=== PATIENT | male | born 1965 | race Caucasian/White ===

== ENCOUNTER 2017-01-25 10:20 | Inpatient (IN) | payer OTHER ==
[2017-01-25] MEDS ORDERED: HYDROmorphone 1 MG/ML 1 ML SYRINGE IVP STA ×2 (10:39→13:00)
[2017-01-25] MEDS ORDERED: ORPHENADRINE 30 MG/ML 2 ML VIAL IVP STA (10:39)
[2017-01-25] MEDS ORDERED: ONDANSETRON 4 MG/2 ML VIAL IVP STA (10:39)
[2017-01-25] MEDS ORDERED: SODIUM CHLORIDE 0.9% 1,000 ML IV STA (10:39)
--- NOTE | 2017-01-25 10:43 | ED ---
Back Pain HPI - General Chief Complaint: Back Pain/Injury Stated Complaint: back pain, sciatica, poss blood clot Time Seen by Provider: 01/25/17 10:34 Source: patient, RN notes reviewed Limitations: no limitations - History of Present Illness Initial Comments: 51-year-old male presents to the emergency Department chief complaint of back pain. Patient states he's been doing with this back pain for a few months now. Patient states he had a recent MRI. Patient states today the pain is now radiating down both legs. Patient states states some lower extremity weakness. Patient denies a loss of bowel or bladder function or any saddle anesthesia with this. Patient denies any falls traumas or injuries. Patient states he also has noticed some yellowing to the eyes. Patient states she's been told in the past that he is an enlarged liver. Patient states that he was concerned due to his symptoms except that he should be seen. Patient denies any recent fever, chills, shortness of breath, chest pain, abdominal pain, nausea vomiting , numbness or tingling, dysuria or hematuria, constipation or diarrhea, headaches or visual changes, or any other current symptoms. - Related Data Home Medications Medication Instructions Recorded Confirmed Albuterol Inhaler [Ventolin Hfa 1 - 2 puff INHALATION RT-Q6H PRN 01/25/17 Inhaler] Budesonide/Formoterol Fumarate 2 puff INHALATION RT-BID 01/25/17 01/25/17 [Symbicort 160-4.5 Mcg Inhaler] Cyclobenzaprine [Flexeril] 5 mg PO HS PRN 01/25/17 01/25/17 Ergocalciferol [Vitamin D2] 50,000 unit PO Q7D 01/25/17 01/25/17 Omeprazole [PriLOSEC] 40 mg PO DAILY 01/25/17 01/25/17 Allergies Allergy/AdvReac Type Severity Reaction Status Date / Time No Known Allergies Allergy Verified 01/25/17 10:46 Review of Systems ROS Statement: Those systems with pertinent positive or pertinent negative responses have been documented in the HPI. ROS Other: All systems not noted in ROS Statement are negative. Past Medical History Past Medical History: COPD Additional Past Medical History / Comment(s): sciatica peptic ulcer enlarged liver possible dvt History of Any Multi-Drug Resistant Organisms: None Reported Additional Past Surgical History / Comment(s): epidural shots Past Psychological History: No Psychological Hx Reported Smoking Status: Current every day smoker Past Alcohol Use History: Rare Past Drug Use History: None Reported General Exam - General Exam Comments Initial Comments: General: The patient is awake and alert, in no distress, and does not appear acutely ill. Eye: Pupils are equal, round and reactive to light, extra-ocular movements are intact; there is normal conjunctiva bilaterally. Jaundice. Ears, nose, mouth and throat: There are moist mucous membranes and no oral lesions. Neck: The neck is supple, there is no tenderness. Cardiovascular: There is a regular rate and rhythm. No murmur, rub or gallop is appreciated. Respiratory: Lungs are clear to auscultation, respirations are non-labored, breath sounds are equal. No wheezes, stridor, rales, or rhonchi. Gastrointestinal: Soft, non-distended, non-tender abdomen without masses or organomegaly noted. There is no rebound or guarding present. No CVA tenderness. Bowel sounds are unremarkable. Back: There is no tenderness to palpation in the midline. There is no obvious deformity. No rashes noted. Musculoskeletal: Normal ROM, no tenderness, There is no pedal edema. There is no calf tenderness or swelling. Sensation intact. Pulses equal bilaterally 2+. Neurological: CN II-XII intact, There are no obvious motor or sensory deficits. Coordination appears grossly intact. Speech is normal. Skin: Skin is warm and dry and no rashes or lesions are noted. Psychiatric: Cooperative, appropriate mood & affect, normal judgment. Limitations: no limitations Course Vital Signs 01/25/17 01/25/17 10:25 11:56 Temperature 98.6 F 97.7 F Pulse Rate 112 H 109 H Respiratory 18 15 Rate Blood Pressure 172/78 170/88 O2 Sat by Pulse 98 95 Oximetry Medical Decision Making - Medical Decision Making 51yo male presents with cc of back pain. Patient is found to be jaundiced on exam as well. At this time lab work is reviewed that does show some concern for liver failure with ultrasound showing concern for cirrhosis. We did an elevated bilirubin as well as L has an elevated INR. Patient is also complaining of back pain and did have an outpatient MRI. This time we will admit the patient to city [facility]. We will continue the patient on fluids. We will continue patient on pain medication. See Dr. was contacted who does agree to the admission. We will consult orthopedics for the patient's intractable back pain. This is discussed with the patient with the plan. We are pending hepatic panel this time which will be followed up with by admitting physician - Lab Data Result diagrams: 01/25/17 11:15 01/25/17 11:15 Lab Results 01/25/17 01/25/17 01/25/17 Range/Units 11:15 11:15 11:15 WBC 6.4 (3.8-10.6) k/uL RBC 3.64 L (4.30-5.90) m/uL Hgb 13.4 (13.0-17.5) gm/dL Hct 38.0 L (39.0-53.0) % MCV 104.5 H (80.0-100.0) fL MCH 36.8 H (25.0-35.0) pg MCHC 35.2 (31.0-37.0) g/dL RDW 16.7 H (11.5-15.5) % Plt Count 51 L (150-450) k/uL Neutrophils % 82 % Lymphocytes % 8 % Monocytes % 8 % Eosinophils % 0 % Basophils % 0 % Neutrophils # 5.3 (1.3-7.7) k/uL Lymphocytes # 0.5 L (1.0-4.8) k/uL Monocytes # 0.5 (0-1.0) k/uL Eosinophils # 0.0 (0-0.7) k/uL Basophils # 0.0 (0-0.2) k/uL Anisocytosis Slight Macrocytosis Moderate PT (9.0-12.0) sec INR (<1.1) APTT (22.0-30.0) sec Sodium 134 L (137-145) mmol/L Potassium 4.0 (3.5-5.1) mmol/L Chloride 97 L (98-107) mmol/L Carbon Dioxide 29 (22-30) mmol/L Anion Gap 8 mmol/L BUN 15 (9-20) mg/dL Creatinine 0.54 L (0.66-1.25) mg/dL Est GFR (MDRD) Af Amer >60 (>60 ml/min/1.73 sqM) Est GFR (MDRD) Non-Af >60 (>60 ml/min/1.73 sqM) Glucose 119 H (74-99) mg/dL Calcium 8.9 (8.4-10.2) mg/dL Phosphorus 2.7 (2.5-4.5) mg/dL Magnesium 1.5 L (1.6-2.3) mg/dL Total Bilirubin 7.3 H (0.2-1.3) mg/dL Conjugated Bilirubin (0.0-0.3) mg/dL Unconjugated Bilirubin (0.0-1.1) mg/dL Delta Bilirubin (0.0-0.2) mg/dL AST 196 H (17-59) U/L ALT 73 H (21-72) U/L Alkaline Phosphatase 146 H (38-126) U/L Ammonia 29 (<30) umol/L Total Protein 7.9 (6.3-8.2) g/dL Albumin 3.4 L (3.5-5.0) g/dL Amylase 91 (30-110) U/L Lipase 266 (23-300) U/L Urine Color Urine Appearance (Clear) Urine pH (5.0-8.0) Ur Specific [place] (1.001-1.035) Urine Protein (Negative) Urine Glucose (UA) (Negative) Urine Ketones (Negative) Urine Blood (Negative) Urine Nitrite (Negative) Urine Bilirubin (Negative) Urine Urobilinogen (<2.0) mg/dL Ur Leukocyte Esterase (Negative) 01/25/17 01/25/17 01/25/17 Range/Units 11:15 11:15 11:15 WBC (3.8-10.6) k/uL RBC (4.30-5.90) m/uL Hgb (13.0-17.5) gm/dL Hct (39.0-53.0) % MCV (80.0-100.0) fL MCH (25.0-35.0) pg MCHC (31.0-37.0) g/dL RDW (11.5-15.5) % Plt Count (150-450) k/uL Neutrophils % % Lymphocytes % % Monocytes % % Eosinophils % % Basophils % % Neutrophils # (1.3-7.7) k/uL Lymphocytes # (1.0-4.8) k/uL Monocytes # (0-1.0) k/uL Eosinophils # (0-0.7) k/uL Basophils # (0-0.2) k/uL Anisocytosis Macrocytosis PT 14.8 H (9.0-12.0) sec INR 1.5 (<1.1) APTT 31.3 H (22.0-30.0) sec Sodium (137-145) mmol/L Potassium (3.5-5.1) mmol/L Chloride (98-107) mmol/L Carbon Dioxide (22-30) mmol/L Anion Gap mmol/L BUN (9-20) mg/dL Creatinine (0.66-1.25) mg/dL Est GFR (MDRD) Af Amer (>60 ml/min/1.73 sqM) Est GFR (MDRD) Non-Af (>60 ml/min/1.73 sqM) Glucose (74-99) mg/dL Calcium (8.4-10.2) mg/dL Phosphorus (2.5-4.5) mg/dL Magnesium (1.6-2.3) mg/dL Total Bilirubin 7.3 H (0.2-1.3) mg/dL Conjugated Bilirubin 2.0 H (0.0-0.3) mg/dL Unconjugated Bilirubin 3.3 H (0.0-1.1) mg/dL Delta Bilirubin 2.0 H (0.0-0.2) mg/dL AST (17-59) U/L ALT (21-72) U/L Alkaline Phosphatase (38-126) U/L Ammonia (<30) umol/L Total Protein (6.3-8.2) g/dL Albumin (3.5-5.0) g/dL Amylase (30-110) U/L Lipase (23-300) U/L Urine Color Light Brown Urine Appearance Clear (Clear) Urine pH 6.5 (5.0-8.0) Ur Specific [place] 1.016 (1.001-1.035) Urine Protein Trace H (Negative) Urine Glucose (UA) Negative (Negative) Urine Ketones Negative (Negative) Urine Blood Negative (Negative) Urine Nitrite Negative (Negative) Urine Bilirubin 1+ H (Negative) Urine Urobilinogen 6.0 (<2.0) mg/dL Ur Leukocyte Esterase Negative (Negative) - Radiology Data Radiology results: report reviewed, image reviewed Disposition Clinical Impression: Ascites, Cirrhosis, Elevated bilirubin, Intractable back pain, Jaundice Disposition: ADMITTED IP TO THIS [facility] Condition: Stable Referrals: Doug Ragsdale MD [Primary Care Provider] - 1-2 days Time of Disposition: 13:02 Decision Date: 01/25/17 Decision Time: 13:02
[2017-01-25 11:43] LABS: Appearance,Urine Clear (Clear); Bilirubin,Urine 1+ (Negative); Glucose,Urine (UA) Negative (Negative); Ketones,Urine Negative (Negative); Leukocyte Esterase,Urine Negative (Negative); Nitrite,Urine Negative (Negative); PH, Urine 6.5 (5.0-8.0); Protein,Urine Trace (Negative); Specific Gravity,Urine 1.016 (1.001-1.035); UA Billing (MACRO vs. MICRO) CHEM
[2017-01-25 11:50] LABS: Anisocytosis Slight; Basophils % (A) 0 %; CHCM 33.7; Eosinophils % (A) 0 %; HDW 1.95; HGB 13.4 gm/dL (13.0-17.5); Luc # (Auto) 0.15; Luc % (Auto) 2; Lymphocytes # (A) 0.5 k/uL (1.0-4.8); Lymphocytes % (A) 8 %; MCH 36.8 pg (25.0-35.0); MCHC 35.2 g/dL (31.0-37.0); MCV 104.5 fL (80.0-100.0); Macrocytosis Moderate; Mean Platelet Volume 9.4; Monocytes # (A) 0.5 k/uL (0-1.0); Monocytes % (A) 8 %; Neutrophils # (A) 5.3 k/uL (1.3-7.7); Neutrophils % (A) 82 %; RBC 3.64 m/uL (4.30-5.90); RDW 16.7 % (11.5-15.5); WBC 6.4 k/uL (3.8-10.6); WBC (Perox) 6.42
[2017-01-25 11:53] LABS: Amylase 91 U/L (30-110); Anion Gap 8 mmol/L; Blood Urea Nitrogen 15 mg/dL (9-20); Calcium 8.9 mg/dL (8.4-10.2); Carbon Dioxide 29 mmol/L (22-30); Chloride 97 mmol/L (98-107); Glucose 119 mg/dL (74-99); Magnesium 1.5 mg/dL (1.6-2.3); Non-African American GFR(MDRD) >60 (>60 ml/min/1.73 sqM); Phosphorous 2.7 mg/dL (2.5-4.5); Sodium 134 mmol/L (137-145); Total Protein 7.9 g/dL (6.3-8.2)
[2017-01-25 12:01] LABS: AST 196 U/L (17-59); Total Bilirubin 7.3 mg/dL (0.2-1.3)
[2017-01-25 12:02] LABS: ALT 73 U/L (21-72); Alkaline Phosphatase 146 U/L (38-126); INR 1.5 (<1.1); Partial Thromboplastin Time 31.3 sec (22.0-30.0); Prothrombin Time 14.8 sec (9.0-12.0)
[2017-01-25 12:24] LABS: Total Bilirubin 7.3 mg/dL (0.2-1.3)
--- NOTE | 2017-01-25 12:53 | US ---
EXAMINATION TYPE: US abdomen limited DATE OF EXAM: 01/25/2017 COMPARISON: NONE CLINICAL HISTORY: RUQ pain. bloated, taut belly, h/o peptic ulcer, back pain EXAM MEASUREMENTS: Liver Length: 14.7 cm Gallbladder Wall: 0.4 cm CBD: 0.5 cm Right Kidney: 11.1 x 67.0 x 6.4 cm Pancreas: not well delineated Liver: Increased attenuation; fluid surrounding liver Gallbladder: Thick walled, dilated ( 14cm) gallblader with no stones Evidence for sonographic Elena's sign: pain all over CBD: wnl Right Kidney: No hydronephrosis or masses seen IMPRESSION: 1. Coarse echo appearance slightly lobulated contour may reflect underlying hepatocellular disease an d possibly cirrhosis. Correlate clinically. 2. Ascites. 3. Gallbladder hydrops of uncertain etiology.
--- NOTE | 2017-01-25 13:01 | XR ---
EXAMINATION TYPE: XR abdomen 2V DATE OF EXAM: 01/25/2017 COMPARISON: NONE HISTORY: Pain TECHNIQUE: Supine and upright images of the abdomen obtained FINDINGS: Small bowel demonstrates no evidence for dilatation or air fluid levels. Gas and fecal material is seen in non-distended colon. No convincing evidence for pneumoperitoneum. No unusual calcifications. The lung bases are clear. The osseous structures are intact. IMPRESSION: 1. Overall nonobstructive bowel gas pattern.
[2017-01-25] MEDS ORDERED: NALOXONE 0.4 MG/ML 1 ML VIAL IV PRN (13:02)
[2017-01-25] MEDS ORDERED: HYDROmorphone 1 MG/ML 1 ML SYRINGE IV PRN (13:02)
[2017-01-25] MEDS ORDERED: ALBUTEROL NEBULIZED 2.5 MG/3 ML INHALATION PRN (13:05)
[2017-01-25 13:08] LABS: Hepatitis B Surface Ag Index 0.07
[2017-01-25 13:13] LABS: Hepatitis B Core IgM Index 0.09
[2017-01-25] MEDS ORDERED: ERGOCALCIFEROL 50,000 UNIT CAP PO SCH (13:15)
[2017-01-25 13:20] LABS: Acetaminophen <10.0 ug/mL; Cholesterol 177 mg/dL (<200); HDL Cholesterol 31 mg/dL (40-60); Salicylate <1.0 mg/dL; Triglycerides 90 mg/dL (<150)
[2017-01-25 13:25] LABS: Hepatitis C Virus IgG Ab Reactive (Negative)
[2017-01-25] MEDS: SODIUM CHLORIDE 0.9% 1,000 ML IV SCH (16:20)
--- NOTE | 2017-01-25 16:54 | XR ---
EXAMINATION TYPE: XR chest 1V portable DATE OF EXAM: 01/25/2017 CLINICAL HISTORY: Shortness of breath TECHNIQUE: Single frontal view of the chest is obtained. COMPARISON: None FINDINGS: There is no focal air space opacity, pleural effusion, or pneumothorax seen. The cardiac silhouette size is within normal limits. The osseous structures are intact. IMPRESSION: No acute process.
[2017-01-25] MEDS: HYDROmorphone 1 MG/ML 1 ML SYRINGE IV PRN ×2 (17:41→22:17)
[2017-01-25] MEDS: SYMBICORT 160-4.5 MCG INHALER INHALATION SCH (19:42)
[2017-01-25] MEDS: CYCLOBENZAPRINE 5 MG TAB PO PRN (23:29)
[2017-01-25] MEDS ORDERED: CALAMINE/ZINC OXIDE LOTION 177 ML BTL TOPICAL PRN (23:49)
[2017-01-26] MEDS: HYDROmorphone 1 MG/ML 1 ML SYRINGE IV PRN ×6 (02:30→21:53)
[2017-01-26] MEDS: SODIUM CHLORIDE 0.9% 1,000 ML IV SCH ×2 (05:45→15:47)
[2017-01-26] MEDS: SYMBICORT 160-4.5 MCG INHALER INHALATION SCH ×2 (07:32→19:05)
[2017-01-26 07:35] LABS: Anisocytosis Slight; Basophils % (A) 0 %; CH 34.4; CHCM 32.5; Eosinophils # (A) 0.1 k/uL (0-0.7); Eosinophils % (A) 2 %; HCT 35.7 % (39.0-53.0); HDW 1.92; HGB 12.1 gm/dL (13.0-17.5); Luc # (Auto) 0.14; Luc % (Auto) 3; Lymphocytes % (A) 17 %; MCH 36.2 pg (25.0-35.0); MCV 106.5 fL (80.0-100.0); Macrocytosis Marked; Mean Platelet Volume 8.8; Monocytes # (A) 0.5 k/uL (0-1.0); Monocytes % (A) 8 %; Neutrophils # (A) 3.9 k/uL (1.3-7.7); Neutrophils % (A) 70 %; RBC 3.35 m/uL (4.30-5.90); RDW 16.6 % (11.5-15.5); WBC 5.6 k/uL (3.8-10.6); WBC (Perox) 5.64
[2017-01-26 07:41] LABS: INR 1.5 (<1.1)
[2017-01-26 07:42] LABS: Prothrombin Time 14.9 sec (9.0-12.0)
[2017-01-26] MEDS: LORazepam 2 MG/ML SYRINGE IV PRN ×2 (07:52→20:40)
[2017-01-26 07:53] LABS: ALT 55 U/L (21-72); AST 145 U/L (17-59); Alkaline Phosphatase 138 U/L (38-126); Amylase 88 U/L (30-110); Anion Gap 9 mmol/L; Blood Urea Nitrogen 16 mg/dL (9-20); Calcium 8.4 mg/dL (8.4-10.2); Carbon Dioxide 28 mmol/L (22-30); Chloride 100 mmol/L (98-107); Glucose 98 mg/dL (74-99); Magnesium 1.5 mg/dL (1.6-2.3); Non-African American GFR(MDRD) >60 (>60 ml/min/1.73 sqM); Phosphorous 2.7 mg/dL (2.5-4.5); Potassium 3.5 mmol/L (3.5-5.1); Sodium 137 mmol/L (137-145); Total Bilirubin 6.2 mg/dL (0.2-1.3); Total Protein 7.1 g/dL (6.3-8.2)
[2017-01-26] MEDS: PANTOPRAZOLE 40 MG TABLET PO SCH (08:11)
[2017-01-26] MEDS ORDERED: methylPREDNISolone SOD SUCCI 125 MG/2 ML VIAL IV SCH (09:30)
--- NOTE | 2017-01-26 09:35 | P.CNOR ---
History of Present Illness - [facility] Consult date: 01/26/17 Consult reason: low back pain History of present illness: This is a 51-year-old male who presented to the emergency department with bilateral lower extremity cellulitis as well as acute on chronic low back pain. The patient has history of cirrhosis of the liver. He has history of chronic low back pain. He has been seen by our cns in 2015 and has had multiple epidural steroid injections in the past. He has not followed up with Dr. Street recently. He states that his back pain has become progressively worse over the past 6 months. He initially states that he is unable to walk. However, with further questioning he is able to ambulate to the bathroom with assistance. We're consulted for ortho spine evaluation. Past Medical History Past Medical History: COPD, Deep Vein Thrombosis (DVT), GERD/Reflux Additional Past Medical History / Comment(s): Pt states his abdomin has been getting larger over the past year or two but he thought he was just gaining wt, pt states lumbar pain chronic but now goes down bilateral legs and legs feel weak, Pt was to have EGD/colonoscopy 02/10/17 and an ortho consult for his back pain on 02/17/17. Other hx: chronic back pain, peptic ulcer pt states recently diagnosed, enlarged liver recently diagnosed, possible dvt R leg told this yesterday. History of Any Multi-Drug Resistant Organisms: None Reported Past Surgical History: Tonsillectomy Additional Past Surgical History / Comment(s): Lower epidural back injections Past Anesthesia/Blood Transfusion Reactions: No Reported Reaction Smoking Status: Current every day smoker - Past Family History Mother Family Medical History: Cancer, Congestive Heart Failure (CHF), Osteoarthritis ( OA) Additional Family Medical History / Comment(s): Mother is 83 yrs old. She has had breast cancer. Father Additional Family Medical History / Comment(s): Father is an alcoholic-pt does not know him well. Medications and Allergies Home Medications Medication Instructions Recorded Confirmed Type Albuterol Inhaler [Ventolin Hfa 1 - 2 puff INHALATION RT-Q6H PRN 01/25/17 History Inhaler] Budesonide/Formoterol Fumarate 2 puff INHALATION RT-BID 01/25/17 01/25/17 History [Symbicort 160-4.5 Mcg Inhaler] Cyclobenzaprine [Flexeril] 5 mg PO HS PRN 01/25/17 01/25/17 History Ergocalciferol [Vitamin D2] 50,000 unit PO Q7D 01/25/17 01/25/17 History Omeprazole [PriLOSEC] 40 mg PO DAILY 01/25/17 01/25/17 History Allergies Allergy/AdvReac Type Severity Reaction Status Date / Time No Known Allergies Allergy Verified 01/25/17 10:46 Physical Examination This is a pleasant 51-year-old male in no acute distress. He is alert and oriented 3. Exam of the head neck reveal no obvious deformities. He has full cervical spine motion without difficulty or pain. Exam of the abdomen and pelvis reveals some abdominal distention. The abdomen is nontender with palpation. There is no pain with palpation of the pelvis. No pain with compression of the pelvis. Exam the low back reveals no obvious deformity. There is minimal tenderness to palpation about the lower lumbar spine. Exam the lower extremities reveals a topical cream about the lower legs. There is minimal erythema noted. There are no open wounds noted. He is able to lift each leg off the bed independently but has difficulty sustaining the leg elevation. He has no hip pain with logroll. He has full foot ankle motion with 3/5 strength with dorsiflexion against resistance bilaterally. The patient is able to sustain dorsiflexion against resistance for about 2 seconds bilaterally. He has normal and equal sensation to both feet. Pedal pulses +2/ 4 bilaterally. Results - Labs Labs: Abnormal Lab Results - Last 24 Hours (Table) 01/25/17 01/25/17 01/25/17 Range/Units 11:15 11:15 11:15 RBC 3.64 L (4.30-5.90) m/uL Hgb (13.0-17.5) gm/dL Hct 38.0 L (39.0-53.0) % MCV 104.5 H (80.0-100.0) fL MCH 36.8 H (25.0-35.0) pg RDW 16.7 H (11.5-15.5) % Plt Count 51 L (150-450) k/uL Lymphocytes # 0.5 L (1.0-4.8) k/uL PT 14.8 H (9.0-12.0) sec APTT 31.3 H (22.0-30.0) sec Sodium 134 L (137-145) mmol/L Chloride 97 L (98-107) mmol/L Creatinine 0.54 L (0.66-1.25) mg/dL Glucose 119 H (74-99) mg/dL Magnesium 1.5 L (1.6-2.3) mg/dL Total Bilirubin 7.3 H (0.2-1.3) mg/dL Conjugated Bilirubin (0.0-0.3) mg/dL Unconjugated Bilirubin (0.0-1.1) mg/dL Delta Bilirubin (0.0-0.2) mg/dL AST 196 H (17-59) U/L ALT 73 H (21-72) U/L Alkaline Phosphatase 146 H (38-126) U/L Albumin 3.4 L (3.5-5.0) g/dL LDL Cholesterol, Calc (0-99) mg/dL HDL Cholesterol (40-60) mg/dL Lipase (23-300) U/L Urine Protein (Negative) Urine Bilirubin (Negative) 01/25/17 01/25/17 01/25/17 Range/Units 11:15 11:15 11:15 RBC (4.30-5.90) m/uL Hgb (13.0-17.5) gm/dL Hct (39.0-53.0) % MCV (80.0-100.0) fL MCH (25.0-35.0) pg RDW (11.5-15.5) % Plt Count (150-450) k/uL Lymphocytes # (1.0-4.8) k/uL PT (9.0-12.0) sec APTT (22.0-30.0) sec Sodium (137-145) mmol/L Chloride (98-107) mmol/L Creatinine (0.66-1.25) mg/dL Glucose (74-99) mg/dL Magnesium (1.6-2.3) mg/dL Total Bilirubin 7.3 H (0.2-1.3) mg/dL Conjugated Bilirubin 2.0 H (0.0-0.3) mg/dL Unconjugated Bilirubin 3.3 H (0.0-1.1) mg/dL Delta Bilirubin 2.0 H (0.0-0.2) mg/dL AST (17-59) U/L ALT (21-72) U/L Alkaline Phosphatase (38-126) U/L Albumin (3.5-5.0) g/dL LDL Cholesterol, Calc 128 H (0-99) mg/dL HDL Cholesterol 31 L (40-60) mg/dL Lipase (23-300) U/L Urine Protein Trace H (Negative) Urine Bilirubin 1+ H (Negative) 01/26/17 01/26/17 01/26/17 Range/Units 07:10 07:10 07:10 RBC 3.35 L (4.30-5.90) m/uL Hgb 12.1 L (13.0-17.5) gm/dL Hct 35.7 L (39.0-53.0) % MCV 106.5 H (80.0-100.0) fL MCH 36.2 H (25.0-35.0) pg RDW 16.6 H (11.5-15.5) % Plt Count 53 L (150-450) k/uL Lymphocytes # (1.0-4.8) k/uL PT 14.9 H (9.0-12.0) sec APTT (22.0-30.0) sec Sodium (137-145) mmol/L Chloride (98-107) mmol/L Creatinine 0.61 L (0.66-1.25) mg/dL Glucose (74-99) mg/dL Magnesium 1.5 L (1.6-2.3) mg/dL Total Bilirubin 6.2 H (0.2-1.3) mg/dL Conjugated Bilirubin (0.0-0.3) mg/dL Unconjugated Bilirubin (0.0-1.1) mg/dL Delta Bilirubin (0.0-0.2) mg/dL AST 145 H (17-59) U/L ALT (21-72) U/L Alkaline Phosphatase 138 H (38-126) U/L Albumin 3.0 L (3.5-5.0) g/dL LDL Cholesterol, Calc (0-99) mg/dL HDL Cholesterol (40-60) mg/dL Lipase 327 H (23-300) U/L Urine Protein (Negative) Urine Bilirubin (Negative) H & H 01/25/17 01/26/17 Range/Units 11:15 07:10 Hgb 13.4 12.1 L (13.0-17.5) gm/dL Hct 38.0 L 35.7 L (39.0-53.0) % Coagulation 01/25/17 01/26/17 Range/Units 11:15 07:10 INR 1.5 1.5 (<1.1) Result Diagrams: 01/26/17 07:10 01/26/17 07:10 Assessment and Plan (1) Ascites Status: Acute (2) Cirrhosis Status: Acute (3) Intractable back pain Status: Acute Plan: The clinical findings are discussed the patient. He does have an MRI on disc which will be loaded onto synapse. I have discussed the case with Dr. Kwan who agrees with slight Medrol 60 mg every 8 hours 3 doses. I will consult pain management for evaluation for possible epidural steroid injection. We'll continue to follow and await recommendations by pain management.
--- NOTE | 2017-01-26 11:08 | P.CONS ---
History of Present Illness - Reason for Consult Consult date: 01/26/17 Elevated bilirubin Requesting physician: Hansel Duran - History of Present Illness 51-year-old male PMH COPD, GERD, DVT, remote IVDA cocaine, anxiety, nicotine cigarette dependency admitted with back pain radiating down to his legs. Consultation requested for elevated bilirubin. He states he had a recent outpatient MRI of his back that showed a bulging disc. Admission white count 6.4. Hemoglobin 13.4. MCV 104. Platelet 51,000. INR 1.5. Total bilirubin 7.3. Conjugated 2. Unconjugated 3.3. AST 196. ALT 73. Alkaline phosphates 146. Ammonia 29. Hepatitis C IgG antibody reactive. Hepatitis A/B negative. Drinks 2-3 times a week whiskey has been for several years. Denies heavy alcohol intake. No recent IVDA. Use cocaine once 18 years of age. Darker colored urine over the last few weeks. No changes in the color of his stool. Denies hematemesis hematochezia melena. Increased abdominal girth over the last several months. Increased skin itching. Ultrasound abdomen course echo appearance lobulated contour of liver possible cirrhosis. Ascites. CBD 0.5 cm. Gallbladder wall 0.4 cm. No gallstones. Review of Systems Constitutional: Denies fever, chills, sweats, weight gain, or loss. HEENT: Negative for migraines, blurred vision or loss, earaches, drainage, tinnitus, oral mucosal lesions, dysphagia, or odynophagia. CARDIAC: Negative for chest pain, arrhythmias, or palpitation. RESPIRATORY: COPD. Cigarette dependency. Negative for shortness of breath, hemoptysis, cough, or sputum production. GI: See HPI for pertinent findings. : Negative for hematuria, urgency, frequency, polyuria, or dysuria. GYNc: Denies possibility of . Negative vaginal discharge. MUSCULOSKELETAL: Chronic back pain. Negative for muscle aches, swelling, arthritis, and arthralgias. NEUROLOGIC: Negative for stroke or TIA. ENDOCRINE: Negative for thyroid problems. Hematologic: History of DVT. SKIN: Negative for rash or itching. PSYCHIATRIC: History of anxiety. All systems: negative (See HPI) Past Medical History Past Medical History: COPD, Deep Vein Thrombosis (DVT), GERD/Reflux Additional Past Medical History / Comment(s): Pt states his abdomin has been getting larger over the past year or two but he thought he was just gaining wt, pt states lumbar pain chronic but now goes down bilateral legs and legs feel weak, Pt was to have EGD/colonoscopy 02/10/17 and an ortho consult for his back pain on 02/17/17. Other hx: chronic back pain, peptic ulcer pt states recently diagnosed, enlarged liver recently diagnosed, possible dvt R leg told this yesterday. History of Any Multi-Drug Resistant Organisms: None Reported Past Surgical History: Tonsillectomy Additional Past Surgical History / Comment(s): Lower epidural back injections Past Anesthesia/Blood Transfusion Reactions: No Reported Reaction Smoking Status: Current every day smoker - Past Family History Mother Family Medical History: Cancer, Congestive Heart Failure (CHF), Osteoarthritis ( OA) Additional Family Medical History / Comment(s): Mother is 83 yrs old. She has had breast cancer. Father Additional Family Medical History / Comment(s): Father is an alcoholic-pt does not know him well. Medications and Allergies Home Medications Medication Instructions Recorded Confirmed Type Albuterol Inhaler [Ventolin Hfa 1 - 2 puff INHALATION RT-Q6H PRN 01/25/17 History Inhaler] Budesonide/Formoterol Fumarate 2 puff INHALATION RT-BID 01/25/17 01/25/17 History [Symbicort 160-4.5 Mcg Inhaler] Cyclobenzaprine [Flexeril] 5 mg PO HS PRN 01/25/17 01/25/17 History Ergocalciferol [Vitamin D2] 50,000 unit PO Q7D 01/25/17 01/25/17 History Omeprazole [PriLOSEC] 40 mg PO DAILY 01/25/17 01/25/17 History Allergies Allergy/AdvReac Type Severity Reaction Status Date / Time No Known Allergies Allergy Verified 01/25/17 10:46 Physical Exam Vitals: Vital Signs Temp Pulse Pulse Pulse Resp BP BP 01/26/17 00:00 78 17 01/25/17 22:46 97.8 F 106 H 17 147/63 01/25/17 16:00 66 18 01/25/17 15:00 98.5 F 66 18 01/25/17 13:28 98 20 170/82 01/25/17 11:56 97.7 F 109 H 15 170/88 01/25/17 10:25 98.6 F 112 H 18 172/78 BP Pulse Ox 01/26/17 00:00 01/25/17 22:46 92 L 01/25/17 16:00 01/25/17 15:00 155/87 94 L 01/25/17 13:28 96 01/25/17 11:56 95 01/25/17 10:25 98 Intake and Output 01/25/17 01/26/17 01/26/17 22:59 06:59 14:59 Other: Voiding Method Toilet Toilet # Voids 1 1 Weight 106.594 kg General appearance: The patient is alert, oriented, in no acute distress. Visibly jaundice HET: Head is normocephalic and atraumatic. Pupils are equal and reactive. Sclerae icterus Oropharynx is clear without lesions. Neck: Supple without lymphadenopathy. Trachea midline. Heart: S1 S2. Regular rate and rhythm. Lungs: No crackles or wheezes are heard. Abdomen: Soft, nontender, mildly distended with ascites normal bowel sounds. No peritoneal signs. No palpable organomegaly or masses. Extremities: bilateral lower extremity skin dryness itching flaking skin with application of creams. Neurological: No focal deficits. Strength and sensation are grossly intact. Results CBC & Chem 7: 01/26/17 07:10 01/26/17 07:10 Labs: Abnormal Lab Results - Last 24 Hours (Table) 01/25/17 01/25/17 01/25/17 Range/Units 11:15 11:15 11:15 RBC 3.64 L (4.30-5.90) m/uL Hgb (13.0-17.5) gm/dL Hct 38.0 L (39.0-53.0) % MCV 104.5 H (80.0-100.0) fL MCH 36.8 H (25.0-35.0) pg RDW 16.7 H (11.5-15.5) % Plt Count 51 L (150-450) k/uL Lymphocytes # 0.5 L (1.0-4.8) k/uL PT 14.8 H (9.0-12.0) sec APTT 31.3 H (22.0-30.0) sec Sodium 134 L (137-145) mmol/L Chloride 97 L (98-107) mmol/L Creatinine 0.54 L (0.66-1.25) mg/dL Glucose 119 H (74-99) mg/dL Magnesium 1.5 L (1.6-2.3) mg/dL Total Bilirubin 7.3 H (0.2-1.3) mg/dL Conjugated Bilirubin (0.0-0.3) mg/dL Unconjugated Bilirubin (0.0-1.1) mg/dL Delta Bilirubin (0.0-0.2) mg/dL AST 196 H (17-59) U/L ALT 73 H (21-72) U/L Alkaline Phosphatase 146 H (38-126) U/L Albumin 3.4 L (3.5-5.0) g/dL LDL Cholesterol, Calc (0-99) mg/dL HDL Cholesterol (40-60) mg/dL Urine Protein (Negative) Urine Bilirubin (Negative) 01/25/17 01/25/17 01/25/17 Range/Units 11:15 11:15 11:15 RBC (4.30-5.90) m/uL Hgb (13.0-17.5) gm/dL Hct (39.0-53.0) % MCV (80.0-100.0) fL MCH (25.0-35.0) pg RDW (11.5-15.5) % Plt Count (150-450) k/uL Lymphocytes # (1.0-4.8) k/uL PT (9.0-12.0) sec APTT (22.0-30.0) sec Sodium (137-145) mmol/L Chloride (98-107) mmol/L Creatinine (0.66-1.25) mg/dL Glucose (74-99) mg/dL Magnesium (1.6-2.3) mg/dL Total Bilirubin 7.3 H (0.2-1.3) mg/dL Conjugated Bilirubin 2.0 H (0.0-0.3) mg/dL Unconjugated Bilirubin 3.3 H (0.0-1.1) mg/dL Delta Bilirubin 2.0 H (0.0-0.2) mg/dL AST (17-59) U/L ALT (21-72) U/L Alkaline Phosphatase (38-126) U/L Albumin (3.5-5.0) g/dL LDL Cholesterol, Calc 128 H (0-99) mg/dL HDL Cholesterol 31 L (40-60) mg/dL Urine Protein Trace H (Negative) Urine Bilirubin 1+ H (Negative) 01/26/17 01/26/17 Range/Units 07:10 07:10 RBC 3.35 L (4.30-5.90) m/uL Hgb 12.1 L (13.0-17.5) gm/dL Hct 35.7 L (39.0-53.0) % MCV 106.5 H (80.0-100.0) fL MCH 36.2 H (25.0-35.0) pg RDW 16.6 H (11.5-15.5) % Plt Count 53 L (150-450) k/uL Lymphocytes # (1.0-4.8) k/uL PT 14.9 H (9.0-12.0) sec APTT (22.0-30.0) sec Sodium (137-145) mmol/L Chloride (98-107) mmol/L Creatinine (0.66-1.25) mg/dL Glucose (74-99) mg/dL Magnesium (1.6-2.3) mg/dL Total Bilirubin (0.2-1.3) mg/dL Conjugated Bilirubin (0.0-0.3) mg/dL Unconjugated Bilirubin (0.0-1.1) mg/dL Delta Bilirubin (0.0-0.2) mg/dL AST (17-59) U/L ALT (21-72) U/L Alkaline Phosphatase (38-126) U/L Albumin (3.5-5.0) g/dL LDL Cholesterol, Calc (0-99) mg/dL HDL Cholesterol (40-60) mg/dL Urine Protein (Negative) Urine Bilirubin (Negative) US - abdomen: report reviewed (Dr. 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 We'll obtain additional serologic workup for chronic liver disease and hepatitis C testing. AFP. Repeat ultrasound if moderate to large amount of ascites is identified start Low-dose diuretics for management of ascites Lasix 40 mg daily, Aldactone 50 mg daily. Paracentesis can be performed inpatient if repeat ultrasound shows moderate to large amount of ascites. If minimal ascites would recommend follow up in GI office in 1-2 weeks after discharge for reevaluation. Discussion of outpatient paracentesis can be held at that time. Alcohol abstinence strongly advised. We'll follow with you. Thank you for this kind referral and the opportunity to participate in the care of your patient. This consultation was discussed with Dr. Araujo. The impression and plan of care have been directed as dictated.
--- NOTE | 2017-01-26 12:19 | US ---
EXAMINATION TYPE: US abdomen limited DATE OF EXAM: 01/26/2017 COMPARISON: 01/25/2017. CLINICAL HISTORY: 51-year-old male ascites measurement. Patient with hep C and alcoholic cirrhosis. TECHNIQUE: Multiple sonographic images of the 4 dominant quadrants for assessment of ascites. FINDINGS: There is a small pocket of ascites fluid measuring 2.3 cm deep in the right lower quadrant. There may be trace ascites in the left lower quadrant. Mild perihepatic ascites was noted on the 01/25/2017 jorge koch. IMPRESSION: Very mild abdominal ascites.
[2017-01-26] MEDS: MULTIVITAMINS, THERA 1 EACH TAB PO SCH (13:58)
[2017-01-26] MEDS: THIAMINE 100 MG TAB PO SCH (13:58)
[2017-01-26] MEDS: FOLIC ACID 1 MG TAB PO SCH (13:58)
[2017-01-26 14:18] VITALS: BMI 34.7
[2017-01-26 15:52] LABS: % Iron Saturation 58.7 % (20-50)
[2017-01-26] MEDS: CYCLOBENZAPRINE 5 MG TAB PO PRN (22:56)
[2017-01-26] MEDS: methylPREDNISolone SOD SUCCI 125 MG/2 ML VIAL IV SCH (23:01)
[2017-01-27] MEDS: HYDROmorphone 1 MG/ML 1 ML SYRINGE IV PRN ×7 (01:37→23:50)
[2017-01-27 02:25] LABS: ANA w/Reflex to Titer NEGATIVE (NEGATIVE)
[2017-01-27] MEDS: SODIUM CHLORIDE 0.9% 1,000 ML IV SCH ×2 (05:06→20:04)
[2017-01-27] MEDS: SYMBICORT 160-4.5 MCG INHALER INHALATION SCH ×2 (07:07→20:21)
[2017-01-27 07:56] LABS: Anisocytosis Slight; Basophils % (A) 0 %; CH 35.5; CHCM 32.7; Eosinophils % (A) 0 %; HCT 38.3 % (39.0-53.0); HDW 1.89; HGB 12.3 gm/dL (13.0-17.5); Luc # (Auto) 0.05; Luc % (Auto) 1; Lymphocytes # (A) 0.4 k/uL (1.0-4.8); Lymphocytes % (A) 5 %; MCHC 32.1 g/dL (31.0-37.0); MCV 109.2 fL (80.0-100.0); Macrocytosis Marked; Mean Platelet Volume 9.7; Monocytes # (A) 0.2 k/uL (0-1.0); Monocytes % (A) 3 %; Neutrophils # (A) 7.1 k/uL (1.3-7.7); Neutrophils % (A) 91 %; RBC 3.51 m/uL (4.30-5.90); RDW 16.8 % (11.5-15.5); WBC 7.8 k/uL (3.8-10.6); WBC (Perox) 8.09
[2017-01-27 08:13] LABS: INR 1.6 (<1.1); Prothrombin Time 15.3 sec (9.0-12.0)
[2017-01-27 08:16] LABS: ALT 64 U/L (21-72); AST 122 U/L (17-59); Alkaline Phosphatase 142 U/L (38-126); Anion Gap 9 mmol/L; Blood Urea Nitrogen 17 mg/dL (9-20); Calcium 8.7 mg/dL (8.4-10.2); Carbon Dioxide 26 mmol/L (22-30); Chloride 102 mmol/L (98-107); Glucose 140 mg/dL (74-99); Non-African American GFR(MDRD) >60 (>60 ml/min/1.73 sqM); Potassium 4.2 mmol/L (3.5-5.1); Sodium 137 mmol/L (137-145); Total Bilirubin 4.8 mg/dL (0.2-1.3); Total Protein 7.2 g/dL (6.3-8.2)
[2017-01-27] MEDS: PANTOPRAZOLE 40 MG TABLET PO SCH (08:29)
[2017-01-27] MEDS: methylPREDNISolone SOD SUCCI 125 MG/2 ML VIAL IV SCH (08:29)
--- NOTE | 2017-01-27 10:10 | P.PN ---
Subjective Principal diagnosis: Lumbar disc herniation L4 5 Lumbar radiculopathy Ascites This is a 51-year-old gentleman admitted to [facility] with multiple medical comorbidities. He currently is having problems with his liver function and has developed ascites. He complains of low back pain. Pain management consult was ordered yesterday. He has not yet been seen by pain management. He continues to be able to ambulate to the bathroom with assistance. He states that his pain is very slightly improved with the Solu Medrol. Objective - Vital Signs Vital signs: Vital Signs Temp 97.9 F 01/27/17 07:00 Pulse 101 H 01/27/17 08:00 Resp 20 01/27/17 07:00 BP 151/78 01/27/17 07:00 Pulse Ox 94 L 01/27/17 07:00 Intake & Output 01/26/17 01/27/17 01/27/17 18:59 06:59 18:59 Intake Total 640 1220 Balance 640 1220 Weight 106.594 kg 106.594 kg Intake: IV 80 Sodium Chloride 0.9% 1, 80 000 ml @ 80 mls/hr IV . [id number] ADAMARIS Rx#:[id number] Intake, IV Titration 160 Amount Sodium Chloride 0.9% 1, 160 000 ml @ 80 mls/hr IV . [id number] ADAMARIS Rx#:[id number] Oral 480 1140 Other: Voiding Method Toilet Toilet Toilet # Voids 1 2 - Exam This is a pleasant 57-year-old male in no acute distress. He is alert and oriented 3. His abdomen is distended. Exam of the lower extremities is unchanged. He has full foot ankle motion with decreased strength with dorsiflexion of the great toe against resistance. Pedal pulses +2/4. - Labs CBC & Chem 7: 01/27/17 07:33 01/27/17 07:33 Labs: Abnormal Lab Results - Last 24 Hours (Table) 01/25/17 01/26/17 01/26/17 Range/Units 11:15 07:10 07:10 RBC (4.30-5.90) m/uL Hgb (13.0-17.5) gm/dL Hct (39.0-53.0) % MCV (80.0-100.0) fL RDW (11.5-15.5) % Plt Count (150-450) k/uL Lymphocytes # (1.0-4.8) k/uL PT (9.0-12.0) sec Creatinine (0.66-1.25) mg/dL Glucose (74-99) mg/dL TIBC 218 L (261-462) ug/dL % Saturation 58.7 H (20-50) % Total Bilirubin (0.2-1.3) mg/dL AST (17-59) U/L Alkaline Phosphatase (38-126) U/L Albumin (3.5-5.0) g/dL [id number] 255.0 H (99.0-242.0) mg/dL Anti-Mitochondrial Ab 25.8 H (<=20) UNITS Anti-Smooth Muscle Ab 26 H (<20) UNITS 01/27/17 01/27/17 01/27/17 Range/Units 07:33 07:33 07:33 RBC 3.51 L (4.30-5.90) m/uL Hgb 12.3 L (13.0-17.5) gm/dL Hct 38.3 L (39.0-53.0) % MCV 109.2 H (80.0-100.0) fL RDW 16.8 H (11.5-15.5) % Plt Count 56 L (150-450) k/uL Lymphocytes # 0.4 L (1.0-4.8) k/uL PT 15.3 H (9.0-12.0) sec Creatinine 0.58 L (0.66-1.25) mg/dL Glucose 140 H (74-99) mg/dL TIBC (261-462) ug/dL % Saturation (20-50) % Total Bilirubin 4.8 H (0.2-1.3) mg/dL AST 122 H (17-59) U/L Alkaline Phosphatase 142 H (38-126) U/L Albumin 3.1 L (3.5-5.0) g/dL [id number] (99.0-242.0) mg/dL Anti-Mitochondrial Ab (<=20) UNITS Anti-Smooth Muscle Ab (<20) UNITS Microbiology - Last 24 Hours (Table) 01/25/17 11:15 Blood Culture - Preliminary Blood No Growth after 24 hours Assessment and Plan (1) Ascites Status: Acute (2) Cirrhosis Status: Acute (3) Intractable back pain Status: Acute (4) Lumbar disc herniation with radiculopathy Status: Acute Plan: The clinical findings are discussed the patient. We discussed the natural history of lumbar herniation. The patient is currently a poor candidate for any surgical intervention. We're waiting consultation with pain management. Further recommendations are forthcoming. Continue current care and encourage ambulation.
[2017-01-27] MEDS: FOLIC ACID 1 MG TAB PO SCH (12:06)
[2017-01-27] MEDS: MULTIVITAMINS, THERA 1 EACH TAB PO SCH (12:06)
[2017-01-27] MEDS: THIAMINE 100 MG TAB PO SCH (12:06)
--- NOTE | 2017-01-27 17:34 | P.PN ---
Progress Note - Text Patient is a very pleasant 51-year-old male who is examined bedside for further evaluation for his ongoing low back pain and right lower extremity radiculopathy. Patient has been being seen and examined by Precious Strickland PA-C. A recent MRI was loaded into [facility] yesterday for his lumbar spine. These images were able to be reviewed prior to examination of the patient today. Patient states he has had ongoing low back pain with right lower extremity radiculopathy over the past 6 months that has been worsening. He is having difficulty ambulating due to his pain. He states he has pain that radiates from the lumbar spine, down the right posterior lateral thigh and into the right calf. He states recently he started experiencing the same symptoms in the left lower extremity. He denies any recent falls, accidents or injuries. He did undergo epidural injections previously with Dr. Street at [facility] in 2015. At this time, he feels his symptoms are quite significant and he's have difficulty with regular activities of daily living given his symptoms. He feels that if surgical intervention would be an option for him he would like to discuss the possibility of proceeding forward with surgical intervention. He is known have liver disease with cirrhosis, elevated liver enzymes, ascites, and jaundice. He continues to be seen and examined by Dr. Araujo in gastroenterology. Patient states he completed a small five-day course of steroid without significant relief of his symptoms. He has been on some IV Solu-Medrol while in the hospital and states has provided some improvement of his right lower extremity pain. He does admit to difficulty with certain pain medications as he is unable to have acetaminophen given his difficulties with his liver. He also has some difficulty with anti- inflammatories due to his stomach. He states he was taken omeprazole while on the small steroid taper for some protection of his stomach. Physical exam: Patient is awake, alert, and oriented 3 Vital signs stable Eyes appear jaundice Good chest excursion with deep inspiration and expiration Abdomen soft nontender Examination of lumbar spine reveals skin is intact with no abrasions, lacerations, or bruises; no erythema, purulence or signs of infection Evidence of a small healing wound on the right lateral lumbar spine Evidence of plaque appearing skin changes along the lateral lumbar spine bilaterally Dorsiflexion, plantarflexion, and extensor hallucis longus positive sustained bilaterally Patient is able to lift legs independently off the bed bilaterally but has some difficulty with right lower extremity Patellar reflex 2+ bilaterally No lower extremity hyperreflexia bilaterally No signs or symptoms of DVT; no calf pain No pain with internal and external rotation of the hips bilaterally Neurovascularly intact Evidence of skin changes of the bilateral feet and toes Pertinent studies: MRI of lumbar spine: L4-5 right central and paracentral herniated nucleus pulposus resulting in central canal stenosis and right foraminal stenosis; L5- S1 central disc bulging with some indention of the anterior thecal sac; No evidence of vertebral body compression fracture Assessment: Low back pain Right lower extremity radiculopathy L4-5 right central and paracentral herniated nucleus pulposus L4-5 Central canal stenosis and right foraminal stenosis Cirrhosis of the liver with ascites, elevated liver enzymes, and jaundice Plan: 1. After further examination the patient, discussion with the patient, and review of imaging, we will currently planned to try to continue with some conservative treatment and control of his symptoms. At this time, patient would like to try to proceed forward surgical intervention in regards to his lumbar spine. We discussed in detail the difficulty he may have in obtaining surgical clearance given his significant medical diagnoses most specifc to his liver. At this time, we will not plan for acute surgical intervention in regards to his lumbar spine. He will be given a prescription for a prednisone taper. He should take this taper until completion. We will also be given a prescription for Pepcid 20 mg which he may take 1 tab twice a day for prophylaxis control for stomach. He denies diabetes. We will plan have him follow up in outpatient setting in approximately 7-10 days for further evaluation. Depending on how he is progressing with his symptoms at that time, we may plan to start the process for him to obtain surgical clearance in planning to proceed forward with surgical intevention in regards to his lumbar spine. We discussed the most likely proposed surgical intervention would be an L4-5 laminectomy, decompression, and discectomy. At this time, patient is clear for discharge from an orthopedic spine standpoint. We will plan to defer pain medication prescription to Dr. Paige given his significant medical diagnoses in regards to his liver. 2. Dr. Paige in medicine and Dr. Araujo in gastroenterology will continue following the patient for his other significant medical diagnoses 3. Following discharge, patient may follow up with Jose Putnam PA-C or Dr. Jigar Kwan at [facility] in approximate 7-10 days for further evaluation 4. I have discussed this patient detail with Dr. Jigar Kwan and he agrees with this plan
[2017-01-27] MEDS ORDERED: DOCUSATE 100 MG CAP PO PRN (19:41)
[2017-01-27] MEDS: CYCLOBENZAPRINE 5 MG TAB PO PRN (20:01)
[2017-01-28] MEDS: HYDROmorphone 1 MG/ML 1 ML SYRINGE IV PRN ×3 (05:59→13:44)
[2017-01-28] MEDS: SODIUM CHLORIDE 0.9% 1,000 ML IV SCH (07:23)
[2017-01-28] MEDS: PANTOPRAZOLE 40 MG TABLET PO SCH (07:51)
[2017-01-28] MEDS: MULTIVITAMINS, THERA 1 EACH TAB PO SCH (07:51)
[2017-01-28] MEDS: THIAMINE 100 MG TAB PO SCH (07:51)
[2017-01-28] MEDS: FOLIC ACID 1 MG TAB PO SCH (07:51)
[2017-01-28 08:03] LABS: Anisocytosis Slight; Basophils % (A) 0 %; CH 35.2; CHCM 32.8; Eosinophils % (A) 0 %; HCT 40.4 % (39.0-53.0); HDW 1.93; HGB 13.2 gm/dL (13.0-17.5); Luc # (Auto) 0.19; Luc % (Auto) 1; Lymphocytes # (A) 0.8 k/uL (1.0-4.8); Lymphocytes % (A) 5 %; MCH 35.4 pg (25.0-35.0); MCHC 32.8 g/dL (31.0-37.0); MCV 108.2 fL (80.0-100.0); Macrocytosis Marked; Mean Platelet Volume 9.7; Monocytes # (A) 0.7 k/uL (0-1.0); Monocytes % (A) 4 %; Neutrophils # (A) 13.7 k/uL (1.3-7.7); Neutrophils % (A) 89 %; RBC 3.73 m/uL (4.30-5.90); RDW 17.2 % (11.5-15.5); WBC 15.3 k/uL (3.8-10.6); WBC (Perox) 15.09
[2017-01-28 08:14] LABS: INR 1.5 (<1.1); Prothrombin Time 14.2 sec (9.0-12.0)
[2017-01-28 08:20] LABS: ALT 78 U/L (21-72); AST 117 U/L (17-59); Alkaline Phosphatase 172 U/L (38-126); Anion Gap 9 mmol/L; Blood Urea Nitrogen 20 mg/dL (9-20); Calcium 9.2 mg/dL (8.4-10.2); Carbon Dioxide 27 mmol/L (22-30); Chloride 103 mmol/L (98-107); Glucose 95 mg/dL (74-99); Non-African American GFR(MDRD) >60 (>60 ml/min/1.73 sqM); Potassium 4.1 mmol/L (3.5-5.1); Sodium 139 mmol/L (137-145); Total Bilirubin 3.9 mg/dL (0.2-1.3); Total Protein 7.5 g/dL (6.3-8.2)
--- NOTE | 2017-01-28 08:56 | HP ---
DATE OF SERVICE: 01/25/2017 CHIEF COMPLAINT: Back pain as well as jaundice. HISTORY OF PRESENT ILLNESS: This 51-year-old gentleman with a past medical history of multiple medical problems including COPD, history of DVT, history of GERD, history of back pain after injury apparently, history of peptic ulcer disease, history of enlarged liver recently diagnosed, history of anxiety not otherwise specified being followed by primary physician in the [place] area , Dr. Doug Ragsdale who was complaining of back pain. The patient was being evaluated in the outpatient setting with multiple evaluations. The patient had recent MRI showed multilevel DJD. The pain was felt mainly in the back portion and also radiating to both lower back. The patient also seen by Dr. Morse about 3 or 4 years ago with some injection, which he got some relief for ER according to him. There is no history of fever or rigors. No history of headache, loss of conscious, seizures. The patient is also complaining of some tiredness and weakness and noticed yellowish of the eyes and evaluation in the ER showed multiple findings including bilirubin 7.3, which is mostly conjugated with delta bilirubin is 2, AST and ALT also elevated. The patient admitted for further evaluation and treatment. Hepatitis C was positive. The patient also gives history of some alcohol intake, but not heavy according to him. There is no history of fever, rigors or chills. No history of headache, loss of consciousness or seizures. No history of hematochezia or melena at this time. PAST MEDICAL HISTORY: History of COPD, DVT, GERD, history of DJD, history peptic ulcer disease, anxiety. Medications prior to admission include home medications are: 1. Vitamin D2 50,000 q.7 days. 2. Flexeril 5 mg q.h.s. p.r.n. 3. Symbicort 160/4.5 two puffs b.i.d. 4. Albuterol HFA 1 to 2 puffs q.6 p.r.n. 5. Prilosec 40 mg daily. Allergies are none. FAMILY HISTORY: History of cancer, CHF, DJD in the family. SOCIAL HISTORY: History of alcohol as mentioned earlier. History of smoking half a pack a day. REVIEW OF SYSTEMS: ENT: No diminished hearing or vision. CARDIOVASCULAR SYSTEM: No angina or palpitation. RESPIRATORY SYSTEM: No cough or hemoptysis. GI: As mentioned earlier. : No dysuria. NERVOUS SYSTEM: No numbness or weakness. ALLERGY/IMMUNOLOGY: No asthma or hayfever. MUSCULOSKELETAL: As mentioned earlier. HEMATOLOGY: No history of anemia. ENDOCRINE: No history of diabetes or hypothyroidism. CONSTITUTIONAL: As mentioned earlier. DERMATOLOGY: Negative. RHEUMATOLOGY: Negative. PSYCHIATRY: As mentioned earlier. PHYSICAL EXAM: The patient is alert and oriented x3. Pulse is 109, blood pressure 170/88, respirations 15, temperature 97.7, pules ox 94% on room air. EYES: Conjunctivae icteric. Oral mucosa icteric. NECK; No jugular venous distention. No carotid bruit. No lymph node enlargement. Obese. CARDIOVASCULAR SYSTEM: S1 and S2 muffled. No S3, no S4. No murmur, no thrills. RESPIRATORY SYSTEM: Breath sounds diminished at the bases. A few scattered rhonchi and crackles. ABDOMEN: Soft. Diffuse distention. No guarding. No rigidity. No mass palpable. Flanks are dull. LEGS: No edema, no swelling. NERVOUS SYSTEM: Higher function as mentioned earlier. Moves all 4 limbs. No focal motor deficit. LYMPHATICS: No lymphadenopathy of the neck, axillae or groin. SKIN: As mentioned earlier. JOINTS: No active deforming arthropathy. LABS: WBC 6.4, hemoglobin is 13.4, MCV 104.5. INR is 1.5. Sodium 134. Other labs CMP is noted. ASSESSMENT: 1. Abdominal distention, discomfort with possible acute hepatitis, possibly acute hepatitis C exacerbation or alcoholic hepatitis. 2. Severe back pain and gait dysfunction, possibly sciatica. 3. Increased AST, ALT. 4. Hyponatremia. 5. Increased MCV. 6. Thrombocytopenia. 7. History of chronic obstructive pulmonary disease. 8. History of deep venous thrombosis. 9. History of gastroesophageal reflux disease. 10. History of back pain and back injections with degenerative joint disease. 11. History of peptic ulcer disease. 12. History of hepatomegaly recently. 13. History of anxiety, not otherwise specified. 14. Continued history of nicotine dependence. 15. FULL CODE. 16. Obesity with body mass index of 34.7. RECOMMENDATIONS AND DISCUSSION: This 51-year-old gentleman presented with multiple complex medical issues. Will monitor the patient closely. Continue the current medications. The patient has significant jaundice and ( ) exact etiology uncertain at this time. It could be a combination of hepatitis C plus either medications or alcohol. Will continue to monitor. Otherwise, the gastroenterology consultation and we will follow the hepatic functions serially. The patient also might need further evaluation including, but not limited to a liver biopsy as well. Otherwise, see orders for further details. Prognosis guarded . Further recommendations to follow. See orders for further details, pain medications, resume the home medications. MTDD
[2017-01-28] MEDS: SYMBICORT 160-4.5 MCG INHALER INHALATION SCH (09:03)
[2017-01-28 09:20] VITALS: BP 145/81; PULSE 86; RESP 16; TEMP 97.7
--- NOTE | 2017-01-29 07:42 | PN ---
DOS 01/26/2017 This 51-year-old gentleman who was admitted with abdominal distention as well as ascites also had severe ETOH also. The patient is being evaluated for possible cirrhosis of the liver. Ultrasound of the abdomen, aspiration has been scheduled. The abdominal ultrasound has been repeated, which showed very minimal abdominal ascites at this time. PAST MEDICAL HISTORY: Reviewed. REVIEW OF SYSTEMS: CARDIOVASCULAR: No angina. RESPIRATORY: As mentioned. GI: As mentioned. : No dysuria. NERVOUS SYSTEM: No numbness or weakness. Current medications are reviewed and include: 1. Ventolin 2.5 q.6. p.r.n. 2. Symbicort 160/4.5, 2 puffs b.i.d. 3. Calamine lotion. 4. Flexeril. 5. Folic acid. 7. Solu-Medrol 60 IV q.8. 8. Multivitamins. 9. Narcan. 10. Protonix. 11. Vitamin B1. PHYSICAL EXAM: Patient is alert and oriented x3. Pulse 94, blood pressure 135/ 77, respirations 20, temperature 97.5, pulse ox 94% on room air. HEENT: Conjunctivae normal. Oral mucosa moist. NECK: No jugular venous distention. No carotid bruit. No lymph node enlargement. CARDIOVASCULAR: S1, S2. RESPIRATORY: Breath sounds diminished at the bases. A few scattered rhonchi and crackles. ABDOMEN: Obese, soft, nontender, no mass palpable. LEGS; No edema, no swelling. NERVOUS SYSTEM: Diffusely weak. Labs at this time: WBC 5, hemoglobin 12.1, MCV 106.5, creatinine 1.5, otherwise total bilirubin 6.2 and AST 145, ALT is normal, lipase is 327. Hepatitis C is reactive and has antibodies 26 and anti antibodies 25.8, which are both elevated. ASSESSMENT: 1. Acute hepatic failure, possibly cirrhosis of the liver, etiology undetermined , most likely a combination of hepatitis C and as well as alcoholic cirrhosis. 2. Super morbid obesity. 3. History of back pain. 4. Anemia microcytic. 5. Coagulopathy secondary to liver disease. 6. Increased AST and ALT, acute alcoholic hepatitis. 7. Multiple complex medical issues. RECOMMENDATIONS AND DISCUSSION: In this 51-year-old gentleman who presented with multiple complex medical issues, we will monitor the patient closely. continue the current medications and continue symptomatic treatment. Interventional Radiology has tried abdominal aspiration but there is not any fluid at this time. I recommend to continue the current medications. Monitor closely. Other than that I would also recommend gastroenterology evaluation. Increase ambulation. Guarded prognosis because of multiple medical problems. Discussed with family at length and further recommendations to follow. See orders for details. MTDD
[2017-01-30 17:18] LABS: HCV Qualitative Result DETECTED (Not detected)
== END 2017-01-28 14:20 | disposition home or self-care (01) | DRG 432 ==
LOC: EC 10:20 → 5MS5E 13:02
PROVIDERS: ADMIT Internal Medicine; ATTEND Internal Medicine
DX: K70.11 Alcoholic hepatitis with ascites (principal); K72.00 Acute and subacute hepatic failure without coma; D68.4 Acquired coagulation factor deficiency; D69.6 Thrombocytopenia, unspecified; E87.1 Hypo-osmolality and hyponatremia; E66.01 Morbid (severe) obesity due to excess calories; Z68.34 Body mass index [BMI] 34.0-34.9, adult; D50.9 Iron deficiency anemia, unspecified; B19.20 Unspecified viral hepatitis C without hepatic coma; D75.89 Other specified diseases of blood and blood-forming organs; F17.210 Nicotine dependence, cigarettes, uncomplicated; J44.9 Chronic obstructive pulmonary disease, unspecified; K21.9 Gastro-esophageal reflux disease without esophagitis; M51.16 Intervertebral disc disorders with radiculopathy, lumbar region; M48.06 Spinal stenosis, lumbar region; G89.29 Other chronic pain; M19.91 Primary osteoarthritis, unspecified site; Z86.718 Personal history of other venous thrombosis and embolism; Z87.11 Personal history of peptic ulcer disease; Z79.51 Long term (current) use of inhaled steroids; Z79.899 Other long term (current) drug therapy; Z82.49 Family history of ischemic heart disease and other diseases of the circulatory system; Z81.1 Family history of alcohol abuse and dependence
CPT/HCPCS: 36415; 71010; 74020; 76705; 80053; 80061; 80074; 81003; 82103; 82105; 82140; 82150; 82248; 82390; 82728; 83516; 83520; 83540; 83550; 83690; 83735; 84100; 84165; 85025; 85610; 85730; 86038; 87040; 87522; 87902; 94640; 96361; 96374; 96375; 96376; 99285

== ENCOUNTER 2017-02-09 17:42 | Inpatient (IN) | payer OTHER ==
[2017-02-09] MEDS ORDERED: ALBUTEROL NEBULIZED 2.5 MG/3 ML INHALATION STA (18:45)
[2017-02-09] MEDS ORDERED: IPRATROPIUM 0.5 MG/2.5 ML NEBU INHALATION STA (18:45)
--- NOTE | 2017-02-09 19:04 | XR ---
EXAMINATION TYPE: XR chest 2V DATE OF EXAM: 02/09/2017 COMPARISON: 01/25/2017 HISTORY: Pain and dyspnea TECHNIQUE: Frontal and lateral views of the chest are obtained. FINDINGS: There is a 10 cm zone of dense focal pulmonary consolidation occupying really all of the n on-lingular left upper lobe. This is new since the prior study. There are a few scattered ill-defined subtle pulmonary opacities are also new since the prior study. RF there is no pulmonary edema. The pleural spaces are negative. The cardiomediastinal silhouette and bones and soft tissues are unremarkable. IMPRESSION: LEFT UPPER LOBE PNEUMONIA, WITH SUBTLE EVIDENCE OF DEVELOPING MULTIFOCAL BRONCHOPNEUMONIA.
[2017-02-09 19:23] LABS: CH 34.4; CHCM 32.8; Immature Gran Flag Slight; MCV 105.4 fL (80.0-100.0); Macrocytosis Moderate; Mean Platelet Volume 10.2; VBG PH 7.35 (7.31-7.41)
[2017-02-09 19:28] LABS: Anisocytosis Slight; HCT 35.8 % (39.0-53.0); HDW 2.14; HGB 12.3 gm/dL (13.0-17.5); MCH 36.1 pg (25.0-35.0); MCHC 34.3 g/dL (31.0-37.0); RDW 16.1 % (11.5-15.5); WBC 22.2 k/uL (3.8-10.6); WBC (Perox) 21.48
[2017-02-09 19:34] LABS: Anion Gap 10 mmol/L; Blood Urea Nitrogen 29 mg/dL (9-20); Calcium 8.4 mg/dL (8.4-10.2); Carbon Dioxide 23 mmol/L (22-30); Chloride 103 mmol/L (98-107); Glucose 112 mg/dL (74-99); Non-African American GFR(MDRD) >60 (>60 ml/min/1.73 sqM); Potassium 4.8 mmol/L (3.5-5.1); Sodium 136 mmol/L (137-145)
[2017-02-09 20:01] LABS: Add Differential Manual Differential
[2017-02-09] MEDS ORDERED: SODIUM CHLORIDE 0.9% 1,000 ML IV STA (20:01)
[2017-02-09 20:03] LABS: Nucleated Red Blood Cells 0 /100 WBC (0-0); Total Cells Counted 100
[2017-02-09 20:04] LABS: Manual Review Performed; Polychromasia Present; Target Cells Present
[2017-02-09] MEDS ORDERED: SODIUM CHLORIDE 0.9% 1,000 ML IV SCH (22:30)
[2017-02-09] MEDS ORDERED: LEVOFLOXACIN 750MG-D5W PMX 750 MG in DEXTROSE/WATER 1 150ML.BAG IVPB STA (22:43)
[2017-02-09] MEDS ORDERED: CYCLOBENZAPRINE 5 MG TAB PO PRN (22:45)
--- NOTE | 2017-02-09 22:50 | ED ---
General Adult HPI - General Chief complaint: Shortness of Breath Stated complaint: ADAM Time Seen by Provider: 02/09/17 17:47 Source: patient, EMS, RN notes reviewed Mode of arrival: EMS Limitations: no limitations - History of Present Illness Initial comments: 51-year-old male transferred from outside facility for COPD exacerbation and pneumonia. Patient states he's had worsening cough and difficulty breathing. His had multiple admissions for his COPD over the past several months. Patient states he is still smoking but would like to quit. He denies fever but states he has had some chills. Is also had a productive cough. Denies any chest pain. Denies nausea vomiting or diarrhea. Patient states he has had some swelling of his right leg to suspend present for approximately one month. He states he had an ultrasound that did not show a blood clot. - Related Data Home Medications Medication Instructions Recorded Confirmed Albuterol Inhaler [Ventolin Hfa 1 - 2 puff INHALATION RT-Q6H PRN 01/25/17 Inhaler] Budesonide/Formoterol Fumarate 2 puff INHALATION RT-BID 01/25/17 02/09/17 [Symbicort 160-4.5 Mcg Inhaler] Cyclobenzaprine [Flexeril] 5 mg PO HS PRN 01/25/17 02/09/17 Ergocalciferol [Vitamin D2 50,000 unit PO Q7D 01/25/17 02/09/17 (DRISDOL)] Omeprazole [PriLOSEC] 40 mg PO DAILY 01/25/17 02/09/17 Multivitamins, Thera [Multivitamin 1 tab PO DAILY@1200 02/09/17 02/09/17 (formulary)] predniSONE See Taper PO DIRECTED 02/09/17 02/09/17 Previous Rx's Medication Instructions Recorded Calamine/Zinc Oxide Lotion 1 applic TOPICAL BID PRN #1 dose 01/28/17 [Calamine Lotion] Docusate [Colace] 100 mg PO DAILY PRN #30 cap 01/28/17 Famotidine 20 mg PO BID #24 tab 01/28/17 Folic Acid 1 mg PO DAILY@1200 #30 tab 01/28/17 Multivitamins, Thera [Multivitamin] 1 tab PO DAILY #30 tablet 01/28/17 Thiamine [Vitamin B-1] 100 mg PO DAILY@1200 #30 tab 01/28/17 traMADol HCl [Ultram] 50 mg PO Q4H PRN #40 tab 01/28/17 Allergies Allergy/AdvReac Type Severity Reaction Status Date / Time No Known Allergies Allergy Verified 02/09/17 18:47 Review of Systems ROS Statement: Those systems with pertinent positive or pertinent negative responses have been documented in the HPI. ROS Other: All systems not noted in ROS Statement are negative. Respiratory: Reports: cough, dyspnea, wheezes Cardiovascular: Denies: chest pain, palpitations Past Medical History Past Medical History: COPD, Deep Vein Thrombosis (DVT), GERD/Reflux Additional Past Medical History / Comment(s): Pt states his abdomin has been getting larger over the past year or two but he thought he was just gaining wt, pt states lumbar pain chronic but now goes down bilateral legs and legs feel weak, Pt was to have EGD/colonoscopy 02/10/17 and an ortho consult for his back pain on 02/17/17. Other hx: chronic back pain, peptic ulcer pt states recently diagnosed, enlarged liver recently diagnosed, possible dvt R leg told this yesterday. History of Any Multi-Drug Resistant Organisms: None Reported Past Surgical History: Tonsillectomy Additional Past Surgical History / Comment(s): Lower epidural back injections Past Anesthesia/Blood Transfusion Reactions: No Reported Reaction Past Psychological History: Anxiety Smoking Status: Current every day smoker Past Alcohol Use History: Occasional Past Drug Use History: None Reported - Past Family History Mother Family Medical History: Cancer, Congestive Heart Failure (CHF), Osteoarthritis ( OA) Additional Family Medical History / Comment(s): Mother is 83 yrs old. She has had breast cancer. Father Additional Family Medical History / Comment(s): Father is an alcoholic-pt does not know him well. General Exam Limitations: no limitations General appearance: alert, in distress Head exam: Present: atraumatic, normocephalic Eye exam: Present: normal appearance, PERRL ENT exam: Present: normal exam, normal oropharynx Neck exam: Present: normal inspection, full ROM Respiratory exam: Present: respiratory distress, wheezes, decreased breath sounds, prolonged expiratory Cardiovascular Exam: Present: regular rate, tachycardia GI/Abdominal exam: Present: soft. Absent: distended, tenderness Extremities exam: Present: pedal edema, other (Pedal edema on the right) Neurological exam: Present: alert, oriented X3 Psychiatric exam: Present: normal affect, normal mood Skin exam: Present: warm, dry Course Vital Signs 02/09/17 02/09/17 02/09/17 17:48 17:59 18:59 Temperature 97.6 F Pulse Rate 116 H 115 H Respiratory 18 18 Rate Blood Pressure 118/63 O2 Sat by Pulse 96 Oximetry 02/09/17 02/09/17 02/09/17 19:14 19:15 19:27 Temperature Pulse Rate 116 H 116 H 116 H Respiratory Rate Blood Pressure O2 Sat by Pulse Oximetry 02/09/17 02/09/17 02/09/17 19:34 20:08 20:59 Temperature 98.5 F Pulse Rate 114 H 117 H 114 H Respiratory 20 18 Rate Blood Pressure 130/80 130/78 O2 Sat by Pulse 95 95 Oximetry 02/09/17 22:10 Temperature 98.2 F Pulse Rate 119 H Respiratory 18 Rate Blood Pressure 136/81 O2 Sat by Pulse 96 Oximetry - Reevaluation(s) Reevaluation #1: 02/09/17 22:51 Patient is reevaluated, he is feeling better. Breathing has improved. Medical Decision Making - Medical Decision Making 51-year-old male with past medical history of COPD presenting as a transfer from outside facility with very graphic evidence of pneumonia and COPD exacerbation. Patient was given Rocephin, albuterol, and steroids prior to transfer. Unknown if blood cultures were obtained prior to antibiotic administration. Patient is dyspneic and tachycardic. He has bilateral wheezing with prolonged expiration. Patient is given additional albuterol, steroids, and chest x-ray as well as laboratory studies are obtained. Chest x-ray shows left upper lobe pneumonia. White count is elevated at 22. Patient does have an lactic acidosis. He receives IV hydration and repeat lactic acid is pending at the time of this dictation. Patient will be admitted for further treatment of his COPD as well as left upper lobe pneumonia. - Lab Data Result diagrams: 02/09/17 19:16 02/09/17 19:16 Lab Results 02/09/17 02/09/17 02/09/17 Range/Units 19:16 19:16 19:16 WBC 22.2 H (3.8-10.6) k/uL RBC 3.40 L (4.30-5.90) m/uL Hgb 12.3 L (13.0-17.5) gm/dL Hct 35.8 L (39.0-53.0) % MCV 105.4 H (80.0-100.0) fL MCH 36.1 H (25.0-35.0) pg MCHC 34.3 (31.0-37.0) g/dL RDW 16.1 H (11.5-15.5) % Plt Count 83 L (150-450) k/uL Neutrophils % (Manual) 84.0 % Band Neutrophils % 11.0 % Lymphocytes % (Manual) 2.0 % Monocytes % (Manual) 3.0 % Neutrophils # (Manual) 21.1 H (1.3-7.7) k/uL Lymphocytes # (Manual) 0.4 L (1.0-4.8) k/uL Monocytes # (Manual) 0.7 (0-1.0) k/uL Nucleated RBCs 0 (0-0) /100 WBC Manual Slide Review Performed Polychromasia Present Anisocytosis Slight Macrocytosis Moderate Target Cells Present VBG pH 7.35 (7.31-7.41) VBG pCO2 47 (37-51) mmHg VBG HCO3 25 (24-28) mmol/L Sodium (137-145) mmol/L Potassium (3.5-5.1) mmol/L Chloride (98-107) mmol/L Carbon Dioxide (22-30) mmol/L Anion Gap mmol/L BUN (9-20) mg/dL Creatinine (0.66-1.25) mg/dL Est GFR (MDRD) Af Amer (>60 ml/min/1.73 sqM) Est GFR (MDRD) Non-Af (>60 ml/min/1.73 sqM) Glucose (74-99) mg/dL Lactic Ac Sepsis Rflx Plasma Lactic Acid Andrei 3.4 H* (0.7-2.0) mmol/L Calcium (8.4-10.2) mg/dL 02/09/17 02/09/17 Range/Units 19:16 19:41 WBC (3.8-10.6) k/uL RBC (4.30-5.90) m/uL Hgb (13.0-17.5) gm/dL Hct (39.0-53.0) % MCV (80.0-100.0) fL MCH (25.0-35.0) pg MCHC (31.0-37.0) g/dL RDW (11.5-15.5) % Plt Count (150-450) k/uL Neutrophils % (Manual) % Band Neutrophils % % Lymphocytes % (Manual) % Monocytes % (Manual) % Neutrophils # (Manual) (1.3-7.7) k/uL Lymphocytes # (Manual) (1.0-4.8) k/uL Monocytes # (Manual) (0-1.0) k/uL Nucleated RBCs (0-0) /100 WBC Manual Slide Review Polychromasia Anisocytosis Macrocytosis Target Cells VBG pH (7.31-7.41) VBG pCO2 (37-51) mmHg VBG HCO3 (24-28) mmol/L Sodium 136 L (137-145) mmol/L Potassium 4.8 (3.5-5.1) mmol/L Chloride 103 (98-107) mmol/L Carbon Dioxide 23 (22-30) mmol/L Anion Gap 10 mmol/L BUN 29 H (9-20) mg/dL Creatinine 1.00 (0.66-1.25) mg/dL Est GFR (MDRD) Af Amer >60 (>60 ml/min/1.73 sqM) Est GFR (MDRD) Non-Af >60 (>60 ml/min/1.73 sqM) Glucose 112 H (74-99) mg/dL Lactic Ac Sepsis Rflx Y Plasma Lactic Acid Andrei (0.7-2.0) mmol/L Calcium 8.4 (8.4-10.2) mg/dL Disposition Clinical Impression: Acute exacerbation of chronic obstructive airways disease, Pneumonia Disposition: ADMITTED IP TO THIS [facility] Condition: Stable Referrals: Doug Ragsdale MD [Primary Care Provider] - 1-2 days Decision to Admit Reason: Admit from EC Decision Date: 02/09/17 Decision Time: 21:00
[2017-02-10] MEDS: HYDROcodone/APAP 7.5-325MG 1 EACH TAB PO PRN ×2 (00:05→07:26)
[2017-02-10] MEDS: SODIUM CHLORIDE 0.9% 1,000 ML IV SCH ×3 (00:43→17:03)
[2017-02-10 01:07] VITALS: BMI 34.7
[2017-02-10] MEDS: predniSONE 20 MG TAB PO SCH (07:27)
[2017-02-10] MEDS: IPRATROPIUM-ALBUTEROL 3 ML NEB INHALATION PRN ×3 (08:23→20:22)
[2017-02-10] MEDS ORDERED: DOCUSATE 100 MG CAP PO PRN (10:48)
--- NOTE | 2017-02-10 11:07 | P.HPIM ---
History of Present Illness 51-year-old male transferred from outside facility for COPD exacerbation and pneumonia. Patient states he's had worsening cough and difficulty breathing. Patient also is unable to bring up anything. His had multiple admissions for his COPD over the past several months. Patient states he is still smoking but would like to quit. He denies fever but states he has had some chills. She does complain of pleuritic chest pain on the left side where he has pneumonia. She is tachycardic from hypoxemia rather than primary embolism is suspicion is low for PE as we have pneumonia that is contributing to this pleuritic chest pain. Denies nausea vomiting or diarrhea. Patient states he has had some swelling of his right leg about a month ago. He states he had an ultrasound that did not show a blood clot. Review of Systems REVIEW OF SYSTEMS: CONSTITUTIONAL: No fever, no malaise, no fatigue. HEENT: No recent visual problems or hearing problems. Denied any sore throat. CARDIOVASCULAR: No chest pain, orthopnea, PND, no palpitations, no syncope. PULMONARY: As mentioned in HPI. Patient was also having shortness of breath. GASTROINTESTINAL: No diarrhea, no nausea, no vomiting, no abdominal pain. Normoactive bowel sounds. NEUROLOGICAL: No headaches, no weakness, no numbness. HEMATOLOGICAL: Denies any bleeding or petechiae. GENITOURINARY: Denies any burning micturition, frequency, or urgency. MUSCULOSKELETAL/RHEUMATOLOGICAL: Denies any joint pain, swelling, or any muscle pain. ENDOCRINE: Denies any polyuria or polydipsia. The rest of the 14-point review of systems is negative. Past Medical History Past Medical History: COPD, GERD/Reflux Additional Past Medical History / Comment(s): Pt states his abdomin has been getting larger over the past year or two but he thought he was just gaining wt, pt states lumbar pain chronic but now goes down bilateral legs and legs feel weak, Pt was to have EGD/colonoscopy 02/10/17 and an ortho consult for his back pain on 02/17/17. Other hx: chronic back pain, peptic ulcer pt states recently diagnosed, enlarged liver recently diagnosed, possible dvt R leg told this yesterday. History of Any Multi-Drug Resistant Organisms: None Reported Past Surgical History: Tonsillectomy Additional Past Surgical History / Comment(s): Lower epidural back injections Past Anesthesia/Blood Transfusion Reactions: No Reported Reaction Past Psychological History: Anxiety Additional Psychological History / Comment(s): Pt lives with his spouse. He recently started using a cane to ambulate. He was driving prior to this illness. Smoking Status: Current every day smoker Past Alcohol Use History: Occasional Past Drug Use History: None Reported - Past Family History Mother Family Medical History: Cancer, Congestive Heart Failure (CHF), Osteoarthritis ( OA) Additional Family Medical History / Comment(s): Mother is 83 yrs old. She has had breast cancer. Father Additional Family Medical History / Comment(s): Father is an alcoholic-pt does not know him well. Medications and Allergies Home Medications Medication Instructions Recorded Confirmed Type Albuterol Inhaler [Ventolin Hfa 1 - 2 puff INHALATION RT-Q6H PRN 01/25/17 History Inhaler] Budesonide/Formoterol Fumarate 2 puff INHALATION RT-BID 01/25/17 02/09/17 History [Symbicort 160-4.5 Mcg Inhaler] Cyclobenzaprine [Flexeril] 5 mg PO HS PRN 01/25/17 02/09/17 History Ergocalciferol [Vitamin D2 50,000 unit PO Q7D 01/25/17 02/09/17 History (DRISDOL)] Omeprazole [PriLOSEC] 40 mg PO DAILY 01/25/17 02/09/17 History Multivitamins, Thera [Multivitamin 1 tab PO DAILY@1200 02/09/17 02/09/17 History (formulary)] predniSONE See Taper PO DIRECTED 02/09/17 02/09/17 History Allergies Allergy/AdvReac Type Severity Reaction Status Date / Time No Known Allergies Allergy Verified 02/09/17 18:47 Physical Exam Vitals: Vital Signs Temp Pulse Pulse Resp BP BP Pulse Ox 02/10/17 08:34 118 H 02/10/17 08:22 112 H 96 02/10/17 08:00 117 H 20 02/10/17 07:00 98 F 117 H 20 127/75 93 L 02/10/17 00:46 97.7 F 117 H 18 123/73 95 02/10/17 00:07 98.1 F 112 H 18 134/68 94 L 02/09/17 23:32 98.2 F 113 H 18 134/68 95 02/09/17 22:10 98.2 F 119 H 18 136/81 96 02/09/17 20:59 98.5 F 114 H 18 130/78 95 02/09/17 20:08 117 H 20 130/80 95 02/09/17 19:34 114 H 02/09/17 19:27 116 H 02/09/17 19:15 116 H 02/09/17 19:14 116 H 02/09/17 18:59 115 H 02/09/17 17:59 18 02/09/17 17:48 97.6 F 116 H 18 118/63 96 Intake and Output 02/09/17 02/10/17 02/10/17 22:59 06:59 14:59 Intake Total 240 Balance 240 Intake: Oral 240 Other: Weight 106.594 kg 106.594 kg 106.594 kg Patient Weight 02/11/17 06:59 Weight 106.594 kg PHYSICAL EXAMINATION: GENERAL: The patient is alert and oriented x3, not in any acute distress. Well developed, well nourished. HEENT: Pupils are round and equally reacting to light. EOMI. No scleral icterus. No conjunctival pallor. Normocephalic, atraumatic. No pharyngeal erythema. No thyromegaly. CARDIOVASCULAR: S1 and S2 present. No murmurs, rubs, or gallops. PULMONARY: Expiratory wheezing was appreciated fairly good air entry bilateral lung damico patient has bronchophony egophony and on the left anterior lung damico. Patient has bilateral rhonchus breath sounds. ABDOMEN: Soft, nontender, nondistended, normoactive bowel sounds. No palpable organomegaly. MUSCULOSKELETAL: No joint swelling or deformity. EXTREMITIES: No cyanosis, clubbing, or pedal edema. NEUROLOGICAL: Gross neurological examination did not reveal any focal deficits. SKIN: No rashes. Results CBC & Chem 7: 02/09/17 19:16 02/09/17 19:16 Labs: Abnormal Lab Results - Last 24 Hours (Table) 02/09/17 02/09/17 02/09/17 Range/Units 19:16 19:16 19:16 WBC 22.2 H (3.8-10.6) k/uL RBC 3.40 L (4.30-5.90) m/uL Hgb 12.3 L (13.0-17.5) gm/dL Hct 35.8 L (39.0-53.0) % MCV 105.4 H (80.0-100.0) fL MCH 36.1 H (25.0-35.0) pg RDW 16.1 H (11.5-15.5) % Plt Count 83 L (150-450) k/uL Neutrophils # (Manual) 21.1 H (1.3-7.7) k/uL Lymphocytes # (Manual) 0.4 L (1.0-4.8) k/uL Sodium 136 L (137-145) mmol/L BUN 29 H (9-20) mg/dL Glucose 112 H (74-99) mg/dL Plasma Lactic Acid Andrei 3.4 H* (0.7-2.0) mmol/L 02/09/17 Range/Units 23:34 WBC (3.8-10.6) k/uL RBC (4.30-5.90) m/uL Hgb (13.0-17.5) gm/dL Hct (39.0-53.0) % MCV (80.0-100.0) fL MCH (25.0-35.0) pg RDW (11.5-15.5) % Plt Count (150-450) k/uL Neutrophils # (Manual) (1.3-7.7) k/uL Lymphocytes # (Manual) (1.0-4.8) k/uL Sodium (137-145) mmol/L BUN (9-20) mg/dL Glucose (74-99) mg/dL Plasma Lactic Acid Andrei 3.7 H* (0.7-2.0) mmol/L Thrombosis Risk Factor Assmnt - Choose All That Apply Any of the Below Risk Factors Present?: Yes Each Factor Represents 1 point: Abnormal pulmonary function (COPD), Age 41-60 years, Obesity (BMI >25), Sepsis (< 1month), Swollen legs (current) Other Risk Factors: No Thrombosis Risk Factor Assessment Total Risk Factor Score: 5 Thrombosis Risk Factor Assessment Level: High Risk Assessment and Plan Plan: 1 severe sepsis: Secondary to left upper lobe pneumonia community-acquired patient mostly has pneumococcal pneumonia and patient will be started on Rocephin and azithromycin to cover atypical organisms as well. #2 acute hypoxic respiratory failure secondary to pneumonia. Acute hypercapnic respiratory failure secondary to sober exacerbation which is a new diagnosis for him. Patient was started on inhalation treatments and once he is able to bring up phlegm sputum cultures will be obtained. Patient is on oral steroids are to be continued. I do not believe patient will need IV steroids at this time. #3 tachycardia and pleuritic chest pain secondary to pneumonia. Sepsis is contributing to his tachycardia and pleuritic chest pain is secondary to left- sided pneumonia and pleurisy. #4 leukocytosis due to severe sepsis. 5 chronic low back pain and sciatica 6 gastroesophageal reflux disease
[2017-02-10] MEDS: cefTRIAXone 2,000 MG in SODIUM CHLORIDE 0.9% 100 ML IVPB SCH (11:18)
[2017-02-10] MEDS: FOLIC ACID 1 MG TAB PO SCH (11:18)
[2017-02-10] MEDS: oxyCODONE-APAP 7.5-325MG 1 EACH TAB PO PRN ×2 (16:35→22:27)
[2017-02-10] MEDS: SYMBICORT 160-4.5 MCG INHALER INHALATION SCH (20:22)
[2017-02-10] MEDS: traMADol 50 MG TAB PO PRN (20:55)
[2017-02-10] MEDS ORDERED: LEVOFLOXACIN 750MG-D5W PMX 750 MG in DEXTROSE/WATER 1 150ML.BAG IVPB SCH (23:00)
[2017-02-11] MEDS: oxyCODONE-APAP 7.5-325MG 1 EACH TAB PO PRN ×3 (05:01→16:53)
[2017-02-11] MEDS: traMADol 50 MG TAB PO PRN ×3 (06:17→19:22)
[2017-02-11 07:35] LABS: CH 34.1; CHCM 31.8; HCT 33.1 % (39.0-53.0); HGB 10.9 gm/dL (13.0-17.5); MCH 35.5 pg (25.0-35.0); MCHC 32.9 g/dL (31.0-37.0); MCV 107.9 fL (80.0-100.0); Macrocytosis Marked; Mean Platelet Volume 9.8; RBC 3.07 m/uL (4.30-5.90); RDW 15.9 % (11.5-15.5)
[2017-02-11 08:01] LABS: Anion Gap 6 mmol/L; Blood Urea Nitrogen 30 mg/dL (9-20); Calcium 8.2 mg/dL (8.4-10.2); Carbon Dioxide 26 mmol/L (22-30); Chloride 107 mmol/L (98-107); Glucose 81 mg/dL (74-99); Non-African American GFR(MDRD) >60 (>60 ml/min/1.73 sqM); Potassium 3.9 mmol/L (3.5-5.1); Sodium 139 mmol/L (137-145)
[2017-02-11] MEDS: predniSONE 20 MG TAB PO SCH (10:05)
[2017-02-11] MEDS: PANTOPRAZOLE 40 MG TABLET PO SCH (10:06)
[2017-02-11] MEDS: AZITHROMYCIN 500 MG TAB PO SCH (10:06)
[2017-02-11] MEDS: cefTRIAXone 2,000 MG in SODIUM CHLORIDE 0.9% 100 ML IVPB SCH (10:06)
--- NOTE | 2017-02-11 11:01 | P.PN ---
Subjective 51-year-old admitted for severe sepsis secondary to bilateral pneumonia predominantly in the left upper lobe and COPD exacerbation severe exacerbation improved patient has minimal improvement in his sepsis. Patient lactic is worse improved WBC count is improving. Patient is still short of breath. Patient is comparing of severe low back pain. during last admission was diagnosed with cirrhosis after INR in the liver function testing patient is on for Percocet, which we need to cut it down if his liver enzymes are elevated. REVIEW OF SYSTEMS: CARDIOVASCULAR: No chest pain, no orthopnea, no PND, no palpitations. PULMONARY: He is to have shortness of breath. GASTROINTESTINAL: No diarrhea, nausea or vomiting. No abdominal pain. Normoactive bowel sounds. NEUROLOGIC: No headaches, no weakness, no numbness. Objective - Vital Signs Vital signs: Vital Signs Temp 97.4 F L 02/11/17 07:00 Pulse 82 02/11/17 07:00 Resp 16 02/11/17 07:00 BP 131/77 02/11/17 07:00 Pulse Ox 93 L 02/11/17 07:00 Intake & Output 02/10/17 02/11/17 02/11/17 18:59 06:59 18:59 Intake Total 240 1800 Balance 240 1800 Weight 106.594 kg Intake: Intake, IV Titration 1800 Amount Levofloxacin 750Mg-D5w 150 Pmx 750 mg In Dextrose/ Water 1 150ml.bag @ 100 mls/hr IVPB 2300 [facility] Rx#: [id number] Sodium Chloride 0.9% 1, 1550 000 ml @ 100 mls/hr IV . Q10H [facility] Rx#:[id number] cefTRIAXone 2,000 mg In 100 Sodium Chloride 0.9% 100 ml @ 100 mls/hr IVPB Q24HR [facility] Rx#:[id number] Oral 240 Other: Voiding Method Toilet # Voids 1 2 - Exam GENERAL: The patient is alert and oriented x3, not in any acute distress. Well developed, well nourished. HEENT: Pupils are round and equally reacting to light. EOMI. No scleral icterus. No conjunctival pallor. Normocephalic, atraumatic. No pharyngeal erythema. No thyromegaly. CARDIOVASCULAR: S1 and S2 present. No murmurs, rubs, or gallops. PULMONARY: Expiratory wheezing was appreciated fairly good air entry bilateral lung damico patient has bronchophony egophony and on the left anterior lung damico. Patient has bilateral rhonchus breath sounds. Wheezing although improved compared to yesterday ABDOMEN: Soft, nontender, nondistended, normoactive bowel sounds. No palpable organomegaly. MUSCULOSKELETAL: No joint swelling or deformity. EXTREMITIES: No cyanosis, clubbing, or pedal edema. NEUROLOGICAL: Gross neurological examination did not reveal any focal deficits. - Labs CBC & Chem 7: 02/11/17 07:19 02/11/17 07:19 Labs: Abnormal Lab Results - Last 24 Hours (Table) 02/11/17 02/11/17 Range/Units 07:19 07:19 WBC 17.0 H (3.8-10.6) k/uL RBC 3.07 L (4.30-5.90) m/uL Hgb 10.9 L (13.0-17.5) gm/dL Hct 33.1 L (39.0-53.0) % MCV 107.9 H (80.0-100.0) fL MCH 35.5 H (25.0-35.0) pg RDW 15.9 H (11.5-15.5) % Plt Count 88 L (150-450) k/uL BUN 30 H (9-20) mg/dL Creatinine 0.57 L (0.66-1.25) mg/dL Calcium 8.2 L (8.4-10.2) mg/dL Assessment and Plan Plan: 1 severe sepsis: Secondary to left upper lobe pneumonia community-acquired patient mostly has pneumococcal pneumonia and patient will be started on Rocephin and azithromycin to cover atypical organisms as well. We'll also there is improvement.. #2 acute hypoxic respiratory failure secondary to pneumonia. Acute hypercapnic respiratory failure secondary to sober exacerbation which is a new diagnosis for him. Patient was started on inhalation treatments and once he is able to bring up phlegm sputum cultures will be obtained. Patient is on oral steroids are to be continued. I do not believe patient will need IV steroids at this time. #3 tachycardia and pleuritic chest pain secondary to pneumonia. Sepsis is contributing to his tachycardia and pleuritic chest pain is secondary to left- sided pneumonia and pleurisy. Tachycardia and overall pleuritic chest pain did improve. #4 leukocytosis due to severe sepsis. 5 chronic low back pain and sciatica 6 gastroesophageal reflux disease. #7 history of hepatitis C. An possibility of cirrhosis and nonalcoholic steatohepatitis from his previous hospitalization medical records. #8 morbid obesity patient will need sleep study as an outpatient.
[2017-02-11 11:24] LABS: ALT 75 U/L (21-72); AST 79 U/L (17-59); Alkaline Phosphatase 177 U/L (38-126); Anion Gap 7 mmol/L; Blood Urea Nitrogen 29 mg/dL (9-20); Calcium 8.4 mg/dL (8.4-10.2); Carbon Dioxide 26 mmol/L (22-30); Chloride 106 mmol/L (98-107); Glucose 111 mg/dL (74-99); Non-African American GFR(MDRD) >60 (>60 ml/min/1.73 sqM); Potassium 3.8 mmol/L (3.5-5.1); Sodium 139 mmol/L (137-145); Total Bilirubin 2.4 mg/dL (0.2-1.3); Total Protein 6.1 g/dL (6.3-8.2)
[2017-02-11] MEDS: SYMBICORT 160-4.5 MCG INHALER INHALATION SCH ×2 (11:45→20:56)
[2017-02-11] MEDS: IPRATROPIUM-ALBUTEROL 3 ML NEB INHALATION PRN ×3 (11:46→20:56)
[2017-02-11] MEDS: SODIUM CHLORIDE 0.9% 1,000 ML IV SCH ×2 (14:46)
[2017-02-11] MEDS: FOLIC ACID 1 MG TAB PO SCH (16:53)
[2017-02-12] MEDS: oxyCODONE-APAP 7.5-325MG 1 EACH TAB PO PRN ×6 (00:42→23:46)
[2017-02-12] MEDS: SODIUM CHLORIDE 0.9% 1,000 ML IV SCH (01:42)
[2017-02-12] MEDS: AZITHROMYCIN 500 MG TAB PO SCH (06:51)
[2017-02-12] MEDS: PANTOPRAZOLE 40 MG TABLET PO SCH (06:52)
[2017-02-12] MEDS: predniSONE 20 MG TAB PO SCH (06:52)
[2017-02-12] MEDS: cefTRIAXone 2,000 MG in SODIUM CHLORIDE 0.9% 100 ML IVPB SCH (07:46)
[2017-02-12 07:53] LABS: CHCM 31.7; HCT 34.9 % (39.0-53.0); HDW 2.21; HGB 11.6 gm/dL (13.0-17.5); MCH 35.8 pg (25.0-35.0); MCHC 33.2 g/dL (31.0-37.0); MCV 107.9 fL (80.0-100.0); Macrocytosis Marked; Mean Platelet Volume 9.1; RBC 3.23 m/uL (4.30-5.90); RDW 15.8 % (11.5-15.5); WBC 12.5 k/uL (3.8-10.6)
[2017-02-12 08:13] LABS: Anion Gap 5 mmol/L; Blood Urea Nitrogen 22 mg/dL (9-20); Calcium 8.4 mg/dL (8.4-10.2); Carbon Dioxide 26 mmol/L (22-30); Chloride 108 mmol/L (98-107); Glucose 73 mg/dL (74-99); Non-African American GFR(MDRD) >60 (>60 ml/min/1.73 sqM); Sodium 139 mmol/L (137-145)
[2017-02-12] MEDS: SYMBICORT 160-4.5 MCG INHALER INHALATION SCH ×2 (09:59→20:27)
[2017-02-12] MEDS: IPRATROPIUM-ALBUTEROL 3 ML NEB INHALATION PRN ×3 (09:59→20:26)
[2017-02-12] MEDS ORDERED: FUROSEMIDE 10 MG/ML 4 ML VIAL IV STA (10:21)
--- NOTE | 2017-02-12 11:21 | XR ---
EXAMINATION TYPE: XR chest 1V DATE OF EXAM: 02/12/2017 CLINICAL HISTORY: Difficulty breathing and pneumonia progress study. TECHNIQUE: Single AP portable upright view of the chest is obtained. COMPARISON: Chest x-ray from 3 days earlier FINDINGS: Some improved aeration left upper lobe is noted. There are however new central reticular o pacities bilaterally. No pleural effusion or pneumothorax is seen bilaterally. Cardiac silhouette siz e is upper limits of normal. Osseous structures are intact. IMPRESSION: Some interval improved aeration in left upper lobe consolidation. New central reticular e myrtle and/or infiltrates however is present bilaterally. Progress study advised.
--- NOTE | 2017-02-12 11:28 | US ---
EXAMINATION TYPE: US abdomen limited DATE OF EXAM: 02/12/2017 COMPARISON: EXAMINATION TYPE: US abdomen limited DATE OF EXAM: 02/12/2017 COMPARISON: Prior Limited abdominal ultrasound January 26, 2017 CLINICAL HISTORY: ascites, check liver. EXAM MEASUREMENTS: Liver Length: 17.0 cm Gallbladder Wall: 0.4 cm CBD: 0.4 cm Right Kidney: 12.2 x 5.5 x 5.9 cm Limited examination due to patient position for comfort and breathing, patient breathing heavily duri ng examination, and patient body habitus. Also patient ate around 7 am and was not NPO. Pancreas: parts visualized appear wnl Liver: parts visualized appear wnl Gallbladder: Wall appears slightly thickened, but not NPO Evidence for sonographic Elena's sign: No CBD: appears wnl Right Kidney: appears wnl Trace ascites noted in all 4 quadrants. Visualized pancreas is heterogeneous in appearance. Significant portions of pancreas are not well see n on images saved. There is trace perihepatic ascites felt present. Liver is overall heterogeneous. U nderlying cirrhosis is suspected. No gross hydronephrosis in right kidney is seen. No shadowing mobil e gallstones are noted. Trace ascites right lower quadrant is stable or less prominent versus prior. There is similar tiny amount of ascites in the bilateral upper and left lower quadrants IMPRESSION: Tiny amount of abdominal ascites not significantly worsened versus prior.
[2017-02-12 11:39] LABS: INR 1.4 (<1.2); Prothrombin Time 13.8 sec (9.0-12.0)
[2017-02-12] MEDS: THIAMINE 100 MG TAB PO SCH (11:39)
[2017-02-12] MEDS: FOLIC ACID 1 MG TAB PO SCH (11:40)
[2017-02-12] MEDS: traMADol 50 MG TAB PO PRN ×3 (13:35→21:44)
--- NOTE | 2017-02-12 15:23 | P.PN ---
Subjective 51-year-old admitted for severe sepsis secondary to bilateral pneumonia predominantly in the left upper lobe and COPD exacerbation severe exacerbation improved patient has minimal improvement in his sepsis. Patient lactic is worse improved WBC count is improving. Patient is still short of breath. Patient is comparing of severe low back pain. during last admission was diagnosed with cirrhosis after INR in the liver function testing patient is on for Percocet, which we need to cut it down if his liver enzymes are elevated. 02/12/2017 Patient has increasing edema and pulmonary edema of any echocardiogram patient may have cirrhosis INR is still not available at this point of time. Patient's IV fluids were discontinued and patient will be started on 40 IV twice a day of Lasix and patient is not feeling well although his sepsis appeared to be improving. His volume overload can be from cirrhosis. REVIEW OF SYSTEMS: CARDIOVASCULAR: No chest pain, no orthopnea, no PND, no palpitations. PULMONARY: He is to have shortness of breath. GASTROINTESTINAL: No diarrhea, nausea or vomiting. No abdominal pain. Normoactive bowel sounds. NEUROLOGIC: No headaches, no weakness, no numbness. Objective - Vital Signs Vital signs: Vital Signs Temp 97.3 F L 02/12/17 07:00 Pulse 96 02/12/17 10:19 Resp 18 02/12/17 07:00 BP 143/81 02/12/17 07:00 Pulse Ox 94 L 02/12/17 07:00 Intake & Output 02/11/17 02/12/17 02/12/17 18:59 06:59 18:59 Intake Total 800 2030 Balance 800 2030 Intake: Intake, IV Titration 800 800 Amount Sodium Chloride 0.9% 1, 800 800 000 ml @ 100 mls/hr IV . Q10H [facility] Rx#:[id number] Oral 1230 Other: Voiding Method Toilet Toilet # Voids 3 2 - Exam GENERAL: The patient is alert and oriented x3, not in any acute distress. Well developed, well nourished. HEENT: Pupils are round and equally reacting to light. EOMI. No scleral icterus. No conjunctival pallor. Normocephalic, atraumatic. No pharyngeal erythema. No thyromegaly. CARDIOVASCULAR: S1 and S2 present. No murmurs, rubs, or gallops. PULMONARY: Expiratory wheezing was appreciated fairly good air entry bilateral lung damico patient has bronchophony egophony and on the left anterior lung damico. Patient has bilateral rhonchus breath sounds. Wheezing although improved compared to yesterday the patient does have crackles on lung exam. ABDOMEN: Soft, nontender, nondistended, normoactive bowel sounds. No palpable organomegaly. MUSCULOSKELETAL: No joint swelling or deformity. EXTREMITIES: No cyanosis, clubbing, pedal edema is worsening NEUROLOGICAL: Gross neurological examination did not reveal any focal deficits. - Labs CBC & Chem 7: 02/12/17 07:31 02/12/17 07:31 Labs: Abnormal Lab Results - Last 24 Hours (Table) 02/12/17 02/12/17 02/12/17 Range/Units 07:31 07:31 10:51 WBC 12.5 H (3.8-10.6) k/uL RBC 3.23 L (4.30-5.90) m/uL Hgb 11.6 L (13.0-17.5) gm/dL Hct 34.9 L (39.0-53.0) % MCV 107.9 H (80.0-100.0) fL MCH 35.8 H (25.0-35.0) pg RDW 15.8 H (11.5-15.5) % Plt Count 83 L (150-450) k/uL PT 13.8 H (9.0-12.0) sec INR 1.4 H (<1.2) Chloride 108 H (98-107) mmol/L BUN 22 H (9-20) mg/dL Creatinine 0.52 L (0.66-1.25) mg/dL Glucose 73 L (74-99) mg/dL Microbiology - Last 24 Hours (Table) 02/11/17 12:00 Gram Stain - Final Sputum Sputum Culture - Final Assessment and Plan Plan: 1 severe sepsis: Secondary to left upper lobe pneumonia community-acquired patient mostly has pneumococcal pneumonia and patient will be started on Rocephin and azithromycin to cover atypical organisms as well. there is improvement.. #2 acute hypoxic respiratory failure secondary to pneumonia. Acute hypercapnic respiratory failure secondary to sober exacerbation which is a new diagnosis for him. Patient was started on inhalation treatments and once he is able to bring up phlegm sputum cultures will be obtained. Patient is on oral steroids are to be continued. I do not believe patient will need IV steroids at this time. #3 tachycardia and pleuritic chest pain secondary to pneumonia. Sepsis is contributing to his tachycardia and pleuritic chest pain is secondary to left- sided pneumonia and pleurisy. Tachycardia and overall pleuritic chest pain did improve. #4 leukocytosis due to severe sepsis. Improving 5 chronic low back pain and sciatica 6 gastroesophageal reflux disease. #7 history of hepatitis C. An possibility of cirrhosis and nonalcoholic steatohepatitis from his previous hospitalization medical records. #8 morbid obesity patient will need sleep study as an outpatient. 9 Walling overload and pleural effusion secondary to cirrhosis: Patient will be started on IV Lasix. We will get echocardiogram and to rule out any cardiomyopathy. Obtaining ultrasound of the abdomen to assess for any ascites and cirrhosis of the liver.
[2017-02-12] MEDS: FUROSEMIDE 10 MG/ML 4 ML VIAL IV SCH ×2 (21:45→21:50)
[2017-02-13] MEDS: traMADol 50 MG TAB PO PRN ×4 (01:47→18:01)
[2017-02-13] MEDS: oxyCODONE-APAP 7.5-325MG 1 EACH TAB PO PRN ×5 (03:55→20:12)
[2017-02-13 07:31] LABS: Anisocytosis Slight; CH 34.5; CHCM 32.3; HCT 37.8 % (39.0-53.0); HDW 2.13; HGB 12.3 gm/dL (13.0-17.5); MCH 34.8 pg (25.0-35.0); MCHC 32.5 g/dL (31.0-37.0); MCV 107.2 fL (80.0-100.0); Macrocytosis Marked; Mean Platelet Volume 9.4; RBC 3.52 m/uL (4.30-5.90); RDW 16.1 % (11.5-15.5); WBC 10.5 k/uL (3.8-10.6)
[2017-02-13] MEDS: cefTRIAXone 2,000 MG in SODIUM CHLORIDE 0.9% 100 ML IVPB SCH (07:31)
[2017-02-13] MEDS: AZITHROMYCIN 500 MG TAB PO SCH (07:38)
[2017-02-13] MEDS: predniSONE 20 MG TAB PO SCH (07:38)
[2017-02-13] MEDS: PANTOPRAZOLE 40 MG TABLET PO SCH (07:38)
[2017-02-13] MEDS: FOLIC ACID 1 MG TAB PO SCH (07:39)
[2017-02-13] MEDS: THIAMINE 100 MG TAB PO SCH (07:39)
[2017-02-13 07:41] LABS: ALT 118 U/L (21-72); AST 210 U/L (17-59); Alkaline Phosphatase 151 U/L (38-126); Anion Gap 7 mmol/L; Blood Urea Nitrogen 19 mg/dL (9-20); Calcium 8.7 mg/dL (8.4-10.2); Carbon Dioxide 28 mmol/L (22-30); Chloride 102 mmol/L (98-107); Glucose 71 mg/dL (74-99); Non-African American GFR(MDRD) >60 (>60 ml/min/1.73 sqM); Potassium 3.6 mmol/L (3.5-5.1); Sodium 137 mmol/L (137-145); Total Bilirubin 3.3 mg/dL (0.2-1.3); Total Protein 6.8 g/dL (6.3-8.2)
[2017-02-13] MEDS: IPRATROPIUM-ALBUTEROL 3 ML NEB INHALATION PRN ×4 (08:13→20:50)
[2017-02-13] MEDS: SYMBICORT 160-4.5 MCG INHALER INHALATION SCH ×2 (08:13→20:50)
--- NOTE | 2017-02-13 11:48 | ECHOF ---
Referral Reason:pulmonary edema MEASUREMENTS -------- HEIGHT: 175.3 cm WEIGHT: 106.6 kg BP: 142/79 RVIDd: 3.4 cm (< 3.3) IVSd: 1.3 cm (0.6 - 1.1) LVIDd: 3.7 cm (3.9 - 5.3) LVPWd: 1.3 cm (0.6 - 1.1) IVSs: 1.6 cm LVIDs: 2.6 cm LVPWs: 1.6 cm LA Diam: 3.5 cm (2.7 - 3.8) LAESV Index (A-L): 19.79 ml/m Ao Diam: 3.3 cm (2.0 - 3.7) AV Cusp: 2.5 cm (1.5 - 2.6) MV EXCURSION: 15.965 mm (> 18.000) MV EF SLOPE: 105 mm/s (70 - 150) EPSS: 0.6 cm MV E Van: 1.13 m/s MV DecT: 255 ms MV A Van: 0.94 m/s MV E/A Ratio: 1.20 FINDINGS -------- Sinus rhythm. This was a technically good study. The left ventricular size is normal. There is mild concentric left ventricular hypertrophy. Overall left ventricular systolic function is normal with, an EF between 55 - 60 %. The right ventricle is mildly enlarged. Normal LA size by volume 22+/-6 ml/m2. The right atrium is normal in size. The aortic valve is trileaflet, and appears structurally normal. No aortic stenosis or regurgitation. The mitral valve is normal. There is trace mitral regurgitation. No regurgitation noted There is no pulmonic regurgitation present. The aortic root size is normal. Normal inferior vena cava with less than 50% inspiratory collapse consistent with estimated right atrial pressure of 15 mmHg. There is no pericardial effusion. Liver cyst CONCLUSIONS -------- 1. Sinus rhythm. 2. There is no pulmonic regurgitation present. 3. The aortic root size is normal. 4. Normal inferior vena cava with less than 50% inspiratory collapse consistent with estimated right atrial pressure of 15 mmHg. 5. There is no pericardial effusion. 6. Liver cyst 7. This was a technically good study. 8. There is mild concentric left ventricular hypertrophy. 9. Overall left ventricular systolic function is normal with, an EF between 55 - 60 %. 10. The right ventricle is mildly enlarged. 11. Normal LA size by volume 22+/-6 ml/m2. 12. The aortic valve is trileaflet, and appears structurally normal. No aortic stenosis or regurgitation. 13. There is trace mitral regurgitation. 14. No regurgitation noted [employer]: Otilia Jo RDCS
--- NOTE | 2017-02-13 11:54 | P.PN ---
Subjective 51-year-old admitted for severe sepsis secondary to bilateral pneumonia predominantly in the left upper lobe and COPD exacerbation severe exacerbation improved patient has minimal improvement in his sepsis. Patient lactic is worse improved WBC count is improving. Patient is still short of breath. Patient is comparing of severe low back pain. during last admission was diagnosed with cirrhosis after INR in the liver function testing patient is on for Percocet, which we need to cut it down if his liver enzymes are elevated. 02/12/2017 Patient has increasing edema and pulmonary edema of any echocardiogram patient may have cirrhosis INR is still not available at this point of time. Patient's IV fluids were discontinued and patient will be started on 40 IV twice a day of Lasix and patient is not feeling well although his sepsis appeared to be improving. His volume overload can be from cirrhosis. 02/13/2017 He slow improvement in her respiratory status. Patient overall has had improvement in sepsis still has pedal edema. REVIEW OF SYSTEMS: CARDIOVASCULAR: No chest pain, no orthopnea, no PND, no palpitations. PULMONARY: He is to have shortness of breath. GASTROINTESTINAL: No diarrhea, nausea or vomiting. No abdominal pain. Normoactive bowel sounds. NEUROLOGIC: No headaches, no weakness, no numbness. Objective - Vital Signs Vital signs: Vital Signs Temp 96.8 F L 02/13/17 07:00 Pulse 96 02/13/17 08:23 Resp 16 02/13/17 08:00 BP 142/78 02/13/17 07:00 Pulse Ox 96 02/13/17 08:14 Intake & Output 02/12/17 02/13/17 02/13/17 18:59 06:59 18:59 Output Total 1200 500 Balance -1200 -500 Weight 106.59 kg Output: Urine 1200 500 Other: Voiding Method Toilet Toilet # Voids 3 1 1 - Exam GENERAL: The patient is alert and oriented x3, not in any acute distress. Well developed, well nourished. HEENT: Pupils are round and equally reacting to light. EOMI. No scleral icterus. No conjunctival pallor. Normocephalic, atraumatic. No pharyngeal erythema. No thyromegaly. CARDIOVASCULAR: S1 and S2 present. No murmurs, rubs, or gallops. PULMONARY: Expiratory wheezing was appreciated fairly good air entry bilateral lung damico patient has bronchophony egophony and on the left anterior lung damico. Patient has bilateral rhonchus breath sounds. Wheezing although improved compared to yesterday the patient does have crackles on lung exam. ABDOMEN: Soft, nontender, distended due to, normoactive bowel sounds. No palpable organomegaly. MUSCULOSKELETAL: No joint swelling or deformity. EXTREMITIES: No cyanosis, clubbing, pedal edema, change compatible yesterday. NEUROLOGICAL: Gross neurological examination did not reveal any focal deficits. - Labs CBC & Chem 7: 02/13/17 06:57 02/13/17 06:57 Labs: Abnormal Lab Results - Last 24 Hours (Table) 02/13/17 02/13/17 Range/Units 06:57 06:57 RBC 3.52 L (4.30-5.90) m/uL Hgb 12.3 L (13.0-17.5) gm/dL Hct 37.8 L (39.0-53.0) % MCV 107.2 H (80.0-100.0) fL RDW 16.1 H (11.5-15.5) % Plt Count 93 L (150-450) k/uL Creatinine 0.60 L (0.66-1.25) mg/dL Glucose 71 L (74-99) mg/dL Total Bilirubin 3.3 H (0.2-1.3) mg/dL AST 210 H (17-59) U/L ALT 118 H (21-72) U/L Alkaline Phosphatase 151 H (38-126) U/L Albumin 2.7 L (3.5-5.0) g/dL Assessment and Plan Plan: 1 severe sepsis: Secondary to left upper lobe pneumonia community-acquired patient mostly has pneumococcal pneumonia and patient will be started on Rocephin and azithromycin to cover atypical organisms as well. there is improvement of flow #2 acute hypoxic respiratory failure secondary to pneumonia. Acute hypercapnic respiratory failure secondary to COPD exacerbation which is a new diagnosis for him. Patient was started on inhalation treatments . Patient is on oral steroids are to be continued. I do not believe patient will need IV steroids at this time. #3 tachycardia and pleuritic chest pain secondary to pneumonia. Sepsis is contributing to his tachycardia and pleuritic chest pain is secondary to left- sided pneumonia and pleurisy. Tachycardia and overall pleuritic chest pain did improve. Pain resolved. #4 leukocytosis due to severe sepsis. Improving 5 chronic low back pain and sciatica Weight loss and outpatient physical therapy 6 gastroesophageal reflux disease. #7 history of hepatitis C. possibility of cirrhosis and nonalcoholic steatohepatitis from his previous hospitalization medical records. #8 morbid obesity patient will need sleep study as an outpatient. 9 volume overload overload and pleural effusion secondary to cirrhosis: Patient will be started on IV Lasix. We will get echocardiogram and to rule out any cardiomyopathy. ultrasound showed minimal ascites
[2017-02-13] MEDS: HEPARIN SODIUM,PORCINE 5,000 UNIT/ML 1 ML VIAL SQ SCH ×2 (12:14→18:01)
[2017-02-13] MEDS: NICOTINE 14MG/24HR PATCH TRANSDERM SCH (13:19)
[2017-02-13] MEDS: FUROSEMIDE 10 MG/ML 4 ML VIAL IV SCH (20:13)
[2017-02-14] MEDS: HEPARIN SODIUM,PORCINE 5,000 UNIT/ML 1 ML VIAL SQ SCH ×3 (00:20→16:22)
[2017-02-14] MEDS: oxyCODONE-APAP 7.5-325MG 1 EACH TAB PO PRN ×6 (00:22→22:08)
[2017-02-14] MEDS: traMADol 50 MG TAB PO PRN ×5 (02:31→20:22)
[2017-02-14] MEDS: cefTRIAXone 2,000 MG in SODIUM CHLORIDE 0.9% 100 ML IVPB SCH (07:24)
[2017-02-14] MEDS: PANTOPRAZOLE 40 MG TABLET PO SCH (07:24)
[2017-02-14] MEDS: FUROSEMIDE 10 MG/ML 4 ML VIAL IV SCH ×2 (07:25→20:22)
[2017-02-14] MEDS: AZITHROMYCIN 500 MG TAB PO SCH (07:25)
[2017-02-14] MEDS: THIAMINE 100 MG TAB PO SCH (07:25)
[2017-02-14] MEDS: predniSONE 20 MG TAB PO SCH (07:25)
[2017-02-14] MEDS: NICOTINE 14MG/24HR PATCH TRANSDERM SCH (07:25)
[2017-02-14] MEDS: FOLIC ACID 1 MG TAB PO SCH (07:26)
[2017-02-14] MEDS: SYMBICORT 160-4.5 MCG INHALER INHALATION SCH ×2 (07:35→20:32)
[2017-02-14] MEDS: IPRATROPIUM-ALBUTEROL 3 ML NEB INHALATION PRN ×4 (07:35→20:32)
[2017-02-14 08:09] LABS: CH 34.3; CHCM 32.5; HCT 33.4 % (39.0-53.0); HDW 2.14; HGB 11.4 gm/dL (13.0-17.5); MCV 106.1 fL (80.0-100.0); Macrocytosis Moderate; Mean Platelet Volume 9.2; RBC 3.15 m/uL (4.30-5.90); RDW 15.7 % (11.5-15.5); WBC 8.5 k/uL (3.8-10.6)
[2017-02-14 08:34] LABS: Anion Gap 4 mmol/L; Blood Urea Nitrogen 18 mg/dL (9-20); Calcium 8.1 mg/dL (8.4-10.2); Carbon Dioxide 32 mmol/L (22-30); Chloride 101 mmol/L (98-107); Glucose 68 mg/dL (74-99); Non-African American GFR(MDRD) >60 (>60 ml/min/1.73 sqM); Potassium 3.2 mmol/L (3.5-5.1); Sodium 137 mmol/L (137-145)
[2017-02-14] MEDS ORDERED: Potassium Replacement Protocol 1 EACH MISC MISCELLANE PRN (15:23)
[2017-02-14] MEDS: POTASSIUM CHLORIDE ER 20 MEQ TAB.ER PO SCH ×2 (15:59→16:59)
[2017-02-15] MEDS: HEPARIN SODIUM,PORCINE 5,000 UNIT/ML 1 ML VIAL SQ SCH ×2 (00:11→07:21)
[2017-02-15] MEDS: traMADol 50 MG TAB PO PRN ×4 (00:11→12:55)
[2017-02-15] MEDS: oxyCODONE-APAP 7.5-325MG 1 EACH TAB PO PRN ×4 (02:06→14:24)
[2017-02-15] MEDS: SYMBICORT 160-4.5 MCG INHALER INHALATION SCH (07:04)
[2017-02-15] MEDS: IPRATROPIUM-ALBUTEROL 3 ML NEB INHALATION PRN ×2 (07:06→11:10)
[2017-02-15] MEDS: PANTOPRAZOLE 40 MG TABLET PO SCH (07:21)
[2017-02-15] MEDS: FUROSEMIDE 10 MG/ML 4 ML VIAL IV SCH (07:22)
[2017-02-15] MEDS: cefTRIAXone 2,000 MG in SODIUM CHLORIDE 0.9% 100 ML IVPB SCH (07:22)
[2017-02-15] MEDS: AZITHROMYCIN 500 MG TAB PO SCH (07:22)
[2017-02-15] MEDS: NICOTINE 14MG/24HR PATCH TRANSDERM SCH (07:22)
[2017-02-15] MEDS: predniSONE 20 MG TAB PO SCH (07:22)
[2017-02-15 08:00] VITALS: BP 137/68; TEMP 97.1
[2017-02-15 11:31] VITALS: PULSE 96
[2017-02-15] MEDS: THIAMINE 100 MG TAB PO SCH (11:41)
[2017-02-15] MEDS: FOLIC ACID 1 MG TAB PO SCH (11:41)
--- NOTE | 2017-02-15 14:29 | P.DS ---
Providers Date of admission: 02/09/17 22:27 Expected date of discharge: 02/15/17 Attending physician: MD Dr. Stephanie Grullon Primary care physician: Doug Ragsdale MD Hospital Course: Final Diagnoses: 1 severe sepsis: Secondary to left upper lobe pneumonia community-acquired patient mostly has pneumococcal pneumonia #2 acute hypoxic respiratory failure secondary to pneumonia. Acute hypercapnic respiratory failure secondary to COPD exacerbation which is a new diagnosis for him. #3 tachycardia and pleuritic chest pain secondary to pneumonia. Sepsis is contributing to his tachycardia and pleuritic chest pain is secondary to left- sided pneumonia and pleurisy. Tachycardia resolved and overall pleuritic chest pain did improve. Pain resolved. #4 leukocytosis due to severe sepsis. resolved. 5 chronic low back pain and sciatica Weight loss and outpatient physical therapy 6 gastroesophageal reflux disease. #7 history of hepatitis C. possibility of cirrhosis and nonalcoholic steatohepatitis from his previous hospitalization medical records. #8 morbid obesity patient will need sleep study as an outpatient. 9 volume overload overload and pleural effusion secondary to cirrhosis: ultrasound showed minimal ascites; started on Lasix and Aldactone. EF 55-60% per echo Hospital course:51-year-old admitted for severe sepsis secondary to bilateral pneumonia predominantly in the left upper lobe and COPD exacerbation severe exacerbation. Maintained on Rocephin and azithromycin, nebulized bronchodilators, steroids, IV fluid hydration. Significant clinical improvement.l improvement. Patient is being discharged home in a stable condition with guarded prognosis. The impression and plan of care has been dictated as directed as a scribe. : I performed a H&P examination of this patient and discussed the same with the dictator. I agree with the dictator's note. Any additional findings/opinions/ etc. will be noted. Patient Condition at Discharge: Stable Plan - Discharge Summary New Discharge Prescriptions: New Tiotropium [place] [Spiriva] 1 cap INHALATION DAILY #1 device Azithromycin [Zithromax] 500 mg PO DAILY #3 tab Cefuroxime Axetil [Ceftin] 500 mg PO BID #14 tab Furosemide [Lasix] 40 mg PO DAILY #30 tablet Nicotine 14Mg/24Hr Patch [Habitrol] 1 patch TRANSDERM DAILY #30 patch Spironolactone [Aldactone] 50 mg PO DAILY #30 tab predniSONE 10 mg PO DIRECTED #30 tab Continue Omeprazole [PriLOSEC] 40 mg PO DAILY Ergocalciferol [Vitamin D2 (DRISDOL)] 50,000 unit PO Q7D Cyclobenzaprine [Flexeril] 5 mg PO HS PRN PRN Reason: Sleep/Spasms Budesonide/Formoterol Fumarate [Symbicort 160-4.5 Mcg Inhaler] 2 puff INHALATION RT-BID Albuterol Inhaler [Ventolin Hfa Inhaler] 1 - 2 puff INHALATION RT-Q6H PRN PRN Reason: sob Calamine/Zinc Oxide Lotion [Calamine Lotion] 1 applic TOPICAL BID PRN #1 dose PRN Reason: Skin Irritation Docusate [Colace] 100 mg PO DAILY PRN #30 cap PRN Reason: Constipation Folic Acid 1 mg PO DAILY@1200 #30 tab Multivitamins, Thera [Multivitamin (formulary)] 1 tab PO DAILY #30 tablet Thiamine [Vitamin B-1] 100 mg PO DAILY@1200 #30 tab traMADol HCl [Ultram] 50 mg PO Q4H PRN #40 tab PRN Reason: Pain Multivitamins, Thera [Multivitamin (formulary)] 1 tab PO DAILY@1200 Discontinued Famotidine 20 mg PO BID #24 tab predniSONE See Taper PO DIRECTED Discharge Medication List Albuterol Inhaler [Ventolin Hfa Inhaler] 1 - 2 puff INHALATION RT-Q6H PRN [History] Budesonide/Formoterol Fumarate [Symbicort 160-4.5 Mcg Inhaler] 2 puff INHALATION RT-BID 01/25/17 [History] Cyclobenzaprine [Flexeril] 5 mg PO HS PRN 01/25/17 [History] Ergocalciferol [Vitamin D2 (DRISDOL)] 50,000 unit PO Q7D 01/25/17 [History] Omeprazole [PriLOSEC] 40 mg PO DAILY 01/25/17 [History] Calamine/Zinc Oxide Lotion [Calamine Lotion] 1 applic TOPICAL BID PRN #1 dose [Rx] Docusate [Colace] 100 mg PO DAILY PRN #30 cap 01/28/17 [Rx] Folic Acid 1 mg PO DAILY@1200 #30 tab 01/28/17 [Rx] Multivitamins, Thera [Multivitamin (formulary)] 1 tab PO DAILY #30 tablet [Rx] Thiamine [Vitamin B-1] 100 mg PO DAILY@1200 #30 tab 01/28/17 [Rx] traMADol HCl [Ultram] 50 mg PO Q4H PRN #40 tab 01/28/17 [Rx] Multivitamins, Thera [Multivitamin (formulary)] 1 tab PO DAILY@1200 02/09/17 [ History] Azithromycin [Zithromax] 500 mg PO DAILY #3 tab 02/15/17 [Rx] Cefuroxime Axetil [Ceftin] 500 mg PO BID #14 tab 02/15/17 [Rx] Furosemide [Lasix] 40 mg PO DAILY #30 tablet 02/15/17 [Rx] Nicotine 14Mg/24Hr Patch [Habitrol] 1 patch TRANSDERM DAILY #30 patch 02/15/17 [ Rx] Spironolactone [Aldactone] 50 mg PO DAILY #30 tab 02/15/17 [Rx] Tiotropium [place] [Spiriva] 1 cap INHALATION DAILY #1 device 02/15/17 [Rx] predniSONE 10 mg PO DIRECTED #30 tab 02/15/17 [Rx] Follow up Appointment(s)/Referral(s): Doug Ragsdale MD [Primary Care Provider] - 02/20/17 2:00 pm Ambulatory/Diagnostic Orders: Complete Blood Count w/diff [LAB.AMB] Time Frame: 3 Days, Location: Determined By Patient Patient Instructions/Handouts: Tiotropium (By breathing), COPD (Chronic Obstructive Pulmonary Disease) (DC), Pneumonia (DC) Activity/Diet/Wound Care/Special Instructions: No smoking
[2017-02-15 14:32] VITALS: RESP 109
--- NOTE | 2017-02-15 19:21 | P.PN ---
Subjective Date of service 02/14/2017 Progress note being dictated for Dr. Brown Interval history: This is a 51-year-old admitted for severe sepsis secondary to bilateral pneumonia predominantly in the left upper lobe and COPD exacerbation severe exacerbation improved patient has minimal improvement in his sepsis. Patient lactic is worse improved WBC count is improving. Patient is still short of breath. Patient is comparing of severe low back pain. during last admission was diagnosed with cirrhosis after INR in the liver function testing patient is on for Percocet, which we need to cut it down if his liver enzymes are elevated. 02/12/2017 Patient has increasing edema and pulmonary edema of any echocardiogram patient may have cirrhosis INR is still not available at this point of time. Patient's IV fluids were discontinued and patient will be started on 40 IV twice a day of Lasix and patient is not feeling well although his sepsis appeared to be improving. His volume overload can be from cirrhosis. 02/13/2017 He slow improvement in her respiratory status. Patient overall has had improvement in sepsis still has pedal edema. 02/14/2017 maintained on antibiotics with significant clinical improvement. Afebrile. Maintaining O2 sats of 90-94% on 4 L nasal cannula. Persistent pedal edema, mostly pulmonary hypertension, right-sided heart failure. Potassium 3.2. Denies chest pain, palpitations or increasing shortness of breath. Objective - Vital Signs Vital signs: Vital Signs Temp 98.3 F 02/14/17 07:00 Pulse 91 02/14/17 08:00 Resp 22 02/14/17 08:00 BP 140/73 02/14/17 07:00 Pulse Ox 94 L 02/14/17 07:38 Intake & Output 02/13/17 02/14/17 02/14/17 18:59 06:59 18:59 Intake Total 580 1180 Output Total 500 Balance 80 1180 Weight 106.59 kg Intake: Intake, IV Titration 100 Amount cefTRIAXone 2,000 mg In 100 Sodium Chloride 0.9% 100 ml @ 100 mls/hr IVPB Q24HR [facility] Rx#:[id number] Oral 480 1180 Output: Urine 500 Other: Voiding Method Toilet Toilet Toilet Urinal Urinal # Voids 3 2 # Bowel Movements 1 - Exam GENERAL: Sitting up in chair, alert and oriented x3, no acute distress. Well developed, well nourished. HEENT: Pupils are round and equally reacting to light. EOMI. No scleral icterus. No conjunctival pallor. Normocephalic, atraumatic. No pharyngeal erythema. No thyromegaly. CARDIOVASCULAR: S1 and S2 present. No murmurs, rubs, or gallops. PULMONARY: Good air entry bilateral lungs, Improving Expiratory wheezing, patient has bronchophony egophony and on the left anterior lung damico. Scattered rhonchi, no crackles. ABDOMEN: Soft, nontender, distended due to, normoactive bowel sounds. No palpable organomegaly. MUSCULOSKELETAL: No joint swelling or deformity. EXTREMITIES: No cyanosis, clubbing, pedal edema, change compatible yesterday. NEUROLOGICAL: Gross neurological examination did not reveal any focal deficits. - Labs CBC & Chem 7: 02/14/17 07:17 02/14/17 07:17 Labs: Abnormal Lab Results - Last 24 Hours (Table) 02/14/17 02/14/17 Range/Units 07:17 07:17 RBC 3.15 L (4.30-5.90) m/uL Hgb 11.4 L (13.0-17.5) gm/dL Hct 33.4 L (39.0-53.0) % MCV 106.1 H (80.0-100.0) fL MCH 36.0 H (25.0-35.0) pg RDW 15.7 H (11.5-15.5) % Plt Count 82 L (150-450) k/uL Potassium 3.2 L (3.5-5.1) mmol/L Carbon Dioxide 32 H (22-30) mmol/L Creatinine 0.56 L (0.66-1.25) mg/dL Glucose 68 L (74-99) mg/dL Calcium 8.1 L (8.4-10.2) mg/dL Assessment and Plan Plan: 1 severe sepsis: Secondary to left upper lobe pneumonia community-acquired patient mostly has pneumococcal pneumonia #2 acute hypoxic respiratory failure secondary to pneumonia. Acute hypercapnic respiratory failure secondary to COPD exacerbation which is a new diagnosis for him. Mostly pulmonary hypertension. #3 tachycardia and pleuritic chest pain secondary to pneumonia. Sepsis is contributing to his tachycardia and pleuritic chest pain is secondary to left- sided pneumonia and pleurisy. Tachycardia resolved and overall pleuritic chest pain resolved. #4 leukocytosis due to severe sepsis. Improving 5 chronic low back pain and sciatica Weight loss and outpatient physical therapy 6 gastroesophageal reflux disease. #7 history of hepatitis C. possibility of cirrhosis and nonalcoholic steatohepatitis from his previous hospitalization medical records. #8 morbid obesity patient will need sleep study as an outpatient. 9 volume overload overload and pleural effusion secondary to cirrhosis ultrasound showed minimal ascites #10 hypokalemia Plan: Continue on current medication regime ,monitoring and symptomatic treatment. Potassium to be supplemented per replacement protocol as ordered. Maintain antibiotics. Increase ambulation as tolerated. Discharge planning in progress for tomorrow. The impression and plan of care has been dictated as directed. .: I performed a H&P examination of this patient and discussed the same with the dictator. I agree with the dictator's note. Any additional findings/opinions/ etc. will be noted.
== END 2017-02-15 15:50 | disposition home or self-care (01) | DRG 871 ==
LOC: EC 17:42 → 5MS5E 22:27
PROVIDERS: ADMIT Internal Medicine; ATTEND Internal Medicine
DX: A41.9 Sepsis, unspecified organism (principal); J13 Pneumonia due to Streptococcus pneumoniae; J96.01 Acute respiratory failure with hypoxia; J96.02 Acute respiratory failure with hypercapnia; I27.2 Other secondary pulmonary hypertension; J44.0 Chronic obstructive pulmonary disease with (acute) lower respiratory infection; J44.1 Chronic obstructive pulmonary disease with (acute) exacerbation; R65.20 Severe sepsis without septic shock; E66.01 Morbid (severe) obesity due to excess calories; Z68.34 Body mass index [BMI] 34.0-34.9, adult; I50.9 Heart failure, unspecified; K74.60 Unspecified cirrhosis of liver; K75.81 Nonalcoholic steatohepatitis (NASH); E87.6 Hypokalemia; K21.9 Gastro-esophageal reflux disease without esophagitis; F41.9 Anxiety disorder, unspecified; G89.29 Other chronic pain; M54.40 Lumbago with sciatica, unspecified side; B19.20 Unspecified viral hepatitis C without hepatic coma; F17.200 Nicotine dependence, unspecified, uncomplicated; Z79.51 Long term (current) use of inhaled steroids; Z79.52 Long term (current) use of systemic steroids; Z79.899 Other long term (current) drug therapy; Z87.11 Personal history of peptic ulcer disease
CPT/HCPCS: 36415; 71010; 71020; 76705; 80048; 80053; 82803; 83605; 85025; 85027; 85610; 87070; 87205; 93306; 94640; 94760; 96361; 96365; 99285

== ENCOUNTER → 2017-03-02 | Outpatient (CLI) | payer OTHER ==
[2017-03-02 17:49] LABS: INR 1.3 (<1.2); Prothrombin Time 13.1 sec (9.0-12.0)
[2017-03-02 17:51] LABS: ALT 106 U/L (21-72); AST 157 U/L (17-59); Alkaline Phosphatase 180 U/L (38-126); Anion Gap 10 mmol/L; Blood Urea Nitrogen 12 mg/dL (9-20); Calcium 9.1 mg/dL (8.4-10.2); Carbon Dioxide 26 mmol/L (22-30); Chloride 99 mmol/L (98-107); Glucose 113 mg/dL (74-99); Non-African American GFR(MDRD) >60 (>60 ml/min/1.73 sqM); Potassium 3.4 mmol/L (3.5-5.1); Sodium 135 mmol/L (137-145); Total Bilirubin 5.1 mg/dL (0.2-1.3); Total Protein 8.1 g/dL (6.3-8.2)
[2017-03-02 18:06] LABS: CH 34.4; CHCM 32.6; HCT 39.2 % (39.0-53.0); HDW 2.25; HGB 13.5 gm/dL (13.0-17.5); MCH 36.4 pg (25.0-35.0); MCHC 34.4 g/dL (31.0-37.0); MCV 105.9 fL (80.0-100.0); Macrocytosis Moderate; RDW 15.1 % (11.5-15.5)
== END | disposition home or self-care (01) ==
LOC: LABWHC1 16:36
PROVIDERS: ATTEND Internal Medicine Gastroenterology
DX: R18.8 Other ascites (principal)
CPT/HCPCS: 36415; 80053; 82105; 85027; 85610

== ENCOUNTER → 2017-03-16 | Outpatient (CLI) | payer OTHER ==
--- NOTE | 2017-03-16 14:27 | MR ---
EXAMINATION TYPE: MR liver wo/w con DATE OF EXAM: 03/16/2017 COMPARISON: Abdominal ultrasound dated 02/12/2017 and 01/26/2017. HISTORY: Unspecified cirrhosis of liver CONTRAST: Standard multiplanar, multisequence MRI departmental protocol utilizing 20 mL intravenous MultiHance gadolinium contrast. FINDINGS: The exam is limited, specifically post contrast imaging, secondary to patient motion artifa ct. LIVER: There is no appreciable signal dropout on out of phase imaging to suggest underlying hepatic s teatosis. There is a cirrhotic morphology of the liver with a nodular contour, left hepatic hypertrop hy and right hepatic atrophy. Moderate volume perihepatic and perisplenic ascites extends into the ab domen. Mesenteric venous congestion is appreciated. Although postcontrast imaging is suboptimal there appears to be reticular delayed enhancement in segm ent IVb without T2 signal abnormality correlating or focal arterial enhancing measurable lesion. This is most consistent with hepatic fibrosis. Similarly increased perfusion to the left hepatic lobe on arterial and portal venous phases as well as equilibrium phases without abnormal T2 signal correlate corresponds to alteration in perfusion in the setting of preferential right hepatic fibrosis. SPLEEN: The spleen is enlarged measuring 15.3 cm in craniocaudal dimension, sequela of portal venous hypertension. VASCULATURE: There is no gross evidence of portal vein or splenic vein thrombus and evaluation for th e superior mesenteric vein for thrombus is limited secondary to patient motion. Visualized abdominal aorta appears of normal course and caliber. Few splenic varices are noted, however no varices are see n within the gastrohepatic ligament and no esophageal varices are noted. Lymphadenopathy. Mildly enlarged minerva hepatis lymph node measures 1.1 cm in short axis. GALLBLADDER numerous punctate layering gallstones are appreciated as well as gallbladder sludge depen dently within the gallbladder neck and body. OSSEOUS STRUCTURES: No grossly abnormal bone marrow signal. KIDNEYS: Bilateral cortical T2 hyperintense and T1 hypointense nonenhancing cortical cysts are apprec iated. PANCREAS: No ductal dilatation. BOWEL: Hepatic flexure bowel wall thickening best appreciated on T2-weighted imaging with surrounding abdominopelvic ascites relates to ingested colopathy of cirrhosis. IMPRESSION: 1. Limited exam secondary to patient respiratory motion. Hepatic cirrhosis, preferential right lobe h epatic fibrosis, sequela of portal venous hypertension, enlarged minerva hepatis singular lymph node, s plenomegaly, moderate volume ascites, hepatic flexure congestive colopathy and few splenic varices ar e appreciated. No definitive arterial enhancing hepatic lesion with T2 hyperintense correlate and sig nal dropout is seen to suggest hepatocellular carcinoma. Surveillance is recommended as the exam is l imited. 2. Simple renal cysts and cholelithiasis.
== END | disposition home or self-care (01) ==
LOC: RADMRIMAIN 12:19
PROVIDERS: ATTEND Internal Medicine Gastroenterology
DX: K74.60 Unspecified cirrhosis of liver (principal); K74.0 Hepatic fibrosis; K76.6 Portal hypertension; R59.0 Localized enlarged lymph nodes; R16.1 Splenomegaly, not elsewhere classified; D73.89 Other diseases of spleen; N28.1 Cyst of kidney, acquired; K80.20 Calculus of gallbladder without cholecystitis without obstruction
CPT/HCPCS: 74183; A9577

== ENCOUNTER 2017-04-15 12:47 | Emergency (ER) | payer OTHER ==
[2017-04-15] MEDS ORDERED: HYDROmorphone 1 MG/ML 1 ML SYRINGE IVP STA ×2 (13:21→15:07)
[2017-04-15] MEDS ORDERED: ORPHENADRINE 30 MG/ML 2 ML VIAL IVP STA (13:21)
[2017-04-15 13:42] LABS: Basophils % (A) 1 %; CH 34.7; CHCM 33.7; Eosinophils # (A) 0.1 k/uL (0-0.7); Eosinophils % (A) 1 %; HCT 40.8 % (39.0-53.0); HDW 2.29; HGB 13.8 gm/dL (13.0-17.5); Luc # (Auto) 0.26; Luc % (Auto) 3; Lymphocytes # (A) 1.3 k/uL (1.0-4.8); Lymphocytes % (A) 15 %; MCH 35.1 pg (25.0-35.0); MCHC 33.8 g/dL (31.0-37.0); MCV 103.6 fL (80.0-100.0); Macrocytosis Slight; Mean Platelet Volume 8.2; Monocytes # (A) 0.9 k/uL (0-1.0); Monocytes % (A) 11 %; Neutrophils # (A) 5.8 k/uL (1.3-7.7); Neutrophils % (A) 69 %; RBC 3.94 m/uL (4.30-5.90); RDW 14.8 % (11.5-15.5); WBC 8.4 k/uL (3.8-10.6); WBC (Perox) 8.34
[2017-04-15 13:50] LABS: INR 1.9 (<1.2); Partial Thromboplastin Time 29.9 sec (22.0-30.0); Prothrombin Time 18.2 sec (9.0-12.0)
[2017-04-15 13:56] LABS: ALT 55 U/L (21-72); AST 157 U/L (17-59); Alkaline Phosphatase 162 U/L (38-126); Amylase 51 U/L (30-110); Anion Gap 8 mmol/L; Blood Urea Nitrogen 11 mg/dL (9-20); Calcium 8.6 mg/dL (8.4-10.2); Carbon Dioxide 34 mmol/L (22-30); Chloride 92 mmol/L (98-107); Glucose 115 mg/dL (74-99); Magnesium 1.2 mg/dL (1.6-2.3); Non-African American GFR(MDRD) >60 (>60 ml/min/1.73 sqM); Potassium 3.5 mmol/L (3.5-5.1); Sodium 134 mmol/L (137-145); Total Bilirubin 9.8 mg/dL (0.2-1.3)
[2017-04-15 14:09] LABS: Creatine Kinase 43 U/L (55-170)
--- NOTE | 2017-04-15 14:09 | XR ---
EXAMINATION TYPE: XR chest 2V DATE OF EXAM: 04/15/2017 COMPARISON: 02/12/2017 HISTORY: Chest pain TECHNIQUE: Frontal and lateral views of the chest are obtained. FINDINGS: There is no focal air space opacity, pleural effusion, or pneumothorax seen. The previousl y seen scattered patchy opacities have resolved in the interim. The cardiac silhouette size is within normal limits. The osseous structures are intact. Mild degenerative changes of the thoracic spine, glenohumeral joints, and acromio clavicular joints are seen. IMPRESSION: No acute cardiopulmonary process. Resolution of the previously seen multifocal airspace disease.
[2017-04-15 14:23] LABS: Creatine Kinase MB 0.4 ng/mL (0.0-2.4); Troponin I <0.012 ng/mL (0.000-0.034)
--- NOTE | 2017-04-15 14:38 | ED ---
Chest Pain HPI - General Chief Complaint: Chest Pain Stated Complaint: back pain; nerve pain; chest pain Time Seen by Provider: 04/15/17 13:10 Source: patient, RN notes reviewed Mode of arrival: wheelchair Limitations: no limitations - History of Present Illness Initial Comments: This is a 52-year-old male who presents with complaints of chest pain. He states the pain is sharp in nature he also has sciatic-type pain 10/10 severity radiated down to his right gluteus and leg area. He states the chest pain started yesterday in the pain is been there longer. It does get worse with movement. He has had no cough or fevers or chills he does have a history of hepatitis C with cirrhosis. He does have a distended abdomen but he states is no worse than usual. He denies any other complaints at this time. MD Complaint: chest pain, other - Related Data Home Medications Medication Instructions Recorded Confirmed Albuterol Inhaler [Ventolin Hfa 1 - 2 puff INHALATION RT-Q6H PRN 01/25/17 Inhaler] Budesonide/Formoterol Fumarate 2 puff INHALATION RT-BID 01/25/17 02/09/17 [Symbicort 160-4.5 Mcg Inhaler] Cyclobenzaprine [Flexeril] 5 mg PO HS PRN 01/25/17 02/09/17 Ergocalciferol [Vitamin D2 50,000 unit PO Q7D 01/25/17 02/09/17 (DRISDOL)] Omeprazole [PriLOSEC] 40 mg PO DAILY 01/25/17 02/09/17 Multivitamins, Thera [Multivitamin 1 tab PO DAILY@1200 02/09/17 02/09/17 (formulary)] Previous Rx's Medication Instructions Recorded Calamine/Zinc Oxide Lotion 1 applic TOPICAL BID PRN #1 dose 01/28/17 [Calamine Lotion] Docusate [Colace] 100 mg PO DAILY PRN #30 cap 01/28/17 Folic Acid 1 mg PO DAILY@1200 #30 tab 01/28/17 Multivitamins, Thera [Multivitamin 1 tab PO DAILY #30 tablet 01/28/17 (formulary)] Thiamine [Vitamin B-1] 100 mg PO DAILY@1200 #30 tab 01/28/17 traMADol HCl [Ultram] 50 mg PO Q4H PRN #40 tab 01/28/17 Azithromycin [Zithromax] 500 mg PO DAILY #3 tab 02/15/17 Cefuroxime Axetil [Ceftin] 500 mg PO BID #14 tab 02/15/17 Furosemide [Lasix] 40 mg PO DAILY #30 tablet 02/15/17 Nicotine 14Mg/24Hr Patch [Habitrol] 1 patch TRANSDERM DAILY #30 patch 02/15/17 Spironolactone [Aldactone] 50 mg PO DAILY #30 tab 02/15/17 Tiotropium [place] [Spiriva] 1 cap INHALATION DAILY #1 device 02/15/17 oxyCODONE-APAP 7.5-325MG [Percocet 1 tab PO Q6HR PRN #20 tab 02/15/17 7.5-325 mg] predniSONE 10 mg PO DIRECTED #30 tab 02/15/17 Magnesium 200 mg PO DAILY #15 tablet 04/15/17 Potassium Chloride ER [K-Dur 20] 20 meq PO DAILY #15 tab 04/15/17 oxyCODONE-APAP 7.5-325MG [Percocet 1 tab PO Q6HR PRN #12 tab 04/15/17 7.5-325 mg] predniSONE 20 mg PO BID #10 tab 04/15/17 Allergies Allergy/AdvReac Type Severity Reaction Status Date / Time No Known Allergies Allergy Verified 04/15/17 12:51 Review of Systems ROS Statement: Those systems with pertinent positive or pertinent negative responses have been documented in the HPI. ROS Other: All systems not noted in ROS Statement are negative. EKG Findings - EKG Results: EKG: interpreted by FRIDA, sinus rhythm (Sinus tachycardia rate 114 MD interval 144 QRS duration 80 QT since QTC 376/518 poor R-wave progression.) Past Medical History Past Medical History: COPD, GERD/Reflux, Liver Disease Additional Past Medical History / Comment(s): pt states lumbar pain chronic but now goes down bilateral legs and legs feel weak. Other hx: chronic back pain, peptic ulcer pt states recently diagnosed, enlarged liver recently diagnosed, possible dvt R leg told this yesterday. History of Any Multi-Drug Resistant Organisms: None Reported Past Surgical History: Tonsillectomy Additional Past Surgical History / Comment(s): Lower epidural back injections Past Anesthesia/Blood Transfusion Reactions: No Reported Reaction Past Psychological History: Anxiety Smoking Status: Current some day smoker Past Alcohol Use History: None Reported Past Drug Use History: None Reported - Past Family History Mother Family Medical History: Cancer, Congestive Heart Failure (CHF), Osteoarthritis ( OA) Additional Family Medical History / Comment(s): Mother is 83 yrs old. She has had breast cancer. Father Additional Family Medical History / Comment(s): Father is an alcoholic-pt does not know him well. General Exam - General Exam Comments Initial Comments: This is a well little pulmonary awake alert anxious appearing male Limitations: no limitations General appearance: alert, anxious Head exam: Present: atraumatic, normocephalic, normal inspection Eye exam: Present: normal appearance, PERRL, EOMI. Absent: scleral icterus, conjunctival injection, periorbital swelling ENT exam: Present: normal exam, mucous membranes moist Neck exam: Present: normal inspection. Absent: tenderness, meningismus, lymphadenopathy Respiratory exam: Present: normal lung sounds bilaterally, chest wall tenderness. Absent: respiratory distress, wheezes, rales, rhonchi, stridor Cardiovascular Exam: Present: regular rate, normal rhythm, normal heart sounds. Absent: systolic murmur, diastolic murmur, rubs, gallop, clicks GI/Abdominal exam: Present: soft, normal bowel sounds. Absent: distended, tenderness, guarding, rebound, rigid Rectal exam: Present: deferred Extremities exam: Present: normal inspection, full ROM, tenderness (Tennis palpation along the right gluteus of the sciatic outlet.), normal capillary refill. Absent: pedal edema, joint swelling, calf tenderness Back exam: Present: normal inspection Neurological exam: Present: alert, oriented X3, CN II-XII intact Psychiatric exam: Present: normal affect, normal mood Skin exam: Present: warm, dry, intact, normal color. Absent: rash Course Vital Signs 04/15/17 04/15/17 04/15/17 12:48 14:09 15:04 Temperature 98.2 F 97.6 F 98.4 F Pulse Rate 115 H 109 H 111 H Respiratory 2 L 19 20 Rate Blood Pressure 120/69 120/74 153/80 O2 Sat by Pulse 97 94 L 96 Oximetry 04/15/17 16:15 Temperature Pulse Rate 109 H Respiratory 19 Rate Blood Pressure 128/71 O2 Sat by Pulse 95 Oximetry Chest Pain MDM - MDM I did review the imaging and reports no acute findings. The patient does demonstrate low potassium low magnesium he is feeling improved he'll be discharged he is he was follow up with his doctor and return when necessary Disposition Clinical Impression: Atypical chest pain, Sciatica, Chest wall syndrome Disposition: HOME SELF-CARE Condition: Good Instructions: Costochondritis (ED), Chest Pain (ED), Sciatica (ED) Prescriptions: Magnesium 200 mg PO DAILY #15 tablet oxyCODONE-APAP 7.5-325MG [Percocet 7.5-325 mg] 1 tab PO Q6HR PRN #12 tab PRN Reason: Pain Potassium Chloride ER [K-Dur 20] 20 meq PO DAILY #15 tab predniSONE 20 mg PO BID #10 tab Referrals: Blessing Araujo MD [Primary Care Provider] - 1-2 days
[2017-04-15] MEDS ORDERED: MAGNESIUM SULFATE-D5W PMX 1 GM in DEXTROSE/WATER 1 100ML.BAG IVPB ONE (15:13)
[2017-04-15] MEDS ORDERED: methylPREDNISolone SOD SUCCI 125 MG/2 ML VIAL IV STA (15:13)
[2017-04-15 16:16] VITALS: BP 128/71; PULSE 109; RESP 19
[2017-04-15 16:37] VITALS: TEMP 98
== END 2017-04-15 16:38 | disposition home or self-care (01) ==
LOC: EC 12:47
DX: R07.89 Other chest pain (principal); M54.30 Sciatica, unspecified side; R41.0 Disorientation, unspecified; J44.9 Chronic obstructive pulmonary disease, unspecified; K21.9 Gastro-esophageal reflux disease without esophagitis; F17.200 Nicotine dependence, unspecified, uncomplicated; Z79.51 Long term (current) use of inhaled steroids; Z79.899 Other long term (current) drug therapy
CPT/HCPCS: 36415; 93005; 80053; 82150; 82550; 82553; 83690; 83735; 84484; 85025; 85610; 85730; 71020; 99285; 96365; 96375 ×3; 96376; J2360; J2930; J1170; J3475

== ENCOUNTER 2017-04-23 23:50 | Inpatient (IN) | payer OTHER ==
--- NOTE | 2017-04-24 00:07 | ED ---
General Adult HPI - General Chief complaint: Abdominal Pain Stated complaint: ABD PAIN Time Seen by Provider: 04/24/17 00:01 Source: EMS Mode of arrival: EMS Limitations: no limitations - History of Present Illness Initial comments: Patient's 52-year-old man who has multiple complaints, including leg pain and swelling, abdominal swelling, and some dyspnea. Symptoms are getting worse over past few days. -: days(s) Location: abdomen, left, right, lower extremity Radiation: non-radiation Quality: dull, constant Consistency: constant Improves with: none Worsens with: none - Related Data Home Medications Medication Instructions Recorded Confirmed Budesonide/Formoterol Fumarate 2 puff INHALATION RT-BID 01/25/17 04/24/17 [Symbicort 160-4.5 Mcg Inhaler] Ergocalciferol [Vitamin D2 50,000 unit PO Q7D 01/25/17 04/24/17 (DRISDOL)] Omeprazole [PriLOSEC] 40 mg PO DAILY 01/25/17 04/24/17 Clotrimazole 10 mg MUCOUS MEM 5XD 04/24/17 04/24/17 HYDROcodone/APAP 7.5-325MG [[place] 1 tab PO BID PRN 04/24/17 04/24/17 7.5-325] Magnesium Oxide [Mag-Ox] 250 mg PO DAILY 04/24/17 04/24/17 Spironolactone 100 mg PO DAILY 04/24/17 04/24/17 Tiotropium 18 Mcg/Puff [Spiriva] 1 cap INHALATION RT-DAILY 04/24/17 04/24/17 Previous Rx's Medication Instructions Recorded Docusate [Colace] 100 mg PO DAILY PRN #30 cap 01/28/17 Thiamine [Vitamin B-1] 100 mg PO DAILY@1200 #30 tab 01/28/17 Furosemide [Lasix] 40 mg PO DAILY #30 tablet 02/15/17 Nicotine 14Mg/24Hr Patch [Habitrol] 1 patch TRANSDERM DAILY #30 patch 02/15/17 Potassium Chloride ER [K-Dur 20] 20 meq PO DAILY #15 tab 04/15/17 oxyCODONE-APAP 7.5-325MG [Percocet 1 tab PO Q6HR PRN #12 tab 04/15/17 7.5-325 mg] Cefuroxime Axetil [Ceftin] 500 mg PO BID #14 tab 04/27/17 Phytonadione Oral [Vitamin K Oral] 5 mg PO DAILY #30 syr 04/27/17 SILVER sulfADIAZINE Cream 1 applic TOPICAL DAILY dose 04/27/17 [Silvadene 1% Cream] Albuterol Nebulized [Ventolin 2.5 mg INHALATION RT-Q6H PRN neb 05/01/17 Nebulized] Folic Acid 1 mg PO DAILY@1200 tab 05/01/17 Heparin Sodium,Porcine [Heparin 5,000 unit SQ Q8HR vial 05/01/17 Sodium] Ipratropium Nebulized [Atrovent 0.5 mg INHALATION RT-QID neb 05/01/17 Nebulized] Lactulose [Cephulac] 20 gm PO Q4H dose 05/01/17 Multivitamins, Thera [Multivitamin 1 each PO DAILY tab 05/01/17 (formulary)] traMADol HCl [Ultram] 50 mg PO QID PRN tab 05/01/17 Allergies Allergy/AdvReac Type Severity Reaction Status Date / Time No Known Allergies Allergy Verified 04/24/17 08:46 Review of Systems ROS Statement: Those systems with pertinent positive or pertinent negative responses have been documented in the HPI. ROS Other: All systems not noted in ROS Statement are negative. Constitutional: Reports: fever, chills, weakness Respiratory: Reports: dyspnea. Denies: cough Cardiovascular: Reports: chest pain, orthopnea, edema. Denies: palpitations, syncope Gastrointestinal: Reports: abdominal pain. Denies: nausea, vomiting, constipation Genitourinary: Denies: dysuria, frequency Skin: Reports: rash Neurological: Denies: headache Past Medical History Past Medical History: COPD, GERD/Reflux, Liver Disease, Pneumonia Additional Past Medical History / Comment(s): pt states lumbar pain chronic but now goes down bilateral legs and legs feel weak. Other hx: chronic back pain, peptic ulcer pt states recently diagnosed, enlarged liver recently diagnosed, possible dvt R leg told this yesterday. History of Any Multi-Drug Resistant Organisms: None Reported Past Surgical History: Tonsillectomy Additional Past Surgical History / Comment(s): Lower epidural back injections Past Anesthesia/Blood Transfusion Reactions: No Reported Reaction Past Psychological History: Anxiety Smoking Status: Current some day smoker Past Alcohol Use History: None Reported Past Drug Use History: None Reported - Past Family History Mother Family Medical History: Cancer, Congestive Heart Failure (CHF), Osteoarthritis ( OA) Additional Family Medical History / Comment(s): Mother is 83 yrs old. She has had breast cancer. Father Additional Family Medical History / Comment(s): Father is an alcoholic-pt does not know him well. General Exam Limitations: no limitations General appearance: alert, in no apparent distress, obese Head exam: Present: atraumatic, normocephalic Eye exam: Present: normal appearance. Absent: scleral icterus, conjunctival injection ENT exam: Present: normal oropharynx Neck exam: Present: normal inspection Respiratory exam: Present: normal lung sounds bilaterally. Absent: respiratory distress, wheezes, rales, rhonchi Cardiovascular Exam: Present: regular rate, normal rhythm, normal heart sounds. Absent: systolic murmur, diastolic murmur, rubs, gallop GI/Abdominal exam: Present: soft, distended. Absent: tenderness, guarding, rebound, mass, bruit Extremities exam: Present: tenderness, pedal edema, other (There is erythema and edema of the lower extremities) left, consistent with cellulitis) Back exam: Present: normal inspection. Absent: CVA tenderness (R), CVA tenderness (L) Neurological exam: Present: alert Skin exam: Present: warm, dry, intact, erythema (Bilateral legs). Absent: petechiae, pallor, mottled, abrasion Course Vital Signs 04/23/17 04/24/17 23:55 01:45 Temperature 99.9 F H 99.1 F Pulse Rate 124 H 125 H Respiratory 20 26 H Rate Blood Pressure 156/84 153/81 O2 Sat by Pulse 90 L 96 Oximetry EKG Findings - EKG Comments: EKG Findings:: Low voltage QRS complexes - EKG Results: EKG: interpreted by ERMD, sinus rhythm, normal axis EKG shows: tachycardia (Rate approximately 124 bpm) - Blocks, [place], Hypertrophy, ST Abn: Repolarization changes or abnormalities: nonspecific abnormality, ST segment, and/or T wave Medical Decision Making - Medical Decision Making This patient is 52-year-old man with multiple medical problems. Patient does have some dyspnea, and had CT to rule out pulmonary embolus. He does appear to have bilateral lower extremity cellulitis and he did have duplex Doppler without evidence of blood clot. Patient be admitted for IV antibiotic therapy and also to be seen by infectious disease and gastroenterology. - Lab Data Result diagrams: 05/01/17 07:16 05/01/17 07:16 Disposition Clinical Impression: Ascites, Cellulitis of right leg Disposition: HOME SELF-CARE Condition: Poor
[2017-04-24] MEDS ORDERED: IBUPROFEN 400 MG TAB PO PRN (00:43)
[2017-04-24] MEDS ORDERED: NALOXONE 0.4 MG/ML 1 ML VIAL IV PRN (00:43)
[2017-04-24] MEDS ORDERED: VANCOMYCIN IV PER PHARMACY 1 EACH MISC MISCELLANE PRN ×2 (00:51→14:56)
[2017-04-24 01:05] LABS: Basophils # (A) 0.1 k/uL (0-0.2); Basophils % (A) 0 %; CH 34.3; CHCM 31.9; Eosinophils # (A) 0.2 k/uL (0-0.7); Eosinophils % (A) 1 %; HCT 38.1 % (39.0-53.0); HGB 12.4 gm/dL (13.0-17.5); Luc # (Auto) 0.27; Luc % (Auto) 1; Lymphocytes # (A) 1.8 k/uL (1.0-4.8); Lymphocytes % (A) 9 %; MCH 35.1 pg (25.0-35.0); MCHC 32.5 g/dL (31.0-37.0); Macrocytosis Marked; Mean Platelet Volume 9.9; Monocytes # (A) 0.6 k/uL (0-1.0); Monocytes % (A) 3 %; Neutrophils # (A) 16.5 k/uL (1.3-7.7); Neutrophils % (A) 86 %; RBC 3.53 m/uL (4.30-5.90); RDW 15.7 % (11.5-15.5); WBC 19.3 k/uL (3.8-10.6); WBC (Perox) 20.13
[2017-04-24 01:14] LABS: INR 1.8 (<1.2); Partial Thromboplastin Time 33.7 sec (22.0-30.0); Prothrombin Time 17.8 sec (9.0-12.0)
[2017-04-24 01:16] LABS: Target Cells Present
[2017-04-24 01:17] LABS: ALT 62 U/L (21-72); AST 114 U/L (17-59); Alkaline Phosphatase 182 U/L (38-126); Amylase 61 U/L (30-110); Anion Gap 8 mmol/L; Blood Urea Nitrogen 15 mg/dL (9-20); Calcium 8.4 mg/dL (8.4-10.2); Carbon Dioxide 25 mmol/L (22-30); Chloride 98 mmol/L (98-107); Glucose 102 mg/dL (74-99); Non-African American GFR(MDRD) >60 (>60 ml/min/1.73 sqM); Potassium 4.4 mmol/L (3.5-5.1); Sodium 131 mmol/L (137-145); Total Bilirubin 10.2 mg/dL (0.2-1.3); Total Protein 7.3 g/dL (6.3-8.2)
[2017-04-24] MEDS: SODIUM CHLORIDE 0.9% 1,000 ML IV SCH (01:45)
[2017-04-24] MEDS: oxyCODONE-APAP 7.5-325MG 1 EACH TAB PO PRN ×4 (02:50→22:11)
[2017-04-24] MEDS: AMPICILLIN-SULBACTAM 3 GM in SODIUM CHLORIDE 0.9% 100 ML IVPB SCH ×2 (02:55→09:37)
[2017-04-24 03:09] VITALS: BMI 34.8
[2017-04-24] MEDS ORDERED: VANCOMYCIN 1,750 MG in SODIUM CHLORIDE 0.9% 250 ML IVPB SCH ×2 (04:00→15:00)
[2017-04-24] MEDS ORDERED: HYDROmorphone 1 MG/ML 1 ML SYRINGE IVP STA (05:14)
[2017-04-24] MEDS ORDERED: RX INFO: IV CONTRAST WAS GIVEN 1 EACH MISC MISCELLANE PRN (05:17)
--- NOTE | 2017-04-24 07:55 | CT ---
EXAM: CT Angiography Chest With Intravenous Contrast CLINICAL HISTORY: 52-year-old male with SOB, elevated d-dimer. TECHNIQUE: Axial computed tomographic angiography images of the chest with intravenous contrast using pulmonary embolism protocol. Sagittal and coronal MPR and MIP reconstructed images were created and reviewed CTDI is 13.1 mGy and DLP is 515.5 mGy-cm. This CT exam was performed using one or more of the following dose reduction techniques: automated exposure control, adjustment of the mA and/or kV according to patient size, and/or use of iterative reconstruction technique. COMPARISON: CXR 04/15/2017; right upper quadrant ultrasound 02/12/2017. FINDINGS: Pulmonary arteries: Moderately limited exam for evaluation of pulmonary arteries, secondary to relative lack of pulmonary artery enhancement/suboptimal timing of contrast bolus. No obvious filling defect identified within central pulmonary arteries, allowing for suboptimal contrast enhancement. Aorta: No aneurysm or dissection. Mild aortic and coronary artery calcified atherosclerotic plaque. Lungs: Consolidation and volume loss involving small portions of the posterior segments of the lower lobes bilaterally adjacent to the effusions, suggesting atelectasis. Mild peripheral reticular opacities especially in the posterior upper lobes bilaterally, suggesting subsegmental atelectasis and/or fibrosis. Mild emphysema with upper lobe predominance. Pleural space: Tiny right and small left layering pleural effusions. No pneumothorax. Heart: Nonenlarged. Bones/joints: Left anterior inferior bony glenoid labral subchondral presumed degenerative cyst. Soft tissues: Mild to moderate bilateral gynecomastia. Lymph nodes: No pathologically enlarged lymph nodes. Upper abdomen: Mildly lobular imaged contour, suggesting cirrhosis. Moderate to large volume upper abdominal ascites, significantly increased compared to the prior ultrasound. IMPRESSION: 1. Moderately to markedly technically limited exam for evaluation of pulmonary arteries, secondary to poor opacification of pulmonary arteries/suboptimal timing of contrast bolus; no obvious large central PE identified. 2. Small bilateral pleural effusions, left greater than right; moderate to large volume upper abdominal ascites, significantly increased since the prior abdominal ultrasound; lobular hepatic contour, suggesting cirrhosis.
--- NOTE | 2017-04-24 08:07 | US ---
EXAMINATION TYPE: US venous doppler duplex LE RT DATE OF EXAM: 04/24/2017 7:15 AM COMPARISON: NONE CLINICAL HISTORY: 52-year-old male rule out DVT. Right and swollen right leg SIDE PERFORMED: Right TECHNIQUE: The lower extremity deep venous system is examined utilizing real time linear array sonog mahi with graded compression, doppler sonography and color-flow sonography. FINDINGS: VESSELS IMAGED: External Iliac Vein (EIV) Common Femoral Vein Deep Femoral Vein Greater Saphenous Vein * Femoral Vein Popliteal Vein Proximal Calf Veins (* superficial vessels) Additional color imaging performed to supplement the right lower femoral vein due to limited compress ion views. Right Leg: Negative for DVT IMPRESSION: Technical limitations causing some limitations at the level of the lower femoral vein. Additional col or imaging was utilized to evaluate this area. No convincing evidence for DVT within the right lower extremity.
[2017-04-24] MEDS: SYMBICORT 160-4.5 MCG INHALER INHALATION SCH ×2 (08:15→20:43)
[2017-04-24] MEDS: IPRATROPIUM 0.5 MG/2.5 ML NEBU INHALATION SCH ×4 (08:15→20:42)
[2017-04-24] MEDS ORDERED: SPIRONOLACTONE 25 MG TAB PO SCH (09:00)
[2017-04-24] MEDS ORDERED: FUROSEMIDE 40 MG TAB PO SCH (09:00)
[2017-04-24] MEDS ORDERED: FAMOTIDINE 20 MG TAB PO SCH (09:00)
[2017-04-24] MEDS ORDERED: MAGNESIUM OXIDE 400 MG TAB PO SCH (09:00)
[2017-04-24] MEDS: HEPARIN SODIUM,PORCINE 5,000 UNIT/ML 1 ML VIAL SQ SCH ×2 (09:19→16:16)
[2017-04-24] MEDS: PANTOPRAZOLE 40 MG TABLET PO SCH (09:19)
[2017-04-24] MEDS: ERGOCALCIFEROL 50,000 UNIT CAP PO SCH (09:20)
[2017-04-24] MEDS: MULTIVITAMINS, THERA 1 EACH TAB PO SCH (09:21)
--- NOTE | 2017-04-24 10:08 | P.CONS ---
History of Present Illness - Reason for Consult Consult date: 04/24/17 Cellulitis - History of Present Illness This is a 52-year-old male patient with underlying history of hepatitis C, cirrhosis of the liver and follows with Dr. Florencia Araujo. Patient states that he has advised her to go to [facility] in his first appointment will be on June 03. He states his hepatitis C only recently diagnosed has not been treated and he has not undergone paracentesis before. 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 Patient states he stopped IV drug use while in high school. Patient also has history of alcohol intake of 1-6 beers per day depending on the day. He also has a chronic rash on his buttocks and going down his legs which he has been following with [facility] on 3 occasions. He states his rash is also been on his legs which are now extremely inflamed and swollen. He states whatever treatment he has been given by the inspector scales has not been effective. Patient is complaining of severe pain for the past 3 days in his right hip down his legs with increased swelling and also left ankle pain. He also complains of generalized weakness and abdominal bloating and states his abdomen is bigger than it has been. He underwent an ultrasound of the right lower extremity that was negative for DVT. CTA of the chest showed no obvious large central pulmonary embolism. Small bilateral pleural effusions left greater than right. Moderate to large volume upper abdominal ascites. Lobular hepatic contour suggesting cirrhosis. Patient presented with leukocytosis of 19.3, hemoglobin 12.4 and platelet count 74. INR 1.8, d-dimer was 21.9. Total bilirubin 10.2, AST 114, ALT 62, alkaline phosphatase 182. Albumin 2.7. Patient also states he has not been eating or drinking for the past 3 days. Temperature initially was 99.9 with a pulse of 124. Pulse ox is 90% on room air. He does complain of shortness of breath with minimal activity. Patient was started on antibiotics the form of Unasyn and vancomycin and admitted to the MedSurg floor. Consult is in place with Dr. Florencia Araujo. Patient also has significant history of lumbar disc herniation with radiculopathy and has seen Dr. Khan for this and has undergone several epidural injections in the past. He was determined be a poor surgical candidate. Review of Systems All systems: negative Constitutional: Reports anorexia, Reports fatigue, Reports lethargy, Reports malaise, Reports poor appetite, Reports weakness, Denies chills, Denies fever Eyes: denies blurred vision, denies pain Ears, nose, mouth and throat: Reports mouth pain, Denies dental pain, Denies dysphagia, Denies headache, Denies sore throat Cardiovascular: Reports decreased exercise tolerance, Reports dyspnea on exertion, Reports edema, Reports leg edema, Reports shortness of breath, Denies chest pain, Denies syncope Respiratory: Reports dyspnea, Denies cough, Denies cough with sputum, Denies excessive sputum, Denies hemoptysis, Denies home oxygen Gastrointestinal: Reports abdominal pain, Reports bloating, Reports jaundice, Reports loss of appetite, Denies diarrhea, Denies nausea, Denies vomiting Genitourinary: Denies dysuria Musculoskeletal: Denies myalgias Integumentary: Reports lesions, Reports rash, Reports wounds, Denies pruritus Neurological: Denies numbness, Denies weakness Psychiatric: Denies anxiety, Denies depression Endocrine: Denies fatigue, Denies weight change Past Medical History Past Medical History: COPD, GERD/Reflux, Liver Disease, Pneumonia Additional Past Medical History / Comment(s): Lumbar disc herniation with radiculopathy, peptic ulcer disease, hepatitis C with cirrhosis of the liver History of Any Multi-Drug Resistant Organisms: None Reported Past Surgical History: Tonsillectomy Additional Past Surgical History / Comment(s): Lower epidural back injections Past Anesthesia/Blood Transfusion Reactions: No Reported Reaction Past Psychological History: Anxiety Additional Psychological History / Comment(s): Pt lives with his spouse. He recently started using a cane to ambulate. He was driving prior to this illness. Smoking Status: Current some day smoker Past Alcohol Use History: None Reported Additional Past Alcohol Use History / Comment(s): Pt started smoking in 1981 and is a 1/2 ppd smoker. Patient states he is currently down to 3 cigarettes per day. Alcohol intake is 1-6 beers per day depending on the day. He has history of cocaine IV use when he was in high school. He is currently living at home with his of 26 years. 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 Past Drug Use History: None Reported - Past Family History Mother Family Medical History: Cancer, Congestive Heart Failure (CHF), Osteoarthritis ( OA) Additional Family Medical History / Comment(s): Mother is 83 yrs old. She has had breast cancer. Father Additional Family Medical History / Comment(s): Father is an alcoholic-pt does not know him well. Medications and Allergies Home Medications Medication Instructions Recorded Confirmed Type Albuterol Inhaler [Ventolin Hfa 1 - 2 puff INHALATION RT-Q6H PRN 01/25/17 History Inhaler] Budesonide/Formoterol Fumarate 2 puff INHALATION RT-BID 01/25/17 02/09/17 History [Symbicort 160-4.5 Mcg Inhaler] Ergocalciferol [Vitamin D2 50,000 unit PO Q7D 01/25/17 02/09/17 History (DRISDOL)] Omeprazole [PriLOSEC] 40 mg PO DAILY 01/25/17 02/09/17 History Docusate [Colace] 100 mg PO DAILY PRN #30 cap 01/28/17 02/09/17 Rx Thiamine [Vitamin B-1] 100 mg PO DAILY@1200 #30 tab 01/28/17 02/09/17 Rx Furosemide [Lasix] 40 mg PO DAILY #30 tablet 02/15/17 Rx Nicotine 14Mg/24Hr Patch [Habitrol] 1 patch TRANSDERM DAILY #30 patch 02/15/17 Rx Potassium Chloride ER [K-Dur 20] 20 meq PO DAILY #15 tab 04/15/17 Rx oxyCODONE-APAP 7.5-325MG [Percocet 1 tab PO Q6HR PRN #12 tab 04/15/17 Rx 7.5-325 mg] predniSONE 20 mg PO BID #10 tab 04/15/17 Rx Clotrimazole 10 mg MUCOUS MEM 5XD 04/24/17 04/24/17 History HYDROcodone/APAP 7.5-325MG [[place] 1 tab PO BID PRN 04/24/17 04/24/17 History 7.5-325] Magnesium Oxide [Mag-Ox] 250 mg PO DAILY 04/24/17 04/24/17 History Spironolactone 100 mg PO DAILY 04/24/17 04/24/17 History Tiotropium 18 Mcg/Puff [Spiriva] 1 cap INHALATION RT-DAILY 04/24/17 04/24/17 History Allergies Allergy/AdvReac Type Severity Reaction Status Date / Time No Known Allergies Allergy Verified 04/24/17 08:46 Physical Exam Vitals: Vital Signs Temp Pulse Pulse Resp BP BP Pulse Ox 04/24/17 08:25 104 H 04/24/17 08:15 100 04/24/17 07:00 96.7 F L 92 20 112/62 94 L 04/24/17 03:54 128 H 04/24/17 02:26 97.0 F L 128 H 18 146/81 96 04/24/17 01:45 99.1 F 125 H 26 H 153/81 96 04/23/17 23:55 99.9 F H 124 H 20 156/84 90 L Intake and Output 04/23/17 04/24/17 04/24/17 22:59 06:59 14:59 Output Total 450 Balance -450 Output: Urine 450 Other: Weight 107 kg Gen: This is a obese 52-year-old male. He is sitting up in bed and appears to be dyspneic at rest. HEENT: Head is atraumatic, normocephalic. Pupils equal, round. Sclerae is icteric. Mucous membranes of the mouth are dry. Dentition is in good order. No thrush noted. NECK: Supple. No JVD. No lymphadenopathy. No thyromegaly. LUNGS: Clear to auscultation but diminished at the bases.. Minimal intercostal retractions while at rest. HEART: Regular rate and rhythm. No murmur. ABDOMEN: Distended. Bowel sounds are present. Generalized tenderness. EXTREMITIES: Bilateral lower extremity edema 2+ on the right with erythema from the toes to below the knee area. Warm to touch. Minimal left-sided redness with 1+ pedal edema. SKIN: Rash to the pulse ox and upper posterior thigh lateral thigh area. NEUROLOGICAL: Patient is awake, alert and oriented x3. Cranial nerves 2 through 12 are grossly intact. Results Results: Laboratory Results WBC 19.3 k/uL (3.8-10.6) H 04/24/17 00:48 RBC 3.53 m/uL (4.30-5.90) L 04/24/17 00:48 Hgb 12.4 gm/dL (13.0-17.5) L 04/24/17 00:48 Hct 38.1 % (39.0-53.0) L 04/24/17 00:48 MCV 108.0 fL (80.0-100.0) H 04/24/17 00:48 MCH 35.1 pg (25.0-35.0) H 04/24/17 00:48 MCHC 32.5 g/dL (31.0-37.0) 04/24/17 00:48 RDW 15.7 % (11.5-15.5) H 04/24/17 00:48 Plt Count 75 k/uL (150-450) L 04/24/17 00:48 Neutrophils % 86 % 04/24/17 00:48 Lymphocytes % 9 % 04/24/17 00:48 Monocytes % 3 % 04/24/17 00:48 Eosinophils % 1 % 04/24/17 00:48 Basophils % 0 % 04/24/17 00:48 Neutrophils # 16.5 k/uL (1.3-7.7) H 04/24/17 00:48 Lymphocytes # 1.8 k/uL (1.0-4.8) 04/24/17 00:48 Monocytes # 0.6 k/uL (0-1.0) 04/24/17 00:48 Eosinophils # 0.2 k/uL (0-0.7) 04/24/17 00:48 Basophils # 0.1 k/uL (0-0.2) 04/24/17 00:48 Macrocytosis Marked 04/24/17 00:48 Target Cells Present 04/24/17 00:48 PT 17.8 sec (9.0-12.0) H 04/24/17 00:48 INR 1.8 (<1.2) H 04/24/17 00:48 APTT 33.7 sec (22.0-30.0) H 04/24/17 00:48 D-Dimer 21.94 mg/L FEU (<0.60) H 04/24/17 03:25 Sodium 131 mmol/L (137-145) L 04/24/17 00:48 Potassium 4.4 mmol/L (3.5-5.1) 04/24/17 00:48 Chloride 98 mmol/L (98-107) 04/24/17 00:48 Carbon Dioxide 25 mmol/L (22-30) 04/24/17 00:48 Anion Gap 8 mmol/L 04/24/17 00:48 BUN 15 mg/dL (9-20) 04/24/17 00:48 Creatinine 0.80 mg/dL (0.66-1.25) 04/24/17 00:48 Est GFR (MDRD) Af Amer >60 (>60 ml/min/1.73 sqM) 04/24/17 00:48 Est GFR (MDRD) Non-Af >60 (>60 ml/min/1.73 sqM) 04/24/17 00:48 Glucose 102 mg/dL (74-99) H 04/24/17 00:48 Plasma Lactic Acid Andrei 1.7 mmol/L (0.7-2.0) 04/24/17 00:48 Calcium 8.4 mg/dL (8.4-10.2) 04/24/17 00:48 Total Bilirubin 10.2 mg/dL (0.2-1.3) H 04/24/17 00:48 AST 114 U/L (17-59) H 04/24/17 00:48 ALT 62 U/L (21-72) 04/24/17 00:48 Alkaline Phosphatase 182 U/L (38-126) H 04/24/17 00:48 Ammonia 32 umol/L (<30) H 04/24/17 00:48 Troponin I <0.012 ng/mL (0.000-0.034) 04/24/17 00:48 Total Protein 7.3 g/dL (6.3-8.2) 04/24/17 00:48 Albumin 2.7 g/dL (3.5-5.0) L 04/24/17 00:48 Amylase 61 U/L (30-110) 04/24/17 00:48 Lipase 92 U/L (23-300) 04/24/17 00:48 CBC & Chem 7: 04/24/17 00:48 04/24/17 00:48 Labs: Abnormal Lab Results - Last 24 Hours (Table) 04/24/17 04/24/17 04/24/17 Range/Units 00:48 00:48 00:48 WBC 19.3 H (3.8-10.6) k/uL RBC 3.53 L (4.30-5.90) m/uL Hgb 12.4 L (13.0-17.5) gm/dL Hct 38.1 L (39.0-53.0) % MCV 108.0 H (80.0-100.0) fL MCH 35.1 H (25.0-35.0) pg RDW 15.7 H (11.5-15.5) % Plt Count 75 L (150-450) k/uL Neutrophils # 16.5 H (1.3-7.7) k/uL PT (9.0-12.0) sec INR (<1.2) APTT (22.0-30.0) sec D-Dimer (<0.60) mg/L FEU Sodium 131 L (137-145) mmol/L Glucose 102 H (74-99) mg/dL Total Bilirubin 10.2 H (0.2-1.3) mg/dL AST 114 H (17-59) U/L Alkaline Phosphatase 182 H (38-126) U/L Ammonia 32 H (<30) umol/L Albumin 2.7 L (3.5-5.0) g/dL 04/24/17 04/24/17 Range/Units 00:48 03:25 WBC (3.8-10.6) k/uL RBC (4.30-5.90) m/uL Hgb (13.0-17.5) gm/dL Hct (39.0-53.0) % MCV (80.0-100.0) fL MCH (25.0-35.0) pg RDW (11.5-15.5) % Plt Count (150-450) k/uL Neutrophils # (1.3-7.7) k/uL PT 17.8 H (9.0-12.0) sec INR 1.8 H (<1.2) APTT 33.7 H (22.0-30.0) sec D-Dimer 21.94 H (<0.60) mg/L FEU Sodium (137-145) mmol/L Glucose (74-99) mg/dL Total Bilirubin (0.2-1.3) mg/dL AST (17-59) U/L Alkaline Phosphatase (38-126) U/L Ammonia (<30) umol/L Albumin (3.5-5.0) g/dL Assessment and Plan Plan: This is a 52-year-old male who presented to the hospital with cirrhosis of the liver with history of hepatitis C, cellulitis of the bilateral lower extremity more so on the right. Ultrasound of the lower extremity was negative for DVT. Patient is currently on IV antibiotics in form of Unasyn and vancomycin. We'll add and local wound care in form of Silvadene wraps and keep the legs elevated. Patient is currently on Lasix and Aldactone. Patient has consult with Dr. Florencia Araujo. Patient may benefit from paracentesis. Continue supportive care. Further recommendations as patient progresses. The above dictated assessment and findings were discussed with Dr. Felton. The impression and plan of care have been directed as dictated. Mary Alcantara nurse practitioner acting as scribe for Dr. Felton.
[2017-04-24 11:29] LABS: Appearance,Urine Clear (Clear); Bilirubin,Urine 2+ (Negative); Glucose,Urine (UA) Negative (Negative); Ketones,Urine Negative (Negative); Leukocyte Esterase,Urine Negative (Negative); Nitrite,Urine Negative (Negative); PH, Urine 6.5 (5.0-8.0); Protein,Urine Trace (Negative); UA Billing (MACRO vs. MICRO) CHEM
[2017-04-24 12:14] LABS: Specific Gravity,Urine 1.048 (1.001-1.035)
[2017-04-24] MEDS: THIAMINE 100 MG TAB PO SCH (12:50)
[2017-04-24] MEDS: DRY MOUTH SPRAY 44.3 SPRAY/44.3 ML SPRAY MUCOUS MEM PRN (12:51)
[2017-04-24] MEDS: HYDROmorphone 0.5 MG/0.5 ML SYRINGE IVP PRN ×3 (12:51→22:05)
[2017-04-24] MEDS: SILVER sulfADIAZINE Cream 400 GM 1 APPLIC APPLIC TOPICAL SCH (12:52)
[2017-04-24] MEDS: FOLIC ACID 1 MG TAB PO SCH (14:00)
--- NOTE | 2017-04-24 15:46 | XR ---
EXAMINATION TYPE: XR chest 1V portable DATE OF EXAM: 04/24/2017 Comparison: 04/15/2017 Clinical History: 52-year-old male shortness of breath, CHF. Findings: The heart is normal size. Diffuse interstitial prominence. Some hazy left basilar opacity may be on a technical basis due to overlying soft tissue density. Otherwise, no consolidation or significant ple ural effusion seen. Impression: 1. Mild interstitial prominence could represent bronchitis, chronic asthma, or mild pulmonary vascula r congestion. However, we note that the heart appears normal size. 2. Some hazy left basilar opacity probably due to overlying soft tissue density.
[2017-04-24] MEDS: VANCOMYCIN 1,750 MG in SODIUM CHLORIDE 0.9% 250 ML IVPB SCH (16:02)
[2017-04-24] MEDS: CLOTRIMAZOLE TROCHE 10 MG TROCHE MUCOUS MEM SCH ×2 (16:04→21:13)
--- NOTE | 2017-04-24 17:13 | HP ---
HISTORY AND PHYSICAL DATE OF SERVICE: 04/24/2017. CHIEF COMPLAINT: Abdominal swelling as well as leg pain and swelling. HISTORY OF PRESENT ILLNESS: This 51-year-old gentleman with a past history of hepatitis C, history of cirrhosis of the liver, history of obesity, history of back pain being followed by Dr. Kruse in the [place] area was previously admitted with back pain and jaundice. The patient was suspected to have hepatitis failure cirrhosis of the liver, possible a combination of hepatitis C and alcohol and the patient was treated symptomatically. Patient went home. Currently the patient is complaining of progressive distention of the abdomen. Patient also admitted to Dr. Dickson Araujo of gastroenterology who is deferring acetic tap at this time. Otherwise patient also noted bilateral leg swelling right more than the left. The patient came to [facility] and admitted for evaluation and treatment. Severe cellulitis noted. There is no history of fever, rigors. No history of headache, loss of conscious or seizures. PAST MEDICAL HISTORY: History of COPD, history of GERD, history of liver disease, lumbar herniation, history of anxiety. MEDICATIONS: Medications prior to admission include home medications are: 1. Prednisone 20 mg p.o. b.i.d. 2. Oxycodone 7.5 q.6h p.r.n. 3. Spiriva 1 puff daily. 4. Vitamin B 100 mg. 5. Aldactone 100 mg. 6. K-Dur 20 mg. 7. Prilosec 40 mg p.o. daily. 8. Habitrol 1 daily. 9. Magnesium oxide 250 mg p.o. daily. 10.[place] 7.5 b.i.d. p.r.n. 11.Lasix 40 mg. 12.Drisdol 13907 p.o. q.7 days. 13.Colace 100 mg daily p.r.n. 14.Clotrimazole 10 mg 5 times daily. 15.Symbicort 2 puffs b.i.d. 16.Albuterol 1 to 2 puffs q.6h p.r.n. ALLERGIES: Allergies are none. FAMILY HISTORY: History of cancer, congestive heart failure and degenerative joint disease in the family. SOCIAL HISTORY: History of smoking. Occasional alcohol intake. Last intake was about 2 months according to him. REVIEW OF SYSTEMS: ENT: No diminished hearing or vision. CARDIOVASCULAR: No angina. RESPIRATORY: No cough or hemoptysis. GI: As mentioned earlier. : No dysuria. NERVOUS SYSTEM: No numbness, weakness. ALLERGY/IMMUNOLOGY: No asthma or hayfever. MUSCULOSKELETAL: As mentioned earlier. HEMATOLOGY: No history of anemia. ENDOCRINE: No history of diabetes or hypothyroidism. CONSTITUTIONAL: As mentioned earlier. DERMATOLOGY: Negative. RHEUMATOLOGY: Negative. PSYCHIATRIC: As mentioned earlier. PHYSICAL EXAM: Patient is alert, oriented x3. The pulse is 102, blood pressure is 110/70, respiration 20, temperature 97 degrees, pulse ox 97% on 2 L. HEENT: Conjunctivae normal. NECK: No jugular venous distention. No carotid bruit. No lymph node enlargement. CARDIOVASCULAR: S1, S2. No S3, no S4. RESPIRATORY: Breath sounds diminished in the bases. A few scattered rhonchi and crackles. ABDOMEN: Soft, distended. Mild diffuse discomfort on palpation. LEGS: Bilateral leg edema, swelling present on the right more than the left, which is shiny with also. Areas of bilateral leg cellulitis present. SKIN: As mentioned earlier. LYMPHATICS: No lymphadenopathy in the neck, axillae, or groin. JOINTS: No active deforming arthropathy. NERVOUS SYSTEM: Higher functions as mentioned. Cranial nerves normal. No focal motor or sensory deficits. LAB INVESTIGATIONS: WBC 19.3, hemoglobin 12.4, PT 17.8, ammonia 32. ASSESSMENT: 1. Bilateral leg cellulitis. 2. Cirrhosis of liver with ascites. 3. Coagulopathy secondary to chronic liver disease. 4. Increased WBC. 5. Anemia, microcytic. 6. ETOH. 7. Elevated D-dimer. 8. Hyperbilirubinemia with hepatitis. 9. Increased AST. 10.Chronic obstructive pulmonary disease. 11.Gastroesophageal reflux disease. 12.History of degenerative joint disease. 13.History of anxiety. RECOMMENDATIONS AND DISCUSSION: This 52-year-old gentleman who presented with multiple complex medical issues. We will monitor the patient closely. Continue the current management. Symptomatic treatment. We will initiate broad-spectrum IV antibiotics. Infectious disease evaluation. Otherwise I would also continue with careful diuretics. Add IV diuretics, fluid resuscitation. Continue with the current medication and DVT prophylaxis. GI prophylaxis. Continue to monitor. Infectious Disease has been consulted as well as Dr. Araujo from GI. Guarded prognosis because of multiple complex medical issues. Further recommendations to follow. The patient understands and agrees. MMODL / IJN: [id number] /
[2017-04-24] MEDS: PIPERACILLIN-TAZOBACTAM 3.375 GM in DEXTROSE/WATER 1 50ML.BAG IVPB SCH (18:28)
[2017-04-24] MEDS: FUROSEMIDE 10 MG/ML 4 ML VIAL IV SCH (21:07)
[2017-04-24] MEDS: predniSONE 20 MG TAB PO SCH (21:07)
--- NOTE | 2017-04-24 22:06 | P.CON ---
Consult Note - . Consult date: 04/24/17 Assessment/Plan:: This is a 52-year-old male patient with underlying history of hepatitis C, cirrhosis of the liver and follows with Dr. Florencia Araujo. Patient states that he has advised her to go to [facility] in his first appointment will be on June 03. He states his hepatitis C only recently diagnosed has not been treated and he has not undergone paracentesis before. 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 Patient states he stopped IV drug use while in high school. Patient also has history of alcohol intake of 1-6 beers per day depending on the day. He also has a chronic rash on his buttocks and going down his legs which he has been following with [facility] on 3 occasions. He states his rash is also been on his legs which are now extremely inflamed and swollen. He states whatever treatment he has been given by the hand icer has not been effective. Patient is complaining of severe pain for the past 3 days in his right hip down his legs with increased swelling and also left ankle pain. He also complains of generalized weakness and abdominal bloating and states his abdomen is bigger than it has been. He underwent an ultrasound of the right lower extremity that was negative for DVT. CTA of the chest showed no obvious large central pulmonary embolism. Small bilateral pleural effusions left greater than right. Moderate to large volume upper abdominal ascites. Lobular hepatic contour suggesting cirrhosis. Patient presented with leukocytosis of 19.3, hemoglobin 12.4 and platelet count 74. INR 1.8, d-dimer was 21.9. Total bilirubin 10.2, AST 114, ALT 62, alkaline phosphatase 182. Albumin 2.7. Patient also states he has not been eating or drinking for the past 3 days. Temperature initially was 99.9 with a pulse of 124. Pulse ox is 90% on room air. He does complain of shortness of breath with minimal activity. Patient was started on antibiotics the form of Unasyn and vancomycin and admitted to the MedSurg floor. Consult is in place with Dr. Florencia Araujo. Patient also has significant history of lumbar disc herniation with radiculopathy and has seen Dr. Khan for this and has undergone several epidural injections in the past. He was determined be a poor surgical candidate. Please see the consult note as dictated by [facility] Mrs. Mary Alcantara. This 50-year-old gentleman is somewhat uncomfortable. He however is denying difficulties such as fevers chills or rigors. He is a the extensive ascites and lower extremity edema. Has the cellulitis of the right leg. Continue antimicrobial therapy directed at the cellulitis as well as concerns to spontaneous bacterial peritonitis, has been stated vancomycin and Zosyn and continue for now will cultures are process. Outside a reveals evidence of his hepatitis C genotype 1A when a positive viral load. He'll follow up with gastroenterology regarding his hepatitis C after discharge history of insulin- dependent [facility]. Silvadene with the wrap has been requested and elevation of the limb is a tolerates. Thyroid evaluation, assessment and plan as dictated by nurse practitioner Mrs. Mary Alcantara.
[2017-04-25] MEDS: PIPERACILLIN-TAZOBACTAM 3.375 GM in DEXTROSE/WATER 1 50ML.BAG IVPB SCH ×4 (00:01→23:48)
[2017-04-25] MEDS: CLOTRIMAZOLE TROCHE 10 MG TROCHE MUCOUS MEM SCH ×6 (00:01→23:47)
[2017-04-25] MEDS: HEPARIN SODIUM,PORCINE 5,000 UNIT/ML 1 ML VIAL SQ SCH ×4 (00:01→23:48)
[2017-04-25] MEDS: HYDROmorphone 0.5 MG/0.5 ML SYRINGE IVP PRN ×6 (00:02→23:00)
[2017-04-25] MEDS: SODIUM CHLORIDE 0.9% 1,000 ML IV SCH (02:53)
[2017-04-25] MEDS: VANCOMYCIN 1,750 MG in SODIUM CHLORIDE 0.9% 250 ML IVPB SCH ×2 (04:20→14:39)
[2017-04-25] MEDS: oxyCODONE-APAP 7.5-325MG 1 EACH TAB PO PRN ×3 (06:31→21:09)
[2017-04-25] MEDS: SYMBICORT 160-4.5 MCG INHALER INHALATION SCH ×2 (07:33→19:32)
[2017-04-25] MEDS: IPRATROPIUM 0.5 MG/2.5 ML NEBU INHALATION SCH ×4 (07:33→19:32)
[2017-04-25] MEDS: NICOTINE 14MG/24HR PATCH TRANSDERM SCH (07:41)
[2017-04-25] MEDS: FUROSEMIDE 10 MG/ML 4 ML VIAL IV SCH ×2 (07:41→21:09)
[2017-04-25] MEDS: MULTIVITAMINS, THERA 1 EACH TAB PO SCH (07:42)
[2017-04-25] MEDS: SPIRONOLACTONE 25 MG TAB PO SCH (07:42)
[2017-04-25] MEDS: predniSONE 20 MG TAB PO SCH (07:42)
[2017-04-25] MEDS: PANTOPRAZOLE 40 MG TABLET PO SCH (07:42)
[2017-04-25] MEDS: POTASSIUM CHLORIDE ER 20 MEQ TAB.ER PO SCH (07:42)
[2017-04-25] MEDS: MAGNESIUM OXIDE 400 MG TAB PO SCH (07:42)
[2017-04-25] MEDS: SILVER sulfADIAZINE Cream 400 GM 1 APPLIC APPLIC TOPICAL SCH (07:43)
[2017-04-25] MEDS ORDERED: NON-FORMULARY DRUG (Tiotropium 18 Mcg/Puff 1 CAP) INHALATION SCH (08:00)
[2017-04-25 10:08] LABS: Anisocytosis Slight; Basophils % (A) 0 %; CH 34.5; CHCM 31.7; Eosinophils # (A) 0.1 k/uL (0-0.7); Eosinophils % (A) 1 %; HCT 37.8 % (39.0-53.0); HDW 2.28; Luc # (Auto) 0.27; Luc % (Auto) 2; Lymphocytes # (A) 0.7 k/uL (1.0-4.8); Lymphocytes % (A) 4 %; MCHC 31.8 g/dL (31.0-37.0); MCV 109.8 fL (80.0-100.0); Macrocytosis Marked; Mean Platelet Volume 10.5; Monocytes # (A) 0.9 k/uL (0-1.0); Monocytes % (A) 5 %; Neutrophils # (A) 14.6 k/uL (1.3-7.7); Neutrophils % (A) 88 %; RBC 3.44 m/uL (4.30-5.90); RDW 16.2 % (11.5-15.5); WBC 16.6 k/uL (3.8-10.6); WBC (Perox) 17.53
[2017-04-25 10:09] LABS: ALT 54 U/L (21-72); AST 83 U/L (17-59); Alkaline Phosphatase 188 U/L (38-126); Anion Gap 9 mmol/L; Blood Urea Nitrogen 19 mg/dL (9-20); Calcium 8.7 mg/dL (8.4-10.2); Carbon Dioxide 23 mmol/L (22-30); Chloride 99 mmol/L (98-107); Glucose 118 mg/dL (74-99); Non-African American GFR(MDRD) >60 (>60 ml/min/1.73 sqM); Potassium 4.3 mmol/L (3.5-5.1); Sodium 131 mmol/L (137-145); Total Bilirubin 9.5 mg/dL (0.2-1.3); Total Protein 7.4 g/dL (6.3-8.2)
--- NOTE | 2017-04-25 10:43 | P.CONS ---
History of Present Illness - Reason for Consult Consult date: 04/25/17 Ascites liver disease Requesting physician: Henry Paige - History of Present Illness 52-year-old gentleman known to the GI service with a past medical history of alcohol liver disease, intravenous drug abuse, cocaine, hepatitis C without treatment presents with worsening abdominal distention lower extremity edema, pain, and redness. Started on IV antibiotics. Scheduled to be evaluated by hepatobiliary service at [facility] June 03. Patient is visibly jaundice. He was drinking alcohol prior to admission secondary to running out of his medications for pain. Lower extremity Doppler and CT chest negative for DVT/PE. Denies abdominal pain just discomfort from increased distention. Patient took pictures over the weekend of his abdomen clearly his abdomen and legs were more swollen than presently. Diuretic therapy seems to be helping with fluid management. Denies fever, chills, hematemesis, hematochezia, or melena. No history of paracentesis. Home medications include prednisone, Lasix and aldactone. White count 19.3. Hemoglobin 12.4. Platelets 75,000. INR 1.8. BUN 19. Creatinine 0.8. D-dimer 21.9. PTT 33.7. PT 17.8. Total bilirubin 10.2. AST 114. ALT 62. Alkaline phosphatase 182. Ammonia 32. Lipase 92. Today total bilirubin 9.5. AST 83. ALT 54. Alkaline phosphatase 188. Ammonia 37. White count 16.6. Platelet 81,000. AFP marker February 2017 5.9. Hepatitis C RNA quantitative 21,000 and December 2016 with genotype 1A. When reviewing prior medical records over the last few months average bilirubin ranges between 2.4-7.3. MRI liver February 2017 hepatic cirrhosis preferential right lobe hepatic fibrosis , portal hypertension, enlarged minerva hepatis lymph node, splenomegaly, ascites , few splenic varices no obvious hepatic lesions. Cholelithiasis. Review of Systems Constitutional: Denies fever, chills, sweats, weight gain, or loss. HEENT: Negative for migraines, blurred vision or loss, earaches, drainage, tinnitus, oral mucosal lesions, dysphagia, or odynophagia. Cardiac: Negative for chest pain, arrhythmias, or palpitation. Respiratory: Pneumonia. Nicotine cigarette dependency. Negative for shortness of breath, hemoptysis, cough, or sputum production. Gastrointestinal: See HPI for pertinent findings. Genitourinary: Negative for hematuria, urgency, frequency, polyuria, dysuria, or penile discharge. Musculoskeletal: Chronic back pain lumbar disc herniation radiculopathy. Neurologic: Negative for stroke or TIA. Endocrine: Negative for thyroid problems. Skin: Negative for rash or itching. Psychiatric: Anxiety. All systems: negative (See HPI) Past Medical History Past Medical History: COPD, GERD/Reflux, Liver Disease, Pneumonia Additional Past Medical History / Comment(s): Lumbar disc herniation with radiculopathy, peptic ulcer disease, hepatitis C with cirrhosis of the liver History of Any Multi-Drug Resistant Organisms: None Reported Past Surgical History: Tonsillectomy Additional Past Surgical History / Comment(s): Lower epidural back injections Past Anesthesia/Blood Transfusion Reactions: No Reported Reaction Past Psychological History: Anxiety Additional Psychological History / Comment(s): Pt lives with his spouse. He recently started using a cane to ambulate. He was driving prior to this illness. Smoking Status: Current some day smoker Past Alcohol Use History: None Reported Additional Past Alcohol Use History / Comment(s): Pt started smoking in 1981 and is a 1/2 ppd smoker. Patient states he is currently down to 3 cigarettes per day. Alcohol intake is 1-6 beers per day depending on the day. He has history of cocaine IV use when he was in high school. He is currently living at home with his of 26 years. 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 Past Drug Use History: None Reported - Past Family History Mother Family Medical History: Cancer, Congestive Heart Failure (CHF), Osteoarthritis ( OA) Additional Family Medical History / Comment(s): Mother is 83 yrs old. She has had breast cancer. Father Additional Family Medical History / Comment(s): Father is an alcoholic-pt does not know him well. Medications and Allergies Home Medications Medication Instructions Recorded Confirmed Type Albuterol Inhaler [Ventolin Hfa 1 - 2 puff INHALATION RT-Q6H PRN 01/25/17 History Inhaler] Budesonide/Formoterol Fumarate 2 puff INHALATION RT-BID 01/25/17 04/24/17 History [Symbicort 160-4.5 Mcg Inhaler] Ergocalciferol [Vitamin D2 50,000 unit PO Q7D 01/25/17 04/24/17 History (DRISDOL)] Omeprazole [PriLOSEC] 40 mg PO DAILY 01/25/17 04/24/17 History Docusate [Colace] 100 mg PO DAILY PRN #30 cap 01/28/17 04/24/17 Rx Thiamine [Vitamin B-1] 100 mg PO DAILY@1200 #30 tab 01/28/17 04/24/17 Rx Furosemide [Lasix] 40 mg PO DAILY #30 tablet 02/15/17 04/24/17 Rx Nicotine 14Mg/24Hr Patch [Habitrol] 1 patch TRANSDERM DAILY #30 patch 02/15/17 04/24/17 Rx Potassium Chloride ER [K-Dur 20] 20 meq PO DAILY #15 tab 04/15/17 04/24/17 Rx oxyCODONE-APAP 7.5-325MG [Percocet 1 tab PO Q6HR PRN #12 tab 04/15/17 04/24/17 Rx 7.5-325 mg] predniSONE 20 mg PO BID #10 tab 04/15/17 04/24/17 Rx Clotrimazole 10 mg MUCOUS MEM 5XD 04/24/17 04/24/17 History HYDROcodone/APAP 7.5-325MG [[place] 1 tab PO BID PRN 04/24/17 04/24/17 History 7.5-325] Magnesium Oxide [Mag-Ox] 250 mg PO DAILY 04/24/17 04/24/17 History Spironolactone 100 mg PO DAILY 04/24/17 04/24/17 History Tiotropium 18 Mcg/Puff [Spiriva] 1 cap INHALATION RT-DAILY 04/24/17 04/24/17 History Allergies Allergy/AdvReac Type Severity Reaction Status Date / Time No Known Allergies Allergy Verified 04/24/17 08:46 Physical Exam Vitals: Vital Signs Temp Pulse Pulse Resp BP Pulse Ox 04/25/17 07:54 128 H 04/25/17 07:33 124 H 04/25/17 07:00 96.7 F L 86 20 125/74 97 04/24/17 23:00 96.6 F L 122 H 16 139/73 96 04/24/17 20:57 125 H 04/24/17 20:45 126 H 04/24/17 17:37 118 H 04/24/17 17:24 122 H 94 L 04/24/17 14:55 97 F L 100 20 124/71 96 04/24/17 11:30 102 H 04/24/17 11:20 100 Intake and Output 04/24/17 04/25/17 04/25/17 22:59 06:59 14:59 Output Total 200 400 Balance -200 -400 Output: Urine 200 400 Results CBC & Chem 7: 04/25/17 09:00 04/25/17 09:00 Labs: Abnormal Lab Results - Last 24 Hours (Table) 04/24/17 04/24/17 04/25/17 Range/Units 11:16 12:51 09:00 WBC (3.8-10.6) k/uL RBC (4.30-5.90) m/uL Hgb (13.0-17.5) gm/dL Hct (39.0-53.0) % MCV (80.0-100.0) fL RDW (11.5-15.5) % Plt Count (150-450) k/uL Sodium 131 L (137-145) mmol/L Glucose 118 H (74-99) mg/dL Total Bilirubin 9.5 H (0.2-1.3) mg/dL AST 83 H (17-59) U/L Alkaline Phosphatase 188 H (38-126) U/L Ammonia 37 H (<30) umol/L Albumin 2.7 L (3.5-5.0) g/dL Ur Specific [place] 1.048 H (1.001-1.035) Urine Protein Trace H (Negative) Urine Bilirubin 2+ H (Negative) 04/25/17 Range/Units 09:00 WBC 16.6 H (3.8-10.6) k/uL RBC 3.44 L (4.30-5.90) m/uL Hgb 12.0 L (13.0-17.5) gm/dL Hct 37.8 L (39.0-53.0) % MCV 109.8 H (80.0-100.0) fL RDW 16.2 H (11.5-15.5) % Plt Count 81 L (150-450) k/uL Sodium (137-145) mmol/L Glucose (74-99) mg/dL Total Bilirubin (0.2-1.3) mg/dL AST (17-59) U/L Alkaline Phosphatase (38-126) U/L Ammonia (<30) umol/L Albumin (3.5-5.0) g/dL Ur Specific [place] (1.001-1.035) Urine Protein (Negative) Urine Bilirubin (Negative) Microbiology - Last 24 Hours (Table) 04/24/17 00:48 Blood Culture - Preliminary Blood No Growth after 24 hours Assessment and Plan (1) Alcoholic hepatitis with ascites Narrative/Plan: MDF score 37 may benefit from treatment of cortiocosteroids. Status: Acute (2) Ascites Status: Acute (3) Portal hypertension Status: Acute (4) Hepatitis C Status: Acute (5) Cirrhosis Status: Acute (6) Coagulopathy Status: Acute (7) Cholelithiasis Status: Acute (8) Thrombocytopenia Status: Acute Plan: 1. Continue with diuretics overall abdominal distention and leg edema is slowly improving. Paracentesis contingent on clinical course. Will reevalaute daily. Followup with Misha Zamudio as advised. Alcohol abstinence strongly recommended. Continue with prednisone but change to 40 mg daily x 28 days instead of 20 mg BID for treatment of alcohol hepatitis. Will continue to follow. Low salt diet. Thank you for this kind referral and the opportunity to participate in the care of your patient. This consultation was discussed with Dr. Araujo. The impression and plan of care have been directed as dictated.
[2017-04-25 10:57] LABS: Manual Review Performed; Target Cells Present
[2017-04-25 10:58] LABS: Toxic Granulation Present
[2017-04-25] MEDS: THIAMINE 100 MG TAB PO SCH (11:38)
[2017-04-25] MEDS: FOLIC ACID 1 MG TAB PO SCH (11:38)
[2017-04-25] MEDS: PHYTONADIONE ORAL 5 MG/5 ML ORAL.SYRG PO SCH (13:34)
[2017-04-25] MEDS: DRY MOUTH SPRAY 44.3 SPRAY/44.3 ML SPRAY MUCOUS MEM PRN (14:53)
--- NOTE | 2017-04-25 17:30 | P.PN ---
Subjective Date of service 04/25/2017. Progress note being dictated for Dr. Paige. Interval history: This a 52-year-old gentleman admitted with bilateral leg cellulitis, cirrhosis of liver with ascites, coagulopathy secondary to chronic liver disease and multiple other medical issues. Maintained on Zosyn, vancomycin as per infectious disease. Diuresing on Lasix IV push with 24-hour I &O reflecting a negative fluid balance, significant ascites, decreasing leg edema. Most recent INR 1.8. Evaluated by GI with recommendations noted. Leukocytosis improving. T bili 9.5, alk phos 188, ammonia 37. Denies abdominal pain, chest pain, palpitations or increasing shortness of breath. Afebrile, preliminary blood cultures negative. Objective - Vital Signs Vital signs: Vital Signs Temp 98.1 F 04/25/17 15:00 Pulse 104 H 04/25/17 15:41 Resp 18 04/25/17 15:00 BP 152/84 04/25/17 15:00 Pulse Ox 97 04/25/17 15:00 Intake & Output 04/24/17 04/25/17 04/25/17 18:59 06:59 18:59 Output Total 600 Balance -600 Output: Urine 600 Other: Voiding Method Urinal # Voids 2 3 - Exam PHYSICAL EXAM: VITAL SIGNS: As above GENERAL: Sitting up in bed, tired appearing, no acute distress HEENT: Conjunctivae icterus. eyes normal. Jaundiced. NECK: No JVD. No thyroid enlargement. No LNs CARDIOVASCULAR: S1, S2 muffled. No murmur RESPIRATION: Breath sounds diminished in the bases. Occasional scattered rhonchi, no crackles. No bronchial breathing. ABDOMEN: Soft, distended, mild diffuse tenderness with palpation, positive ascites. No guarding. no masses palpable. No ascites, No hepatosplenomegaly.Bowel sounds heard. Scrotal/penile edema. LEGS: Bilateral leg cellulitis, edema and redness. Bilateral lower leg Shad wraps clean dry and intact. PSYCHIATRY: Alert and oriented -3, mood and affect normal. NERVOUS SYSTEM: Cranial N 2-12 grossly normal. Moves all 4 limbs. Diffuse weakness No focal deficits. No sensory deficit. Joints: No active swelling. No inflammation. Lymphatic system. No LN neck axilla or groin. - Labs CBC & Chem 7: 04/25/17 09:00 04/25/17 09:00 Labs: Abnormal Lab Results - Last 24 Hours (Table) 04/25/17 04/25/17 Range/Units 09:00 09:00 WBC 16.6 H (3.8-10.6) k/uL RBC 3.44 L (4.30-5.90) m/uL Hgb 12.0 L (13.0-17.5) gm/dL Hct 37.8 L (39.0-53.0) % MCV 109.8 H (80.0-100.0) fL RDW 16.2 H (11.5-15.5) % Plt Count 81 L (150-450) k/uL Neutrophils # 14.6 H (1.3-7.7) k/uL Lymphocytes # 0.7 L (1.0-4.8) k/uL Sodium 131 L (137-145) mmol/L Glucose 118 H (74-99) mg/dL Total Bilirubin 9.5 H (0.2-1.3) mg/dL AST 83 H (17-59) U/L Alkaline Phosphatase 188 H (38-126) U/L Albumin 2.7 L (3.5-5.0) g/dL Microbiology - Last 24 Hours (Table) 04/24/17 00:48 Blood Culture - Preliminary Blood No Growth after 24 hours Assessment and Plan Plan: 1. Bilateral leg cellulitis 2. [ Cirrhosis of liver with ascites]. 3. [ Coagulopathy secondary to chronic liver disease]. 4. [ Leukocytosis]. 5. [ Anemia, microcytic]. 6. [ EtOH abuse]. 7. Elevated d-dimer[]. 8. Hyperbilirubinemia with hepatitis Plan: Continue on current medication regime , Lasix, steroids, monitoring and symptomatic treatment. 1400 mL per 24 hours fluid restriction, low sodium diet. Vitamin K added to daily med regime, daily PT INR. potential abdominal paracentesis. Prognosis guarded. Follow closely with GI and infectious disease. Follow up with Misha Zamudio as per GI, OP. Alcohol cessation readdressed. The impression and plan of care has been dictated as directed. : I performed a H&P examination of this patient and discussed the same with the dictator. I agree with the dictator's note. Any additional findings/opinions/ etc. will be noted.
--- NOTE | 2017-04-25 21:01 | P.PN ---
Subjective Principal diagnosis: Cellulitis right leg This is a 52-year-old male patient with underlying history of hepatitis C, cirrhosis of the liver and follows with Dr. Florencia Araujo. Patient states that he has advised her to go to [facility] in his first appointment will be on June 03. He states his hepatitis C only recently diagnosed has not been treated and he has not undergone paracentesis before. 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 Patient states he stopped IV drug use while in high school. Patient also has history of alcohol intake of 1-6 beers per day depending on the day. He also has a chronic rash on his buttocks and going down his legs which he has been following with [facility] on 3 occasions. He states his rash is also been on his legs which are now extremely inflamed and swollen. He states whatever treatment he has been given by the pipe bender has not been effective. Patient is complaining of severe pain for the past 3 days in his right hip down his legs with increased swelling and also left ankle pain. He also complains of generalized weakness and abdominal bloating and states his abdomen is bigger than it has been. He underwent an ultrasound of the right lower extremity that was negative for DVT. CTA of the chest showed no obvious large central pulmonary embolism. Small bilateral pleural effusions left greater than right. Moderate to large volume upper abdominal ascites. Lobular hepatic contour suggesting cirrhosis. Patient presented with leukocytosis of 19.3, hemoglobin 12.4 and platelet count 74. INR 1.8, d-dimer was 21.9. Total bilirubin 10.2, AST 114, ALT 62, alkaline phosphatase 182. Albumin 2.7. Patient also states he has not been eating or drinking for the past 3 days. Temperature initially was 99.9 with a pulse of 124. Pulse ox is 90% on room air. He does complain of shortness of breath with minimal activity. Patient was started on antibiotics the form of Unasyn and vancomycin and [facility] Consult is in place with Dr. Florencia Araujo. Patient also has significant history of lumbar disc herniation with radiculopathy and has seen Dr. Khan for this and has undergone several epidural injections in the past. He was determined be a poor surgical candidate. Is noted at admission there was evidence of the extensive sallowness the right leg. This is feeling slightly better today. His fevers improved. 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 He's been followed by gastroenterology for his extensive alcoholic hepatitis. Objective - Vital Signs Vital signs: Vital Signs Temp 98.1 F 04/25/17 15:00 Pulse 112 H 04/25/17 19:45 Resp 18 04/25/17 15:00 BP 152/84 04/25/17 15:00 Pulse Ox 94 L 04/25/17 19:33 Intake & Output 04/25/17 04/25/17 04/26/17 06:59 18:59 06:59 Output Total 600 Balance -600 Output: Urine 600 Other: Voiding Method Toilet Urinal # Voids 3 - Exam Gen: This is a obese 52-year-old male. He is sitting up in bed and appears to be dyspneic at rest. HEENT: Head is atraumatic, normocephalic. Pupils equal, round. Sclerae is icteric. Mucous membranes of the mouth are dry. Dentition is in good order. No thrush noted. NECK: Supple. No JVD. No lymphadenopathy. No thyromegaly. LUNGS: Clear to auscultation but diminished at the bases.. Minimal intercostal retractions while at rest. HEART: Regular rate and rhythm. No murmur. ABDOMEN: Distended. Bowel sounds are present. Generalized tenderness. EXTREMITIES: Bilateral lower extremity edema 2+ on the right with erythema from the toes to below the knee area. Warm to touch. Minimal left-sided redness with 1+ pedal edema. Over the erythema to the right leg has improved today. SKIN: Rash to the pulse ox and upper posterior thigh lateral thigh area. NEUROLOGICAL: Patient is awake, alert and oriented x3. - Labs CBC & Chem 7: 04/25/17 09:00 04/25/17 09:00 Labs: Abnormal Lab Results - Last 24 Hours (Table) 04/25/17 04/25/17 Range/Units 09: 09:00 WBC 16.6 H (3.8-10.6) k/uL RBC 3.44 L (4.30-5.90) m/uL Hgb 12.0 L (13.0-17.5) gm/dL Hct 37.8 L (39.0-53.0) % MCV 109.8 H (80.0-100.0) fL RDW 16.2 H (11.5-15.5) % Plt Count 81 L (150-450) k/uL Neutrophils # 14.6 H (1.3-7.7) k/uL Lymphocytes # 0.7 L (1.0-4.8) k/uL Sodium 131 L (137-145) mmol/L Glucose 118 H (74-99) mg/dL Total Bilirubin 9.5 H (0.2-1.3) mg/dL AST 83 H (17-59) U/L Alkaline Phosphatase 188 H (38-126) U/L Albumin 2.7 L (3.5-5.0) g/dL Microbiology - Last 24 Hours (Table) 04/24/17 00:48 Blood Culture - Preliminary Blood No Growth after 24 hours Laboratory Results WBC 16.6 k/uL (3.8-10.6) H 04/25/17 09:00 RBC 3.44 m/uL (4.30-5.90) L 04/25/17 09:00 Hgb 12.0 gm/dL (13.0-17.5) L 04/25/17 09:00 Hct 37.8 % (39.0-53.0) L 04/25/17 09:00 MCV 109.8 fL (80.0-100.0) H 04/25/17 09:00 MCH 35.0 pg (25.0-35.0) 04/25/17 09:00 MCHC 31.8 g/dL (31.0-37.0) 04/25/17 09:00 RDW 16.2 % (11.5-15.5) H 04/25/17 09:00 Plt Count 81 k/uL (150-450) L 04/25/17 09:00 Neutrophils % 88 % 04/25/17 09:00 Lymphocytes % 4 % 04/25/17 09:00 Monocytes % 5 % 04/25/17 09:00 Eosinophils % 1 % 04/25/17 09:00 Basophils % 0 % 04/25/17 09:00 Neutrophils # 14.6 k/uL (1.3-7.7) H 04/25/17 09:00 Lymphocytes # 0.7 k/uL (1.0-4.8) L 04/25/17 09:00 Monocytes # 0.9 k/uL (0-1.0) 04/25/17 09:00 Eosinophils # 0.1 k/uL (0-0.7) 04/25/17 09:00 Basophils # 0.0 k/uL (0-0.2) 04/25/17 09:00 Manual Slide Review Performed 04/25/17 09:00 Toxic Granulation Present 04/25/17 09:00 Poikilocytosis (manual Present 04/25/17 09:00 Anisocytosis Slight 04/25/17 09:00 Macrocytosis Marked 04/25/17 09:00 Target Cells Present 04/25/17 09:00 PT 17.8 sec (9.0-12.0) H 04/24/17 00:48 INR 1.8 (<1.2) H 04/24/17 00:48 APTT 33.7 sec (22.0-30.0) H 04/24/17 00:48 D-Dimer 21.94 mg/L FEU (<0.60) H 04/24/17 03:25 Sodium 131 mmol/L (137-145) L 04/25/17 09:00 Potassium 4.3 mmol/L (3.5-5.1) 04/25/17 09:00 Chloride 99 mmol/L (98-107) 04/25/17 09:00 Carbon Dioxide 23 mmol/L (22-30) 04/25/17 09:00 Anion Gap 9 mmol/L 04/25/17 09:00 BUN 19 mg/dL (9-20) 04/25/17 09:00 Creatinine 0.86 mg/dL (0.66-1.25) 04/25/17 09:00 Est GFR (MDRD) Af Amer >60 (>60 ml/min/1.73 sqM) 04/25/17 09:00 Est GFR (MDRD) Non-Af >60 (>60 ml/min/1.73 sqM) 04/25/17 09:00 Glucose 118 mg/dL (74-99) H 04/25/17 09:00 Plasma Lactic Acid Andrei 1.7 mmol/L (0.7-2.0) 04/24/17 00:48 Calcium 8.7 mg/dL (8.4-10.2) 04/25/17 09:00 Total Bilirubin 9.5 mg/dL (0.2-1.3) H 04/25/17 09:00 AST 83 U/L (17-59) H 04/25/17 09:00 ALT 54 U/L (21-72) 04/25/17 09:00 Alkaline Phosphatase 188 U/L (38-126) H 04/25/17 09:00 Ammonia 37 umol/L (<30) H 04/24/17 12:51 Troponin I <0.012 ng/mL (0.000-0.034) 04/24/17 00:48 Total Protein 7.4 g/dL (6.3-8.2) 04/25/17 09:00 Albumin 2.7 g/dL (3.5-5.0) L 04/25/17 09:00 Amylase 61 U/L (30-110) 04/24/17 00:48 Lipase 92 U/L (23-300) 04/24/17 00:48 Urine Color Dark Yellow 04/24/17 11:16 Urine Appearance Clear (Clear) 04/24/17 11:16 Urine pH 6.5 (5.0-8.0) 04/24/17 11:16 Ur Specific [place] 1.048 (1.001-1.035) H 04/24/17 11:16 Urine Protein Trace (Negative) H 04/24/17 11:16 Urine Glucose (UA) Negative (Negative) 04/24/17 11:16 Urine Ketones Negative (Negative) 04/24/17 11:16 Urine Blood Negative (Negative) 04/24/17 11:16 Urine Nitrite Negative (Negative) 04/24/17 11:16 Urine Bilirubin 2+ (Negative) H 04/24/17 11:16 Urine Urobilinogen 4.0 mg/dL (<2.0) 04/24/17 11:16 Ur Leukocyte Esterase Negative (Negative) 04/24/17 11:16 Microbiology 04/24/17 00:48 Blood Blood Culture - Preliminary No Growth after 24 hours Assessment and Plan (1) Alcoholic hepatitis with ascites Status: Acute (2) Hepatitis C Status: Acute (3) Leukocytosis Status: Acute (4) Cellulitis of right leg Narrative/Plan: This is a 52-year-old male who presented to the hospital with cirrhosis of the liver with history of hepatitis C, cellulitis of the bilateral lower extremity more so on the right. Ultrasound of the lower extremity was negative for DVT. Patient is currently on IV antibiotics in form of Unasyn and vancomycin. We'll add and local wound care in form of Silvadene wraps and keep the legs elevated. Which has helped especially with the edema. He is more comfortable today. Patient is currently on Lasix and Aldactone. Patient has consult with Dr. Florencia Araujo. Patient may benefit from paracentesis. Although at this time he seems to be having some improvement making spontaneous bacterial peritonitis less likely. Steroids have been added for his acute alcoholic hepatitis. Status: Acute
[2017-04-26] MEDS: SODIUM CHLORIDE 0.9% 1,000 ML IV SCH (02:40)
[2017-04-26] MEDS: HYDROmorphone 0.5 MG/0.5 ML SYRINGE IVP PRN ×5 (03:32→20:21)
[2017-04-26] MEDS: VANCOMYCIN 1,750 MG in SODIUM CHLORIDE 0.9% 250 ML IVPB SCH ×2 (03:33→15:34)
[2017-04-26 04:19] LABS: INR 1.6 (<1.2); Prothrombin Time 15.5 sec (9.0-12.0)
[2017-04-26 04:23] LABS: Basophils % (A) 0 %; CH 33.8; CHCM 30.5; Eosinophils # (A) 0.1 k/uL (0-0.7); Eosinophils % (A) 0 %; HCT 36.6 % (39.0-53.0); HDW 2.12; HGB 11.7 gm/dL (13.0-17.5); Hypochromasia Slight; Luc # (Auto) 0.47; Luc % (Auto) 2; Lymphocytes # (A) 0.8 k/uL (1.0-4.8); Lymphocytes % (A) 4 %; MCH 35.7 pg (25.0-35.0); MCV 111.5 fL (80.0-100.0); Macrocytosis Marked; Monocytes # (A) 0.9 k/uL (0-1.0); Monocytes % (A) 5 %; Neutrophils # (A) 17.1 k/uL (1.3-7.7); Neutrophils % (A) 89 %; RBC 3.28 m/uL (4.30-5.90); RDW 15.7 % (11.5-15.5); WBC 19.4 k/uL (3.8-10.6); WBC (Perox) 20.91
[2017-04-26 04:24] LABS: ALT 57 U/L (21-72); AST 83 U/L (17-59); Alkaline Phosphatase 204 U/L (38-126); Anion Gap 8 mmol/L; Blood Urea Nitrogen 19 mg/dL (9-20); Calcium 8.8 mg/dL (8.4-10.2); Carbon Dioxide 26 mmol/L (22-30); Chloride 98 mmol/L (98-107); Glucose 112 mg/dL (74-99); Non-African American GFR(MDRD) >60 (>60 ml/min/1.73 sqM); Potassium 4.6 mmol/L (3.5-5.1); Sodium 132 mmol/L (137-145); Total Bilirubin 8.4 mg/dL (0.2-1.3)
[2017-04-26] MEDS: CLOTRIMAZOLE TROCHE 10 MG TROCHE MUCOUS MEM SCH ×5 (05:27→23:49)
[2017-04-26] MEDS: oxyCODONE-APAP 7.5-325MG 1 EACH TAB PO PRN ×4 (05:28→23:08)
[2017-04-26] MEDS: IPRATROPIUM 0.5 MG/2.5 ML NEBU INHALATION SCH ×4 (07:11→19:19)
[2017-04-26] MEDS: SYMBICORT 160-4.5 MCG INHALER INHALATION SCH ×2 (07:11→19:18)
[2017-04-26] MEDS: PIPERACILLIN-TAZOBACTAM 3.375 GM in DEXTROSE/WATER 1 50ML.BAG IVPB SCH ×2 (07:44→17:40)
[2017-04-26] MEDS: SILVER sulfADIAZINE Cream 400 GM 1 APPLIC APPLIC TOPICAL SCH (07:48)
[2017-04-26] MEDS: NICOTINE 14MG/24HR PATCH TRANSDERM SCH (07:51)
[2017-04-26] MEDS: HEPARIN SODIUM,PORCINE 5,000 UNIT/ML 1 ML VIAL SQ SCH ×3 (07:54→23:49)
[2017-04-26] MEDS: FUROSEMIDE 10 MG/ML 4 ML VIAL IV SCH ×2 (07:54→20:07)
[2017-04-26] MEDS: PANTOPRAZOLE 40 MG TABLET PO SCH (07:58)
[2017-04-26] MEDS: MULTIVITAMINS, THERA 1 EACH TAB PO SCH (07:58)
[2017-04-26] MEDS: MAGNESIUM OXIDE 400 MG TAB PO SCH (07:58)
[2017-04-26] MEDS: POTASSIUM CHLORIDE ER 20 MEQ TAB.ER PO SCH (07:59)
[2017-04-26] MEDS: SPIRONOLACTONE 25 MG TAB PO SCH (07:59)
[2017-04-26] MEDS: predniSONE 20 MG TAB PO SCH (07:59)
[2017-04-26] MEDS: PHYTONADIONE ORAL 5 MG/5 ML ORAL.SYRG PO SCH (08:30)
--- NOTE | 2017-04-26 10:03 | P.PN ---
Subjective Principal diagnosis: liver cirrhosis ascites Reports abdominal discomfort from distension. Afebrile. WBC 19. Platelet 66. INR 1.6. T-bili 8.4; improved. BUN 19. Cr 0.8. Objective - Vital Signs Vital signs: Vital Signs Temp 98.8 F 04/26/17 07:00 Pulse 108 H 04/26/17 07:23 Resp 18 04/26/17 07:00 BP 135/67 04/26/17 07:00 Pulse Ox 97 04/26/17 07:00 Intake & Output 04/25/17 04/26/17 04/26/17 18:59 06:59 18:59 Intake Total 250 Output Total 700 Balance -450 Intake: Oral 250 Output: Urine 700 Other: Voiding Method Toilet Urinal # Voids 3 2 - Constitutional General appearance: Present: morbidly obese - EENT EENT Comment(s): sclera icterus - Neck Neck: Present: normal ROM - Respiratory Respiratory: bilateral: diminished (bases only) - Cardiovascular Rhythm: regular Heart sounds: normal: S1, S2 - Gastrointestinal Gastrointestinal Comment(s): moderate ascites mild diffuse discomfort across mid abdomen General gastrointestinal: Present: distended - Integumentary Integumentary Comment(s): BLE edema with erythema RLE - Neurologic Neurologic: Present: CNII-XII intact - Musculoskeletal Musculoskeletal: Present: gait normal - Psychiatric Psychiatric: Present: A&O x's 3 - Labs CBC & Chem 7: 04/26/17 03:56 04/26/17 03:56 Labs: Abnormal Lab Results - Last 24 Hours (Table) 04/25/17 04/25/17 04/26/17 Range/Units 09:00 09:00 03:56 WBC 16.6 H (3.8-10.6) k/uL RBC 3.44 L (4.30-5.90) m/uL Hgb 12.0 L (13.0-17.5) gm/dL Hct 37.8 L (39.0-53.0) % MCV 109.8 H (80.0-100.0) fL MCH (25.0-35.0) pg RDW 16.2 H (11.5-15.5) % Plt Count 81 L (150-450) k/uL Neutrophils # 14.6 H (1.3-7.7) k/uL Lymphocytes # 0.7 L (1.0-4.8) k/uL PT (9.0-12.0) sec INR (<1.2) Sodium 131 L 132 L (137-145) mmol/L Glucose 118 H 112 H (74-99) mg/dL Total Bilirubin 9.5 H 8.4 H (0.2-1.3) mg/dL AST 83 H 83 H (17-59) U/L Alkaline Phosphatase 188 H 204 H (38-126) U/L Albumin 2.7 L 2.6 L (3.5-5.0) g/dL 04/26/17 04/26/17 Range/Units 03:56 03:57 WBC 19.4 H (3.8-10.6) k/uL RBC 3.28 L (4.30-5.90) m/uL Hgb 11.7 L (13.0-17.5) gm/dL Hct 36.6 L (39.0-53.0) % MCV 111.5 H (80.0-100.0) fL MCH 35.7 H (25.0-35.0) pg RDW 15.7 H (11.5-15.5) % Plt Count 66 L (150-450) k/uL Neutrophils # 17.1 H (1.3-7.7) k/uL Lymphocytes # 0.8 L (1.0-4.8) k/uL PT 15.5 H (9.0-12.0) sec INR 1.6 H (<1.2) Sodium (137-145) mmol/L Glucose (74-99) mg/dL Total Bilirubin (0.2-1.3) mg/dL AST (17-59) U/L Alkaline Phosphatase (38-126) U/L Albumin (3.5-5.0) g/dL Microbiology - Last 24 Hours (Table) 04/24/17 00:48 Blood Culture - Preliminary Blood No Growth after 48 hours Assessment and Plan (1) Alcoholic hepatitis with ascites Narrative/Plan: MDF score 37 may benefit from treatment of cortiocosteroids. Status: Acute (2) Ascites Status: Acute (3) Portal hypertension Status: Acute (4) Hepatitis C Status: Acute (5) Cirrhosis Status: Acute (6) Coagulopathy Status: Acute (7) Cholelithiasis Status: Acute (8) Thrombocytopenia Status: Acute Plan: 1. Continue with diuretics. Diagnostic therapeutic paracentesis today. ABX per ID. Followup with Misha Zamudio as advised. Alcohol abstinence strongly recommended. Continue with prednisone. Will continue to follow. Low salt diet. Lactulose daily; recheck ammonia tomorrow. Daily CMP. Assessment and plan of care discussed with Dr. Araujo
[2017-04-26] MEDS: LACTULOSE 20 GM/30 ML CUP PO SCH (10:59)
--- NOTE | 2017-04-26 11:00 | P.PN ---
Subjective Progress note being dictated for Dr. Paige. 04/25/2017.Interval history: This a 52-year-old gentleman admitted with bilateral leg cellulitis, cirrhosis of liver with ascites, coagulopathy secondary to chronic liver disease and multiple other medical issues. Maintained on Zosyn, vancomycin as per infectious disease. Diuresing on Lasix IV push with 24-hour I&O reflecting a negative fluid balance, significant ascites, decreasing leg edema. Most recent INR 1.8. Evaluated by GI with recommendations noted. Leukocytosis improving. T bili 9.5, alk phos 188, ammonia 37. Denies abdominal pain, chest pain, palpitations or increasing shortness of breath. Afebrile, preliminary blood cultures negative. 04/26/2017. Complains of abdominal pain from ascites/distended abdomen. Maintained on oral vitamin K, INR 1.6. Platelets 66, improving T bili 8.4. Afebrile with TIBC of 19. Maintained on antibiotics as per infectious disease. Continues on diuretics with improving edema. Diagnostic/therapeutic paracentesis today. Objective - Vital Signs Vital signs: Vital Signs Temp 98.8 F 04/26/17 07:00 Pulse 110 H 04/26/17 08:00 Resp 18 04/26/17 08:00 BP 135/67 04/26/17 07:00 Pulse Ox 97 04/26/17 07:00 Intake & Output 04/25/17 04/26/17 04/26/17 18:59 06:59 18:59 Intake Total 250 200 Output Total 700 300 Balance -450 -100 Intake: Oral 250 200 Output: Urine 700 300 Other: Voiding Method Toilet Toilet Urinal Urinal # Voids 3 2 - Exam PHYSICAL EXAM: VITAL SIGNS: As above GENERAL: Sitting up in bed, no acute distress HEENT: Conjunctivae icterus. eyes normal. Jaundiced. NECK: No JVD. No thyroid enlargement. No LNs CARDIOVASCULAR: S1, S2 muffled. No murmur RESPIRATION: Breath sounds diminished in the bases. Occasional scattered rhonchi, no crackles. No bronchial breathing. ABDOMEN: Soft, distended, mild diffuse tenderness with palpation, positive ascites. No guarding. no masses palpable. No ascites, No hepatosplenomegaly.Bowel sounds heard. Scrotal/penile edema. LEGS: Bilateral leg cellulitis, redness and improving edema. Bilateral lower leg Shad wraps clean dry and intact. PSYCHIATRY: Alert and oriented -3, mood and affect normal. NERVOUS SYSTEM: Cranial N 2-12 grossly normal. Moves all 4 limbs. Diffuse weakness No focal deficits. No sensory deficit. Joints: No active swelling. No inflammation. Lymphatic system. No LN neck axilla or groin. - Labs CBC & Chem 7: 04/26/17 03:56 04/26/17 03:56 Labs: Abnormal Lab Results - Last 24 Hours (Table) 04/25/17 04/26/17 04/26/17 Range/Units 09:00 03:56 03:56 WBC 16.6 H 19.4 H (3.8-10.6) k/uL RBC 3.44 L 3.28 L (4.30-5.90) m/uL Hgb 12.0 L 11.7 L (13.0-17.5) gm/dL Hct 37.8 L 36.6 L (39.0-53.0) % MCV 109.8 H 111.5 H (80.0-100.0) fL MCH 35.7 H (25.0-35.0) pg RDW 16.2 H 15.7 H (11.5-15.5) % Plt Count 81 L 66 L (150-450) k/uL Neutrophils # 14.6 H 17.1 H (1.3-7.7) k/uL Lymphocytes # 0.7 L 0.8 L (1.0-4.8) k/uL PT (9.0-12.0) sec INR (<1.2) Sodium 132 L (137-145) mmol/L Glucose 112 H (74-99) mg/dL Total Bilirubin 8.4 H (0.2-1.3) mg/dL AST 83 H (17-59) U/L Alkaline Phosphatase 204 H (38-126) U/L Albumin 2.6 L (3.5-5.0) g/dL 04/26/17 Range/Units 03:57 WBC (3.8-10.6) k/uL RBC (4.30-5.90) m/uL Hgb (13.0-17.5) gm/dL Hct (39.0-53.0) % MCV (80.0-100.0) fL MCH (25.0-35.0) pg RDW (11.5-15.5) % Plt Count (150-450) k/uL Neutrophils # (1.3-7.7) k/uL Lymphocytes # (1.0-4.8) k/uL PT 15.5 H (9.0-12.0) sec INR 1.6 H (<1.2) Sodium (137-145) mmol/L Glucose (74-99) mg/dL Total Bilirubin (0.2-1.3) mg/dL AST (17-59) U/L Alkaline Phosphatase (38-126) U/L Albumin (3.5-5.0) g/dL Microbiology - Last 24 Hours (Table) 04/24/17 00:48 Blood Culture - Preliminary Blood No Growth after 48 hours Assessment and Plan Plan: 1. Bilateral leg cellulitis 2. [ Cirrhosis of liver with ascites]. 3. [ Coagulopathy secondary to chronic liver disease]. 4. [ Leukocytosis]. 5. [ Anemia, microcytic]. 6. [ EtOH abuse]. 7. Elevated d-dimer[]. 8. Hyperbilirubinemia with hepatitis Plan: Continue on current medication regime , Lasix, steroids, lactulose monitoring and symptomatic treatment. Maintain fluid restriction, low sodium diet,Vitamin K.paracentesis pending. Alcohol cessation readdressed. The impression and plan of care has been dictated as directed. : I performed a H&P examination of this patient and discussed the same with the dictator. I agree with the dictator's note. Any additional findings/opinions/ etc. will be noted.
[2017-04-26] MEDS: THIAMINE 100 MG TAB PO SCH (11:50)
[2017-04-26] MEDS: FOLIC ACID 1 MG TAB PO SCH (11:50)
--- NOTE | 2017-04-26 12:15 | US ---
EXAMINATION TYPE: US abdomen limited DATE OF EXAM: 04/26/2017 COMPARISON: NONE CLINICAL HISTORY: assess for ascites only. Mild to moderate ascites. IMPRESSION: Ascites
--- NOTE | 2017-04-26 15:41 | US ---
Therapeutic and diagnostic paracentesis. DATE OF EXAM: 04/26/2017 CLINICAL HISTORY: Ascites The procedure was discussed with the patient. The risks, complications, benefits, and alternatives we re discussed and any questions were answered. Informed consent was obtained. The patient was placed s upine on the ultrasound table and prepped and draped in the usual sterile fashion. All elements of maximal barrier technique were utilized. Under ultrasound guidance, access into the right lower quadrant was obtained, via the paracentesis catheter system and direct ultrasound guidanc e. Approximately 3.1 liters of straw-colored fluid was removed. The patient was stable throughout the pr ocedure and remained stable upon discharge from Department of Radiology. Sample sent to pathology for analysis. IMPRESSION: Successful therapeutic and diagnostic paracentesis under ultrasound guidance.
[2017-04-26] MEDS: DOCUSATE 100 MG CAP PO PRN (17:16)
[2017-04-26 18:36] LABS: RBC, Body Fluid 313 /uL
[2017-04-26] MEDS: DRY MOUTH SPRAY 44.3 SPRAY/44.3 ML SPRAY MUCOUS MEM PRN (20:22)
--- NOTE | 2017-04-26 21:06 | P.PN ---
Subjective Principal diagnosis: Cellulitis right leg This is a 52-year-old male patient with underlying history of hepatitis C, cirrhosis of the liver and follows with Dr. Florencia Araujo. Patient states that he has advised her to go to [facility] in his first appointment will be on June 03. He states his hepatitis C only recently diagnosed has not been treated and he has not undergone paracentesis before. 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 Patient states he stopped IV drug use while in high school. Patient also has history of alcohol intake of 1-6 beers per day depending on the day. He also has a chronic rash on his buttocks and going down his legs which he has been following with [facility] on 3 occasions. He states his rash is also been on his legs which are now extremely inflamed and swollen. He states whatever treatment he has been given by the oyster shipper has not been effective. Patient is complaining of severe pain for the past 3 days in his right hip down his legs with increased swelling and also left ankle pain. He also complains of generalized weakness and abdominal bloating and states his abdomen is bigger than it has been. He underwent an ultrasound of the right lower extremity that was negative for DVT. CTA of the chest showed no obvious large central pulmonary embolism. Small bilateral pleural effusions left greater than right. Moderate to large volume upper abdominal ascites. Lobular hepatic contour suggesting cirrhosis. Patient presented with leukocytosis of 19.3, hemoglobin 12.4 and platelet count 74. INR 1.8, d-dimer was 21.9. Total bilirubin 10.2, AST 114, ALT 62, alkaline phosphatase 182. Albumin 2.7. Patient also states he has not been eating or drinking for the past 3 days. Temperature initially was 99.9 with a pulse of 124. Pulse ox is 90% on room air. He does complain of shortness of breath with minimal activity. Patient was started on antibiotics the form of Unasyn and vancomycin and [facility] Consult is in place with Dr. Florencia Araujo. Patient also has significant history of lumbar disc herniation with radiculopathy and has seen Dr. Khan for this and has undergone several epidural injections in the past. He was determined be a poor surgical candidate. Is noted at admission there was evidence of the extensive erythema of the right leg. This is feeling slightly better today. His fevers improved. Not having fevers or chills He's been followed by gastroenterology for his extensive alcoholic hepatitis. Has had an ultrasound-guided paracentesis and 3.1 L were removed. The patient' s impressed with how much better he feels. Objective - Vital Signs Vital signs: Vital Signs Temp 98.8 F 04/26/17 07:00 Pulse 110 H 04/26/17 19:29 Resp 18 04/26/17 15:20 BP 148/68 04/26/17 15:15 Pulse Ox 95 04/26/17 19:20 Intake & Output 04/26/17 04/26/17 04/27/17 06:59 18:59 06:59 Intake Total 250 680 Output Total 700 300 Balance -450 380 Intake: IV 80 NORMAL SALINE AT KVO 30 Piperacillin-Tazobactam 3 50 .375 gm In Dextrose/Water 1 50ml.bag @ 12.5 mls/hr IVPB Q8HR ADAMARIS Rx#: [id number] Oral 250 600 Output: Urine 700 300 Other: Voiding Method Toilet Urinal # Voids 2 3 - Exam Gen: This is a obese 52-year-old male. He is sitting up in bed and appears to be dyspneic at rest. HEENT: Head is atraumatic, normocephalic. Pupils equal, round. Sclerae is icteric. Mucous membranes of the mouth are dry. Dentition is in good order. No thrush noted. NECK: Supple. No JVD. No lymphadenopathy. No thyromegaly. LUNGS: Clear to auscultation but diminished at the bases.. Minimal intercostal retractions while at rest. HEART: Regular rate and rhythm. No murmur. ABDOMEN: Distended. Bowel sounds are present. Generalized tenderness. Improved in size since the paracentesis. EXTREMITIES: Bilateral lower extremity edema 2+ on the right with erythema from the toes to below the knee area. Warm to touch. Minimal left-sided redness with 1+ pedal edema. Over the erythema to the right leg has improved today. The edema is also slightly improved. SKIN: Rash to the lower leg and up onto the medial aspect of the thigh but is improved. NEUROLOGICAL: Patient is awake, alert and oriented x3. - Labs CBC & Chem 7: 04/26/17 03:56 04/26/17 03:56 Labs: Abnormal Lab Results - Last 24 Hours (Table) 04/26/17 04/26/17 04/26/17 Range/Units 03:56 03:56 03:57 WBC 19.4 H (3.8-10.6) k/uL RBC 3.28 L (4.30-5.90) m/uL Hgb 11.7 L (13.0-17.5) gm/dL Hct 36.6 L (39.0-53.0) % MCV 111.5 H (80.0-100.0) fL MCH 35.7 H (25.0-35.0) pg RDW 15.7 H (11.5-15.5) % Plt Count 66 L (150-450) k/uL Neutrophils # 17.1 H (1.3-7.7) k/uL Lymphocytes # 0.8 L (1.0-4.8) k/uL PT 15.5 H (9.0-12.0) sec INR 1.6 H (<1.2) Sodium 132 L (137-145) mmol/L Glucose 112 H (74-99) mg/dL Total Bilirubin 8.4 H (0.2-1.3) mg/dL AST 83 H (17-59) U/L Alkaline Phosphatase 204 H (38-126) U/L Albumin 2.6 L (3.5-5.0) g/dL Microbiology - Last 24 Hours (Table) 04/24/17 00:48 Blood Culture - Preliminary Blood No Growth after 48 hours Laboratory Results WBC 19.4 k/uL (3.8-10.6) H 04/26/17 03:56 RBC 3.28 m/uL (4.30-5.90) L 04/26/17 03:56 Hgb 11.7 gm/dL (13.0-17.5) L 04/26/17 03:56 Hct 36.6 % (39.0-53.0) L 04/26/17 03:56 MCV 111.5 fL (80.0-100.0) H 04/26/17 03:56 MCH 35.7 pg (25.0-35.0) H 04/26/17 03:56 MCHC 32.0 g/dL (31.0-37.0) 04/26/17 03:56 RDW 15.7 % (11.5-15.5) H 04/26/17 03:56 Plt Count 66 k/uL (150-450) L 04/26/17 03:56 Neutrophils % 89 % 04/26/17 03:56 Lymphocytes % 4 % 04/26/17 03:56 Monocytes % 5 % 04/26/17 03:56 Eosinophils % 0 % 04/26/17 03:56 Basophils % 0 % 04/26/17 03:56 Neutrophils # 17.1 k/uL (1.3-7.7) H 04/26/17 03:56 Lymphocytes # 0.8 k/uL (1.0-4.8) L 04/26/17 03:56 Monocytes # 0.9 k/uL (0-1.0) 04/26/17 03:56 Eosinophils # 0.1 k/uL (0-0.7) 04/26/17 03:56 Basophils # 0.0 k/uL (0-0.2) 04/26/17 03:56 Manual Slide Review Performed 04/25/17 09:00 Toxic Granulation Present 04/25/17 09:00 Hypochromasia Slight 04/26/17 03:56 Poikilocytosis (manual Present 04/25/17 09:00 Anisocytosis Slight 04/25/17 09:00 Macrocytosis Marked 04/26/17 03:56 Target Cells Present 04/25/17 09:00 PT 15.5 sec (9.0-12.0) H 04/26/17 03:57 INR 1.6 (<1.2) H 04/26/17 03:57 APTT 33.7 sec (22.0-30.0) H 04/24/17 00:48 D-Dimer 21.94 mg/L FEU (<0.60) H 04/24/17 03:25 Sodium 132 mmol/L (137-145) L 04/26/17 03:56 Potassium 4.6 mmol/L (3.5-5.1) 04/26/17 03:56 Chloride 98 mmol/L (98-107) 04/26/17 03:56 Carbon Dioxide 26 mmol/L (22-30) 04/26/17 03:56 Anion Gap 8 mmol/L 04/26/17 03:56 BUN 19 mg/dL (9-20) 04/26/17 03:56 Creatinine 0.80 mg/dL (0.66-1.25) 04/26/17 03:56 Est GFR (MDRD) Af Amer >60 (>60 ml/min/1.73 sqM) 04/26/17 03:56 Est GFR (MDRD) Non-Af >60 (>60 ml/min/1.73 sqM) 04/26/17 03:56 Glucose 112 mg/dL (74-99) H 04/26/17 03:56 Plasma Lactic Acid Andrei 1.7 mmol/L (0.7-2.0) 04/24/17 00:48 Calcium 8.8 mg/dL (8.4-10.2) 04/26/17 03:56 Total Bilirubin 8.4 mg/dL (0.2-1.3) H 04/26/17 03:56 AST 83 U/L (17-59) H 04/26/17 03:56 ALT 57 U/L (21-72) 04/26/17 03:56 Alkaline Phosphatase 204 U/L (38-126) H 04/26/17 03:56 Ammonia 37 umol/L (<30) H 04/24/17 12:51 Troponin I <0.012 ng/mL (0.000-0.034) 04/24/17 00:48 Total Protein 7.0 g/dL (6.3-8.2) 04/26/17 03:56 Albumin 2.6 g/dL (3.5-5.0) L 04/26/17 03:56 Amylase 61 U/L (30-110) 04/24/17 00:48 Lipase 92 U/L (23-300) 04/24/17 00:48 Urine Color Dark Yellow 04/24/17 11:16 Urine Appearance Clear (Clear) 04/24/17 11:16 Urine pH 6.5 (5.0-8.0) 04/24/17 11:16 Ur Specific Piercy 1.048 (1.001-1.035) H 04/24/17 11:16 Urine Protein Trace (Negative) H 04/24/17 11:16 Urine Glucose (UA) Negative (Negative) 04/24/17 11:16 Urine Ketones Negative (Negative) 04/24/17 11:16 Urine Blood Negative (Negative) 04/24/17 11:16 Urine Nitrite Negative (Negative) 04/24/17 11:16 Urine Bilirubin 2+ (Negative) H 04/24/17 11:16 Urine Urobilinogen 4.0 mg/dL (<2.0) 04/24/17 11:16 Ur Leukocyte Esterase Negative (Negative) 04/24/17 11:16 Fluid Source Ascitic 04/26/17 15:05 Fluid Color Yellow 04/26/17 15:05 Fluid Appearance Hazy 04/26/17 15:05 Fluid RBC 313 /uL 04/26/17 15:05 Fluid Nucleated Cells 20 /uL 04/26/17 15:05 Fluid Polynuclear WBCs 72 % 04/26/17 15:05 Fluid Mononuclear WBCs 28 % 04/26/17 15:05 Vancomycin Trough 15.1 ug/mL 04/26/17 03:56 Microbiology 04/24/17 00:48 Blood Blood Culture - Preliminary No Growth after 48 hours Assessment and Plan (1) Alcoholic hepatitis with ascites Status: Acute (2) Hepatitis C Status: Acute (3) Leukocytosis Status: Acute (4) Cellulitis of right leg Narrative/Plan: This is a 52-year-old male who presented to the hospital with cirrhosis of the liver with history of hepatitis C, cellulitis of the bilateral lower extremity more so on the right. Ultrasound of the lower extremity was negative for DVT. Patient is currently on IV antibiotics in form of Unasyn and vancomycin. We'll add and local wound care in form of Silvadene wraps and keep the legs elevated. Which has helped especially with the edema. He is more comfortable today. Given the improvement and lack of MRSA will discontinue vancomycin therapy. Patient is currently on Lasix and Aldactone. Patient has consult with Dr. Florenica Araujo. An ultrasound-guided paracentesis has occurred and the patient is more comfortable. Fluid has been sent with no evidence of infection at this time. Although at this time he seems to be having some improvement making spontaneous bacterial peritonitis less likely. Steroids have been added for his acute alcoholic hepatitis. Status: Acute
[2017-04-27] MEDS: HYDROmorphone 0.5 MG/0.5 ML SYRINGE IVP PRN ×7 (00:02→23:21)
[2017-04-27] MEDS: PIPERACILLIN-TAZOBACTAM 3.375 GM in DEXTROSE/WATER 1 50ML.BAG IVPB SCH ×3 (00:10→15:47)
[2017-04-27 01:00] LABS: Glucose, BF Source Ascites
[2017-04-27] MEDS: SODIUM CHLORIDE 0.9% 1,000 ML IV SCH (01:07)
[2017-04-27] MEDS: oxyCODONE-APAP 7.5-325MG 1 EACH TAB PO PRN ×3 (05:26→21:01)
[2017-04-27] MEDS: CLOTRIMAZOLE TROCHE 10 MG TROCHE MUCOUS MEM SCH ×5 (05:27→23:23)
[2017-04-27] MEDS: LACTULOSE 20 GM/30 ML CUP PO SCH (07:51)
[2017-04-27] MEDS: PANTOPRAZOLE 40 MG TABLET PO SCH (07:51)
[2017-04-27] MEDS: HEPARIN SODIUM,PORCINE 5,000 UNIT/ML 1 ML VIAL SQ SCH ×3 (07:51→23:23)
[2017-04-27] MEDS: MAGNESIUM OXIDE 400 MG TAB PO SCH (07:51)
[2017-04-27] MEDS: FUROSEMIDE 10 MG/ML 4 ML VIAL IV SCH ×2 (07:51→20:49)
[2017-04-27] MEDS: POTASSIUM CHLORIDE ER 20 MEQ TAB.ER PO SCH (07:52)
[2017-04-27] MEDS: MULTIVITAMINS, THERA 1 EACH TAB PO SCH (07:52)
[2017-04-27] MEDS: NICOTINE 14MG/24HR PATCH TRANSDERM SCH (07:52)
[2017-04-27] MEDS: SILVER sulfADIAZINE Cream 400 GM 1 APPLIC APPLIC TOPICAL SCH (07:53)
[2017-04-27] MEDS: SPIRONOLACTONE 25 MG TAB PO SCH (07:53)
[2017-04-27] MEDS: predniSONE 20 MG TAB PO SCH (07:53)
[2017-04-27 08:41] LABS: INR 1.5 (<1.2); Prothrombin Time 14.8 sec (9.0-12.0)
[2017-04-27 08:42] LABS: Anisocytosis Slight; Basophils % (A) 0 %; CHCM 32.4; Eosinophils # (A) 0.1 k/uL (0-0.7); Eosinophils % (A) 1 %; HCT 37.4 % (39.0-53.0); HDW 2.24; HGB 12.1 gm/dL (13.0-17.5); Luc # (Auto) 0.42; Luc % (Auto) 2; Lymphocytes # (A) 0.9 k/uL (1.0-4.8); Lymphocytes % (A) 5 %; MCH 35.3 pg (25.0-35.0); MCHC 32.4 g/dL (31.0-37.0); MCV 108.9 fL (80.0-100.0); Macrocytosis Marked; Mean Platelet Volume 9.8; Monocytes # (A) 1.7 k/uL (0-1.0); Monocytes % (A) 9 %; Neutrophils # (A) 15.8 k/uL (1.3-7.7); Neutrophils % (A) 84 %; RBC 3.43 m/uL (4.30-5.90); RDW 16.8 % (11.5-15.5); WBC 18.9 k/uL (3.8-10.6); WBC (Perox) 18.89
[2017-04-27 08:47] LABS: ALT 61 U/L (21-72); AST 90 U/L (17-59); Alkaline Phosphatase 204 U/L (38-126); Anion Gap 9 mmol/L; Blood Urea Nitrogen 21 mg/dL (9-20); Calcium 8.7 mg/dL (8.4-10.2); Carbon Dioxide 27 mmol/L (22-30); Chloride 99 mmol/L (98-107); Glucose 98 mg/dL (74-99); Non-African American GFR(MDRD) >60 (>60 ml/min/1.73 sqM); Potassium 4.1 mmol/L (3.5-5.1); Sodium 135 mmol/L (137-145); Total Bilirubin 7.4 mg/dL (0.2-1.3); Total Protein 7.8 g/dL (6.3-8.2)
[2017-04-27] MEDS: PHYTONADIONE ORAL 5 MG/5 ML ORAL.SYRG PO SCH (08:51)
[2017-04-27 09:17] LABS: Hypersegmented Neutrophils Present; Target Cells Present; Toxic Vacuolation Present
[2017-04-27 09:18] LABS: Manual Review Performed
[2017-04-27] MEDS: ALBUTEROL NEBULIZED 2.5 MG/3 ML INHALATION PRN (09:38)
[2017-04-27] MEDS: IPRATROPIUM 0.5 MG/2.5 ML NEBU INHALATION SCH ×4 (09:38→19:57)
[2017-04-27] MEDS: SYMBICORT 160-4.5 MCG INHALER INHALATION SCH ×2 (09:39→19:58)
--- NOTE | 2017-04-27 11:20 | P.PN ---
Subjective Principal diagnosis: liver cirrhosis ascites 52-year-old male with a history of hepatitis C alcohol cirrhosis portal hypertension and ascites status post therapeutic diagnostic paracentesis yesterday with 3.1 L removal. Reports increased discomfort to the right lower extremity with increased redness this morning. Abdominal complaints are improving. Objective - Vital Signs Vital signs: Vital Signs Temp 96.6 F L 04/27/17 08:00 Pulse 102 H 04/27/17 09:54 Resp 19 04/27/17 09:38 BP 120/86 04/27/17 08:00 Pulse Ox 95 04/27/17 08:00 Intake & Output 04/26/17 04/27/17 04/27/17 18:59 06:59 18:59 Intake Total 680 300 Output Total 300 Balance 380 300 Intake: IV 80 NORMAL SALINE AT KVO 30 Piperacillin-Tazobactam 3 50 .375 gm In Dextrose/Water 1 50ml.bag @ 12.5 mls/hr IVPB Q8HR ADAMARIS Rx#: [id number] Oral 600 300 Output: Urine 300 Other: Voiding Method Toilet Toilet Urinal Urinal # Voids 3 2 # Bowel Movements 0 - Exam General appearance: The patient is alert, oriented, in no acute distress. Visibly jaundice. HET: Head is normocephalic and atraumatic. Pupils are equal and reactive. Sclerae icterus. Oropharynx is clear without lesions. Neck: Supple without lymphadenopathy. Trachea midline. Heart: S1 S2. Regular rate and rhythm. Lungs: No crackles or wheezes are heard. Abdomen: Soft, nontender, mildly distended with mild ascites with bowel sounds. No peritoneal signs. No palpable organomegaly or masses. Extremities: +2 bilateral lower extremity edema with erythema in the bilateral legs greater on right than left. Neurological: No focal deficits. Strength and sensation are grossly intact. - Labs CBC & Chem 7: 04/27/17 08:15 04/27/17 08:15 Labs: Abnormal Lab Results - Last 24 Hours (Table) 04/27/17 04/27/17 04/27/17 Range/Units 08:15 08:15 08:15 WBC 18.9 H (3.8-10.6) k/uL RBC 3.43 L (4.30-5.90) m/uL Hgb 12.1 L (13.0-17.5) gm/dL Hct 37.4 L (39.0-53.0) % MCV 108.9 H (80.0-100.0) fL MCH 35.3 H (25.0-35.0) pg RDW 16.8 H (11.5-15.5) % Plt Count 89 L (150-450) k/uL Neutrophils # 15.8 H (1.3-7.7) k/uL Lymphocytes # 0.9 L (1.0-4.8) k/uL Monocytes # 1.7 H (0-1.0) k/uL PT 14.8 H (9.0-12.0) sec INR 1.5 H (<1.2) Sodium 135 L (137-145) mmol/L BUN 21 H (9-20) mg/dL Total Bilirubin 7.4 H (0.2-1.3) mg/dL AST 90 H (17-59) U/L Alkaline Phosphatase 204 H (38-126) U/L Ammonia (<30) umol/L Albumin 2.8 L (3.5-5.0) g/dL 04/27/17 Range/Units 08:15 WBC (3.8-10.6) k/uL RBC (4.30-5.90) m/uL Hgb (13.0-17.5) gm/dL Hct (39.0-53.0) % MCV (80.0-100.0) fL MCH (25.0-35.0) pg RDW (11.5-15.5) % Plt Count (150-450) k/uL Neutrophils # (1.3-7.7) k/uL Lymphocytes # (1.0-4.8) k/uL Monocytes # (0-1.0) k/uL PT (9.0-12.0) sec INR (<1.2) Sodium (137-145) mmol/L BUN (9-20) mg/dL Total Bilirubin (0.2-1.3) mg/dL AST (17-59) U/L Alkaline Phosphatase (38-126) U/L Ammonia 34 H (<30) umol/L Albumin (3.5-5.0) g/dL Microbiology - Last 24 Hours (Table) 04/26/17 15:05 Gram Stain - Preliminary Ascites Fluid Body Fluid Culture - Preliminary 04/24/17 00:48 Blood Culture - Preliminary Blood No Growth after 72 hours 04/26/17 15:05 Anaerobic Culture - Preliminary Ascites Fluid Assessment and Plan (1) Alcoholic hepatitis with ascites Narrative/Plan: Status post therapeutic diagnostic paracentesis Status: Acute (2) Ascites Status: Acute (3) Portal hypertension Status: Acute (4) Hepatitis C Status: Acute (5) Cirrhosis Status: Acute (6) Coagulopathy Status: Acute (7) Cholelithiasis Status: Acute (8) Thrombocytopenia Status: Acute Plan: 1. Discharge per medicine and infectious disease. Aldactone 100 mg daily. Lasix 40 mg daily. Lactulose 20 g daily. Prednisone 40 mg daily for additional 24 days total of 28 days treatment of alcohol hepatitis. Alcohol abstinence advised. Patient is scheduled to be seen at [facility] early May by hepatobiliary team. Return to office in 2-3 weeks for reevaluation. Assessment and plan a care discussed with Dr. Blair.
[2017-04-27] MEDS: FOLIC ACID 1 MG TAB PO SCH (11:34)
[2017-04-27] MEDS: THIAMINE 100 MG TAB PO SCH (11:34)
--- NOTE | 2017-04-27 16:20 | P.PN ---
Subjective Progress note being dictated for Dr. Paige. 04/25/2017.Interval history: This a 52-year-old gentleman admitted with bilateral leg cellulitis, cirrhosis of liver with ascites, coagulopathy secondary to chronic liver disease and multiple other medical issues. Maintained on Zosyn, vancomycin as per infectious disease. Diuresing on Lasix IV push with 24-hour I&O reflecting a negative fluid balance, significant ascites, decreasing leg edema. Most recent INR 1.8. Evaluated by GI with recommendations noted. Leukocytosis improving. T bili 9.5, alk phos 188, ammonia 37. Denies abdominal pain, chest pain, palpitations or increasing shortness of breath. Afebrile, preliminary blood cultures negative. 04/26/2017. Complains of abdominal pain from ascites/distended abdomen. Maintained on oral vitamin K, INR 1.6. Platelets 66, improving T bili 8.4. Afebrile with TIBC of 19. Maintained on antibiotics as per infectious disease. Continues on diuretics with improving edema. Diagnostic/therapeutic paracentesis today. 04/27/2017 status post paracentesis yesterday with 3.1 L removed. Tolerate procedure well. Less abdominal discomfort. Peritoneal pathology pending. Maintained on IV push diuretics, Zosyn. Complains of right leg tightness/ pain.Right leg edema, redness persists. Afebrile, WBC remains elevated at 18.9. T bili improving down to 7.4. Objective - Vital Signs Vital signs: Vital Signs Temp 96.9 F L 04/27/17 14:47 Pulse 112 H 04/27/17 14:47 Resp 18 04/27/17 14:47 BP 141/79 04/27/17 14:47 Pulse Ox 96 04/27/17 14:47 Intake & Output 04/26/17 04/27/17 04/27/17 18:59 06:59 18:59 Intake Total 680 300 Output Total 300 Balance 380 300 Intake: IV 80 NORMAL SALINE AT KVO 30 Piperacillin-Tazobactam 3 50 .375 gm In Dextrose/Water 1 50ml.bag @ 12.5 mls/hr IVPB Q8HR ADAMARIS Rx#: [id number] Oral 600 300 Output: Urine 300 Other: Voiding Method Toilet Toilet Urinal Urinal # Voids 3 2 3 # Bowel Movements 0 1 - Exam PHYSICAL EXAM: VITAL SIGNS: As above GENERAL: Sitting up in bed, no acute distress HEENT: Conjunctivae icterus. eyes normal. Jaundiced. NECK: No JVD. No thyroid enlargement. No LNs CARDIOVASCULAR: S1, S2 muffled. No murmur RESPIRATION: Breath sounds diminished in the bases. Occasional scattered rhonchi, no crackles. No bronchial breathing. ABDOMEN: Soft, distended, mild diffuse tenderness with palpation, mild ascites. No guarding. no masses palpable.Bowel sounds heard. Scrotal/penile edema. LEGS: Bilateral leg cellulitis, redness and improving edema. Bilateral lower leg Shad wraps clean dry and intact. PSYCHIATRY: Alert and oriented -3, mood and affect normal. NERVOUS SYSTEM: Cranial N 2-12 grossly normal. Moves all 4 limbs. Diffuse weakness No focal deficits. No sensory deficit. - Labs CBC & Chem 7: 04/27/17 08:15 04/27/17 08:15 Labs: Abnormal Lab Results - Last 24 Hours (Table) 04/27/17 04/27/17 04/27/17 Range/Units 08:15 08:15 08:15 WBC 18.9 H (3.8-10.6) k/uL RBC 3.43 L (4.30-5.90) m/uL Hgb 12.1 L (13.0-17.5) gm/dL Hct 37.4 L (39.0-53.0) % MCV 108.9 H (80.0-100.0) fL MCH 35.3 H (25.0-35.0) pg RDW 16.8 H (11.5-15.5) % Plt Count 89 L (150-450) k/uL Neutrophils # 15.8 H (1.3-7.7) k/uL Lymphocytes # 0.9 L (1.0-4.8) k/uL Monocytes # 1.7 H (0-1.0) k/uL PT 14.8 H (9.0-12.0) sec INR 1.5 H (<1.2) Sodium 135 L (137-145) mmol/L BUN 21 H (9-20) mg/dL Total Bilirubin 7.4 H (0.2-1.3) mg/dL AST 90 H (17-59) U/L Alkaline Phosphatase 204 H (38-126) U/L Ammonia (<30) umol/L Albumin 2.8 L (3.5-5.0) g/dL 04/27/17 Range/Units 08:15 WBC (3.8-10.6) k/uL RBC (4.30-5.90) m/uL Hgb (13.0-17.5) gm/dL Hct (39.0-53.0) % MCV (80.0-100.0) fL MCH (25.0-35.0) pg RDW (11.5-15.5) % Plt Count (150-450) k/uL Neutrophils # (1.3-7.7) k/uL Lymphocytes # (1.0-4.8) k/uL Monocytes # (0-1.0) k/uL PT (9.0-12.0) sec INR (<1.2) Sodium (137-145) mmol/L BUN (9-20) mg/dL Total Bilirubin (0.2-1.3) mg/dL AST (17-59) U/L Alkaline Phosphatase (38-126) U/L Ammonia 34 H (<30) umol/L Albumin (3.5-5.0) g/dL Microbiology - Last 24 Hours (Table) 04/26/17 15:05 Gram Stain - Preliminary Ascites Fluid Body Fluid Culture - Preliminary 04/24/17 00:48 Blood Culture - Preliminary Blood No Growth after 72 hours 04/26/17 15:05 Anaerobic Culture - Preliminary Ascites Fluid Assessment and Plan Plan: 1. Bilateral leg cellulitis 2. [ Cirrhosis of liver with ascites]. 3. [ Coagulopathy secondary to chronic liver disease]. 4. [ Leukocytosis]. 5. [ Anemia, microcytic]. 6. [ EtOH abuse]. 7. Elevated d-dimer[]. 8. Hyperbilirubinemia with hepatitis Plan: Continue on current medication regime , Lasix, steroids, lactulose monitoring and symptomatic treatment. Maintain fluid restriction, low sodium diet,Vitamin K.paracentesis pathology pending. Maintain IV push diuretics, IV antibiotics for another 24 hours with discharge planning in progress for tomorrow .Alcohol cessation readdressed. The impression and plan of care has been dictated as directed. : I performed a history and examination of this patient, discussed the same with the dictator. I agree with the dictator's note ,documented as a scribe. Any additional findings or plans will be noted.
[2017-04-27] MEDS: DOCUSATE 100 MG CAP PO PRN (17:37)
[2017-04-27] MEDS: DRY MOUTH SPRAY 44.3 SPRAY/44.3 ML SPRAY MUCOUS MEM PRN (20:16)
--- NOTE | 2017-04-27 22:03 | P.PN ---
Subjective Principal diagnosis: Cellulitis right leg This is a 52-year-old male patient with underlying history of hepatitis C, cirrhosis of the liver and follows with Dr. Florencia Araujo. Patient states that he has advised her to go to [facility] in his first appointment will be on June 03. He states his hepatitis C only recently diagnosed has not been treated and he has not undergone paracentesis before. 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 Patient states he stopped IV drug use while in high school. Patient also has history of alcohol intake of 1-6 beers per day depending on the day. He also has a chronic rash on his buttocks and going down his legs which he has been following with [facility] on 3 occasions. He states his rash is also been on his legs which are now extremely inflamed and swollen. He states whatever treatment he has been given by the mushroom picker has not been effective. Patient is complaining of severe pain for the past 3 days in his right hip down his legs with increased swelling and also left ankle pain. He also complains of generalized weakness and abdominal bloating and states his abdomen is bigger than it has been. He underwent an ultrasound of the right lower extremity that was negative for DVT. CTA of the chest showed no obvious large central pulmonary embolism. Small bilateral pleural effusions left greater than right. Moderate to large volume upper abdominal ascites. Lobular hepatic contour suggesting cirrhosis. Patient presented with leukocytosis of 19.3, hemoglobin 12.4 and platelet count 74. INR 1.8, d-dimer was 21.9. Total bilirubin 10.2, AST 114, ALT 62, alkaline phosphatase 182. Albumin 2.7. Patient also states he has not been eating or drinking for the past 3 days. Temperature initially was 99.9 with a pulse of 124. Pulse ox is 90% on room air. He does complain of shortness of breath with minimal activity. Patient was started on antibiotics the form of Unasyn and vancomycin and [facility]. Consult is in place with Dr. Florencia Araujo. Patient also has significant history of lumbar disc herniation with radiculopathy and has seen Dr. Khan for this and has undergone several epidural injections in the past. He was determined be a poor surgical candidate. Is noted at admission there was evidence of the extensive erythema of the right leg. This is feeling slightly better today. His fevers improved. Not having fevers or chills He's been followed by gastroenterology for his extensive alcoholic hepatitis. Has had an ultrasound-guided paracentesis and 3.1 L were removed. The patient' s impressed with how much better he feels. Objective - Vital Signs Vital signs: Vital Signs Temp 98.8 F 04/27/17 20:46 Pulse 115 H 04/27/17 20:46 Resp 18 04/27/17 20:46 BP 159/60 04/27/17 20:46 Pulse Ox 95 04/27/17 20:46 Intake & Output 04/27/17 04/27/17 04/28/17 06:59 18:59 06:59 Intake Total 300 Balance 300 Intake: Oral 300 Other: Voiding Method Toilet Urinal # Voids 2 3 # Bowel Movements 0 1 - Exam Gen: This is a obese 52-year-old male. He is sitting up in bed and appears to be dyspneic at rest. HEENT: Head is atraumatic, normocephalic. Pupils equal, round. Sclerae is icteric. Mucous membranes of the mouth are dry. Dentition is in good order. No thrush noted. NECK: Supple. No JVD. No lymphadenopathy. No thyromegaly. LUNGS: Clear to auscultation but diminished at the bases.. Minimal intercostal retractions while at rest. HEART: Regular rate and rhythm. No murmur. ABDOMEN: Distended. Bowel sounds are present. Generalized tenderness. Improved in size since the paracentesis. EXTREMITIES: Bilateral lower extremity edema 2+ the right lower extremity has an area of cellulitis which is improving. He does have an area some denuded tissue where there is some weeping of serous material. The erythema is improved. It is much less tender. SKIN: Rash to the lower leg and up onto the medial aspect of the thigh but is improved. NEUROLOGICAL: Patient is awake, alert and oriented x3. - Labs CBC & Chem 7: 04/27/17 08:15 04/27/17 08:15 Labs: Abnormal Lab Results - Last 24 Hours (Table) 04/27/17 04/27/17 04/27/17 Range/Units 08:15 08:15 08:15 WBC 18.9 H (3.8-10.6) k/uL RBC 3.43 L (4.30-5.90) m/uL Hgb 12.1 L (13.0-17.5) gm/dL Hct 37.4 L (39.0-53.0) % MCV 108.9 H (80.0-100.0) fL MCH 35.3 H (25.0-35.0) pg RDW 16.8 H (11.5-15.5) % Plt Count 89 L (150-450) k/uL Neutrophils # 15.8 H (1.3-7.7) k/uL Lymphocytes # 0.9 L (1.0-4.8) k/uL Monocytes # 1.7 H (0-1.0) k/uL PT 14.8 H (9.0-12.0) sec INR 1.5 H (<1.2) Sodium 135 L (137-145) mmol/L BUN 21 H (9-20) mg/dL Total Bilirubin 7.4 H (0.2-1.3) mg/dL AST 90 H (17-59) U/L Alkaline Phosphatase 204 H (38-126) U/L Ammonia (<30) umol/L Albumin 2.8 L (3.5-5.0) g/dL 04/27/17 Range/Units 08:15 WBC (3.8-10.6) k/uL RBC (4.30-5.90) m/uL Hgb (13.0-17.5) gm/dL Hct (39.0-53.0) % MCV (80.0-100.0) fL MCH (25.0-35.0) pg RDW (11.5-15.5) % Plt Count (150-450) k/uL Neutrophils # (1.3-7.7) k/uL Lymphocytes # (1.0-4.8) k/uL Monocytes # (0-1.0) k/uL PT (9.0-12.0) sec INR (<1.2) Sodium (137-145) mmol/L BUN (9-20) mg/dL Total Bilirubin (0.2-1.3) mg/dL AST (17-59) U/L Alkaline Phosphatase (38-126) U/L Ammonia 34 H (<30) umol/L Albumin (3.5-5.0) g/dL Microbiology - Last 24 Hours (Table) 04/26/17 15:05 Gram Stain - Preliminary Ascites Fluid Body Fluid Culture - Preliminary 04/24/17 00:48 Blood Culture - Preliminary Blood No Growth after 72 hours 04/26/17 15:05 Anaerobic Culture - Preliminary Ascites Fluid Laboratory Results WBC 18.9 k/uL (3.8-10.6) H 04/27/17 08:15 RBC 3.43 m/uL (4.30-5.90) L 04/27/17 08:15 Hgb 12.1 gm/dL (13.0-17.5) L 04/27/17 08:15 Hct 37.4 % (39.0-53.0) L 04/27/17 08:15 MCV 108.9 fL (80.0-100.0) H 04/27/17 08:15 MCH 35.3 pg (25.0-35.0) H 04/27/17 08:15 MCHC 32.4 g/dL (31.0-37.0) 04/27/17 08:15 RDW 16.8 % (11.5-15.5) H 04/27/17 08:15 Plt Count 89 k/uL (150-450) L 04/27/17 08:15 Neutrophils % 84 % 04/27/17 08:15 Lymphocytes % 5 % 04/27/17 08:15 Monocytes % 9 % 04/27/17 08:15 Eosinophils % 1 % 04/27/17 08:15 Basophils % 0 % 04/27/17 08:15 Neutrophils # 15.8 k/uL (1.3-7.7) H 04/27/17 08:15 Lymphocytes # 0.9 k/uL (1.0-4.8) L 04/27/17 08:15 Monocytes # 1.7 k/uL (0-1.0) H 04/27/17 08:15 Eosinophils # 0.1 k/uL (0-0.7) 04/27/17 08:15 Basophils # 0.0 k/uL (0-0.2) 04/27/17 08:15 Manual Slide Review Performed 04/27/17 08:15 Hypersegmented Neuts Present 04/27/17 08:15 Toxic Granulation Present 04/25/17 09:00 Toxic Vacuolation Present 04/27/17 08:15 Hypochromasia Slight 04/26/17 03:56 Poikilocytosis (manual Present 04/27/17 08:15 Anisocytosis Slight 04/27/17 08:15 Macrocytosis Marked 04/27/17 08:15 Target Cells Present 04/27/17 08:15 PT 14.8 sec (9.0-12.0) H 04/27/17 08:15 INR 1.5 (<1.2) H 04/27/17 08:15 APTT 33.7 sec (22.0-30.0) H 04/24/17 00:48 D-Dimer 21.94 mg/L FEU (<0.60) H 04/24/17 03:25 Sodium 135 mmol/L (137-145) L 04/27/17 08:15 Potassium 4.1 mmol/L (3.5-5.1) 04/27/17 08:15 Chloride 99 mmol/L (98-107) 04/27/17 08:15 Carbon Dioxide 27 mmol/L (22-30) 04/27/17 08:15 Anion Gap 9 mmol/L 04/27/17 08:15 BUN 21 mg/dL (9-20) H 04/27/17 08:15 Creatinine 0.83 mg/dL (0.66-1.25) 04/27/17 08:15 Est GFR (MDRD) Af Amer >60 (>60 ml/min/1.73 sqM) 04/27/17 08:15 Est GFR (MDRD) Non-Af >60 (>60 ml/min/1.73 sqM) 04/27/17 08:15 Glucose 98 mg/dL (74-99) 04/27/17 08:15 Plasma Lactic Acid Andrei 1.7 mmol/L (0.7-2.0) 04/24/17 00:48 Calcium 8.7 mg/dL (8.4-10.2) 04/27/17 08:15 Total Bilirubin 7.4 mg/dL (0.2-1.3) H 04/27/17 08:15 AST 90 U/L (17-59) H 04/27/17 08:15 ALT 61 U/L (21-72) 04/27/17 08:15 Alkaline Phosphatase 204 U/L (38-126) H 04/27/17 08:15 Ammonia 34 umol/L (<30) H 04/27/17 08:15 Troponin I <0.012 ng/mL (0.000-0.034) 04/24/17 00:48 Total Protein 7.8 g/dL (6.3-8.2) 04/27/17 08:15 Albumin 2.8 g/dL (3.5-5.0) L 04/27/17 08:15 Amylase 61 U/L (30-110) 04/24/17 00:48 Lipase 92 U/L (23-300) 04/24/17 00:48 Urine Color Dark Yellow 04/24/17 11:16 Urine Appearance Clear (Clear) 04/24/17 11:16 Urine pH 6.5 (5.0-8.0) 04/24/17 11:16 Ur Specific [place] 1.048 (1.001-1.035) H 04/24/17 11:16 Urine Protein Trace (Negative) H 04/24/17 11:16 Urine Glucose (UA) Negative (Negative) 04/24/17 11:16 Urine Ketones Negative (Negative) 04/24/17 11:16 Urine Blood Negative (Negative) 04/24/17 11:16 Urine Nitrite Negative (Negative) 04/24/17 11:16 Urine Bilirubin 2+ (Negative) H 04/24/17 11:16 Urine Urobilinogen 4.0 mg/dL (<2.0) 04/24/17 11:16 Ur Leukocyte Esterase Negative (Negative) 04/24/17 11:16 Fluid Source Ascitic 04/26/17 15:05 Fluid Color Yellow 04/26/17 15:05 Fluid Appearance Hazy 04/26/17 15:05 Fluid RBC 313 /uL 04/26/17 15:05 Fluid Nucleated Cells 20 /uL 04/26/17 15:05 Fluid Polynuclear WBCs 72 % 04/26/17 15:05 Fluid Mononuclear WBCs 28 % 04/26/17 15:05 Body Fluid Glucose Source Ascites 04/26/17 15:05 Fluid Glucose 128 mg/dL 04/26/17 15:05 Vancomycin Trough 15.1 ug/mL 04/26/17 03:56 Microbiology 04/26/17 15:05 Ascites Fluid Gram Stain - Preliminary 04/26/17 15:05 Ascites Fluid Body Fluid Culture - Preliminary 04/24/17 00:48 Blood Blood Culture - Preliminary No Growth after 72 hours 04/26/17 15:05 Ascites Fluid Anaerobic Culture - Preliminary Assessment and Plan (1) Alcoholic hepatitis with ascites Status: Acute (2) Hepatitis C Status: Acute (3) Leukocytosis Status: Acute (4) Cellulitis of right leg Narrative/Plan: This is a 52-year-old male who presented to the hospital with cirrhosis of the liver with history of hepatitis C, cellulitis of the bilateral lower extremity more so on the right. Ultrasound of the lower extremity was negative for DVT. Patient is currently on IV antibiotics in form of Unasyn and vancomycin. Continue local wound care with Silvadene wraps and keep the legs elevated. Add ABD pads to help with absorption of drainage. Which has helped especially with the edema. He is more comfortable today. Given the improvement and lack of MRSA will discontinue vancomycin therapy. As he is ready for discharge to home cefuroxime 500 mg orally twice per day to complete the next 7 days of therapy. Patient instructed to elevate his limbs. Patient is currently on Lasix and Aldactone. Patient has consult with Dr. Florencia Araujo. An ultrasound-guided paracentesis has occurred and the patient is more comfortable. Fluid has been sent with no evidence of infection at this time. Although at this time he seems to be having some improvement making spontaneous bacterial peritonitis less likely. Steroids have been added for his acute alcoholic hepatitis. Status: Acute
[2017-04-28] MEDS: PIPERACILLIN-TAZOBACTAM 3.375 GM in DEXTROSE/WATER 1 50ML.BAG IVPB SCH ×4 (00:39→23:19)
[2017-04-28] MEDS: SODIUM CHLORIDE 0.9% 1,000 ML IV SCH (01:18)
[2017-04-28] MEDS: HYDROmorphone 0.5 MG/0.5 ML SYRINGE IVP PRN ×5 (04:56→20:44)
[2017-04-28] MEDS: oxyCODONE-APAP 7.5-325MG 1 EACH TAB PO PRN ×4 (05:51→23:15)
[2017-04-28] MEDS: CLOTRIMAZOLE TROCHE 10 MG TROCHE MUCOUS MEM SCH ×5 (05:51→23:19)
[2017-04-28] MEDS: ALBUTEROL NEBULIZED 2.5 MG/3 ML INHALATION PRN (07:20)
[2017-04-28] MEDS: IPRATROPIUM 0.5 MG/2.5 ML NEBU INHALATION SCH ×4 (07:20→19:50)
[2017-04-28] MEDS: SYMBICORT 160-4.5 MCG INHALER INHALATION SCH ×2 (07:21→19:50)
[2017-04-28] MEDS: NICOTINE 14MG/24HR PATCH TRANSDERM SCH (08:29)
[2017-04-28] MEDS: LACTULOSE 20 GM/30 ML CUP PO SCH ×2 (08:29→20:45)
[2017-04-28] MEDS: predniSONE 20 MG TAB PO SCH (08:30)
[2017-04-28] MEDS: HEPARIN SODIUM,PORCINE 5,000 UNIT/ML 1 ML VIAL SQ SCH ×3 (08:30→23:19)
[2017-04-28] MEDS: FUROSEMIDE 10 MG/ML 4 ML VIAL IV SCH ×2 (08:31→20:45)
[2017-04-28] MEDS: SILVER sulfADIAZINE Cream 400 GM 1 APPLIC APPLIC TOPICAL SCH (08:31)
[2017-04-28] MEDS: PANTOPRAZOLE 40 MG TABLET PO SCH (08:31)
[2017-04-28] MEDS: SPIRONOLACTONE 25 MG TAB PO SCH (08:31)
[2017-04-28] MEDS: MAGNESIUM OXIDE 400 MG TAB PO SCH (08:32)
[2017-04-28] MEDS: POTASSIUM CHLORIDE ER 20 MEQ TAB.ER PO SCH (08:32)
[2017-04-28] MEDS: MULTIVITAMINS, THERA 1 EACH TAB PO SCH (08:32)
[2017-04-28] MEDS: PHYTONADIONE ORAL 5 MG/5 ML ORAL.SYRG PO SCH (09:08)
[2017-04-28 09:21] LABS: Anisocytosis Slight; Basophils # (A) 0.1 k/uL (0-0.2); Basophils % (A) 0 %; CH 34.3; CHCM 30.9; Eosinophils # (A) 0.1 k/uL (0-0.7); Eosinophils % (A) 1 %; HCT 40.5 % (39.0-53.0); HDW 2.15; HGB 12.7 gm/dL (13.0-17.5); Hypochromasia Slight; Luc # (Auto) 0.25; Luc % (Auto) 1; Lymphocytes # (A) 1.7 k/uL (1.0-4.8); Lymphocytes % (A) 9 %; MCHC 31.4 g/dL (31.0-37.0); MCV 111.6 fL (80.0-100.0); Macrocytosis Marked; Mean Platelet Volume 8.5; Monocytes % (A) 5 %; Neutrophils # (A) 15.5 k/uL (1.3-7.7); Neutrophils % (A) 83 %; RBC 3.63 m/uL (4.30-5.90); RDW 16.4 % (11.5-15.5); WBC 18.7 k/uL (3.8-10.6); WBC (Perox) 18.42
[2017-04-28 09:24] LABS: INR 1.5 (<1.2); Prothrombin Time 14.4 sec (9.0-12.0)
[2017-04-28 09:38] LABS: ALT 68 U/L (21-72); AST 102 U/L (17-59); Alkaline Phosphatase 177 U/L (38-126); Anion Gap 7 mmol/L; Blood Urea Nitrogen 19 mg/dL (9-20); Calcium 8.8 mg/dL (8.4-10.2); Carbon Dioxide 30 mmol/L (22-30); Chloride 96 mmol/L (98-107); Glucose 128 mg/dL (74-99); Non-African American GFR(MDRD) >60 (>60 ml/min/1.73 sqM); Potassium 3.8 mmol/L (3.5-5.1); Sodium 133 mmol/L (137-145); Total Bilirubin 7.1 mg/dL (0.2-1.3); Total Protein 7.7 g/dL (6.3-8.2)
[2017-04-28 10:46] LABS: Target Cells Present
[2017-04-28] MEDS: FOLIC ACID 1 MG TAB PO SCH (11:30)
[2017-04-28] MEDS: THIAMINE 100 MG TAB PO SCH (11:30)
[2017-04-28] MEDS: DOCUSATE 100 MG CAP PO PRN (12:02)
--- NOTE | 2017-04-28 16:12 | P.PN ---
Subjective Progress note being dictated for Dr. Paige. 04/25/2017.Interval history: This a 52-year-old gentleman admitted with bilateral leg cellulitis, cirrhosis of liver with ascites, coagulopathy secondary to chronic liver disease and multiple other medical issues. Maintained on Zosyn, vancomycin as per infectious disease. Diuresing on Lasix IV push with 24-hour I&O reflecting a negative fluid balance, significant ascites, decreasing leg edema. Most recent INR 1.8. Evaluated by GI with recommendations noted. Leukocytosis improving. T bili 9.5, alk phos 188, ammonia 37. Denies abdominal pain, chest pain, palpitations or increasing shortness of breath. Afebrile, preliminary blood cultures negative. 04/26/2017. Complains of abdominal pain from ascites/distended abdomen. Maintained on oral vitamin K, INR 1.6. Platelets 66, improving T bili 8.4. Afebrile with TIBC of 19. Maintained on antibiotics as per infectious disease. Continues on diuretics with improving edema. Diagnostic/therapeutic paracentesis today. 04/27/2017 status post paracentesis yesterday with 3.1 L removed. Tolerate procedure well. Less abdominal discomfort. Peritoneal pathology pending. Maintained on IV push diuretics, Zosyn. Complains of right leg tightness/ pain.Right leg edema, redness persists. Afebrile, WBC remains elevated at 18.9. T bili improving down to 7.4. 04/28/2017 diuresing on Lasix IV push ,continues to have significant edema in the lateral thighs. WBC 18.7. Afebrile. Maintained on antibiotics as per ID. T bili 7.1. Objective - Vital Signs Vital signs: Vital Signs Temp 97.0 F L 04/28/17 14:55 Pulse 118 H 04/28/17 14:55 Resp 20 04/28/17 14:55 BP 120/78 04/28/17 14:55 Pulse Ox 95 04/28/17 14:55 Intake & Output 04/27/17 04/28/17 04/28/17 18:59 06:59 18:59 Other: Voiding Method Toilet Toilet Urinal Urinal # Voids 3 1 3 # Bowel Movements 1 0 - Exam PHYSICAL EXAM: VITAL SIGNS: As above GENERAL: Sitting up at side of bed, no acute distress HEENT: Conjunctivae icterus. eyes normal. Jaundiced. NECK: No JVD. No thyroid enlargement. No LNs CARDIOVASCULAR: S1, S2 muffled. No murmur RESPIRATION: Breath sounds diminished in the bases. Occasional scattered rhonchi, no crackles. ABDOMEN: Soft, distended, mild diffuse tenderness with palpation, mild ascites. No guarding. no masses palpable.Bowel sounds heard. Scrotal/penile edema. LEGS: Bilateral leg cellulitis, serosanguineous drainage, redness and slowly improving slowly improving edema. Bilateral lower leg Shad wraps clean dry and intact. PSYCHIATRY: Alert and oriented -3, mood and affect normal. NERVOUS SYSTEM: Cranial N 2-12 grossly normal. Moves all 4 limbs. Diffuse weakness No focal deficits. No sensory deficit. - Labs CBC & Chem 7: 04/28/17 08:57 04/28/17 08:57 Labs: Abnormal Lab Results - Last 24 Hours (Table) 04/28/17 04/28/17 04/28/17 Range/Units 08:57 08:57 08:57 WBC 18.7 H (3.8-10.6) k/uL RBC 3.63 L (4.30-5.90) m/uL Hgb 12.7 L (13.0-17.5) gm/dL MCV 111.6 H (80.0-100.0) fL RDW 16.4 H (11.5-15.5) % Plt Count 85 L (150-450) k/uL Neutrophils # 15.5 H (1.3-7.7) k/uL PT 14.4 H (9.0-12.0) sec INR 1.5 H (<1.2) Sodium 133 L (137-145) mmol/L Chloride 96 L (98-107) mmol/L Glucose 128 H (74-99) mg/dL Total Bilirubin 7.1 H (0.2-1.3) mg/dL AST 102 H (17-59) U/L Alkaline Phosphatase 177 H (38-126) U/L Albumin 2.8 L (3.5-5.0) g/dL Microbiology - Last 24 Hours (Table) 04/24/17 00:48 Blood Culture - Preliminary Blood No Growth after 96 hours 04/26/17 15:05 Gram Stain - Preliminary Ascites Fluid Body Fluid Culture - Preliminary Assessment and Plan Plan: 1. Bilateral leg cellulitis 2. [ Cirrhosis of liver with ascites]. 3. [ Coagulopathy secondary to chronic liver disease]. 4. [ Leukocytosis]. 5. [ Anemia, microcytic]. 6. [ EtOH abuse]. 7. Elevated d-dimer[]. 8. Hyperbilirubinemia with hepatitis Plan: Continue on current medication regime , Lasix, steroids, lactulose monitoring and symptomatic treatment. Continue with Lasix, antibiotics, fluid restriction, low sodium diet. Peritoneal pathology pending. Discharge planning in progress for tomorrow .Alcohol cessation readdressed. The impression and plan of care has been dictated as directed. : I performed a history and examination of this patient, discussed the same with the dictator. I agree with the dictator's note ,documented as a scribe. Any additional findings or plans will be noted.
[2017-04-29] MEDS: SODIUM CHLORIDE 0.9% 1,000 ML IV SCH (00:48)
[2017-04-29] MEDS: HYDROmorphone 0.5 MG/0.5 ML SYRINGE IVP PRN ×6 (00:49→21:15)
[2017-04-29] MEDS: oxyCODONE-APAP 7.5-325MG 1 EACH TAB PO PRN ×4 (05:18→23:35)
[2017-04-29] MEDS: CLOTRIMAZOLE TROCHE 10 MG TROCHE MUCOUS MEM SCH ×5 (05:19→23:34)
[2017-04-29] MEDS: IPRATROPIUM 0.5 MG/2.5 ML NEBU INHALATION SCH ×4 (07:15→21:28)
[2017-04-29] MEDS: SYMBICORT 160-4.5 MCG INHALER INHALATION SCH ×2 (07:15→21:27)
[2017-04-29] MEDS: HEPARIN SODIUM,PORCINE 5,000 UNIT/ML 1 ML VIAL SQ SCH ×3 (08:10→23:34)
[2017-04-29] MEDS: PIPERACILLIN-TAZOBACTAM 3.375 GM in DEXTROSE/WATER 1 50ML.BAG IVPB SCH ×3 (08:10→23:35)
[2017-04-29] MEDS: FUROSEMIDE 10 MG/ML 4 ML VIAL IV SCH ×2 (08:10→21:14)
[2017-04-29] MEDS: PANTOPRAZOLE 40 MG TABLET PO SCH (08:10)
[2017-04-29] MEDS: LACTULOSE 20 GM/30 ML CUP PO SCH ×5 (08:10→23:35)
[2017-04-29] MEDS: NICOTINE 14MG/24HR PATCH TRANSDERM SCH (08:11)
[2017-04-29] MEDS: MAGNESIUM OXIDE 400 MG TAB PO SCH (08:11)
[2017-04-29] MEDS: MULTIVITAMINS, THERA 1 EACH TAB PO SCH (08:11)
[2017-04-29] MEDS: POTASSIUM CHLORIDE ER 20 MEQ TAB.ER PO SCH (08:12)
[2017-04-29] MEDS: predniSONE 20 MG TAB PO SCH (08:12)
[2017-04-29] MEDS: SILVER sulfADIAZINE Cream 400 GM 1 APPLIC APPLIC TOPICAL SCH (08:13)
[2017-04-29] MEDS: SPIRONOLACTONE 25 MG TAB PO SCH (08:13)
[2017-04-29 08:26] LABS: INR 1.5 (<1.2); Prothrombin Time 14.7 sec (9.0-12.0)
[2017-04-29 08:36] LABS: ALT 65 U/L (21-72); AST 105 U/L (17-59); Alkaline Phosphatase 182 U/L (38-126); Anion Gap 7 mmol/L; Anisocytosis Slight; Basophils % (A) 0 %; Blood Urea Nitrogen 20 mg/dL (9-20); CH 35.2; CHCM 32.1; Calcium 8.8 mg/dL (8.4-10.2); Carbon Dioxide 33 mmol/L (22-30); Chloride 95 mmol/L (98-107); Eosinophils % (A) 0 %; Glucose 84 mg/dL (74-99); HCT 36.5 % (39.0-53.0); HDW 2.19; HGB 11.9 gm/dL (13.0-17.5); Luc # (Auto) 0.31; Luc % (Auto) 2; Lymphocytes # (A) 1.1 k/uL (1.0-4.8); Lymphocytes % (A) 8 %; MCH 35.9 pg (25.0-35.0); MCHC 32.5 g/dL (31.0-37.0); MCV 110.6 fL (80.0-100.0); Macrocytosis Marked; Mean Platelet Volume 9.7; Monocytes # (A) 1.2 k/uL (0-1.0); Monocytes % (A) 9 %; Neutrophils % (A) 81 %; Non-African American GFR(MDRD) >60 (>60 ml/min/1.73 sqM); Potassium 3.9 mmol/L (3.5-5.1); Sodium 135 mmol/L (137-145); Total Bilirubin 5.9 mg/dL (0.2-1.3); WBC 14.7 k/uL (3.8-10.6); WBC (Perox) 14.78
[2017-04-29 10:40] LABS: Manual Review Performed; Target Cells Present
[2017-04-29 10:41] LABS: Toxic Granulation Present
[2017-04-29] MEDS: PHYTONADIONE ORAL 5 MG/5 ML ORAL.SYRG PO SCH (11:14)
[2017-04-29] MEDS: FOLIC ACID 1 MG TAB PO SCH (11:15)
[2017-04-29] MEDS: THIAMINE 100 MG TAB PO SCH (11:15)
[2017-04-29] MEDS: ALBUTEROL NEBULIZED 2.5 MG/3 ML INHALATION PRN ×2 (16:55→21:28)
--- NOTE | 2017-04-29 18:48 | PN ---
PROGRESS NOTE DATE OF SURGERY: 04/29/17. INTERVAL HISTORY: This 52-year-old gentleman who was admitted with bilateral leg cellulitis, also cirrhosis of the liver. The patient had abdominal paracentesis. Earlier the patient having mild fever. No chest pain. No palpitations. PHYSICAL EXAM: Alert and oriented times three. Pulse 110. Blood pressure 137/75, respiration 18, temperature 94 degrees. Pulse ox normal. HEENT: Conjunctivae normal. Oral mucosa moist. Neck is no jugular venous distention. No carotid bruit. No lymph node enlargement. Cardiovascular is S1, S2 muffled. Breath sounds diminished at the bases. A few scattered rhonchi. No crackles. ABDOMEN: Soft. Obese. Ascites present. Legs bilateral leg edema and cellulitis slightly improving. Central nervous system: No focal deficits. LABS: At this time shows WBC 14.7, hemoglobin 11.9, and INR 1.5. ASSESSMENT: 1. Bilateral leg cellulitis. 2. Cirrhosis of the liver and ascites. 3. Coagulopathy secondary to chronic liver disease. 4. Leukocytosis. 5. Anemia macrocytic. 6. History of ETOH abuse. 7. Elevated D-dimer. 8. Hyperbilirubinemia with hepatitis possibly. RECOMMENDATIONS AND DISCUSSION: Recommend to continue current medications. Continue symptomatic treatment. Otherwise continue to monitor. Guarded prognosis because of multiple complex medical issues. Further recommendations to follow. MMODL / IJN: [id number] /
[2017-04-30] MEDS: HYDROmorphone 0.5 MG/0.5 ML SYRINGE IVP PRN ×6 (01:12→20:12)
[2017-04-30] MEDS: oxyCODONE-APAP 7.5-325MG 1 EACH TAB PO PRN ×3 (05:15→17:16)
[2017-04-30] MEDS: SODIUM CHLORIDE 0.9% 1,000 ML IV SCH (05:35)
[2017-04-30] MEDS: CLOTRIMAZOLE TROCHE 10 MG TROCHE MUCOUS MEM SCH ×4 (05:36→20:12)
[2017-04-30] MEDS: LACTULOSE 20 GM/30 ML CUP PO SCH ×5 (06:14→20:12)
[2017-04-30 08:03] LABS: INR 1.5 (<1.2); Prothrombin Time 14.8 sec (9.0-12.0)
[2017-04-30] MEDS: IPRATROPIUM 0.5 MG/2.5 ML NEBU INHALATION SCH ×4 (08:45→20:43)
[2017-04-30] MEDS: SYMBICORT 160-4.5 MCG INHALER INHALATION SCH ×2 (08:45→20:43)
[2017-04-30] MEDS: NICOTINE 14MG/24HR PATCH TRANSDERM SCH (08:53)
[2017-04-30] MEDS: HEPARIN SODIUM,PORCINE 5,000 UNIT/ML 1 ML VIAL SQ SCH ×2 (08:54→15:13)
[2017-04-30] MEDS: FUROSEMIDE 10 MG/ML 4 ML VIAL IV SCH ×2 (08:55→20:12)
[2017-04-30] MEDS: PIPERACILLIN-TAZOBACTAM 3.375 GM in DEXTROSE/WATER 1 50ML.BAG IVPB SCH ×2 (09:00→16:22)
[2017-04-30] MEDS: SILVER sulfADIAZINE Cream 400 GM 1 APPLIC APPLIC TOPICAL SCH (09:02)
[2017-04-30] MEDS: MULTIVITAMINS, THERA 1 EACH TAB PO SCH (09:02)
[2017-04-30] MEDS: PANTOPRAZOLE 40 MG TABLET PO SCH (09:02)
[2017-04-30] MEDS: predniSONE 20 MG TAB PO SCH (09:02)
[2017-04-30] MEDS: MAGNESIUM OXIDE 400 MG TAB PO SCH (09:02)
[2017-04-30] MEDS: POTASSIUM CHLORIDE ER 20 MEQ TAB.ER PO SCH (09:02)
[2017-04-30] MEDS: SPIRONOLACTONE 25 MG TAB PO SCH (09:03)
[2017-04-30] MEDS: PHYTONADIONE ORAL 5 MG/5 ML ORAL.SYRG PO SCH (09:56)
[2017-04-30] MEDS: FOLIC ACID 1 MG TAB PO SCH (11:10)
[2017-04-30] MEDS: THIAMINE 100 MG TAB PO SCH (11:10)
[2017-04-30 13:11] LABS: Anisocytosis Slight; Basophils # (A) 0.1 k/uL (0-0.2); Basophils % (A) 0 %; CH 35.3; CHCM 31.8; Eosinophils # (A) 0.1 k/uL (0-0.7); Eosinophils % (A) 1 %; HCT 38.3 % (39.0-53.0); HDW 2.22; HGB 12.1 gm/dL (13.0-17.5); Luc # (Auto) 0.23; Luc % (Auto) 2; Lymphocytes # (A) 1.5 k/uL (1.0-4.8); Lymphocytes % (A) 11 %; MCH 35.3 pg (25.0-35.0); MCHC 31.5 g/dL (31.0-37.0); Macrocytosis Marked; Mean Platelet Volume 11.2; Monocytes # (A) 0.8 k/uL (0-1.0); Monocytes % (A) 7 %; Neutrophils % (A) 79 %; RBC 3.42 m/uL (4.30-5.90); RDW 17.3 % (11.5-15.5); WBC 12.7 k/uL (3.8-10.6); WBC (Perox) 14.07
[2017-04-30 13:20] LABS: ALT 83 U/L (21-72); AST 119 U/L (17-59); Alkaline Phosphatase 174 U/L (38-126); Anion Gap 5 mmol/L; Blood Urea Nitrogen 22 mg/dL (9-20); Calcium 9.1 mg/dL (8.4-10.2); Carbon Dioxide 35 mmol/L (22-30); Chloride 97 mmol/L (98-107); Glucose 89 mg/dL (74-99); Non-African American GFR(MDRD) >60 (>60 ml/min/1.73 sqM); Potassium 3.7 mmol/L (3.5-5.1); Sodium 137 mmol/L (137-145); Total Protein 7.3 g/dL (6.3-8.2)
[2017-04-30 13:38] LABS: Large Platelets Present; Manual Review Performed; Target Cells Present; Toxic Granulation Present
[2017-04-30] MEDS: ALBUTEROL NEBULIZED 2.5 MG/3 ML INHALATION PRN ×2 (16:18→20:43)
[2017-05-01] MEDS: HYDROmorphone 0.5 MG/0.5 ML SYRINGE IVP PRN ×4 (00:11→16:06)
[2017-05-01] MEDS: PIPERACILLIN-TAZOBACTAM 3.375 GM in DEXTROSE/WATER 1 50ML.BAG IVPB SCH ×3 (00:14→16:06)
[2017-05-01] MEDS: HEPARIN SODIUM,PORCINE 5,000 UNIT/ML 1 ML VIAL SQ SCH ×5 (00:15→16:11)
[2017-05-01] MEDS: CLOTRIMAZOLE TROCHE 10 MG TROCHE MUCOUS MEM SCH ×4 (00:15→16:11)
[2017-05-01] MEDS: LACTULOSE 20 GM/30 ML CUP PO SCH ×5 (00:16→16:11)
[2017-05-01] MEDS: SODIUM CHLORIDE 0.9% 1,000 ML IV SCH (00:18)
[2017-05-01] MEDS: oxyCODONE-APAP 7.5-325MG 1 EACH TAB PO PRN ×2 (00:54→07:56)
[2017-05-01] MEDS: ONDANSETRON 4 MG/2 ML VIAL IVP PRN ×2 (05:14→16:07)
[2017-05-01] MEDS: SYMBICORT 160-4.5 MCG INHALER INHALATION SCH (07:21)
[2017-05-01] MEDS: IPRATROPIUM 0.5 MG/2.5 ML NEBU INHALATION SCH ×3 (07:21→15:13)
[2017-05-01 07:45] VITALS: RESP 18
[2017-05-01] MEDS: PANTOPRAZOLE 40 MG TABLET PO SCH (07:57)
[2017-05-01] MEDS: FUROSEMIDE 10 MG/ML 4 ML VIAL IV SCH (07:58)
[2017-05-01] MEDS: ERGOCALCIFEROL 50,000 UNIT CAP PO SCH (07:58)
[2017-05-01] MEDS: SILVER sulfADIAZINE Cream 400 GM 1 APPLIC APPLIC TOPICAL SCH (07:59)
[2017-05-01] MEDS: POTASSIUM CHLORIDE ER 20 MEQ TAB.ER PO SCH (07:59)
[2017-05-01] MEDS: MULTIVITAMINS, THERA 1 EACH TAB PO SCH (07:59)
[2017-05-01] MEDS: predniSONE 20 MG TAB PO SCH (07:59)
[2017-05-01] MEDS: NICOTINE 14MG/24HR PATCH TRANSDERM SCH (07:59)
[2017-05-01] MEDS: PHYTONADIONE ORAL 5 MG/5 ML ORAL.SYRG PO SCH ×2 (07:59→08:14)
[2017-05-01] MEDS: MAGNESIUM OXIDE 400 MG TAB PO SCH (07:59)
[2017-05-01] MEDS: SPIRONOLACTONE 25 MG TAB PO SCH (08:00)
[2017-05-01 08:03] LABS: Anisocytosis Slight; Basophils % (A) 0 %; CH 34.3; CHCM 31.5; Eosinophils # (A) 0.1 k/uL (0-0.7); Eosinophils % (A) 0 %; HDW 2.16; HGB 13.3 gm/dL (13.0-17.5); Luc # (Auto) 0.41; Luc % (Auto) 2; Lymphocytes # (A) 1.6 k/uL (1.0-4.8); Lymphocytes % (A) 9 %; MCH 34.8 pg (25.0-35.0); MCHC 31.7 g/dL (31.0-37.0); MCV 109.5 fL (80.0-100.0); Macrocytosis Marked; Mean Platelet Volume 9.5; Monocytes % (A) 6 %; Neutrophils # (A) 14.1 k/uL (1.3-7.7); Neutrophils % (A) 82 %; RBC 3.84 m/uL (4.30-5.90); RDW 16.7 % (11.5-15.5); WBC 17.1 k/uL (3.8-10.6); WBC (Perox) 17.45
[2017-05-01 08:11] LABS: ALT 101 U/L (21-72); AST 139 U/L (17-59); Alkaline Phosphatase 164 U/L (38-126); Anion Gap 10 mmol/L; Blood Urea Nitrogen 20 mg/dL (9-20); Calcium 9.3 mg/dL (8.4-10.2); Carbon Dioxide 31 mmol/L (22-30); Chloride 96 mmol/L (98-107); Glucose 107 mg/dL (74-99); Non-African American GFR(MDRD) >60 (>60 ml/min/1.73 sqM); Potassium 3.9 mmol/L (3.5-5.1); Sodium 137 mmol/L (137-145); Total Bilirubin 6.6 mg/dL (0.2-1.3); Total Protein 7.8 g/dL (6.3-8.2)
[2017-05-01] MEDS ORDERED: traMADol 50 MG TAB PO PRN (11:21)
[2017-05-01] MEDS: THIAMINE 100 MG TAB PO SCH (11:27)
[2017-05-01] MEDS: FOLIC ACID 1 MG TAB PO SCH (11:27)
--- NOTE | 2017-05-01 13:13 | CT ---
EXAMINATION TYPE: CT abdomen pelvis wo con DATE OF EXAM: 05/01/2017 COMPARISON: NONE HISTORY: Ascites CT DLP: 1408.9 mGycm Examination of the solid and hollow viscera is limited given the lack of contrast. FINDINGS: LUNG BASES: Scattered areas of groundglass infiltrate at the lung bases could reflect acute inflammat ory process. LIVER/GB: The gallbladder is unremarkable. Contrast is seen within the gallbladder lumen from recent contrast study. Micronodular appearance of the liver suggest underlying cirrhotic liver disease. Cor relate clinically. No space-occupying hepatic lesion. PANCREAS: No pancreatic mass identified. No inflammatory process seen. SPLEEN: No evidence for splenomegaly. No intrasplenic lesions seen. ADRENALS: No adrenal nodules identified. No evidence for thickening. KIDNEYS: No evidence for renal mass. No nephrolithiasis. No hydronephrosis. BOWEL: There is dilated small bowel measuring up to 3.5 cm with scattered air-fluid levels identified . No definitive transition zone is appreciated however. There is edema of the small bowel mesentery. Several foci of air are seen within the mesenteric vessels adjacent to the stomach and within the epi gastric region. I cannot exclude mesenteric ischemia and appropriate workup is recommended. The colon appears to be of normal caliber. Lymph nodes: No evidence for adenopathy greater than 1 cm. Abdominal aorta: Atheromatous changes seen. No evidence for aneurysm. Genital organs: No significant abnormality. Other: large amount of ascites throughout the abdomen and pelvis. IMPRESSION: 1. THERE IS AIR NOTED WITHIN SEVERAL MESENTERIC VENOUS BRANCHES ADJACENT TO THE STOMACH AND WITHIN TH E EPIGASTRIC REGION. NOTED THERE ARE DILATED LOOPS OF SMALL BOWEL WITH SMALL BOWEL AIR-FLUID LEVE LS IDENTIFIED. APPROPRIATE WORKUP FOR ISCHEMIC BOWEL IS RECOMMENDED. THE LACK OF CONTRAST LIMITS EVAL UATION OF THE GASTROINTESTINAL TRACT. 2. LARGE AMOUNT OF ASCITES THROUGHOUT THE ABDOMEN AND PELVIS. 3. GROUNDGLASS INFILTRATES AT THE LUNG BASES. 4. CIRRHOTIC LIVER DISEASE. A Red message has been communicated to Henry Paige via the [employer] Critical Result system o n 05/01/2017 1:10 PM, Message ID [id number].
[2017-05-01 15:13] VITALS: BP 122/77; PULSE 122; TEMP 97.6
[2017-05-01] MEDS ORDERED: HYDROmorphone 0.5 MG/0.5 ML SYRINGE IVP STA (18:03)
--- NOTE | 2017-05-01 18:12 | P.GSCN ---
History of Present Illness Consult date: 05/01/17 Reason for Consult: Abdominal pain History of present illness: Patient came to the hospital with complaints of abdominal pain several days ago. The patient is known to our gastroenterology service as an outpatient with a history of cirrhosis/hepatitis C/alcohol abuse. He also was found to have lower extremity cellulitis. He has been on antibiotics. He actually has been followed by infectious disease. He had a therapeutic paracentesis performed last week. The fluid was straw-colored and has been negative for infectious source. He apparently states that he was doing much better yesterday and preparing to go home when he began experiencing nausea and vomiting. He then started to develop upper abdominal pain that he says is quite severe. He does admit that the pain he has had intermittently over the last several months with similar to this however. He is afebrile. His white blood cell count has been elevated since admission. He has been intermittently tachycardic since admission. A CAT scan was performed which showed some worrisome air within the suspected perigastric venous system. No central portal gas was seen. The patient is constipated although states he had a bowel movement yesterday morning that was fairly normal. CAT scan shows some degree of stool burden. There are some mildly dilated small bowel loops as well. Patient reportedly has an appointment to be seen at the [facility] in the next several weeks. Review of Systems The patient denies any acute changes in vision or hearing, no dysphagia or odynophagia, no chest pain, no dysuria or hematuria, no headache, no runny nose , no rectal bleeding or melena Past Medical History Past Medical History: COPD, GERD/Reflux, Liver Disease, Pneumonia Additional Past Medical History / Comment(s): Lumbar disc herniation with radiculopathy, peptic ulcer disease, hepatitis C with cirrhosis of the liver History of Any Multi-Drug Resistant Organisms: None Reported Past Surgical History: Tonsillectomy Additional Past Surgical History / Comment(s): Lower epidural back injections Past Anesthesia/Blood Transfusion Reactions: No Reported Reaction Past Psychological History: Anxiety Additional Psychological History / Comment(s): Pt lives with his spouse. He recently started using a cane to ambulate. He was driving prior to this illness. Smoking Status: Current some day smoker Past Alcohol Use History: None Reported Additional Past Alcohol Use History / Comment(s): Pt started smoking in 1981 and is a 1/2 ppd smoker. Patient states he is currently down to 3 cigarettes per day. Alcohol intake is 1-6 beers per day depending on the day. He has history of cocaine IV use when he was in high school. He is currently living at home with his of 26 years. 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 Past Drug Use History: None Reported - Past Family History Mother Family Medical History: Cancer, Congestive Heart Failure (CHF), Osteoarthritis ( OA) Additional Family Medical History / Comment(s): Mother is 83 yrs old. She has had breast cancer. Father Additional Family Medical History / Comment(s): Father is an alcoholic-pt does not know him well. Medications and Allergies Home Medications Medication Instructions Recorded Confirmed Type Albuterol Inhaler [Ventolin Hfa 1 - 2 puff INHALATION RT-Q6H PRN 01/25/17 History Inhaler] Budesonide/Formoterol Fumarate 2 puff INHALATION RT-BID 01/25/17 04/24/17 History [Symbicort 160-4.5 Mcg Inhaler] Ergocalciferol [Vitamin D2 50,000 unit PO Q7D 01/25/17 04/24/17 History (DRISDOL)] Omeprazole [PriLOSEC] 40 mg PO DAILY 01/25/17 04/24/17 History Docusate [Colace] 100 mg PO DAILY PRN #30 cap 01/28/17 04/24/17 Rx Thiamine [Vitamin B-1] 100 mg PO DAILY@1200 #30 tab 01/28/17 04/24/17 Rx Furosemide [Lasix] 40 mg PO DAILY #30 tablet 02/15/17 04/24/17 Rx Nicotine 14Mg/24Hr Patch [Habitrol] 1 patch TRANSDERM DAILY #30 patch 02/15/17 04/24/17 Rx Potassium Chloride ER [K-Dur 20] 20 meq PO DAILY #15 tab 04/15/17 04/24/17 Rx oxyCODONE-APAP 7.5-325MG [Percocet 1 tab PO Q6HR PRN #12 tab 04/15/17 04/24/17 Rx 7.5-325 mg] predniSONE 20 mg PO BID #10 tab 04/15/17 04/24/17 Rx Clotrimazole 10 mg MUCOUS MEM 5XD 04/24/17 04/24/17 History HYDROcodone/APAP 7.5-325MG [[place] 1 tab PO BID PRN 04/24/17 04/24/17 History 7.5-325] Magnesium Oxide [Mag-Ox] 250 mg PO DAILY 04/24/17 04/24/17 History Spironolactone 100 mg PO DAILY 04/24/17 04/24/17 History Tiotropium 18 Mcg/Puff [Spiriva] 1 cap INHALATION RT-DAILY 04/24/17 04/24/17 History Cefuroxime Axetil [Ceftin] 500 mg PO BID #14 tab 04/27/17 Rx Lactulose [Cephulac] 20 gm PO DAILY #900 dose 04/27/17 Rx Phytonadione Oral [Vitamin K Oral] 5 mg PO DAILY #30 syr 04/27/17 Rx SILVER sulfADIAZINE Cream 1 applic TOPICAL DAILY dose 04/27/17 Rx [Silvadene 1% Cream] predniSONE 40 mg PO DAILY #24 tab 04/27/17 Rx Allergies Allergy/AdvReac Type Severity Reaction Status Date / Time No Known Allergies Allergy Verified 04/24/17 08:46 Surgical - Exam Vital Signs Temp Pulse Resp BP Pulse Ox 99.9 F H 124 H 20 156/84 90 L 04/23/17 23:55 04/23/17 23:55 04/23/17 23:55 04/23/17 23:55 04/23/17 23:55 Physical exam: General: Well-developed, well-nourished male in obvious discomfort laying in the left decubitus position HEENT: Normocephalic, sclerae is icteric Abdomen: Distended, diffuse abdominal tenderness noted, no rebound or guarding, tenderness seems to be mild in the lower abdomen and moderate in the epigastrium , bruising of the abdominal wall noted Extremities: Lower extremity edema with mild erythema Neuro: Alert and oriented Results - Labs 05/01/17 07:16 05/01/17 07:16 Abnormal Lab Results - Last 24 Hours (Table) 05/01/17 05/01/17 Range/Units 07:16 07:16 WBC 17.1 H (3.8-10.6) k/uL RBC 3.84 L (4.30-5.90) m/uL MCV 109.5 H (80.0-100.0) fL RDW 16.7 H (11.5-15.5) % Plt Count 109 L (150-450) k/uL Neutrophils # 14.1 H (1.3-7.7) k/uL Chloride 96 L (98-107) mmol/L Carbon Dioxide 31 H (22-30) mmol/L Glucose 107 H (74-99) mg/dL Total Bilirubin 6.6 H (0.2-1.3) mg/dL AST 139 H (17-59) U/L ALT 101 H (21-72) U/L Alkaline Phosphatase 164 H (38-126) U/L Albumin 2.9 L (3.5-5.0) g/dL Microbiology - Last 24 Hours (Table) 04/28/17 15:35 Blood Culture - Preliminary Blood No Growth after 72 hours 04/28/17 15:25 Blood Culture - Preliminary Blood No Growth after 72 hours 04/26/17 15:05 Gram Stain - Final Ascites Fluid Body Fluid Culture - Final 04/26/17 15:05 Anaerobic Culture - Final Ascites Fluid Diabetes panel 05/01/17 Range/Units 07:16 Sodium 137 (137-145) mmol/L Potassium 3.9 (3.5-5.1) mmol/L Chloride 96 L (98-107) mmol/L Carbon Dioxide 31 H (22-30) mmol/L BUN 20 (9-20) mg/dL Creatinine 0.71 (0.66-1.25) mg/dL Glucose 107 H (74-99) mg/dL Calcium 9.3 (8.4-10.2) mg/dL AST 139 H (17-59) U/L ALT 101 H (21-72) U/L Alkaline Phosphatase 164 H (38-126) U/L Total Protein 7.8 (6.3-8.2) g/dL Albumin 2.9 L (3.5-5.0) g/dL Calcium panel 05/01/17 Range/Units 07:16 Calcium 9.3 (8.4-10.2) mg/dL Albumin 2.9 L (3.5-5.0) g/dL Pituitary panel 05/01/17 Range/Units 07:16 Sodium 137 (137-145) mmol/L Potassium 3.9 (3.5-5.1) mmol/L Chloride 96 L (98-107) mmol/L Carbon Dioxide 31 H (22-30) mmol/L BUN 20 (9-20) mg/dL Creatinine 0.71 (0.66-1.25) mg/dL Glucose 107 H (74-99) mg/dL Calcium 9.3 (8.4-10.2) mg/dL Adrenal panel 05/01/17 Range/Units 07:16 Sodium 137 (137-145) mmol/L Potassium 3.9 (3.5-5.1) mmol/L Chloride 96 L (98-107) mmol/L Carbon Dioxide 31 H (22-30) mmol/L BUN 20 (9-20) mg/dL Creatinine 0.71 (0.66-1.25) mg/dL Glucose 107 H (74-99) mg/dL Calcium 9.3 (8.4-10.2) mg/dL Total Bilirubin 6.6 H (0.2-1.3) mg/dL AST 139 H (17-59) U/L ALT 101 H (21-72) U/L Alkaline Phosphatase 164 H (38-126) U/L Total Protein 7.8 (6.3-8.2) g/dL Albumin 2.9 L (3.5-5.0) g/dL Assessment and Plan (1) Abdominal pain Narrative/Plan: Patient with worsening abdominal pain despite being on fairly broad-spectrum antibiotics. His CAT scan showing some early portal venous system gas is alarming. He is an extremely high surgical risk for exploration. Would recommend continued antibiotics and bowel rest. Discussed the case with both infectious disease and the hospitalist and I do believe the patient would be better cared for at a tertiary care center that is more specialized in the care of the advanced liver failure patient. Status: Acute
--- NOTE | 2017-05-01 18:37 | P.DS ---
Providers Date of admission: 04/24/17 00:44 Attending physician: Anna Chahal Consults: 04/24/17 00:45 Consult Physician Routine Consulting Provider: Jay Felton Consult Reason/Comments: cellulitis. Do you want consulting provider notified?: Yes 04/24/17 00:46 Consult Physician Routine Consulting Provider: Blessing Araujo Consult Reason/Comments: Liver disease with ascites Do you want consulting provider notified?: Yes 05/01/17 13:29 Consult Physician Routine Consulting Provider: Omar Doran Consult Reason/Comments: ischemic bowel?? abnormal ct Do you want consulting provider notified?: Yes Primary care physician: Stated None Hospital Course: This 52-year-old gentleman with a past medical history multiple medical problems including a cirrhosis liver possibly secondary to alcohol was admitted with the bilateral leg cellulitis. Patient was given IV Zosyn. Patient also had significant ascites which was and the patient underwent abdominal paracentesis. Patient was being treated symptomatically. However patient developed abdominal pain and more abdominal distention and as well as nausea vomiting today. Patient underwent emergent CAT scan of the abdomen and pelvis which showed a several mesenteric, venous branches adjacent to the stomach showing air with a dilated loops of small bowel the possibility of mesenteric ischemia was considered. Dr. Doran a surgeon saw the patient recommended referral to tertiary care center. We discussed the case with [facility] transfer team and the patient be transferring to [facility] in a stable condition with guarded prognosis. Total time taken 35 minutes. Please refer to the MAR for current medications. On exam vitals stable. Cardio S1 and S2 normal. Patient's tachycardic. Abdomen soft and treated with diffuse distention. Nervous system system no focal deficit. Final diagnosis 1. Abdominal distention rule out mesenteric ischemia with Dr. Duvall the mesenteric system. 2. Cirrhosis of liver and ascites possibly secondary to alcohol. 3. Bilateral external otitis. 4. 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 5. Leukocytosis. 6. Anemia normocytic. Next in 7. History of EtOH abuse. 8. Elevated d-dimer. 9. Hyperbilirubinemia with a possible hepatitis present on admission. Plan - Discharge Summary New Discharge Prescriptions: New Phytonadione Oral [Vitamin K Oral] 5 mg PO DAILY #30 syr SILVER sulfADIAZINE Cream [Silvadene 1% Cream] 1 applic TOPICAL DAILY dose Cefuroxime Axetil [Ceftin] 500 mg PO BID #14 tab Albuterol Nebulized [Ventolin Nebulized] 2.5 mg INHALATION RT-Q6H PRN neb PRN Reason: sob Folic Acid 1 mg PO DAILY@1200 tab Heparin Sodium,Porcine [Heparin Sodium] 5,000 unit SQ Q8HR vial Ipratropium Nebulized [Atrovent Nebulized] 0.5 mg INHALATION RT-QID neb Lactulose [Cephulac] 20 gm PO Q4H dose Multivitamins, Thera [Multivitamin (formulary)] 1 each PO DAILY tab traMADol HCl [Ultram] 50 mg PO QID PRN tab PRN Reason: Pain Continue Omeprazole [PriLOSEC] 40 mg PO DAILY Ergocalciferol [Vitamin D2 (DRISDOL)] 50,000 unit PO Q7D Budesonide/Formoterol Fumarate [Symbicort 160-4.5 Mcg Inhaler] 2 puff INHALATION RT-BID Docusate [Colace] 100 mg PO DAILY PRN #30 cap PRN Reason: Constipation Thiamine [Vitamin B-1] 100 mg PO DAILY@1200 #30 tab Furosemide [Lasix] 40 mg PO DAILY #30 tablet Nicotine 14Mg/24Hr Patch [Habitrol] 1 patch TRANSDERM DAILY #30 patch oxyCODONE-APAP 7.5-325MG [Percocet 7.5-325 mg] 1 tab PO Q6HR PRN #12 tab PRN Reason: Pain Potassium Chloride ER [K-Dur 20] 20 meq PO DAILY #15 tab HYDROcodone/APAP 7.5-325MG [[place] 7.5-325] 1 tab PO BID PRN PRN Reason: Pain Clotrimazole 10 mg MUCOUS MEM 5XD Magnesium Oxide [Mag-Ox] 250 mg PO DAILY Tiotropium 18 Mcg/Puff [Spiriva] 1 cap INHALATION RT-DAILY Spironolactone 100 mg PO DAILY Discontinued Albuterol Inhaler [Ventolin Hfa Inhaler] 1 - 2 puff INHALATION RT-Q6H PRN PRN Reason: sob predniSONE 20 mg PO BID #10 tab Discharge Medication List Budesonide/Formoterol Fumarate [Symbicort 160-4.5 Mcg Inhaler] 2 puff INHALATION RT-BID 01/25/17 [History] Ergocalciferol [Vitamin D2 (DRISDOL)] 50,000 unit PO Q7D 01/25/17 [History] Omeprazole [PriLOSEC] 40 mg PO DAILY 01/25/17 [History] Docusate [Colace] 100 mg PO DAILY PRN #30 cap 01/28/17 [Rx] Thiamine [Vitamin B-1] 100 mg PO DAILY@1200 #30 tab 01/28/17 [Rx] Furosemide [Lasix] 40 mg PO DAILY #30 tablet 02/15/17 [Rx] Nicotine 14Mg/24Hr Patch [Habitrol] 1 patch TRANSDERM DAILY #30 patch 02/15/17 [ Rx] Potassium Chloride ER [K-Dur 20] 20 meq PO DAILY #15 tab 04/15/17 [Rx] oxyCODONE-APAP 7.5-325MG [Percocet 7.5-325 mg] 1 tab PO Q6HR PRN #12 tab [Rx] Clotrimazole 10 mg MUCOUS MEM 5XD 04/24/17 [History] HYDROcodone/APAP 7.5-325MG [[place] 7.5-325] 1 tab PO BID PRN 04/24/17 [History] Magnesium Oxide [Mag-Ox] 250 mg PO DAILY 04/24/17 [History] Spironolactone 100 mg PO DAILY 04/24/17 [History] Tiotropium 18 Mcg/Puff [Spiriva] 1 cap INHALATION RT-DAILY 04/24/17 [History] Cefuroxime Axetil [Ceftin] 500 mg PO BID #14 tab 04/27/17 [Rx] Phytonadione Oral [Vitamin K Oral] 5 mg PO DAILY #30 syr 04/27/17 [Rx] SILVER sulfADIAZINE Cream [Silvadene 1% Cream] 1 applic TOPICAL DAILY dose [Rx] Albuterol Nebulized [Ventolin Nebulized] 2.5 mg INHALATION RT-Q6H PRN neb 05/01 [Rx] Folic Acid 1 mg PO DAILY@1200 tab 05/01/17 [Rx] Heparin Sodium,Porcine [Heparin Sodium] 5,000 unit SQ Q8HR vial 05/01/17 [Rx] Ipratropium Nebulized [Atrovent Nebulized] 0.5 mg INHALATION RT-QID neb [Rx] Lactulose [Cephulac] 20 gm PO Q4H dose 05/01/17 [Rx] Multivitamins, Thera [Multivitamin (formulary)] 1 each PO DAILY tab 05/01/17 [ Rx] traMADol HCl [Ultram] 50 mg PO QID PRN tab 05/01/17 [Rx] Follow up Appointment(s)/Referral(s): Misha Zamudio Dr. GI [Other] - 2 Weeks (as rec. per GI) Blessing Araujo MD [STAFF PHYSICIAN] - 05/10/17 4:30 pm (Colonoscopy as outpatient was scheduled for today in [place]. Please call to reschedule.) Haylee Engel MD [STAFF PHYSICIAN] - (Pain managment [phone]. Please call for appointment.) Doug Ragsdale MD [REFERRING] - 05/03/17 (Office will call you with appointment time. ) Ambulatory/Diagnostic Orders: Comprehensive Metabolic Panel [LAB.AMB] Time Frame: 3 Days, Location: Determined By Patient Patient Instructions/Handouts: How to Stop Smoking (DC), Cellulitis (DC) Activity/Diet/Wound Care/Special Instructions: Diet: Cardiac, 1500 MLS fluid restriction per 24 hour Activity: Limited until follow up Silvedene daily to lower extremities with TAYO wrap. Clean daily and reapply. Discharge Disposition: OTHER INSTITUTION NOT DEFINED
--- NOTE | 2017-05-01 20:22 | P.PN ---
Subjective Principal diagnosis: Cellulitis right leg This is a 52-year-old male patient with underlying history of hepatitis C, cirrhosis of the liver and follows with Dr. Florencia Araujo. Patient states that he has advised her to go to [facility] in his first appointment will be on June 03. He states his hepatitis C only recently diagnosed has not been treated and he has not undergone paracentesis before. 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 Patient states he stopped IV drug use while in high school. Patient also has history of alcohol intake of 1-6 beers per day depending on the day. He also has a chronic rash on his buttocks and going down his legs which he has been following with [facility] on 3 occasions. He states his rash is also been on his legs which are now extremely inflamed and swollen. He states whatever treatment he has been given by the paint line operator has not been effective. Patient is complaining of severe pain for the past 3 days in his right hip down his legs with increased swelling and also left ankle pain. He also complains of generalized weakness and abdominal bloating and states his abdomen is bigger than it has been. He underwent an ultrasound of the right lower extremity that was negative for DVT. CTA of the chest showed no obvious large central pulmonary embolism. Small bilateral pleural effusions left greater than right. Moderate to large volume upper abdominal ascites. Lobular hepatic contour suggesting cirrhosis. Patient presented with leukocytosis of 19.3, hemoglobin 12.4 and platelet count 74. INR 1.8, d-dimer was 21.9. Total bilirubin 10.2, AST 114, ALT 62, alkaline phosphatase 182. Albumin 2.7. Patient also states he has not been eating or drinking for the past 3 days. Temperature initially was 99.9 with a pulse of 124. Pulse ox is 90% on room air. He does complain of shortness of breath with minimal activity. Patient was started on antibiotics the form of Unasyn and vancomycin and [facility]. Consult is in place with Dr. Florencia Araujo. Patient also has significant history of lumbar disc herniation with radiculopathy and has seen Dr. Khan for this and has undergone several epidural injections in the past. He was determined be a poor surgical candidate. Is noted at admission there was evidence of the extensive erythema of the right leg. The leg is impoved today. His fevers improved. He's been followed by gastroenterology for his extensive alcoholic hepatitis. Has had an ultrasound-guided paracentesis and 3.1 L were removed. But now has significant abdominal pain and some worsening of encephalopathy. Objective - Vital Signs Vital signs: Vital Signs Temp 97.6 F 05/01/17 15:00 Pulse 122 H 05/01/17 15:00 Resp 18 05/01/17 15:00 BP 122/77 05/01/17 15:00 Pulse Ox 95 05/01/17 15:13 Intake & Output 05/01/17 05/01/17 05/02/17 06:59 18:59 06:59 Intake Total 350 Output Total 550 Balance 350 -550 Weight 107.3 kg Intake: Oral 350 Output: Urine 550 Other: Voiding Method Toilet # Voids 1 - Exam Gen: This is a obese 52-year-old male. He is sitting up in bed and appears to be dyspneic at rest. HEENT: Head is atraumatic, normocephalic. Pupils equal, round. Sclerae is icteric. Mucous membranes of the mouth are dry. Dentition is in good order. No thrush noted. NECK: Supple. No JVD. No lymphadenopathy. No thyromegaly. LUNGS: Clear to auscultation but diminished at the bases.. Minimal intercostal retractions while at rest. HEART: Regular rate and rhythm. No murmur. ABDOMEN: Distended. Bowel sounds are present. Generalized tenderness. Improved in size since the paracentesis. EXTREMITIES: Bilateral lower extremity edema 2+ the right lower extremity has an area of cellulitis which is improving. He does have an area some denuded tissue where there is some weeping of serous material. The erythema is improved. It is much less tender. SKIN: Rash to the lower leg and up onto the medial aspect of the thigh but is improved. NEUROLOGICAL: awake and interactive but with confusion - Labs CBC & Chem 7: 05/01/17 07:16 05/01/17 07:16 Labs: Abnormal Lab Results - Last 24 Hours (Table) 05/01/17 05/01/17 Range/Units 07:16 07:16 WBC 17.1 H (3.8-10.6) k/uL RBC 3.84 L (4.30-5.90) m/uL MCV 109.5 H (80.0-100.0) fL RDW 16.7 H (11.5-15.5) % Plt Count 109 L (150-450) k/uL Neutrophils # 14.1 H (1.3-7.7) k/uL Chloride 96 L (98-107) mmol/L Carbon Dioxide 31 H (22-30) mmol/L Glucose 107 H (74-99) mg/dL Total Bilirubin 6.6 H (0.2-1.3) mg/dL AST 139 H (17-59) U/L ALT 101 H (21-72) U/L Alkaline Phosphatase 164 H (38-126) U/L Albumin 2.9 L (3.5-5.0) g/dL Microbiology - Last 24 Hours (Table) 04/28/17 15:35 Blood Culture - Preliminary Blood No Growth after 72 hours 04/28/17 15:25 Blood Culture - Preliminary Blood No Growth after 72 hours 04/26/17 15:05 Gram Stain - Final Ascites Fluid Body Fluid Culture - Final 04/26/17 15:05 Anaerobic Culture - Final Ascites Fluid Laboratory Results WBC 17.1 k/uL (3.8-10.6) H 05/01/17 07:16 RBC 3.84 m/uL (4.30-5.90) L 05/01/17 07:16 Hgb 13.3 gm/dL (13.0-17.5) 05/01/17 07:16 Hct 42.0 % (39.0-53.0) 05/01/17 07:16 MCV 109.5 fL (80.0-100.0) H 05/01/17 07:16 MCH 34.8 pg (25.0-35.0) 05/01/17 07:16 MCHC 31.7 g/dL (31.0-37.0) 05/01/17 07:16 RDW 16.7 % (11.5-15.5) H 05/01/17 07:16 Plt Count 109 k/uL (150-450) L 05/01/17 07:16 Neutrophils % 82 % 05/01/17 07:16 Lymphocytes % 9 % 05/01/17 07:16 Monocytes % 6 % 05/01/17 07:16 Eosinophils % 0 % 05/01/17 07:16 Basophils % 0 % 05/01/17 07:16 Neutrophils # 14.1 k/uL (1.3-7.7) H 05/01/17 07:16 Lymphocytes # 1.6 k/uL (1.0-4.8) 05/01/17 07:16 Monocytes # 1.0 k/uL (0-1.0) 05/01/17 07:16 Eosinophils # 0.1 k/uL (0-0.7) 05/01/17 07:16 Basophils # 0.0 k/uL (0-0.2) 05/01/17 07:16 Manual Slide Review Performed 04/30/17 07:32 Hypersegmented Neuts Present 04/27/17 08:15 Toxic Granulation Present 04/30/17 07:32 Toxic Vacuolation Present 04/27/17 08:15 Large Platelets Present 04/30/17 07:32 Hypochromasia Slight 04/28/17 08:57 Poikilocytosis (manual Present 04/30/17 07:32 Anisocytosis Slight 05/01/17 07:16 Macrocytosis Marked 05/01/17 07:16 Target Cells Present 04/30/17 07:32 PT 14.8 sec (9.0-12.0) H 04/30/17 07:32 INR 1.5 (<1.2) H 04/30/17 07:32 APTT 33.7 sec (22.0-30.0) H 04/24/17 00:48 D-Dimer 21.94 mg/L FEU (<0.60) H 04/24/17 03:25 Sodium 137 mmol/L (137-145) 05/01/17 07:16 Potassium 3.9 mmol/L (3.5-5.1) 05/01/17 07:16 Chloride 96 mmol/L (98-107) L 05/01/17 07:16 Carbon Dioxide 31 mmol/L (22-30) H 05/01/17 07:16 Anion Gap 10 mmol/L 05/01/17 07:16 BUN 20 mg/dL (9-20) 05/01/17 07:16 Creatinine 0.71 mg/dL (0.66-1.25) 05/01/17 07:16 Est GFR (MDRD) Af Amer >60 (>60 ml/min/1.73 sqM) 05/01/17 07:16 Est GFR (MDRD) Non-Af >60 (>60 ml/min/1.73 sqM) 05/01/17 07:16 Glucose 107 mg/dL (74-99) H 05/01/17 07:16 Plasma Lactic Acid Andrei 1.9 mmol/L (0.7-2.0) 05/01/17 11:03 Calcium 9.3 mg/dL (8.4-10.2) 05/01/17 07:16 Total Bilirubin 6.6 mg/dL (0.2-1.3) H 05/01/17 07:16 AST 139 U/L (17-59) H 05/01/17 07:16 ALT 101 U/L (21-72) H 05/01/17 07:16 Alkaline Phosphatase 164 U/L (38-126) H 05/01/17 07:16 Ammonia 34 umol/L (<30) H 04/27/17 08:15 Troponin I <0.012 ng/mL (0.000-0.034) 04/24/17 00:48 Total Protein 7.8 g/dL (6.3-8.2) 05/01/17 07:16 Albumin 2.9 g/dL (3.5-5.0) L 05/01/17 07:16 Amylase 61 U/L (30-110) 04/24/17 00:48 Lipase 92 U/L (23-300) 04/24/17 00:48 Urine Color Dark Yellow 04/24/17 11:16 Urine Appearance Clear (Clear) 04/24/17 11:16 Urine pH 6.5 (5.0-8.0) 04/24/17 11:16 Ur Specific [place] 1.048 (1.001-1.035) H 04/24/17 11:16 Urine Protein Trace (Negative) H 04/24/17 11:16 Urine Glucose (UA) Negative (Negative) 04/24/17 11:16 Urine Ketones Negative (Negative) 04/24/17 11:16 Urine Blood Negative (Negative) 04/24/17 11:16 Urine Nitrite Negative (Negative) 04/24/17 11:16 Urine Bilirubin 2+ (Negative) H 04/24/17 11:16 Urine Urobilinogen 4.0 mg/dL (<2.0) 04/24/17 11:16 Ur Leukocyte Esterase Negative (Negative) 04/24/17 11:16 Fluid Source Ascitic 04/26/17 15:05 Fluid Color Yellow 04/26/17 15:05 Fluid Appearance Hazy 04/26/17 15:05 Fluid RBC 313 /uL 04/26/17 15:05 Fluid Nucleated Cells 20 /uL 04/26/17 15:05 Fluid Polynuclear WBCs 72 % 04/26/17 15:05 Fluid Mononuclear WBCs 28 % 04/26/17 15:05 Body Fluid Glucose Source Ascites 04/26/17 15:05 Fluid Glucose 128 mg/dL 04/26/17 15:05 Vancomycin Trough 15.1 ug/mL 04/26/17 03:56 Miscellaneous Test BF,ALBUMIN 04/26/17 15:05 Misc Test Result See Comment 04/26/17 15:05 Microbiology 04/28/17 15:35 Blood Blood Culture - Preliminary No Growth after 72 hours 04/28/17 15:25 Blood Blood Culture - Preliminary No Growth after 72 hours 04/26/17 15:05 Ascites Fluid Gram Stain - Final 04/26/17 15:05 Ascites Fluid Body Fluid Culture - Final 04/26/17 15:05 Ascites Fluid Anaerobic Culture - Final 04/24/17 00:48 Blood Blood Culture - Final No Growth after 144 hours Assessment and Plan (1) Alcoholic hepatitis with ascites Status: Acute (2) Hepatitis C Status: Acute (3) Leukocytosis Status: Acute (4) Cellulitis of right leg Narrative/Plan: This is a 52-year-old male who presented to the hospital with cirrhosis of the liver with history of hepatitis C, cellulitis of the bilateral lower extremity more so on the right. Ultrasound of the lower extremity was negative for DVT. Patient is currently on IV antibiotics in form of Unasyn and vancomycin. Continue local wound care with Silvadene wraps and keep the legs elevated. Add ABD pads to help with absorption of drainage. Which has helped especially with the edema. The patient's status has worsened today. He now has increasing abdominal pain. He also was more encephalopathic. General surgical consult has occurred. The case is discussed with the general surgeon. Given his abnormality in the computed tomography scan with some free air in the gastric vessels, his significant and worsening liver disease transferred [facility] hepatology division appears to be indicated this time. And she'll be orchestrated. Patient is currently on Lasix and Aldactone. Patient has consult with Dr. Florencia Araujo. An ultrasound-guided paracentesis has occurred and the patient was more comfortable. Fluid has been sent with no evidence of infection at this time. Status: Acute
[2017-05-01] MEDS ORDERED: PANTOPRAZOLE 40 MG/10 ML VIAL IVP SCH (21:00)
--- NOTE | 2017-05-01 21:47 | PN ---
PROGRESS NOTE DATE OF SERVICE: 04/30/2017 This is a progress note. This 52-year-old gentleman was admitted with bilateral leg cellulitis also has ascites, the patient also complaining of abdominal discomfort and constipation also. PAST MEDICAL HISTORY: Reviewed. REVIEW OF SYSTEMS: Cardiovascular: No angina or palpitations. Respiration: As mentioned earlier. GI as mentioned earlier. no dysuria. CURRENT MEDICATIONS: 1. Ventolin. 2. Symbicort b.i.d. 3. Colace. 4. Vitamin D2. 5. Folic acid. 6. Lasix. 7. Heparin. 8. Dilaudid. 9. Cephulac. 10.Narcan. 11.Zofran. 12.Vitamin D. PHYSICAL EXAM: Patient is alert, oriented x3. The pulse is 104, blood pressure is 120/77, respiratory rate 16, temperature 97.9, pulse ox 94% on room air. HEENT: Conjunctivae normal. Neck no jugular venous distention. Cardiovascular : S1, S2 muffled. Respiratory: Breath sounds diminished at the bases. A few scattered rhonchi. No crackles. ABDOMEN: Soft. Ascites present. Legs: No edema. No swelling. Central nervous system: No focal deficits. LABS: At this time shows WBC 12.2, hemoglobin is 12.1. INR 1.5. ASSESSMENT: 1. Acute bilateral leg cellulitis. 2. Cirrhosis of the liver with ascites status post paracentesis. 3. Coagulopathy secondary to chronic liver disease. 4. Leukocytosis. 5. Anemia macrocytic. 6. History of ETOH abuse. 7. Elevated D-dimer. 8. hepatitis possibly. RECOMMENDATIONS AND DISCUSSION: Recommend to continue current medications, continue symptomatic treatment. Otherwise at this time I recommend continue with IV antibiotics. Otherwise continue the rest of the medications. Repeat labs in the morning. Guarded prognosis. Further recommendations to follow. See orders for details. MMODL / IJN: [id number] / MTDD
== END 2017-05-01 19:51 | disposition other institution (70) | DRG 432 ==
LOC: EC 23:50 → 4MS4W 04-24 00:44
PROVIDERS: ADMIT Internal Medicine; ATTEND Internal Medicine
PROC: 0W9G3ZX Drainage of Peritoneal Cavity, Percutaneous Approach, Diagnostic (ICD-10-PCS; principal; 2017-04-26)
DX: K70.31 Alcoholic cirrhosis of liver with ascites (principal); K65.2 Spontaneous bacterial peritonitis; D68.9 Coagulation defect, unspecified; K76.6 Portal hypertension; D69.6 Thrombocytopenia, unspecified; L03.115 Cellulitis of right lower limb; L03.116 Cellulitis of left lower limb; F10.988 Alcohol use, unspecified with other alcohol-induced disorder; F17.210 Nicotine dependence, cigarettes, uncomplicated; D50.9 Iron deficiency anemia, unspecified; H60.93 Unspecified otitis externa, bilateral; D53.9 Nutritional anemia, unspecified; B19.20 Unspecified viral hepatitis C without hepatic coma; J44.9 Chronic obstructive pulmonary disease, unspecified; K21.9 Gastro-esophageal reflux disease without esophagitis; F41.9 Anxiety disorder, unspecified; K70.11 Alcoholic hepatitis with ascites; N48.89 Other specified disorders of penis; R21 Rash and other nonspecific skin eruption; M51.36 Other intervertebral disc degeneration, lumbar region; E66.9 Obesity, unspecified; K80.20 Calculus of gallbladder without cholecystitis without obstruction; R00.0 Tachycardia, unspecified; K59.00 Constipation, unspecified; Z79.899 Other long term (current) drug therapy; Z82.49 Family history of ischemic heart disease and other diseases of the circulatory system; Z81.1 Family history of alcohol abuse and dependence; Z79.891 Long term (current) use of opiate analgesic; Z87.01 Personal history of pneumonia (recurrent); Z90.49 Acquired absence of other specified parts of digestive tract; Z79.52 Long term (current) use of systemic steroids; Z80.3 Family history of malignant neoplasm of breast; Z87.11 Personal history of peptic ulcer disease; Z71.6 Tobacco abuse counseling; Z79.51 Long term (current) use of inhaled steroids
CPT/HCPCS: 36415; 49083; 71010; 71275; 74176; 76705; 80053; 80202; 81003; 82042; 82140; 82150; 82945; 83605; 83690; 84484; 85025; 85379; 85610; 85730; 87040; 87070; 87075; 87205; 88108; 88305; 89050; 93005; 94640; 94760; 99285

== ENCOUNTER → 2018-03-07 | Outpatient (CLI) | payer OTHER ==
[2018-02-07 11:19] VITALS: BMI 28.0
[2018-03-07 13:42] VITALS: BP 164/92; PULSE 74; RESP 16
--- NOTE | 2018-03-08 12:49 | P.PAINCN ---
History of Present Illness - Reason for Consult Consult date: 03/07/18 - History of Present Illness This is 52 Years old male, with chronic history of severe low back pain, started more than 20 years ago, he was diagnosed with lumbar radiculopathy, and he was treated with lumbar epidural steroid injections, and he was getting the injections done at different institutions, and the last epidural injection was done more than a year ago, recently patient had liver transplant done, and he is doing fairly well, but he is complaining of increased intensity of the pain, the pain is localized in the low back area with radiation to the right lower extremity, Dull Aching Pain, the intensity of the pain 6-8/10, he denies any motor or sensory deficits. Denies any fever or night sweats, and no change in bowel movements or urination Past Medical History Past Medical History: GERD/Reflux, Liver Disease, Pneumonia Additional Past Medical History / Comment(s): pt states lumbar pain chronic but now goes down bilateral legs and legs feel weak. Other hx: chronic back pain, peptic ulcer pt states recently diagnosed, enlarged liver recently diagnosed, History of Any Multi-Drug Resistant Organisms: None Reported Past Surgical History: Tonsillectomy Additional Past Surgical History / Comment(s): Lower epidural back injections , LIVER TRANSPLANT 09/08/17, COLONOSCOPY, EGD Past Anesthesia/Blood Transfusion Reactions: No Reported Reaction Past Psychological History: Anxiety Additional Psychological History / Comment(s): Pt lives with his spouse. He recently started using a cane to ambulate. He was driving prior to this illness. Smoking Status: Former smoker Past Alcohol Use History: None Reported Additional Past Alcohol Use History / Comment(s): QUIT SMOKING 2016, Past Drug Use History: None Reported - Past Family History Mother Family Medical History: Cancer, Congestive Heart Failure (CHF), Osteoarthritis ( OA) Additional Family Medical History / Comment(s): Mother is 83 yrs old. She has had breast cancer. Father Additional Family Medical History / Comment(s): Father is an alcoholic-pt does not know him well. Medications and Allergies Home Medications Medication Instructions Recorded Confirmed Type Gabapentin [Neurontin] 600 mg PO TID 02/07/18 02/07/18 History Magnesium Oxide 400 mg PO BID 02/07/18 02/07/18 History Mycophenolate Mofetil [Cellcept] 500 mg PO BID 02/07/18 02/07/18 History Ribavirin 200 mg PO BID 02/07/18 02/07/18 History Sofosbuvir/Velpatasvir [Epclusa 1 each PO DAILY 02/07/18 02/07/18 History 400 mg-100 mg Tablet] Sulfamethox-Tmp 800-160Mg [Bactrim 1 tab PO MOWEFR 02/07/18 02/07/18 History DS 800-160 mg] Tacrolimus [Envarsus Xr] 4 mg PO BID 02/07/18 02/07/18 History valGANciclovir [Valcyte] 900 mg PO DAILY 02/07/18 02/07/18 History Aspirin 81 mg PO DAILY 03/07/18 03/07/18 History Oxybutynin Xl [Ditropan Xl] 10 mg PO DAILY 03/07/18 03/07/18 History traMADol HCL [Ultram] 50 mg PO Q6HR PRN 03/07/18 03/07/18 History Allergies Allergy/AdvReac Type Severity Reaction Status Date / Time No Known Allergies Allergy Verified 03/07/18 13:13 Physical Exam Vitals: Vital Signs Pulse Resp BP Pulse Ox 03/07/18 13:23 74 16 164/92 98 Social history : smoker , ETOH , NO Illegal drugs Review of Systems : 1- Constitutional : no chills , no fever , no night sweats , 2- Ears : no ear discharge , no change in hearing 3-Nose, Mouth ,Throat ; no bleeding gums, no sore throat , no epistaxis , 4-Cardiovascular : Denies chest pain, , no orthopnea , no palpitation 5-Respiratory : Denies cough , no dyspnea , no hemoptysis 6-Gastrointestinal :, no change in bowel habits , no coffee- ground emesis . 7-Genitourinary : No hematuria , no discharge , no incontinence, 8-Musculoskeletal : No gait dysfunction , report low back pain , 9- Neurological : no ataxia , no tremor , no sezure , 10-Psychatric , no suicidal ideation no hallucination 11- Endocrine : no cold intolerence , no polyuria , no polydypsia , 12-Hematologic : no easy bleeding , no easy brusing , 13-Allergic / immunology : no angioedema , no wheezing ,no allergic rhinitis 14-Integumentary : no brttle nails , no change hair / nails , no foot/leg ulcers . Physical Examinations : 1-Constitutional : Cooperative , not in acute distress . 2-HEENT : nech ; supple , no Lymphadenopathy , no Thyromegaly , :eyes , no icterus, no photophobia . ENT : , normal oropharynx , no Thrush 3- Respiratory : Chest clear to auscultations Bilaterally , no wheezing . 4- Cardiovascular : regular rate and rhythem , S1 , S2 , no S3 , no S4. 5- Gastrointestinal: abdomen soft no tenderness , no organomegally . 6- Genitourinary : Defferred . 7-Integumentary : No cellulitis , no ulcers , normal skin turgor , no cyanotic . 8- neurologic : Cranial nerve II to XII intact , no focal neurological deffecit 9-psychatric : alert , oriented X 3 , appropriate affect , intact judgment and insight . 10-Lymphatic : no Lymphadenopathy. 11- musculoskeltal: Lumber spine moter stegnth lower extremities ,thigh and legs 5/5 Right side , 5/5 Left side deep tendon reflexes : normal Knee Jerk , normal ankle Jerk positive lumber facet Loading Test Range of motion of the lumbar spine Flexion 30 degrees, extension 10 degrees strait leg raising test , positive at 30 degree right side ,and is negative on the left Fabere test positive RT , and negative LT . Results Comments: MRI of the lumbar spine done at [facility] done in December2017 = multilevel bulging disc disease L2 to S1, and bilateral facet arthropathy from L2 to S1 Assessment and Plan Assessment: Assessment and plan=1-lumbar radiculopathy. 2-lumbar herniated disc disease. 3-lumbar spondylosis with lumbar facet arthropathy. Patient had good result after the lumbar epidural steroid injections in the past, and he will be good candidate to have lumbar epidural steroid injections at L4 5 levels, right paramedian approach, She continued to have pain after a lumbar epidural steroid injections and he will be good candidate for diagnostic medial branch block and Radiofrequency ablation of the medial branch . Because patient had history of liver failure and status post liver transplant, we will review the results of PT INR and CBC before we can proceed, lumbar epidural steroid injection. (She had weekly lab test done at [facility] ) Time with Patient: Greater than 30 PQRS Measure Charge Sheet Measure #130: Documentation of Current Meds in Medical Chart: Patient's medications documented in chart Measure #226: Tobacco Use: Screen & Cessation Intervention: Pt not a tobacco user Measure #111: Pneumonia Vaccination: Pneumococcal vaccine NOT administered or previously given Measure #47: Advance Care Plan: Advance care planning discussed & documented, plan or surrogate given Measure #412: Opioid Treatment Agreement: No documentation of signed opioid treatment agreement Measure #408: Opioid Therapy Follow-up Evaluation: Patient had NO f/u eval minimum every 3 months during opioid therapy Measure #317: Preventitive Care & Scrn High Bld Press & F/U: Pre-hypertensive or hypertensive BP documented, pt will f/u with PCP Measure #128: Body Mass Index (BMI) Screening & Follow-up: BMI documented ABOVE normal parameters - f/u documented Measure #131: Pain Assessment & Follow-up: Pain positive & plan documented, Follow-up scheduled Measure #431: Unhealthy Alcohol Use Preventative Care & Scrn: Patient not identified as an unhealthy alcohol user PQRS Narrative: Smoking Status Former smoker Blood Pressure 164/92 Pain Intensity [Right Lower 6 Back] Scale Used Numeric (1 - 10) Hx Alcohol Use (MH) No Home Medications: Ambulatory Orders Gabapentin [Neurontin] 600 mg PO TID 02/07/18 Magnesium Oxide 400 mg PO BID 02/07/18 Mycophenolate Mofetil [Cellcept] 500 mg PO BID 02/07/18 Ribavirin 200 mg PO BID 02/07/18 Sofosbuvir/Velpatasvir [Epclusa 400 mg-100 mg Tablet] 1 each PO DAILY 02/07/18 Sulfamethox-Tmp 800-160Mg [Bactrim DS 800-160 mg] 1 tab PO MOWEFR 02/07/18 Tacrolimus [Envarsus Xr] 4 mg PO BID 02/07/18 valGANciclovir [Valcyte] 900 mg PO DAILY 02/07/18 Aspirin 81 mg PO DAILY 03/07/18 Oxybutynin Xl [Ditropan Xl] 10 mg PO DAILY 03/07/18 traMADol HCL [Ultram] 50 mg PO Q6HR PRN 03/07/18
== END | disposition home or self-care (01) ==
LOC: PNWHC3 12:58
PROVIDERS: ATTEND Specialist
DX: G89.29 Other chronic pain (principal); M54.5 Low back pain; M51.16 Intervertebral disc disorders with radiculopathy, lumbar region; M47.26 Other spondylosis with radiculopathy, lumbar region; M46.86 Other specified inflammatory spondylopathies, lumbar region; K21.9 Gastro-esophageal reflux disease without esophagitis; F41.9 Anxiety disorder, unspecified; Z87.891 Personal history of nicotine dependence; Z79.82 Long term (current) use of aspirin; Z79.891 Long term (current) use of opiate analgesic; Z90.89 Acquired absence of other organs; Z79.52 Long term (current) use of systemic steroids; Z79.2 Long term (current) use of antibiotics; Z79.899 Other long term (current) drug therapy; Z94.4 Liver transplant status; Z87.19 Personal history of other diseases of the digestive system; Z87.11 Personal history of peptic ulcer disease
CPT/HCPCS: 99211

== ENCOUNTER 2018-03-21 09:38 | Day surgery (SDC) | payer OTHER ==
[2018-03-14 11:38] VITALS: BMI 30.2
[~2018-03-21 09:38] MED LIST: LACTATED RINGERS 1,000 ML IV SCH
[2018-03-21 10:56] VITALS: RESP 16; TEMP 97.5
[2018-03-21] MEDS ORDERED: LIDOCAINE 1% 20 ML VIAL (10MG/ML) FOR IV START INTRADERMA ONE (10:57)
--- NOTE | 2018-03-21 11:42 | P.PCN ---
Date of Procedure: 03/21/18 Description of Procedure: PREOPERATIVE DIAGNOSIS: 1-lumbar radiculopathy 2-Lumbar spondylosis with Facet arthropathy without myelopathy POSTOPERATIVE DIAGNOSIS: Lumbar radiculopathy 2-Lumbar spondylosis with Facet arthropathy without myelopathy PROCEDURE 1. Lumbar epidural steroid injection under fluoroscopic guidance at the L4-L5 level. 2. Lumbar epidurogram. ANESTHESIA: Local with 1% lidocaine 3 ml and IV sedation with Versed 2 mg , and fentanyl 100 Mcg EBL: Minimal PROCEDURE INDICATION: The patient with low back pain and radiculitis symptoms unresponsive to conservative treatment. Fluoroscopy was used to optimize visualization of the needle placement and to maximize safety. PROCEDURE DESCRIPTION / TECHNIQUE: The patient was seen and identified in the preoperative area. Risks, benefits , complications including but not limited to infections ,bleeding ,allergic reaction to the medications ,nerve damage and not complete pain releife , and alternatives were discussed with the patient. The patient agreed to proceed with the procedure and signed the consent. IV was started, and vital signs were stable. Patient was taken to the OR and time out was completed. The patient was placed in the prone position on procedure table and a pillow was placed under the abdomen to reduce lumbar lordosis. The lumbosacral area was prepped and draped in the usual sterile fashion.ere closely monitored during the procedure. Conscious sedation was used during the procedure to decrease patients anxiety. Vital signs was monitered during the entire procedure. Using anterior-posterior fluoroscopy, the L4-L5 interlaminar space was identified and the skin over this site was marked and then infiltrated with 1% lidocaine subcutaneously. Subsequently, a 20-gauge Tuohy epidural needle was inserted and advanced toward the epidural space using the ``Loss of resistance technique and guided by AP and lateral fluoroscopy. The correct needle position in the epidural space was verified with the injection of 2 mL of the water soluble contrast dye Omnipaque 180 contrast and observing an excellent epidurogram with the epidural spread of the dye, after negative aspiration for blood and CSF and in the absence of paresthesias. Again after negative aspiration, a 6 ml mixture containing 20 mg of Dexamethasone and 4 ml of preservative free Normal Saline was injected and a washout of epidurogram was seen. Needle was withdrawn intact, skin was cleansed, and bandages were applied. COMPLICATIONS: None DISPOSITION / PLANS: The patient was placed in a supine position and transferred to the recovery area in a stable condition for observation. There was no evidence of lower extremity motor or sensory deficit after the procedure. Patient was discharged from the recovery room after meeting discharge criteria. Home discharge instructions were given to the patient by the staff. The patient was reexamined prior to discharge. The patient will schedule a follow up in the clinic in 2-4 weeks.
[2018-03-21] MEDS ORDERED: IV FLUID CONTINUATION 1,000 ML IV ONE (12:11)
--- NOTE | 2018-03-21 12:19 | FL ---
EXAMINATION TYPE: FL guided pain mgmt statistic DATE OF EXAM: 03/21/2018 HISTORY: Pain 10 secinds of fluoro. 1 image scanned
[2018-03-21 12:32] VITALS: BP 146/86; PULSE 68
== END 2018-03-21 12:45 | disposition home or self-care (01) ==
LOC: ORPAIN 09:38
PROVIDERS: ATTEND Anesthesiology
DX: G89.29 Other chronic pain (principal); M47.26 Other spondylosis with radiculopathy, lumbar region; Z94.4 Liver transplant status; K21.9 Gastro-esophageal reflux disease without esophagitis; F41.9 Anxiety disorder, unspecified; Z87.891 Personal history of nicotine dependence; Z79.2 Long term (current) use of antibiotics; Z79.82 Long term (current) use of aspirin; Z79.899 Other long term (current) drug therapy
CPT/HCPCS: 62323; J2250; J3301; J3010; Q9966

== ENCOUNTER 2018-04-04 07:32 | Day surgery (SDC) | payer OTHER ==
[2018-03-29 09:57] VITALS: BMI 30.2
[2018-04-04 08:11] VITALS: TEMP 97.6
[2018-04-04] MEDS ORDERED: LIDOCAINE 1% 20 ML VIAL (10MG/ML) FOR IV START INTRADERMA ONE (08:22)
--- NOTE | 2018-04-04 09:06 | P.PCN ---
Date of Procedure: 04/04/18 Procedure(s) Performed: PREOPERATIVE DIAGNOSIS: 1- Lumbar radiculopathy. 2-Lumbar spondylosis with Facet arthropathy without myelopathy POSTOPERATIVE DIAGNOSIS: Same as Pre op diagnoses PROCEDURE 1. Lumbar epidural steroid injection under fluoroscopic guidance at the L4-5 level. 2. Lumbar epidurogram. ANESTHESIA: Local with 1% lidocaine 3 ml and , moderate sedation with intravenous Versed 2 mg ,and fentanyle 100 Mcg EBL: Minimal PROCEDURE INDICATION: The patient with low back pain and radiculitis symptoms unresponsive to conservative treatment. Fluoroscopy was used to optimize visualization of the needle placement and to maximize safety. PROCEDURE DESCRIPTION / TECHNIQUE: The patient was seen and identified in the preoperative area. Risks, benefits , complications including but not limited to infections ,bleeding ,allergic reaction to the medications ,nerve damage and not complete pain releife , and alternatives were discussed with the patient. The patient agreed to proceed with the procedure and signed the consent. IV was started, and vital signs were stable. Patient was taken to the OR and time out was completed. The patient was placed in the prone position on procedure table and a pillow was placed under the abdomen to reduce lumbar lordosis. The lumbosacral area was prepped and draped in the usual sterile fashion.ere closely monitored during the procedure. Conscious sedation was used during the procedure to decrease patients anxiety. Vital signs was monitered during the entire procedure. Using anterior-posterior fluoroscopy, the L5-S1 interlaminar space was identified and the skin over this site was marked and then infiltrated with 1% lidocaine subcutaneously. Subsequently, a 20-gauge Tuohy epidural needle was inserted and advanced toward the epidural space using the ``Loss of resistance technique and guided by AP and lateral fluoroscopy. The correct needle position in the epidural space was verified with the injection of 2 mL of the water soluble contrast dye Isovue 200 contrast and observing an excellent epidurogram with the epidural spread of the dye, after negative aspiration for blood and CSF and in the absence of paresthesias. Again after negative aspiration, a 6 ml mixture containing 80 mg Depo- Medrol , and 2 ml of preservative free Normal Saline, and 2 ml of preservative free lidocaine 1% solution was injected and a washout of epidurogram was seen. Needle was withdrawn intact, skin was cleansed, and bandages were applied. COMPLICATIONS: None DISPOSITION / PLANS: The patient was placed in a supine position and transferred to the recovery area in a stable condition for observation. There was no evidence of lower extremity motor or sensory deficit after the procedure. Patient was discharged from the recovery room after meeting discharge criteria. Home discharge instructions were given to the patient by the staff. The patient was reexamined prior to discharge. The patient will schedule a follow up in the clinic in 2-4 weeks.
[2018-04-04] MEDS ORDERED: IV FLUID CONTINUATION 550 ML IV ONE (09:12)
[2018-04-04 09:22] VITALS: RESP 18
--- NOTE | 2018-04-04 09:40 | FL ---
Fluoroscopy INDICATION: Pain FINDINGS: Fluoroscopy time: 2 seconds. Images obtained: 1. IMPRESSIONS: 1. Documentation of fluoroscopy.
[2018-04-04 09:44] VITALS: BP 157/90; PULSE 66
== END 2018-04-04 10:02 | disposition home or self-care (01) ==
LOC: ORPAIN 07:32
PROVIDERS: ATTEND Specialist
DX: M47.26 Other spondylosis with radiculopathy, lumbar region (principal); Z94.4 Liver transplant status
CPT/HCPCS: 62323; J2250; J1030; J3010; Q9966

== ENCOUNTER 2018-04-18 06:58 | Day surgery (SDC) | payer OTHER ==
[2018-04-13 11:48] VITALS: BMI 31.0
[2018-04-18 07:30] VITALS: TEMP 98.1
[2018-04-18] MEDS ORDERED: LACTATED RINGERS 1,000 ML IV ONE (07:30)
[2018-04-18] MEDS ORDERED: LIDOCAINE 1% 20 ML VIAL (10MG/ML) FOR IV START INTRADERMA ONE (07:30)
[2018-04-18] MEDS ORDERED: LACTATED RINGERS 1,000 ML IV SCH (07:45)
[2018-04-18] MEDS ORDERED: ACETAMINOPHEN TAB 325 MG TAB PO STA (08:28)
--- NOTE | 2018-04-18 08:30 | P.PCN ---
Date of Procedure: 04/18/18 Procedure(s) Performed: PREOPERATIVE DIAGNOSIS: 1- Lumbar radiculopathy. 2-Lumbar spondylosis with Facet arthropathy without myelopathy. POSTOPERATIVE DIAGNOSIS: 1-Lumber radiculopathy. 2-Lumbar spondylosis with Facet arthropathy without myelopathy. PROCEDURE 1. Lumbar epidural steroid injection under fluoroscopic guidance at the L4-5 level. 2. Lumbar epidurogram. ANESTHESIA: Local with 1% lidocaine 3 ml and , moderate sedation with intravenous Versed 2 mg ,and fentanyle 100 Mcg EBL: Minimal PROCEDURE INDICATION: The patient with low back pain and radiculitis symptoms unresponsive to conservative treatment. Fluoroscopy was used to optimize visualization of the needle placement and to maximize safety. PROCEDURE DESCRIPTION / TECHNIQUE: The patient was seen and identified in the preoperative area. Risks, benefits , complications including but not limited to infections ,bleeding ,allergic reaction to the medications ,nerve damage and not complete pain releife , and alternatives were discussed with the patient. The patient agreed to proceed with the procedure and signed the consent. IV was started, and vital signs were stable. Patient was taken to the OR and time out was completed. The patient was placed in the prone position on procedure table and a pillow was placed under the abdomen to reduce lumbar lordosis. The lumbosacral area was prepped and draped in the usual sterile fashion.ere closely monitored during the procedure. Conscious sedation was used during the procedure to decrease patients anxiety. Vital signs was monitered during the entire procedure. Using anterior-posterior fluoroscopy, the L4-5 interlaminar space was identified and the skin over this site was marked and then infiltrated with 1% lidocaine subcutaneously. Subsequently, a 20-gauge Tuohy epidural needle was inserted and advanced toward the epidural space using the ``Loss of resistance technique and guided by AP and lateral fluoroscopy. The correct needle position in the epidural space was verified with the injection of 2 mL of the water soluble contrast dye Isovue 200 contrast and observing an excellent epidurogram with the epidural spread of the dye, after negative aspiration for blood and CSF and in the absence of paresthesias. Again after negative aspiration, a 6 ml mixture containing 20 mg of Depo-medrol, and 2 ml of preservative free Normal Saline, and 2 ml of preservative free lidocaine 1% solution was injected and a washout of epidurogram was seen. Needle was withdrawn intact, skin was cleansed, and bandages were applied. COMPLICATIONS: None DISPOSITION / PLANS: The patient was placed in a supine position and transferred to the recovery area in a stable condition for observation. There was no evidence of lower extremity motor or sensory deficit after the procedure. Patient was discharged from the recovery room after meeting discharge criteria. Home discharge instructions were given to the patient by the staff. The patient was reexamined prior to discharge. The patient will schedule a follow up in the clinic in 2-4 weeks.
[2018-04-18] MEDS ORDERED: IV FLUID CONTINUATION 1,000 ML IV ONE ×2 (08:34)
[2018-04-18 08:38] VITALS: RESP 18
[2018-04-18] MEDS ORDERED: ACETAMINOPHEN TAB 325 MG TAB PO ONE (08:43)
--- NOTE | 2018-04-18 08:56 | FL ---
EXAMINATION TYPE: FL guided pain mgmt statistic DATE OF EXAM: 04/18/2018 CLINICAL HISTORY: Low back pain. TECHNIQUE: Fluoroscopy. COMPARISON: None. FINDINGS: Fluoroscopic guidance was provided during pain relief procedure performed by Dr. Engel . A total of 2 seconds of fluoroscopic time was utilized during the procedure and two single spot im ages acquired. Single image acquired shows needle localization at L4-L5 level with contrast injectio n. IMPRESSION: As Above.
[2018-04-18 08:59] VITALS: BP 153/80; PULSE 67
== END 2018-04-18 09:07 | disposition home or self-care (01) ==
LOC: ORPAIN 06:58
PROVIDERS: ATTEND Specialist
DX: M47.26 Other spondylosis with radiculopathy, lumbar region (principal); Z94.4 Liver transplant status
CPT/HCPCS: 62323; J2250; J1030; J3010; Q9966; 99152

== ENCOUNTER → 2018-05-15 | Outpatient (CLI) | payer OTHER ==
[2018-05-15 13:00] VITALS: BP 120/88; PULSE 84; RESP 18
--- NOTE | 2018-05-15 13:46 | P.PAINPG ---
Subjective Progress Note Date: 05/15/18 This is a follow-up visit for this 53 years old male with a chronic history of severe low back pain, with radiation to the lower extremity, is diagnosed with lumbar radiculopathy, lumbar spondylosis with lumbar facet arthropathy, lumbar herniated disc disease, we have done lumbar epidural steroid injections 3, patient gets some benefit from it, but did continue to have some low back pain, he denies any motor or sensory deficit he denies any fever or night sweats, and there is no change in the bowel movements or urination, placed continue to use Ultram 50 mg every 6 hours when necessary, and Neurontin 300 mg 3 times a day and Robaxin 500 mg 3 times a day, he denies any side effects of the medication, and he reported the current medication helping him to control his pain Objective - Vital Signs Vital signs: Vital Signs Temp Pulse 84 05/15/18 12:50 Resp 18 05/15/18 12:50 BP 120/88 05/15/18 12:50 Pulse Ox 96 05/15/18 12:50 Intake & Output 05/14/18 05/15/18 05/15/18 18:59 06:59 18:59 Weight 90.718 kg - Constitutional Constitutional Comment(s): Physical Examinations : 1-Constitutiona : Cooperative , not in acute distress . 2-HEENT : nech ; supple , no Lymphadenopathy , normal thyroid size . eyes : no ptosis , no icterus, no photophobia . ENT : normal of hearing , normal oropharynx , no Thrush . 3- Respiratory : Chest clear to auscultations Bilaterally , no wheezing , no Rhonchi . 4- Cardiovascular : regular rate and rhythem , S1 , S2 , no S3 , no S4. 5- Gastrointestinal : abdomen soft no tenderness , bowel sounds , no organomegally . 6- Genitourinary : Defferred . 7- neurologic : Cranial nerve II to XII intact , no focal neurological deffecit . 8-psychatric : alert , oriented X 3 , appropriate affect , intact judgment and insight . 9-Lymphatic : no Lymphadenopathy . 10- musculoskeltal : st . Lumber spine moter stegnth lower extremities , thigh and legs 5/5 Right side , 5/5 Left side deep tendon reflexes : normal Knee Jerk , normal ankle Jerk positive lumber facet Loading Test Range of motion of the lumbar spine Flexion 30 degrees, extension 10 degrees strait leg raising test , positive at 60 degree on the right side, negative on the left side Fabere test positive RT and negative LT . Assessment and Plan Plan: Assessment and plan= chronic severe low back pain secondary to lumbar herniated disc disease, lumbar spondylosis and lumbar facet arthropathy he had some improvement after lumbar epidural steroid injections 3 He continued to have low back pain, which could be secondary to facetogenic component , patient will be good candidate to have diagnostic medial branch block lumbar area L3- S1 , benefits positive then went to radiofrequency ablation. Procedure risk and benefits and alternatives discussed with the patient and he would think about it, he will follow up with the pain clinic when necessary, ( if he decides in the future we can schedule him to have diagnostic medial branch block lumbar area ) Hakeemshahrzadcheryl continue to get his prescription referral from his primary care Time with Patient: Less than 30 PQRS Measure Charge Sheet Measure #130: Documentation of Current Meds in Medical Chart: Patient's medications documented in chart Measure #226: Tobacco Use: Screen & Cessation Intervention: Pt not a tobacco user Measure #111: Pneumonia Vaccination: Pneumococcal vaccine administered or previously received Measure #47: Advance Care Plan: Advance care planning discussed & documented, pt chose/unable to give Measure #412: Opioid Treatment Agreement: No documentation of signed opioid treatment agreement Measure #408: Opioid Therapy Follow-up Evaluation: Patient had NO f/u eval minimum every 3 months during opioid therapy Measure #317: Preventitive Care & Scrn High Bld Press & F/U: Normal blood pressure, f/u not required Measure #128: Body Mass Index (BMI) Screening & Follow-up: BMI documented within normal parameters Measure #131: Pain Assessment & Follow-up: Pain positive & plan documented, Follow-up scheduled Measure #431: Unhealthy Alcohol Use Preventative Care & Scrn: Patient not identified as an unhealthy alcohol user PQRS Narrative: Smoking Status Former smoker Do You Want the Pneumonia Vaccine Up to Date Vaccine AT THIS TIME? Blood Pressure 120/88 Pain Intensity [Right Lower 4 Back] Hx Alcohol Use (MH) No Home Medications: Ambulatory Orders Magnesium Oxide 800 mg PO BID 02/07/18 Mycophenolate Mofetil [Cellcept] 500 mg PO 0900,2100 02/07/18 Tacrolimus [Envarsus Xr] 4 mg PO BID 02/07/18 valGANciclovir [Valcyte] 900 mg PO W/BRKFST 02/07/18 Aspirin 81 mg PO DAILY 03/07/18 Oxybutynin Xl [Ditropan Xl] 10 mg PO DAILY 03/07/18 traMADol HCL [Ultram] 50 mg PO Q6HR PRN 03/07/18 Gabapentin [Neurontin] 300 mg PO TID 03/14/18 Methocarbamol [Robaxin] 500 mg PO TID PRN 03/14/18 Sertraline HCl [Zoloft] 50 mg PO DAILY 05/15/18 Controlled Substance Measures - Controlled Substance Measures Is patient prescribed a controlled substance at discharge?: No When asked, does pt state using other controlled substances?: No If prescribed controlled substance>3 days was MAPS reviewed?: No If Rx opioid, was Start Talking consent form obtained?: No If opioid is for acute pain is fill amount 7 days or less?: No Was information provided regarding opioid addiction?: No
== END | disposition home or self-care (01) ==
LOC: PNWHC3 12:21
PROVIDERS: ATTEND Specialist
DX: G89.29 Other chronic pain (principal); M51.26 Other intervertebral disc displacement, lumbar region; M47.26 Other spondylosis with radiculopathy, lumbar region; M46.96 Unspecified inflammatory spondylopathy, lumbar region; Z87.891 Personal history of nicotine dependence; Z79.82 Long term (current) use of aspirin; Z79.891 Long term (current) use of opiate analgesic; Z79.899 Other long term (current) drug therapy
CPT/HCPCS: 99211

== ENCOUNTER → 2019-01-15 | Outpatient (CLI) | payer OTHER ==
[2019-01-15 13:05] VITALS: BP 133/73; PULSE 83; RESP 18
--- NOTE | 2019-01-15 13:28 | P.PAINPG ---
Subjective Progress Note Date: 01/15/19 This is a follow-up visit for this 53 years old male with a chronic history of severe low back pain, with radiation to the lower extremity, is diagnosed with lumbar radiculopathy, lumbar spondylosis with lumbar facet arthropathy, lumbar herniated disc disease, we have done lumbar epidural steroid injections 3, patient gets some benefit from it, but did continue to have some low back pain, he denies any motor or sensory deficit he denies any fever or night sweats, and there is no change in the bowel movements or urination, he continue to use Ultram 50 mg every 6 hours when necessary, and Neurontin 300 mg 3 times a day and Robaxin 500 mg 3 times a day, he denies any side effects of the medication, and he reported the current medication helping him to control his pain Physical Examinations : -Constitutiona : Cooperative , not in acute distress . -HEENT : nech ; supple , no Lymphadenopathy , normal thyroid size . eyes : no ptosis , no icterus, no photophobia . ENT : normal of hearing , normal oropharynx , no Thrush . - neurologic : Cranial nerve II to XII intact , no focal neurological deffecit . -psychatric : alert , oriented X 3 , appropriate affect , intact judgment and insight . -Lymphatic : no Lymphadenopathy . - musculoskeltal : Lumber spine moter stegnth lower extremities ,thigh and legs 5/5 Right side , 5/5 Left side deep tendon reflexes : normal Knee Jerk , normal ankle Jerk positive lumber facet Loading Test Range of motion of the lumbar spine Flexion 30 degrees, extension 10 degrees strait leg raising test , positive at 60 degree on the right side, negative on the left side Fabere test positive RT and negative LT . Assessment and plan= chronic severe low back pain secondary to lumbar herniated disc disease, lumbar spondylosis and lumbar facet arthropathy patient will be good candidate to have diagnostic medial branch block lumbar area L3- S1 , and possible RFA if we have a positive result. Objective - Vital Signs Vital signs: Vital Signs Temp Pulse 83 01/15/19 12:58 Resp 18 01/15/19 12:58 BP 133/73 01/15/19 12:58 Pulse Ox 96 01/15/19 12:58 Intake & Output 01/14/19 01/15/19 01/15/19 18:59 06:59 18:59 Weight 220 kg PQRS Measure Charge Sheet Measure #130: Documentation of Current Meds in Medical Chart: Patient's medications documented in chart Measure #226: Tobacco Use: Screen & Cessation Intervention: Pt not a tobacco user Measure #111: Pneumonia Vaccination: Pneumococcal vaccine administered or previously received Measure #47: Advance Care Plan: Advance care planning discussed & documented, pt chose/unable to give Measure #412: Opioid Treatment Agreement: No documentation of signed opioid treatment agreement Measure #408: Opioid Therapy Follow-up Evaluation: Patient had NO f/u eval minimum every 3 months during opioid therapy Measure #317: Preventitive Care & Scrn High Bld Press & F/U: Normal blood pressure, f/u not required Measure #128: Body Mass Index (BMI) Screening & Follow-up: BMI documented ABOVE normal parameters - f/u documented Measure #131: Pain Assessment & Follow-up: Pain positive & plan documented, Follow-up scheduled Measure #431: Unhealthy Alcohol Use Preventative Care & Scrn: Patient not identified as an unhealthy alcohol user PQRS Narrative: Smoking Status Former smoker Blood Pressure 133/73 Pain Intensity [Lower Back] 6 Scale Used Numeric (1 - 10) Hx Alcohol Use (MH) No Home Medications: Ambulatory Orders Magnesium Oxide 800 mg PO BID 02/07/18 Mycophenolate Mofetil [Cellcept] 500 mg PO 0900,2100 02/07/18 valGANciclovir [Valcyte] 900 mg PO W/BRKFST 02/07/18 Aspirin 81 mg PO DAILY 03/07/18 traMADol HCL [Ultram] 50 mg PO Q6HR PRN 03/07/18 Gabapentin [Neurontin] 600 mg PO TID 03/14/18 Methocarbamol [Robaxin] 500 mg PO TID PRN 03/14/18 Lisinopril 1 tab PO DAILY 01/15/19 Lisinopril [Zestril] 20 mg PO DAILY 01/15/19 Omeprazole 1 tab PO DAILY 01/15/19 Tacrolimus [Prograf] 1 tab PO BID 01/15/19 predniSONE 1 tab PO DAILY 01/15/19 Controlled Substance Measures - Controlled Substance Measures Is patient prescribed a controlled substance at discharge?: No
== END | disposition home or self-care (01) ==
LOC: PNWHC3 12:47
PROVIDERS: ATTEND Specialist
DX: G89.29 Other chronic pain (principal); M51.16 Intervertebral disc disorders with radiculopathy, lumbar region; M47.26 Other spondylosis with radiculopathy, lumbar region; M46.86 Other specified inflammatory spondylopathies, lumbar region; Z87.891 Personal history of nicotine dependence; Z79.82 Long term (current) use of aspirin; Z79.891 Long term (current) use of opiate analgesic; Z79.899 Other long term (current) drug therapy
CPT/HCPCS: 99211

== ENCOUNTER 2019-01-28 07:25 | Day surgery (SDC) | payer OTHER ==
[2019-01-22 16:09] VITALS: BMI 33.3
[2019-01-28] MEDS ORDERED: LIDOCAINE 1% 20 ML VIAL (10MG/ML) FOR IV START INTRADERMA ONE (08:18)
[2019-01-28 08:20] VITALS: TEMP 97.6
[2019-01-28 08:21] LABS: Glucose,Whole Blood 114 mg/dL (75-99)
--- NOTE | 2019-01-28 09:12 | P.PCN ---
Date of Procedure: 01/28/19 Procedure(s) Performed: PREOPERATIVE DIAGNOSIS : 1- Lumbar spondylosis with Facet Arthropathy without myelopathy . POSTOPERATIVE DIAGNOSIS: 1- Lumbar spondylosis with Facet Arthropathy without myelopathy . PROCEDURE: Diagnostic bilateral L3 -4 , L4 -5 , and L5-S1 medial branch block under fluoroscopy ANESTHESIA: Local with Ropivacain 0.5 % 6 ml , moderate sedation with intravenous Versed 3 mg and Fentanyl 100 mcg. EBL: Minimal COMPLICATION: None. IV FLUIDS: 100 mL of normal saline. PROCEDURE INDICATION: Chronic low back pain secondary to Facet arthropathy unresponsive to conservative treatment. PROCEDURE DESCRIPTION: the patient was seen and identified in the preop holding area , risks and benefits and possible complications of the procedure and alternative were discussed with the patient, and the patient agreed to proceed with the procedure and signed the consent IV was started and vital signs monitored during the procedure and fluoroscopy was used to maximize the benefit and accuracy of the needle placement, and sedation was given to decrease patient anxiety, patient was taken to the procedure room and placed in prone position vital signs monitored in the back prepped with chlorhexidine X3 then under strict sterile technique using a right oblique fluoroscopy ,the junction of the transverse process and the superior articulating process of the right L3- 4 , L4- 5, and L5-S1 vertebra which corresponding to the fluoroscopy image of the eye of the Santy dog on the block side for the medial branches and subsequently , after local infiltration of skin and subcu tissuies with Ropivacaine 0.5 % , one mL at each level ,then 22-gauge Quincke-type needles , 3 needle was used , each one of them placed at the junction of the base of the transverse process and the superior articular process at the appropriate level, and the needle was advanced until the periosteum contacted, needle placement confirmed with AP oblique and lateral view and after appropriate needle placement confirmed, and after negative aspiration for heme and CSF and there was no paresthesia 1-1/2 mL of Ropivacaine 0.5% mixed with 20 mg Depo-Medrol , then half mL injected at each level after negative aspiration the needle subsequently removed and the same procedure repeated for the left side at left side at L3-4, L4- 5 and L5-S1 levels. At the end of the procedure and the needles removed and a bandage applied after the skin was cleaned the cleaning solution patient taken to recovery room in stable condition and monitors in the recovery room for 20-30 minutes and discharged home in stable condition after discharge criteria met and patient will follow up with the pain clinic in 2-4 weeks
[2019-01-28 09:18] VITALS: RESP 16
[2019-01-28 09:29] VITALS: BP 123/80; PULSE 73
[2019-01-28] MEDS ORDERED: LACTATED RINGERS 1,000 ML IV ONE (09:30)
--- NOTE | 2019-01-28 09:44 | FL ---
EXAMINATION TYPE: FL guided pain mgmt statistic DATE OF EXAM: 01/28/2019 HISTORY: Flouroscopy time 31 seconds of fluoroscopy provided. IMPRESSION: 1. Fluoroscopy time.
== END 2019-01-28 09:48 | disposition home or self-care (01) ==
LOC: ORPAIN 07:25
PROVIDERS: ATTEND Anesthesiology
DX: M47.816 Spondylosis without myelopathy or radiculopathy, lumbar region (principal)
CPT/HCPCS: 64493; 64494; 64495; J2250; J1030; J3010; 99152

== ENCOUNTER 2019-02-11 07:16 | Day surgery (SDC) | payer OTHER ==
[2019-02-08 10:10] VITALS: BMI 33.2
[2019-02-11 07:52] VITALS: RESP 18; TEMP 97.8
[2019-02-11] MEDS ORDERED: LIDOCAINE 1% 20 ML VIAL (10MG/ML) FOR IV START SQ ONE (07:59)
[2019-02-11] MEDS ORDERED: IV FLUID CONTINUATION 600 ML IV ONE (09:15)
--- NOTE | 2019-02-11 09:19 | P.PCN ---
Date of Procedure: 02/11/19 Procedure(s) Performed: PREOPERATIVE DIAGNOSIS : Lumbar spondylosis with Facet Arthropathy without myelopathy POSTOPERATIVE DIAGNOSIS: same PROCEDURE: Diagnostic lumbar medial branch block with fluoroscopy at L3, L4, L5 bilateral #2 ANESTHESIA: Local anesthetic; Versed Surgeon: Pat Duran MD PROCEDURE INDICATION: Lumbar back pain without radiculopathy, not responsive to conservative management. PROCEDURE DESCRIPTION: the patient was seen and identified in the preop holding area , risks and benefits and possible complications of the procedure and alternatives were discussed with the patient, and the patient agreed to proceed with the procedure and signed the consent . IV was started , vital signs were monitored during the procedure and fluoroscopy was used to maximize the benefit and accuracy of the needle placement, and sedation was given to decrease patient anxiety. Patient was taken to the procedure room and placed in prone position. The lumbar region was prepped using chlorhexidine 2. Under strict sterile technique using AP fluoroscopy the bilateral sacral ala were identified and using ipsilateral oblique fluoroscopy ,the junction of the transverse process and the superior articulating process of the L4, L5 vertebra which corresponds to the fluoroscopy image of the eye of the Santy dog for the medial branches were identified. Subsequently, after local infiltration of skin with lidocaine 1% 0.2 mL at each level , a 22-guage 5" Quincke-type needle was placed at the junction of the base of the transverse process and the superior articular process at the appropriate level as well as the sacral ala, and the needle was advanced until the periosteum contacted, needle placement confirmed with AP and oblique fluoroscopy, 0.2 mL of Isovue 200 per level was injected which revealed no vascular uptake and after negative aspiration, 0.5 mL of ropivacaine 0.5% was injected at each level and the needle subsequently removed . At the end of the procedure and the needles were removed and a bandage applied after the skin was cleaned. The patient was taken to recovery room in stable condition and monitors in the recovery room for 20-30 minutes and discharged home in stable condition after discharge criteria met and patient will follow up for in clinic in 2 weeks EBL: Minimal COMPLICATION: None.
--- NOTE | 2019-02-11 09:25 | FL ---
Fluoroscopy INDICATION: Pain FINDINGS: Fluoroscopy time: 7 seconds. Images obtained: 3. IMPRESSIONS: 1. Documentation of fluoroscopy.
[2019-02-11 09:36] VITALS: BP 112/50; PULSE 68
== END 2019-02-11 09:46 | disposition home or self-care (01) ==
LOC: ORPAIN 07:16
PROVIDERS: ATTEND Anesthesiology
DX: G89.29 Other chronic pain (principal); M47.26 Other spondylosis with radiculopathy, lumbar region; M51.16 Intervertebral disc disorders with radiculopathy, lumbar region; Z79.891 Long term (current) use of opiate analgesic; Z79.899 Other long term (current) drug therapy; Z79.82 Long term (current) use of aspirin; Z79.52 Long term (current) use of systemic steroids
CPT/HCPCS: 64493; 64494; J2250; Q9966; 99152

== ENCOUNTER → 2019-02-26 | Outpatient (CLI) | payer OTHER ==
--- NOTE | 2019-02-26 14:40 | P.PN ---
Subjective Progress Note Date: 02/26/19 This is a 53-year-old gentleman with history of chronic lower back pain with radiation to the right lower extremity down to the right foot. The patient feels shooting pain in his back down to the midthigh area on the right side and then it becomes burning pain in the right dasilva. The patient had minimal t ransplantation due to history of hep C in 2017. He denies taking any anticoagulants other than baby aspirin a day. He did not respond to the most recent diagnostic medial branch block on his lumbar spine. He states that usually lumbar epidural steroid him more with the pain. By physical exam he is alert oriented 3 no apparent distress Neuro exam of the lower extremities shows a positive straight leg raising test on the right side. There was symmetrical deep tendon reflexes. Decreased right knee flexion and extension to 4 out of 5 and right hip flexion to 4 out of 5. Positive tenderness in the lumbar paravertebral musculatures. Diagnoses: Right lumbar radiculopathy due to disc herniation at L4 5 level by MRI Lumbar spondylosis without myelopathy, did not respond to a diagnostic lumbar medial branch block Liver transplantation in 2017 due to history of hep C Morbid obesity Plan: I will schedule the patient to have transforaminal epidural steroid injection at the L4-5 level on the right side under fluoroscopic guidance. I asked him to hold his aspirin for couple days before the procedure. We may repeat this procedure once if needed. The procedure was explained to the patient and he was agreeable to it.
[2019-02-26 14:41] VITALS: BP 134/86; PULSE 76; RESP 18
== END | disposition home or self-care (01) ==
LOC: PNWHC3 13:40
PROVIDERS: ATTEND Anesthesiology
DX: M51.16 Intervertebral disc disorders with radiculopathy, lumbar region (principal); M47.26 Other spondylosis with radiculopathy, lumbar region; E66.01 Morbid (severe) obesity due to excess calories; Z86.19 Personal history of other infectious and parasitic diseases; Z94.4 Liver transplant status; Z68.33 Body mass index [BMI] 33.0-33.9, adult
CPT/HCPCS: 99211

== ENCOUNTER 2019-02-28 07:43 | Day surgery (SDC) | payer OTHER ==
[2019-02-28 08:31] VITALS: TEMP 97
[2019-02-28] MEDS ORDERED: LIDOCAINE 1% 20 ML VIAL (10MG/ML) FOR IV START INTRADERMA ONE (08:45)
[2019-02-28 08:51] LABS: Glucose,Whole Blood 106 mg/dL (75-99)
--- NOTE | 2019-02-28 09:16 | P.PCN ---
Date of Procedure: 02/28/19 Surgeon: Laura Huntley Pathology: none sent Condition: stable Disposition: PACU Description of Procedure: Preoperative Diagnosis: Right lumbar radiculopathy Postoperative Diagnosis: Same as above Procedure(s) Performed: Transforaminal epidural steroid injection for level L4-L5 on Rt. side under fluoroscopic guidance Anesthesia: MAC (IV conscious sedation with 2 mg of Versed) Surgeon: Laura Huntley Condition: stable Disposition: PACU Description of Procedure: . The patient was seen and identified in the preoperative area. Risks, benefits, complications, and alternatives were discussed with the patient. The patient agreed to proceed with the procedure and signed the consent. IV was started, and vital signs were stable. Patient was taken to the OR and time out was completed. The patient was placed in the prone position on procedure table and a pillow was placed under the abdomen to reduce lumbar lordosis. The lumbosacral area was prepped and draped in the usual sterile fashion. Critical pause was taken. Vital signs were closely monitored during the procedure. Conscious sedation was used during the procedure to decrease patients anxiety. Lidocaine 1% was used to numb the skin up at the target points that were chosen as follows: For the L--L5 level the target point was at the 6 o'clock position of L-4 pedicle in the Rt oblique view. The correct view was obtained by squaring off the L vertebra on the AP view of fluoroscopy then the C-arm was tilted to the Rt oblique position to an angle at which the superior articular process of the lower vertebra would point to the middle of the pedicle above it at the 6 o'clock position as mentioned above . Then I used 5 inch 22-gauge Quincke spinal needle to get to the target point mentioned above by touching the inferior edge of the L4 pedicle and then walking off the bone and into the superior part of the L4-5 foramen using the lateral view of fluoroscopy. I then injected 1 mL of Isovue contrast dye which showed typical epidurogram around the L4 nerve root and into the epidural space. Then I injected 1 mL of Ropivacaine 0.5% +10 mg of Decadron. Patient tolerated procedure well,and was transferred to PACU in stable condition.
[2019-02-28] MEDS ORDERED: IV FLUID CONTINUATION 650 ML IV ONE (09:25)
[2019-02-28 09:32] VITALS: PULSE 71; RESP 18
[2019-02-28 09:43] VITALS: BP 130/71
--- NOTE | 2019-03-02 11:23 | FL ---
EXAMINATION TYPE: FL guided pain mgmt statistic DATE OF EXAM: 02/28/2019 CLINICAL HISTORY: Low back pain. TECHNIQUE: Fluoroscopy. COMPARISON: None. FINDINGS: Fluoroscopic guidance was provided during pain relief procedure performed by Dr. Huntley . A total of 12 seconds of fluoroscopic time was utilized during the procedure and single spot fluoro scopic image is acquired. A single image acquired shows needle localization at L4 level. IMPRESSION: As Above.
== END 2019-02-28 10:07 | disposition home or self-care (01) ==
LOC: ORPAIN 07:43
PROVIDERS: ATTEND Anesthesiology
DX: G89.29 Other chronic pain (principal); M51.16 Intervertebral disc disorders with radiculopathy, lumbar region; M47.26 Other spondylosis with radiculopathy, lumbar region; Z94.4 Liver transplant status; Z86.19 Personal history of other infectious and parasitic diseases; E66.01 Morbid (severe) obesity due to excess calories; Z68.33 Body mass index [BMI] 33.0-33.9, adult
CPT/HCPCS: 64483; J2250; J1100; J3010; Q9966; 99152

== ENCOUNTER 2019-03-14 07:59 | Day surgery (SDC) | payer OTHER ==
[2019-03-12 12:20] VITALS: BMI 33.0
[2019-03-14 08:18] VITALS: TEMP 97.6
[2019-03-14 08:21] LABS: Glucose,Whole Blood 100 mg/dL (75-99)
[2019-03-14] MEDS ORDERED: IV FLUID CONTINUATION 1,000 ML IV ONE (09:05)
[2019-03-14 09:09] VITALS: RESP 16
[2019-03-14 09:21] VITALS: BP 101/71; PULSE 72
--- NOTE | 2019-03-14 11:31 | FL ---
EXAMINATION TYPE: FL guided pain mgmt statistic DATE OF EXAM: 03/14/2019 CLINICAL HISTORY: Low back pain. TECHNIQUE: Fluoroscopy. COMPARISON: None. FINDINGS: Fluoroscopic guidance was provided during pain relief procedure performed by Dr. Engel . A total of 16 seconds of fluoroscopic time was utilized during the procedure and 3 spot images are acquired. Images acquired shows needle localization of the lumbar spine. IMPRESSION: As Above.
== END 2019-03-14 09:34 | disposition home or self-care (01) ==
LOC: ORPAIN 07:59
PROVIDERS: ATTEND Specialist
DX: M54.18 Radiculopathy, sacral and sacrococcygeal region (principal)
CPT/HCPCS: 64483; J2250; J1030; J3010; Q9966; 99152

== ENCOUNTER → 2019-04-09 | Outpatient (CLI) | payer OTHER ==
[2019-04-09 10:01] VITALS: BP 109/75; PULSE 83; RESP 18
--- NOTE | 2019-04-09 11:06 | P.PN ---
Progress Note - Text Progress Note Date: 04/09/19 Progress Note - Text Mr. Grey returns for follow-up after a right transforaminal epidural steroid injection at L4-L5. He's had previous epidural steroid injections in the past that provided him with some relief. He hears better relief with interlaminar L4-L5 epidural steroid injections. Today's VAS is 5-6 out of 10 in severity. He still complains of pain in his buttock and numbness and tingling down the entire right side of his leg on the anterior and posterior aspect of it. Numbness and tingling extending down to the ankles denies any numbness and tingling into the distal digits of the right foot. He has complains of a deep- seated pain in his right lateral aspect of his hip. This is been ongoing for some years. States that when he strains his leg on the seated position the appreciates that pain more so. He denies any bowel or bladder incontinence. In addition to above, 13-point review of systems is also negative for chest pain, shortness of breath, changes in vision, changes in hearing, new onset weakness, abdominal pain, diarrhea, extreme fatigue, malaise, fever, skin changes, homicidal or suicidal ideation, or bowel or bladder incontinence. Vital Signs: Reviewed in EMR Gen: WDWN, AAOx3, NAD HEENT: NCAT, EOMI, hearing grossly normal Pulm: resp unlabored Abd: soft, NT, ND Neck: supple, trachea midline ROM in flexion lumbar spine: reduced ROM in extension lumbar spine: reduced Lumbar paravertebral tenderness: ++ Facet loading: + bilateral SI joint tenderness: Negative bilateral Mark's test: Negative bilateral Straight leg raise: +RLE 20 degrees Lower extremity: Slightly decreased dorsiflexion on the right foot compared to left. Sensation intact bilateral and L3, L4, L5, S1 nerve roots. Neuro: CN II-XII grossly intact, muscle strength lower extremities PRESERVED Imaging: MRI was reviewed in detail. At L5-S1 he has a broad-based right lateral disc protrusion causing severe right neural foraminal stenosis as well as moderate to severe left neuroforaminal stenosis. Assessment: 1. lumbar spinal stenosis, central and neural foraminal at right L5-S1 2. lumbar radiculopathy 3. lumbar spondylosis Or. Obesity Plan: 1. Explanation: Opioid and psychological risk scores were reviewed. Diagnoses, prognoses, and multiple treatment options including but not limited to physical therapy, interventional therapies, adjuvant medical therapies, narcotic medication therapies, and surgery were discussed with the patient and all questions were answered to the patient's satisfaction. 2. Opioid agreement: 3. Counseling: The patient was counseled extensively on SMOKING CESSATION, BODY MASS INDEX, EXERCISE. Specifically, the patient was instructed regarding the importance of smoking cessation, obesity, and exercise in the context of both chronic pain and overall health. 4. Procedures: Right transforaminal epidural steroid injection L5-S1 5. Consultations: Patient was referred to Dr. Graham Gilbert neurosurgeon at [facility]. I contacted Dr. Gilbert discussed Mr. Kauffman case. We'll order a repeat MRI of his lumbar spine without contrast and we will be evaluated in his office. 6. Investigations: MRI lumbar spine without contrast 7. Medications: None 8. Disposition: f/u for procedure as scheduled PQRS measures: 1-Patient's medications are documented in the chart. 2-Tobacco use is positive, counseling given 3-Patient has not had a pneumococcal vaccine. 4-Advanced care planning discussed, patient unable to give. 5-Opioid contract signed with the patient. 6-Pain positive, follow-up visit or procedure scheduled 7-Patient's blood pressure measured and documented, and WNL. 8-Patient's weight was measured, and body mass index ABOVE the normal limits, and counseling was done. Patient instructed to follow up with PCP. 9-Patient WAS NOT identified as an unhealthy alcohol user.
== END | disposition home or self-care (01) ==
LOC: PNWHC3 09:44
PROVIDERS: ATTEND Anesthesiology
DX: M48.07 Spinal stenosis, lumbosacral region (principal); M48.061 Spinal stenosis, lumbar region without neurogenic claudication; M54.16 Radiculopathy, lumbar region; Z72.0 Tobacco use
CPT/HCPCS: 99211

== ENCOUNTER 2019-04-24 09:01 | Day surgery (SDC) | payer OTHER ==
[2019-04-22 16:06] VITALS: BMI 33.2
[2019-04-24 09:20] VITALS: TEMP 97.7
[2019-04-24] MEDS ORDERED: LACTATED RINGERS 1,000 ML IV SCH (09:24)
[2019-04-24 09:51] LABS: Glucose,Whole Blood 101 mg/dL (75-99)
[2019-04-24] MEDS ORDERED: IV FLUID CONTINUATION 600 ML IV ONE (10:32)
--- NOTE | 2019-04-24 10:35 | FL ---
EXAMINATION TYPE: FL guided pain mgmt statistic DATE OF EXAM: 04/24/2019 CLINICAL HISTORY: Low back pain. TECHNIQUE: Fluoroscopy. COMPARISON: None. FINDINGS: Fluoroscopic guidance was provided during pain relief procedure performed by Dr. Duran . A total of 10 seconds of fluoroscopic time was utilized during the procedure and 5 spot images are acqu ired. Images acquired shows needle localization at several levels in the lumbar spine. IMPRESSION: As Above.
--- NOTE | 2019-04-24 10:35 | P.PCN ---
Date of Procedure: 04/24/19 Procedure(s) Performed: PREOPERATIVE DIAGNOSIS: Lumbar radiculopathy POSTOPERATIVE DIAGNOSIS: Lumbar radiculopathy Attending physician: Pat Duran M.D. PROCEDURE 1. Transforaminal epidural steroid injection under fluoroscopic guidance L5-S1 level, right side 2. Lumbar epidurogram ANESTHESIA: Local with 1% lidocaine 3 ml ; IV sedation with Versed and fentanyl , sedation time 10 minutes PROCEDURE INDICATION: The patient with low back pain and radiculopathy symptoms unresponsive to conservative treatment. Fluoroscopy was used for the procedure and fluoroscopic images were saved to the radiology portion of patient's chart. PROCEDURE DESCRIPTION / TECHNIQUE: The patient was seen and identified in the preoperative area. Risks, benefits, complications, and alternatives were discussed with the patient. The patient agreed to proceed with the procedure and signed the consent. IV was started, and vital signs were stable. Patient was taken to the OR and time out was completed. The patient was placed in the prone position on procedure table and a pillow was placed under the abdomen to reduce lumbar lordosis. The lumbosacral area was prepped and draped in the usual sterile fashion. Vital signs were closely monitored during the procedure. Conscious sedation was used. Using oblique fluoroscopy, the chin of the ``Santy dog and the skin and deeper tissues just below was localized with 1% lidocaine. Subsequently, a 22- gauge 3.5-inch spinal needle was advanced under a tunneled view fluoroscopic guidance just underneath the chin of the ``Santy dog . Under lateral fluoroscopy, the needle was then advanced to the posterior border of the foramen. After negative aspiration of CSF and blood and with no paresthesias, 1 mL of Isovue-200 contrast dye was injected under live fluoroscopy and there was no evidence of intravascular injection. The injectate solution consisting of 10 mg of dexamethasone with 1 mL of 1% lidocaine was then delivered. The needle was withdrawn intact. At the end of the procedure, skin was cleansed, and bandages were applied. COMPLICATIONS: None COMMENTS: DISPOSITION / PLANS: The patient was placed in a supine position and transferred to the recovery area in a stable condition for observation. There was no evidence of lower extremity motor or sensory deficit after the procedure. Patient was discharged from the recovery room after meeting discharge criteria. Home discharge instructions were given to the patient by the staff. The patient will follow up in clinic in 2-4 weeks.
[2019-04-24 10:36] VITALS: RESP 18
[2019-04-24 11:11] VITALS: BP 127/86; PULSE 70
== END 2019-04-24 11:10 | disposition home or self-care (01) ==
LOC: ORPAIN 09:01
PROVIDERS: ATTEND Anesthesiology
DX: G89.29 Other chronic pain (principal); M47.26 Other spondylosis with radiculopathy, lumbar region; M48.061 Spinal stenosis, lumbar region without neurogenic claudication; M48.07 Spinal stenosis, lumbosacral region; E66.9 Obesity, unspecified; Z68.33 Body mass index [BMI] 33.0-33.9, adult; F17.200 Nicotine dependence, unspecified, uncomplicated; Z98.890 Other specified postprocedural states
CPT/HCPCS: 64483; J2250; J1100; J3010; Q9966; 99152

== ENCOUNTER 2021-09-05 10:05 | Inpatient (IN) | payer MEDICARE, OTHER ==
[2021-09-05] MEDS ORDERED: KETOROLAC 15 MG/ML 1 ML VIAL IVP STA (10:25)
[2021-09-05] MEDS ORDERED: SODIUM CHLORIDE 0.9% 1,000 ML IV STA (10:30)
--- NOTE | 2021-09-05 10:33 | ED ---
General Adult HPI - General Chief complaint: Extremity Injury, Lower Stated complaint: joint pain Time Seen by Provider: 09/05/21 10:07 Source: patient, EMS, RN notes reviewed Mode of arrival: EMS Limitations: no limitations - History of Present Illness Initial comments: Patient is a pleasant 56-year-old male presenting to the emergency Department with complaints of joint pain. Onset of symptoms was the past few weeks. Patient was diagnosed with COVID-19 infection August 18 and was hospitalized. Patient has had joint pain progressing over the past couple of weeks. Patient did go to his local hospital twice. Patient once got Toradol which helped and the next time Tylenol, which did not. Patient states discomfort waxes and wanes. Discomfort is moderate to severe at this time. Discomfort is mostly bilateral ankles, secondarily bilateral knees, tertiary bilateral wrists. Patient does have history of gout. Patient only previously had gout in his toes. Discomfort does increase with walking and movement. Patient denies history of similar symptoms prior to COVID-19 infection. Patient has not had any recent fevers. No rash. - Related Data Home Medications Medication Instructions Recorded Confirmed Aspirin 81 mg PO DAILY 03/07/18 09/05/21 Tacrolimus [Prograf] 1 mg PO BID 01/15/19 09/05/21 lisinopriL 40 mg PO DAILY 01/15/19 09/05/21 Albuterol Inhaler (Mhu) [Ventolin 2 puff INHALATION RT-Q4H PRN 01/22/19 09/05/21 Hfa Inhaler] ALPRAZolam [Xanax] 0.5 mg PO BID PRN 09/05/21 09/05/21 Allopurinol [Zyloprim] 100 mg PO DAILY 09/05/21 09/05/21 Apixaban [Eliquis] 5 mg PO BID 09/05/21 09/05/21 Chlorthalidone 25 mg PO DAILY 09/05/21 09/05/21 Desvenlafaxine [Pristiq ER] 100 mg PO DAILY 09/05/21 09/05/21 Furosemide [Lasix] 20 mg PO DAILY 09/05/21 09/05/21 Gabapentin 1,600 mg PO HS 09/05/21 09/05/21 Gabapentin 800 mg PO BID@0900,1600 09/05/21 09/05/21 Ketoconazole 2% Cream [Nizoral 2%] 1 applic TOPICAL BID PRN 09/05/21 09/05/21 Magnesium Chloride [Slow-Mag] 128 mg PO BID 09/05/21 09/05/21 Pantoprazole Sodium [Protonix] 40 mg PO DAILY 09/05/21 09/05/21 QUEtiapine FUMARATE [SEROquel] 50 mg PO HS 09/05/21 09/05/21 Allergies Allergy/AdvReac Type Severity Reaction Status Date / Time No Known Allergies Allergy Verified 09/05/21 12:01 Review of Systems ROS Statement: Those systems with pertinent positive or pertinent negative responses have been documented in the HPI. ROS Other: All systems not noted in ROS Statement are negative. Constitutional: Denies: fever Eyes: Denies: eye pain ENT: Denies: ear pain Respiratory: Denies: cough, dyspnea Cardiovascular: Denies: chest pain Endocrine: Reports: fatigue Gastrointestinal: Denies: abdominal pain Genitourinary: Denies: dysuria Musculoskeletal: Reports: as per HPI, arthralgia Skin: Denies: rash, lesions Neurological: Denies: weakness Past Medical History Past Medical History: COPD, Hypertension, Liver Disease, Musculoskeletal Disorder, Pneumonia, Skin Disorder Additional Past Medical History / Comment(s): HX OF LIVER TRANSPLANT (08/2017) , HX OF CIRRHOSIS & HEPATITIS. PEPTIC ULCER, BACK PAIN W/ PAIN RADIATING DOWN RIGHT BUTTOCK/HIP TO LEG, USES CANE PRN. RECENT FUNGAL RASH TO BUTTOCK-healed, USING PO & TOPICAL RX. History of Any Multi-Drug Resistant Organisms: None Reported Past Surgical History: Hernia Repair, Tonsillectomy Additional Past Surgical History / Comment(s): HX OF EPIDURAL INJECTIONS ([facility]), LIVER TRANSPLANT 09/08/17, COLONOSCOPY, EGD, PAIN CLINIC PROCEDURES. INC HERNIA 06/2018. Past Anesthesia/Blood Transfusion Reactions: No Reported Reaction Past Psychological History: Anxiety Smoking Status: Current every day smoker Past Alcohol Use History: None Reported Past Drug Use History: Cocaine, Marijuana - Past Family History Mother Family Medical History: Cancer, Congestive Heart Failure (CHF), Osteoarthritis (OA) Additional Family Medical History / Comment(s): Mother is 83 yrs old. She has had throat cancer. Father Additional Family Medical History / Comment(s): Father is an alcoholic-pt does not know him well. General Exam Limitations: no limitations General appearance: alert, in no apparent distress Head exam: Present: normocephalic Eye exam: Present: normal appearance Neck exam: Present: normal inspection Respiratory exam: Present: normal lung sounds bilaterally Cardiovascular Exam: Present: regular rate, normal rhythm GI/Abdominal exam: Present: soft. Absent: tenderness Extremities exam: Present: normal inspection. Absent: tenderness, joint swel ling Neurological exam: Present: alert Psychiatric exam: Present: normal affect, normal mood Skin exam: Present: normal color. Absent: rash, erythema Course Vital Signs 09/05/21 10:19 Temperature 98.2 F Pulse Rate 87 Respiratory 18 Rate Blood Pressure 126/88 O2 Sat by Pulse 98 Oximetry Medical Decision Making - Medical Decision Making Patient reevaluated and updated. Case discussed with Dr. Brown, who will admit covering hospital call and did come evaluate the patient. - Lab Data Result diagrams: 09/05/21 10:42 09/05/21 10:42 Lab Results 09/05/21 09/05/21 Range/Units 10:42 10:42 WBC 7.2 (3.8-10.6) k/uL RBC 3.40 L (4.30-5.90) m/uL Hgb 12.4 L (13.0-17.5) gm/dL Hct 39.2 (39.0-53.0) % MCV 115.1 H (80.0-100.0) fL MCH 36.5 H (25.0-35.0) pg MCHC 31.7 (31.0-37.0) g/dL RDW 16.2 H (11.5-15.5) % Plt Count 151 (150-450) k/uL MPV 8.3 Neutrophils % 78 % Lymphocytes % 14 % Monocytes % 5 % Eosinophils % 2 % Basophils % 0 % Neutrophils # 5.6 (1.3-7.7) k/uL Lymphocytes # 1.0 (1.0-4.8) k/uL Monocytes # 0.4 (0-1.0) k/uL Eosinophils # 0.1 (0-0.7) k/uL Basophils # 0.0 (0-0.2) k/uL Manual Slide Review Performed Hypochromasia Slight Anisocytosis Slight Macrocytosis Marked A Sodium 136 L (137-145) mmol/L Potassium 4.0 (3.5-5.1) mmol/L Chloride 106 (98-107) mmol/L Carbon Dioxide 27 (22-30) mmol/L Anion Gap 3 mmol/L BUN 59 H (9-20) mg/dL Creatinine 2.71 H (0.66-1.25) mg/dL Est GFR (CKD-EPI)AfAm 29 (>60 ml/min/1.73 sqM) Est GFR (CKD-EPI)NonAf 25 (>60 ml/min/1.73 sqM) Glucose 96 (74-99) mg/dL Uric Acid 13.4 H (3.5-8.5) mg/dL Calcium 8.5 (8.4-10.2) mg/dL Total Bilirubin 0.7 (0.2-1.3) mg/dL AST 19 (17-59) U/L ALT 33 (4-49) U/L Alkaline Phosphatase 60 (38-126) U/L C-Reactive Protein 4.2 H (<1.0) mg/dL Total Protein 5.7 L (6.3-8.2) g/dL Albumin 3.3 L (3.5-5.0) g/dL Disposition Clinical Impression: Polyarthralgia, Acute renal failure (ARF) Disposition: ADMITTED IP TO THIS HOSP Is patient prescribed a controlled substance at d/c from ED?: No Referrals: Jaydon Escalante MD [Primary Care Provider] - 1-2 days Decision Time: 12:16
[2021-09-05 10:57] LABS: Anisocytosis Slight; Basophils % (A) 0 %; Eosinophils # (A) 0.1 k/uL (0-0.7); Eosinophils % (A) 2 %; HCT 39.2 % (39.0-53.0); HGB 12.4 gm/dL (13.0-17.5); Hypochromasia Slight; Lymphocytes % (A) 14 %; MCH 36.5 pg (25.0-35.0); MCHC 31.7 g/dL (31.0-37.0); MCV 115.1 fL (80.0-100.0); Macrocytosis Marked; Mean Platelet Volume 8.3; Monocytes # (A) 0.4 k/uL (0-1.0); Monocytes % (A) 5 %; Neutrophils # (A) 5.6 k/uL (1.3-7.7); Neutrophils % (A) 78 %; Platelet Count 151 k/uL (150-450); RDW 16.2 % (11.5-15.5); WBC 7.2 k/uL (3.8-10.6)
[2021-09-05 11:15] LABS: Albumin 3.3 g/dL (3.5-5.0); C Reactive Protein 4.2 mg/dL (<1.0); Calcium 8.5 mg/dL (8.4-10.2); Total Bilirubin 0.7 mg/dL (0.2-1.3); Total Protein 5.7 g/dL (6.3-8.2); Uric Acid 13.4 mg/dL (3.5-8.5)
[2021-09-05] MEDS ORDERED: NALOXONE 0.4 MG/ML 1 ML VIAL IV PRN (12:17)
[2021-09-05] MEDS: MORPHINE SULFATE 4 MG/ML SYRINGE IV PRN ×3 (13:06→21:27)
[2021-09-05] MEDS ORDERED: ALPRAZolam 0.5 MG TAB PO PRN (13:07)
[2021-09-05] MEDS ORDERED: CLOTRIMAZOLE 1% CREAM 30 GM TUBE TOPICAL PRN (13:07)
[2021-09-05] MEDS ORDERED: traMADol 50 MG TAB PO PRN (13:07)
[2021-09-05] MEDS: SODIUM CHLORIDE 0.9% 1,000 ML IV SCH (13:08)
--- NOTE | 2021-09-05 13:18 | P.HPIM ---
History of Present Illness Patient is a 56-year-old male came in with the joint pains in both ankles and both knees, does have history of gout usually involves just the great toes. Patient was discharged from [facility] after he was treated for COVID- 19 pneumonia which was diagnosed on August 18. Patient also had a pulmonary embolism and is presently on Eliquis 5 mg twice a day. Patient is also found to have acute renal failure with creatinine going up to 2.71 baseline creatinine within normal limits around 0.8. Patient is on multiple medications that can affect the kidney including chlorthalidone Lasix Protonix, lisinopril. Patient denied any nausea vomiting diarrhea. She does smoke half pack of service for a had history of liver transplant for which patient is on tacrolimus REVIEW OF SYSTEMS: CONSTITUTIONAL: No fever, no malaise, no fatigue. HEENT: No recent visual problems or hearing problems. Denied any sore throat. CARDIOVASCULAR: No chest pain, orthopnea, PND, no palpitations, no syncope. PULMONARY: No shortness of breath, no cough, no hemoptysis. GASTROINTESTINAL: No diarrhea, no nausea, no vomiting, no abdominal pain. NEUROLOGICAL: No headaches, no weakness, no numbness. HEMATOLOGICAL: Denies any bleeding or petechiae. GENITOURINARY: Denies any burning micturition, frequency, or urgency. MUSCULOSKELETAL/RHEUMATOLOGICAL: As mentioned in HPI ENDOCRINE: Denies any polyuria or polydipsia. The rest of the 14-point review of systems is negative. PHYSICAL EXAMINATION: GENERAL: The patient is alert and oriented x3, not in any acute distress. Well developed, well nourished. HEENT: Pupils are round and equally reacting to light. EOMI. No scleral icterus. No conjunctival pallor. Normocephalic, atraumatic. No pharyngeal erythema. No thyromegaly. CARDIOVASCULAR: S1 and S2 present. No murmurs, rubs, or gallops. PULMONARY: Chest is clear to auscultation, no wheezing or crackles. ABDOMEN: Soft, nontender, nondistended, normoactive bowel sounds. No palpable organomegaly. MUSCULOSKELETAL: No joint swelling or deformity. EXTREMITIES: No cyanosis, clubbing, or pedal edema. NEUROLOGICAL: Gross neurological examination did not reveal any focal deficits. SKIN: No rashes. Assessment and plan -Oligo arthralgia: Etiology is not clear since his bilateral probably not gout. We will obtain x-rays of bilateral knees and ankles along with a in a and rheumatoid factor. Possibly artery mean arthralgia secondary to recent COVID-19 infection. Unfortunately patient cannot be started on any anti-intermittent medications patient will be started on prednisone 20 mg twice a day oral. We'll also is tramadol for pain. -acute renal failure: bun- creatinine ratios consistent with prerenal azotemia p atient will be started on iv fluids. patient is on multiple medications that can affect the kidney all of which will be held. gabapentin will be held as well. can't related to medications and the diuretics. -COPD with acute exacerbation patient was started on systemic steroids for above-mentioned reasons will also start him on inhalational treatments. - liver transplant had history of hepatitis in the past continue with tacrolimus ordered magnesium levels -Recent pulmonary embolism considering her renal dysfunction uncontrolled on the dose of Eliquis to 2.5 mg twice a day -Depression -Past esophageal reflux disease for which I'll start him on Pepcid -Hypertension: Lisinopril is being held because of her kidney dysfunction -Nicotine use smokes about half pack of cigarettes per day: Counseling was provided regarding this DVT prophylaxis: Patient is on Eliquis Past Medical History Past Medical History: COPD, Hypertension, Liver Disease, Musculoskeletal Disorder, Pneumonia, Skin Disorder Additional Past Medical History / Comment(s): HX OF LIVER TRANSPLANT (08/2017) , HX OF CIRRHOSIS & HEPATITIS. PEPTIC ULCER, BACK PAIN W/ PAIN RADIATING DOWN RIGHT BUTTOCK/HIP TO LEG, USES CANE PRN. RECENT FUNGAL RASH TO BUTTOCK-healed, USING PO & TOPICAL RX. History of Any Multi-Drug Resistant Organisms: None Reported Past Surgical History: Hernia Repair, Tonsillectomy Additional Past Surgical History / Comment(s): HX OF EPIDURAL INJECTIONS ([facility]), LIVER TRANSPLANT 09/08/17, COLONOSCOPY, EGD, PAIN CLINIC PROCEDURES. INC HERNIA 06/2018. Past Anesthesia/Blood Transfusion Reactions: No Reported Reaction Past Psychological History: Anxiety Smoking Status: Current every day smoker Past Alcohol Use History: None Reported Past Drug Use History: Cocaine, Marijuana - Past Family History Mother Family Medical History: Cancer, Congestive Heart Failure (CHF), Osteoarthritis (OA) Additional Family Medical History / Comment(s): Mother is 83 yrs old. She has had throat cancer. Father Additional Family Medical History / Comment(s): Father is an alcoholic-pt does not know him well. Medications and Allergies Home Medications Medication Instructions Recorded Confirmed Type Aspirin 81 mg PO DAILY 03/07/18 09/05/21 History Tacrolimus [Prograf] 1 mg PO BID 01/15/19 09/05/21 History lisinopriL 40 mg PO DAILY 01/15/19 09/05/21 History Albuterol Inhaler (Mhu) [Ventolin 2 puff INHALATION RT-Q4H PRN 01/22/19 09/05/21 History Hfa Inhaler] ALPRAZolam [Xanax] 0.5 mg PO BID PRN 09/05/21 09/05/21 History Allopurinol [Zyloprim] 100 mg PO DAILY 09/05/21 09/05/21 History Apixaban [Eliquis] 5 mg PO BID 09/05/21 09/05/21 History Chlorthalidone 25 mg PO DAILY 09/05/21 09/05/21 History Desvenlafaxine [Pristiq ER] 100 mg PO DAILY 09/05/21 09/05/21 History Furosemide [Lasix] 20 mg PO DAILY 09/05/21 09/05/21 History Gabapentin 1,600 mg PO HS 09/05/21 09/05/21 History Gabapentin 800 mg PO BID@0900,1600 09/05/21 09/05/21 History Ketoconazole 2% Cream [Nizoral 2%] 1 applic TOPICAL BID PRN 09/05/21 09/05/21 History Magnesium Chloride [Slow-Mag] 128 mg PO BID 09/05/21 09/05/21 History Pantoprazole Sodium [Protonix] 40 mg PO DAILY 09/05/21 09/05/21 History QUEtiapine FUMARATE [SEROquel] 50 mg PO HS 09/05/21 09/05/21 History Allergies Allergy/AdvReac Type Severity Reaction Status Date / Time No Known Allergies Allergy Verified 09/05/21 12:01 Physical Exam Vitals: Vital Signs Temp Pulse Resp BP Pulse Ox 09/05/21 10:19 98.2 F 87 18 126/88 98 Intake and Output 09/04/21 09/05/21 09/05/21 22:59 06:59 14:59 Other: Weight 111.13 kg Results CBC & Chem 7: 09/05/21 10:42 09/05/21 10:42 Labs: Abnormal Lab Results - Last 24 Hours (Table) 09/05/21 09/05/21 Range/Units 10:42 10:42 RBC 3.40 L (4.30-5.90) m/uL Hgb 12.4 L (13.0-17.5) gm/dL MCV 115.1 H (80.0-100.0) fL MCH 36.5 H (25.0-35.0) pg RDW 16.2 H (11.5-15.5) % Macrocytosis Marked A Sodium 136 L (137-145) mmol/L BUN 59 H (9-20) mg/dL Creatinine 2.71 H (0.66-1.25) mg/dL Uric Acid 13.4 H (3.5-8.5) mg/dL C-Reactive Protein 4.2 H (<1.0) mg/dL Total Protein 5.7 L (6.3-8.2) g/dL Albumin 3.3 L (3.5-5.0) g/dL
--- NOTE | 2021-09-05 14:05 | XR ---
EXAMINATION TYPE: XR knee complete bilateral DATE OF EXAM: 09/05/2021 CLINICAL HISTORY: Pain. TECHNIQUE: Three views of the bilateral knees are obtained. COMPARISON: None. FINDINGS: There is no acute fracture/dislocation evident in either knee. Mild to moderate narrowing medial and lateral tibiofemoral compartments bilaterally. Patellofemoral compartments appear within n ormal limits. No significant spurring is seen. No significant suprapatellar joint effusions. Overlyin g clothing or blanket material is present bilaterally. IMPRESSION: As above.
--- NOTE | 2021-09-05 14:11 | XR ---
EXAMINATION TYPE: XR ankle complete bilateral DATE OF EXAM: 09/05/2021 CLINICAL HISTORY: Knee pain TECHNIQUE: Frontal, lateral and oblique images of the left and right ankle are obtained. COMPARISON: None. FINDINGS: There is no acute fracture/dislocation evident in the left or right ankle. The ankle mort ises appears within normal limits. The overlying soft tissue appears unremarkable. Tiny ossific fragment at the distal aspect of the left lateral malleolus likely relates to old trauma . IMPRESSION: There is no acute fracture or dislocation in the left or right ankle.
[2021-09-05] MEDS: FAMOTIDINE 20 MG TAB PO SCH (16:12)
[2021-09-05] MEDS: NYSTATIN 100,000 UNIT/ML SUSP 500,000 UNIT/5 ML CUP PO SCH ×3 (16:12→22:37)
[2021-09-05 17:01] LABS: Glucose,Whole Blood 102 mg/dL (75-99)
[2021-09-05] MEDS: ALBUTEROL NEBULIZED 2.5 MG/3 ML INHALATION PRN (20:01)
[2021-09-05] MEDS: BUDESONIDE 0.5 MG/2 ML NEBU INHALATION SCH (20:01)
[2021-09-05 20:23] LABS: Glucose,Whole Blood 114 mg/dL (75-99)
[2021-09-05] MEDS: TACROLIMUS 1 MG CAP PO SCH (20:30)
[2021-09-05] MEDS: predniSONE 20 MG TAB PO SCH (20:30)
[2021-09-05] MEDS: APIXABAN 2.5 MG TABLET PO SCH (20:30)
[2021-09-05] MEDS ORDERED: QUEtiapine 50 MG TAB PO SCH (21:00)
[2021-09-06] MEDS: NYSTATIN 100,000 UNIT/ML SUSP 500,000 UNIT/5 ML CUP PO SCH ×3 (01:44→11:04)
[2021-09-06] MEDS: MORPHINE SULFATE 4 MG/ML SYRINGE IV PRN ×4 (01:44→13:56)
[2021-09-06] MEDS: SODIUM CHLORIDE 0.9% 1,000 ML IV SCH ×2 (02:55→15:12)
[2021-09-06] MEDS: FAMOTIDINE 20 MG TAB PO SCH (07:34)
[2021-09-06] MEDS: APIXABAN 2.5 MG TABLET PO SCH (07:34)
[2021-09-06] MEDS: TACROLIMUS 1 MG CAP PO SCH (07:34)
[2021-09-06] MEDS: predniSONE 20 MG TAB PO SCH (07:34)
[2021-09-06 07:38] VITALS: BP 125/64; RESP 12; TEMP 97.6
[2021-09-06] MEDS: ALBUTEROL NEBULIZED 2.5 MG/3 ML INHALATION PRN ×2 (07:59→11:38)
[2021-09-06] MEDS: BUDESONIDE 0.5 MG/2 ML NEBU INHALATION SCH (07:59)
[2021-09-06] MEDS ORDERED: ASPIRIN 81 MG PO SCH (09:00)
[2021-09-06] MEDS ORDERED: DESVENLAFAXINE SUCCINATE 50 MG TAB.ER.24H PO SCH (09:00)
[2021-09-06 09:10] LABS: African American GFR (CKD) 35.5 (60.0-200.0); BUN/Creat Ratio 23.61 Ratio (12.00-20.00); Blood Urea Nitrogen 54.3 mg/dL (9.0-27.0); Calcium 8.2 mg/dL (8.7-10.3); Magnesium 2.4 mg/dL (1.5-2.4); Non-African American GFR(CKD) 30.6 (60.0-200.0); Potassium 5.2 mmol/L (3.5-5.5)
[2021-09-06 11:49] VITALS: PULSE 92
[2021-09-06 12:02] LABS: HCT 35.2 % (39.6-50.0); HGB 11.3 g/dL (13.0-17.0); MCH 36.1 pg (27.0-32.0); MCHC 32.1 g/dL (32.0-37.0); MCV 112.5 fL (80.0-97.0); Mean Platelet Volume 11.8 fL (9.5-12.2); NRBC Per 100 WBC 0 /100 WBCS (0.0-0.0); Platelet Count 142 X 10*3/uL (140-440); RBC 3.13 X 10*6/uL (4.40-5.60); RDW 14.7 % (11.5-14.5); WBC 6.85 X 10*3/uL (4.50-10.00)
[2021-09-06 14:06] LABS: Basophils # (A) 0 X 10*3/uL (0.00-0.10); Basophils % (A) 0 %; Eosinophils # (A) 0.05 X 10*3/uL (0.04-0.35); Eosinophils % (A) 0.7 %; Immature Grans, Automated 0.6 %; Lymphocytes % (A) 7.3 %; Macrocytosis (M) 3+; Monocytes # (A) 0.31 X 10*3/uL (0.20-1.00); Monocytes % (A) 4.5 %; Neutrophils # (A) 5.95 X 10*3/uL (1.80-7.70); Neutrophils % (A) 86.9 %
--- NOTE | 2021-09-07 10:21 | P.DS ---
Providers Date of admission: 09/05/21 12:31 Expected date of discharge: 09/06/21 Attending physician: Dexter Brown Primary care physician: Jaydon Escalante [facility] Hospital Course: Final diagnosis -polyarthralgia: Etiology is not clear since his bilateral probably not gout. -acute renal failure: consistent with prerenal azotemia most likely secondary to diuretics and lisinopril which will be held, improving and recommend outpatient follow-up labs -COPD with acute exacerbation -Recent Covid 19 pneumonia -liver transplant had history of hepatitis in the past continue with tacrolimus -Recent pulmonary embolism considering her renal dysfunction uncontrolled on the dose of Eliquis to 2.5 mg twice a day -Depression -Gastroesophageal reflux disease -Hypertension -Continued ongoing Nicotine use, Counseling was provided regarding this -DVT prophylaxis Discharge disposition Patient is being discharged in a stable condition with guarded prognosis to home. Patient will follow-up with Dr. Jaydon Escalante in the outpatient [facility] g upon discharge. Patient is to also follow up with rheumatology Dr. Foster. Patient will continue a prednisone taper along with nystatin swish and swallow. Total time taken is greater than 35 minutes. Hospital course This is a 56-year-old male who was recently admitted with bilateral ankle and knee pain with history of gout that involves the great toes and recent Covid 19 pneumonia. Patient also was found to have a pulmonary embolism and is maintained on anticoagulant Eliquis and will continue. Patient was found to be in acute renal failure and is improving and recommend repeat labs in the next few days with close outpatient follow-up with primary care provider on discharge. Patient instructed to hold chlorthalidone Lasix and lisinopril until follow-up as well. Patient is requesting to go home today. ESR mildly elevated at 30 and patient encouraged and given resources to follow-up with rheumatology in the outpatient setting. A prednisone taper on discharge. Currently no reports of chest pain, shortness of breath, or palpitations. Patient is afebrile. No reports of nausea or vomiting and patient is tolerating diet. Patient will be discharged to home today. PHYSICAL EXAMINATION: GENERAL: The patient is alert and oriented x3, not in any acute distress. Well developed, well nourished. HEENT: Pupils are round and equally reacting to light. EOMI. No scleral icterus. No conjunctival pallor. Normocephalic, atraumatic. No pharyngeal erythema. No thyromegaly. CARDIOVASCULAR: S1 and S2 present. No murmurs, rubs, or gallops. PULMONARY: Diminished breath sounds bilaterally with no wheezing or rhonchi noted. No use of accessory muscles noted on exam. ABDOMEN: Soft, obese, nontender, nondistended, normoactive bowel sounds. No palpable organomegaly. MUSCULOSKELETAL: No joint swelling or deformity. EXTREMITIES: No cyanosis, clubbing, or pedal edema. NEUROLOGICAL: Gross neurological examination did not reveal any focal deficits. SKIN: No rashes. Please refer to medication reconciliation sheet for a list of medications. Patient Condition at Discharge: Fair Plan - Discharge Summary New Discharge Prescriptions: New Gabapentin [Neurontin] 100 mg PO TID #9 cap predniSONE 10 mg PO DIRECTED #30 tab traMADol HCl [Ultram] 50 mg PO QID PRN #12 tab PRN Reason: Pain/Discomfort Nystatin 100,000 Unit/ml Susp [Mycostatin Oral Susp] 500,000 unit PO QID 7 Days #140 ml Budesonide-Formot 160-4.5 Mcg [Symbicort 160-4.5 Mcg Inhaler] 2 puff INHALATION BID 30 Days #10.2 gm Continue Aspirin 81 mg PO DAILY Tacrolimus [Prograf] 1 mg PO BID Albuterol Inhaler (Mhu) [Ventolin Hfa Inhaler (Mhu)] 2 puff INHALATION RT-Q4H PRN PRN Reason: Shortness Of Breath Magnesium Chloride [Slow-Mag] 128 mg PO BID ALPRAZolam [Xanax] 0.5 mg PO BID PRN PRN Reason: Anxiety QUEtiapine FUMARATE [SEROquel] 50 mg PO HS Allopurinol [Zyloprim] 100 mg PO DAILY Desvenlafaxine [Pristiq ER] 100 mg PO DAILY Pantoprazole Sodium [Protonix] 40 mg PO DAILY Ketoconazole 2% Cream [Nizoral 2%] 1 applic TOPICAL BID PRN PRN Reason: Skin Irritation Changed Apixaban [Eliquis] 2.5 mg PO BID #0 Discontinued lisinopriL 40 mg PO DAILY Gabapentin 800 mg PO BID@0900,1600 Chlorthalidone 25 mg PO DAILY Furosemide [Lasix] 20 mg PO DAILY Gabapentin 1,600 mg PO HS Discharge Medication List Aspirin 81 mg PO DAILY 03/07/18 [History] Tacrolimus [Prograf] 1 mg PO BID 01/15/19 [History] Albuterol Inhaler (Mhu) [Ventolin Hfa Inhaler (Mhu)] 2 puff INHALATION RT-Q4H PRN 01/22/19 [History] ALPRAZolam [Xanax] 0.5 mg PO BID PRN 09/05/21 [History] Allopurinol [Zyloprim] 100 mg PO DAILY 09/05/21 [History] Desvenlafaxine [Pristiq ER] 100 mg PO DAILY 09/05/21 [History] Ketoconazole 2% Cream [Nizoral 2%] 1 applic TOPICAL BID PRN 09/05/21 [History] Magnesium Chloride [Slow-Mag] 128 mg PO BID 09/05/21 [History] Pantoprazole Sodium [Protonix] 40 mg PO DAILY 09/05/21 [History] QUEtiapine FUMARATE [SEROquel] 50 mg PO HS 09/05/21 [History] Apixaban [Eliquis] 2.5 mg PO BID #0 09/06/21 [Rx] Budesonide-Formot 160-4.5 Mcg [Symbicort 160-4.5 Mcg Inhaler] 2 puff INHALATION BID 30 Days #10.2 gm 09/06/21 [Rx] Gabapentin [Neurontin] 100 mg PO TID #9 cap 09/06/21 [Rx] Nystatin 100,000 Unit/ml Susp [Mycostatin Oral Susp] 500,000 unit PO QID 7 Days #140 ml 09/06/21 [Rx] predniSONE 10 mg PO DIRECTED #30 tab 09/06/21 [Rx] traMADol HCl [Ultram] 50 mg PO QID PRN #12 tab 09/06/21 [Rx] Follow up Appointment(s)/Referral(s): Lauren Foster MD [STAFF PHYSICIAN] - 1 Week Jaydon Escalante MD [Primary Care Provider] - 1-2 days Ambulatory/Diagnostic Orders: Complete Blood Count w/diff [LAB.AMB] Time Frame: 3 Days, Location: None Selected Patient Instructions/Handouts: Acute Kidney Injury (DC) Activity/Diet/Wound Care/Special Instructions: Activity limited until follow up follow up with primary care provider on discharge repeat labs in 2-3 days 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
== END 2021-09-06 15:42 | disposition home or self-care (01) | DRG 554 ==
LOC: EC 10:05 → 6NMEDSUR 12:31 → OBSVTOIN 09-06 10:45
PROVIDERS: ADMIT Internal Medicine; ATTEND Internal Medicine
DX: M17.0 Bilateral primary osteoarthritis of knee (principal); J44.1 Chronic obstructive pulmonary disease with (acute) exacerbation; N17.9 Acute kidney failure, unspecified; Z94.4 Liver transplant status; Z20.822 Contact with and (suspected) exposure to COVID-19; Z86.16 Personal history of COVID-19; M19.072 Primary osteoarthritis, left ankle and foot; M19.071 Primary osteoarthritis, right ankle and foot; F17.210 Nicotine dependence, cigarettes, uncomplicated; T50.2X5A Adverse effect of carbonic-anhydrase inhibitors, benzothiadiazides and other diuretics, initial encounter; F32.A Depression, unspecified; Z87.11 Personal history of peptic ulcer disease; F41.9 Anxiety disorder, unspecified; I10 Essential (primary) hypertension; K21.9 Gastro-esophageal reflux disease without esophagitis; K74.60 Unspecified cirrhosis of liver; Z79.01 Long term (current) use of anticoagulants; Z79.82 Long term (current) use of aspirin; Z79.899 Other long term (current) drug therapy; Z80.8 Family history of malignant neoplasm of other organs or systems; Z81.1 Family history of alcohol abuse and dependence; Z82.49 Family history of ischemic heart disease and other diseases of the circulatory system; Z86.711 Personal history of pulmonary embolism; Z87.01 Personal history of pneumonia (recurrent)
CPT/HCPCS: 36415; 80048; 80053; 83735; 84550; 85025; 85652; 86038; 86140; 86431; 87040; 87635; 94640; 96361; 96374; 99284